=== PATIENT | male | born 1945 | race Caucasian/White ===

== ENCOUNTER 2020-03-15 12:10 | Outpatient (REF) | payer MEDICARE, SELFPAY | END 2020-03-15 12:11 | disposition home or self-care (01) | LOC: HO.LAB 12:10 | PROVIDERS: Visit Provider Nurse Practitioner Family | DX: J02.9 Acute pharyngitis, unspecified (principal); Z20.828 Contact with and (suspected) exposure to other viral communicable diseases | CPT/HCPCS: U0003 ==

== ENCOUNTER 2020-07-15 14:16 | Emergency (ER) | payer MEDICARE, SELFPAY ==
--- NOTE | ~2020-07-15 | CT_ITS ---
EXAMINATION: CT ANGIOGRAM NECK WITH CONTRAST CT ANGIOGRAM BRAIN WITH CONTRAST CLINICAL INFORMATION: Dizziness. Abnormal gait. COMPARISON: Brain MRI 01/08/2019. TECHNIQUE: Test bolus sequences followed by intravenous administration 70 mL of Omnipaque 350. Helical imaging was performed in the axial plane from the thoracic inlet to the skull vertex. Delayed postcontrast imaging of the head was also performed. The data was processed at the development technologist workstation for generation of MIP sequences. Angled MIPs and volume rendered reformatted images were also generated at an offline 3D workstation. Stenoses are assessed in accordance with NASCET criteria unless otherwise indicated. This CT examination was performed using dose optimization techniques as appropriate, variously including the following: *Automated exposure control *Adjustment of mA and/or kV according to patient size (this includes techniques or standardized protocols for targeted exams where dose is matched to indication/reason for exam; i.e. extremities or head) *Use of iterative reconstruction technique DLP: 2281 mGy-cm FINDINGS: Head CT: There is redemonstration of multiple chronic infarcts in the bilateral right more than left frontal lobes, bilateral parietal lobes, and right more than left occipital lobes. Chronic right basal ganglia and right cerebellar lacunar infarcts are also present. No definite acute tentorial infarction is seen. Background changes of chronic microangiopathy are noted. No abnormal enhancement is seen on the postcontrast images. The dural venous sinuses are normally opacified. Neck CTA: Atheromatous changes are seen involving the aortic arch and great vessels without high-grade narrowing. Atheromatous changes are seen at the bilateral carotid bifurcations resulting in less than 50% stenosis of the internal carotid arteries. Severe atheromatous changes are seen at the carotid siphons resulting in mild to moderate stenosis of the right paraclinoid segment and mild stenosis of the left paraclinoid segment. The bilateral vertebral arteries are patent. Head CTA: No proximal vessel occlusion is seen. The intradural vertebral arteries and basilar artery are patent. There is -type origin of the left RESEARCH ANALYST. Both lye bath operator are patent. No high-grade stenosis or occlusion is seen. There is no definite aneurysm. Non-vascular findings: A 1.1 cm hyperenhancing lesion is seen within the deep aspect of the left parotid gland. The cervical soft tissues are otherwise within normal limits. Emphysema is present in the upper lungs. There are multilevel degenerative spondylotic changes in the setting of prior multilevel ACDF. CT/CT angio head neck IMPRESSION: Sequela of numerous cortical infarctions seen bilaterally in the supratentorial and infratentorial compartments. Consider brain MRI for dedicated evaluation for any acute ischemic changes. No proximal vessel occlusion or high-grade stenosis within the major head or neck arteries. Incidentally noted 1.1 cm lesion in the left parotid gland which may represent a Warthin's tumor or other epithelial lesion for which nonemergent ENT follow-up is suggested.
[2020-07-15 14:47] VITALS: BP 125/67; PULSE 74; RESP 20; O2SAT 98; BMI 24.2
[2020-07-15 15:52] LABS: MANUAL DIFF FLAG NO
[2020-07-15 15:55] LABS: Basophils Percent Auto 0.4 % (0-2); Eosinophils Absolute Auto 0.1 X10*3/uL (0.0-0.4); Eosinophils Percent Auto 2.1 % (0-4); Hematocrit 48.2 % (42-52); Hemoglobin 15.5 g/dl (14.0-18.0); Imm Gran Abs Auto 0.02 X10*3/uL (0.00-0.03); Imm Gran Pct Auto 0.3 % (0.0-0.4); Lymphocytes Absolute Auto 1.9 X10*3/uL (1.2-4.9); Lymphocytes Percent Auto 28.9 % (20-40); Mean Corpuscular HGB Conc 32.2 g/dl (31.0-36.0); Mean Corpuscular Volume 93.4 fL (80-98); Mean Platelet Volume 10.5 fL (9.4-12.4); Monocytes Absolute Auto 0.4 X10*3/uL (0.1-1.2); Monocytes Percent Auto 5.2 % (2-11); Neutrophils Absolute Auto 4.2 X10*3/uL (2.0-8.3); Neutrophils Percent Auto 63.1 % (45-73); Platelet Count 155 X10*3/uL (160-400); Red Blood Count 5.16 X10*6/uL (4.60-5.80); Red Cell Distribution Width 13.1 % (11.0-16.0); White Blood Count 6.7 X10*3/uL (4.8-10.8)
[2020-07-15 16:38] LABS: Blood Urea Nitrogen 20 mg/dL (9-16); Calcium 8.9 mg/dL (8.4-10.2); Creatinine Clr Calc Pharmacy 58.7; Estimated Glomerular Filt Rate > 60; Glucose Random 129 mg/dL (60-115)
[2020-07-15 16:48] LABS: Anion Gap 12 (12-20); Carbon Dioxide 26 mmol/L (22-29); Chloride 107 mmol/L (96-108); Potassium 4.1 mmol/L (3.3-5.1); Sodium 141 mmol/L (135-145)
[2020-07-15 16:51] VITALS: BP 119/61; PULSE 65; RESP 16; TEMP 36.6; O2SAT 96
--- NOTE | 2020-07-15 17:10 | ED_ITS ---
HPI - Dizziness General Chief Complaint: Dizziness Stated Complaint: Dizziness Time Seen by Provider: 07/15/20 17:05 Source: patient and family Mode of arrival: ambulatory Limitations: no limitations History of Present Illness HPI Narrative: 74-year-old male with past history of arthritis, coronary artery disease, diverticulitis, hyperlipidemia, TIA/CVA, triple bypass right hip replacement, and cervical disc neck surgery presents with approximately 1 month of dizziness and loss of balance. States the dizziness gets worse on ambulation, he has had to hold onto items to walk, particularly in the morning. He does notice that when he walks or does any physical activity he hears a swishing sound in his ear. He does not describe any chest pain or pressure, changes in vision, falls, weakness, fevers, chills, palpitations, shortness breath, shortness breath on exertion, edema, cough, abdominal pain, abdominal distention, dysuria, hematuria, diarrhea, constipation, melena, or hematochezia. MD elicited complaint: dizziness, difficulty walking and disequilibrium Pertinent past history: stroke Onset (ago): month(s) (1) Timing: gradual onset Severity: moderate Description: sense of movement, off-balance and difficulty walking History of similar symptoms: Yes Exacerbating factors: movement/ambulation, change in body position and exertion Relieving factors: nothing Associated symptoms: ear discomfort and tinnitus Associated neuro symptoms: gait ataxia Related Data Home Medications Medication Instructions Recorded Confirmed aspirin 81 mg tablet,delayed 81 mg PO DAILY 01/12/20 06/14/20 release atorvastatin 80 mg tablet 80 mg PO DAILY 01/12/20 06/14/20 fluticasone propionate 50 1 spray INTRANASAL DAILY 01/12/20 06/14/20 mcg/actuation nasal spray,suspension ipratropium 0.5 mg-albuterol 3 mg 3 ml INHALATION Q6H PRN 01/12/20 06/14/20 (2.5 mg base)/3 mL nebulization soln lisinopril 10 mg tablet 10 mg PO DAILY 01/12/20 06/14/20 nebulizers #1 ea 01/12/20 06/14/20 Previous Rx's Medication Instructions Recorded metoprolol succinate 25 mg 25 mg PO DAILY #30 tab 03/15/20 tablet,extended release 24 hr sertraline 100 mg tablet 100 mg PO DAILY #30 tab 04/11/20 cetirizine 10 mg tablet 10 mg PO DAILY 90 Days #90 tab 04/26/20 metoprolol succinate 25 mg 25 mg PO DAILY 90 Days #90 tab 04/26/20 tablet,extended release 24 hr meclizine 25 mg PO BID PRN #30 tab 07/15/20 Allergies Allergy/AdvReac Type Severity Reaction Status Date / Time No Known Allergies Allergy Unverified 06/14/20 11:02 Review of Systems Review of Systems: Constitutional: Positive dizziness, No Weight loss, No Fever, No Chills, No Night Sweats, No Fatigue, No Malaise ENT/Mouth: Positive tinnitus, No Hearing loss, No Ear Pain, No Nasal Congestion, No Sinus Pain, No Hoarseness, No sore throat, No Rhinorrhea, No Swallowing Difficulty Eyes: No Eye Pain, No Swelling, No Redness, No Foreign Body, No Discharge, No Vision Changes Cardiovascular: No Chest Pain, No SOB, No Dyspnea on Exertion, No Orthopnea, No Edema, No Palpitations Respiratory: No Cough, No Sputum, No Wheezing, No Smoke Exposure, No Dyspnea Gastrointestinal: Positive Nausea, Positive Vomiting, positive Diarrhea, positive abdominal Pain, No Hematochezia, No Melena Genitourinary: no irregular bleeding, No Dysuria, No Urinary Frequency, No Hematuria, No Urinary Incontinence, No Urgency, No Flank Pain, No Urinary Flow Changes, No Hesitancy Musculoskeletal: No joint pain, No Myalgias, No Joint Swelling Skin: No Skin Lesions, No rash Neuro: Positive ataxia, positive dizziness, No Weakness, No Numbness, No Paresthesias, No Loss of Consciousness, No Headache Psych: No Anxiety/Panic, No Depression, No SI/HI/AH/VH, No Social Issues Heme/Lymph: No Bruising, No Bleeding,No Lymphadenopathy Endocrine: No Polyuria, No Polydipsia, No Temperature Intolerance Yes all other systems are reviewed and are negative [facility] Past Medical History Attestation statement: The following information was validated with the patient. Source: old records reviewed Medical History Anemia Atherosclerosis Carotid stenosis Cerebrovascular disease Cervical radiculopathy Coronary artery disease CVA (cerebral vascular accident) Depression Dyslipidemia Hematuria Left pontine CVA Osteoarthritis of right hip PVD (peripheral vascular disease) Rectal bleeding Toenail deformity Tremor Vertigo Surgical History History of revision of total hip arthroplasty Hx of CABG Status post shoulder surgery Family History Family History Father Abdominal aneurysm Social History Social History Alcohol intake: never Tobacco Type: Cigar Advance Directives: No Advance Directives Information Provided: No Physical Exam Vital Signs: Vital Signs: Last Vital Signs Temp 97.9 F 07/15/20 16:51 Pulse 81 07/15/20 20:26 Resp 16 07/15/20 16:51 BP 154/78 H 07/15/20 20:26 Pulse Ox 96 07/15/20 16:51 Body Mass Index 24.2 Appearance: Alert. Oriented X3. No acute distress. Head: Normal external exam. Normocephalic. Atraumatic. No Bautista signs noted. No raccoon eyes noted Eyes: PERRLA. EOMI. Conjunctiva and sclera normal. Eyelids normal. ENT: TM's Normal. Pharynx normal. Uvula midline. Moist mucous membranes. No trismus noted. No drooling noted. No muffled voice noted. Neck: Normal inspection. Neck supple. No adenopathy. No meningeal signs. No neck mass noted. CVS: Normal heart rate and rhythm. Heart sound normal. No murmurs noted. Pulses equal to all extremities. Respiratory: No respiratory distress. Painless inspiration. Breath sounds normal. No wheezes/rales/rhonchi noted. Chest nontender. No accessory muscle usage noted or decreased air movement noted. Abdomen: Soft and nontender. Bowel sounds normal in all 4 quadrants. No distention noted. No organomegaly noted. No visible injury noted. Back: No CVA tenderness. Full range of motion noted. Skin: Skin warm and dry. Normal skin color. Normal skin turgor. No rashes/lesions/lacerations noted. Extremities: No lower extremity edema. Extremities exhibit normal range of motion. Extremities nontender. Neuro: cranial nerves 2-12 intact, no focal neural deficits, strength 5/5 to all extremities, No motor deficit. No sensory deficit. Reflexes normal. NIH Stroke Scale Internal: Initial- Upon Arrival Level of Consciousness: Alert Level of Consciousness Questions: Answers both questions correctly Level of Consciousness Commands: Performs both tasks correctly Best Gaze: Normal Visual: No visual loss Facial Palsy: Normal Motor Arm (Right): No drift Motor Arm (Left): No drift Motor Leg (Right): No drift Motor Leg (Left): No drift Limb Ataxia: Absent Sensory: Normal Best Language: No aphasia Dysarthia: Normal Extinction and Inattention: No abnormality Score: 0 Course Course Course Narrative: 74-year-old male with past history of arthritis, coronary artery disease, diverticulitis, hyperlipidemia, TIA/CVA, triple bypass right hip replacement, and cervical disc neck surgery presents with approximately 1 month of dizziness and loss of balance. NIH stroke scale is 0, will order CT angio of head and neck, rule out ACS, CBC, Chem 7, troponins, PT INR. Will give L normal saline as patient will have IV contrast. 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 Chronic bilateral cerebral infarcts noted again. Chronic lacunar infarcts within the right cerebellum. 7:58 p.m. discussion with Radiology regarding findings, based on prior studies findings of infarct are consistent with prior studies. MRI can be done on outpatient basis. Discussion with Dr. Rooney, will call out to neurology for consult. 8:20 p[address] discussion with Neurology. Dr Hidalgo, which happens to be the patient's neurologist, feels that the findings are chronic, no need for acute i ntervention or emergent MRI at this time. The patient can be followed up in the office. Will give a prescription for meclizine. Orthostatics are negative. A detailed description of discussion with neurologist with patient and patient's family. They both agree with Neurology recommendation, understands that if any exacerbating symptoms were to occur that they should return to the emergency dep artment immediately. MDM - Dizziness Differential Diagnosis Differential diagnosis: Likely benign paroxysmal positional vertigo, orthostatic hypotension, cerebrovascular accident and transient cerebral ischemia Medical Records Attestation: I reviewed the patient's medical records. Lab Data Attestation: I reviewed the patient's lab results. Result diagrams: 07/15/20 15:37 07/15/20 15:37 Labs: Lab Results 04/09/21 04/09/21 04/09/21 Range/Units 15:37 15:37 15:37 WBC 6.7 (4.8-10.8) X10*3/uL RBC 5.16 (4.60-5.80) X10*6/uL Hgb 15.5 (14.0-18.0) g/dl Hct 48.2 (42-52) % MCV 93.4 (80-98) fL MCH 30.0 (27.0-33.0) pg MCHC 32.2 (31.0-36.0) g/dl RDW 13.1 (11.0-16.0) % Plt Count 155 L (160-400) X10*3/uL MPV 10.5 (9.4-12.4) fL Immature Gran % (Auto) 0.3 (0.0-0.4) % Neut % (Auto) 63.1 (45-73) % Lymph % (Auto) 28.9 (20-40) % [place] % (Auto) 5.2 (2-11) % Eos % (Auto) 2.1 (0-4) % Baso % (Auto) 0.4 (0-2) % Lymph # (Auto) 1.9 (1.2-4.9) X10*3/uL [place] # (Auto) 0.4 (0.1-1.2) X10*3/uL Eos # (Auto) 0.1 (0.0-0.4) X10*3/uL Baso # (Auto) 0.0 (0.0-0.2) X10*3/uL Abs Immat Gran (auto) 0.02 (0.00-0.03) X10*3/uL Absolute Neuts (auto) 4.2 (2.0-8.3) X10*3/uL Absolute Nucleated RBC 0.000 (0.0-0.012) X10*3/uL Nucleated RBC % (auto) 0.0 (0.0-0.2) /100WBC PT (10.8-13.0) SEC INR (0.9-1.1) APTT (24.1-38.0) SEC Hold Blue Top SEE NOTE Sodium 141 (135-145) mmol/L Potassium 4.1 (3.3-5.1) mmol/L Chloride 107 (96-108) mmol/L Carbon Dioxide 26 (22-29) mmol/L Anion Gap 12 (12-20) BUN 20 H (9-16) mg/dL Creatinine 0.91 (0.5-1.4) mg/dL Estim Creat Clear Calc 58.7 Estimated GFR > 60 Random Glucose 129 H (60-115) mg/dL Calcium 8.9 (8.4-10.2) mg/dL Troponin I High Sens (<3.5-35.0) ng/L 07/15/20 07/15/20 Range/Units 17:50 17:50 WBC (4.8-10.8) X10*3/uL RBC (4.60-5.80) X10*6/uL Hgb (14.0-18.0) g/dl Hct (42-52) % MCV (80-98) fL MCH (27.0-33.0) pg MCHC (31.0-36.0) g/dl RDW (11.0-16.0) % Plt Count (160-400) X10*3/uL MPV (9.4-12.4) fL Immature Gran % (Auto) (0.0-0.4) % Neut % (Auto) (45-73) % Lymph % (Auto) (20-40) % [place] % (Auto) (2-11) % Eos % (Auto) (0-4) % Baso % (Auto) (0-2) % Lymph # (Auto) (1.2-4.9) X10*3/uL [place] # (Auto) (0.1-1.2) X10*3/uL Eos # (Auto) (0.0-0.4) X10*3/uL Baso # (Auto) (0.0-0.2) X10*3/uL Abs Immat Gran (auto) (0.00-0.03) X10*3/uL Absolute Neuts (auto) (2.0-8.3) X10*3/uL Absolute Nucleated RBC (0.0-0.012) X10*3/uL Nucleated RBC % (auto) (0.0-0.2) /100WBC PT 13.1 H (10.8-13.0) SEC INR 1.1 (0.9-1.1) APTT 38.7 H (24.1-38.0) SEC Hold Blue Top Sodium (135-145) mmol/L Potassium (3.3-5.1) mmol/L Chloride (96-108) mmol/L Carbon Dioxide (22-29) mmol/L Anion Gap (12-20) BUN (9-16) mg/dL Creatinine (0.5-1.4) mg/dL Estim Creat Clear Calc Estimated GFR Random Glucose (60-115) mg/dL Calcium (8.4-10.2) mg/dL Troponin I High Sens 6.4 (<3.5-35.0) ng/L Imaging Data CT angio head and neck: Attestation: I personally reviewed and interpreted this imaging study as follows: ECG Data Attestation: I personally reviewed and interpreted this ECG as follows: ECG interpretation date: 07/15/20 ECG interpretation time: 17:21 Prior ECG tracings: available for review Interpretation: Vent. Rate : 060 BPM Atrial Rate : 060 BPM P-R Int : 132 ms QRS Dur : 092 ms QT Int : 482 ms P-R-T Axes : 078 075 089 degrees QTc Int : 482 ms Normal sinus rhythm Possible Left atrial enlargement Incomplete right bundle branch block Prolonged QT Abnormal ECG When compared with ECG of 08-MAY-2019 10:35, No significant change was found No significant changes when compared to September 30, 2015 Discharge Plan Discharge Clinical Impression: Dizziness Patient Disposition: Home, Self-Care Instructions: Dizziness (ED) Additional Instructions: You were evaluated for dizziness, intermittent loss of balance, and a swishing sound skin here while walking or moving. We did CT angio of your head and neck, this test looks at the blood vessels in your brain and neck, which were negative for acute findings. 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 I did discuss your findings with Dr. Fiore, and based on your findings feels that there are no emergent interventions required for your symptoms. Please follow-up with him in the office, call and request an appointment. Please use meclizine as needed for dizziness. For the incidental finding on the parotid gland please follow-up with ENT. Please call [facility] and request ENT. Thank you for choosing this emergency department for evaluation. Please follow-up with primary care physician as needed. Return to the emergency department for any new, concerning, or worsening symptoms. Prescriptions: New meclizine 25 mg tablet 25 mg PO BID PRN (Reason: dizziness) Qty: 30 RF: 0 No Action sertraline 100 mg tablet 100 mg PO DAILY Qty: 30 RF: 4 metoprolol succinate 25 mg tablet extended release 24 hr 25 mg PO DAILY 90 Days Qty: 90 RF: 0 cetirizine [Zyrtec] 10 mg tablet 10 mg PO DAILY 90 Days Qty: 90 RF: 0 ipratropium-albuterol 0.5 mg-3 mg(2.5 mg base)/3 mL solution for nebulization 3 ml inhalation Q6H PRNRF: 0 (DME) Altera Nebulizer Misc See Rx Instructions .ROUTE .MEDSUPPLY Qty: 1 RF: 0 atorvastatin 80 mg tablet 80 mg PO DAILY RF: 0 aspirin 81 mg tablet,delayed release (DR/EC) 81 mg PO DAILY RF: 0 fluticasone propionate [Flonase Allergy Relief] 50 mcg/actuation spray,susp ension 1 spray intranasal DAILY RF: 0 lisinopril 10 mg tablet 10 mg PO DAILY RF: 0 metoprolol succinate 25 mg tablet extended release 24 hr 25 mg PO DAILY Qty: 30 RF: 0 Interventions: ED Discharge Assessment Last Done: 07/15/20 21:29 Discharge Date/Time: 07/15/20 21:29
--- NOTE | 2020-07-15 17:11 | ECG_ITS ---
Test Reason : DIZZINESS Blood Pressure : / mmHG Vent. Rate : 060 BPM Atrial Rate : 060 BPM P-R Int : 132 ms QRS Dur : 092 ms QT Int : 482 ms P-R-T Axes : 078 075 089 degrees QTc Int : 482 ms Normal sinus rhythm Possible Left atrial enlargement Incomplete right bundle branch block Prolonged QT Abnormal ECG When compared with ECG of 08-MAY-2019 10:35, No significant change was found Referred By: Kathe Mcduffie Electronically Signed By:AUDRA HUERTA
[2020-07-15 18:15] LABS: INTERNATIONAL NORM RATIO 1.1 (0.9-1.1); Prothrombin Time 13.1 SEC (10.8-13.0)
[2020-07-15 18:21] LABS: Partial Thromboplastin Time 38.7 SEC (24.1-38.0)
[2020-07-15 18:27] LABS: Troponin-I High Sensitivity 6.4 ng/L (<3.5-35.0)
[2020-07-15] MEDS: iohexoL 350 MG/ML 100 ML INFUS..BTL IV (18:56)
[2020-07-15 20:23] VITALS: BP 147/64; PULSE 67
[2020-07-15 20:24] VITALS: BP 157/82; PULSE 80
[2020-07-15 20:26] VITALS: BP 154/78; PULSE 81
[2020-07-15] MEDS: Meclizine HCl 25 MG TABLET PO (20:37)
[2020-07-15] MEDS: 0.9 % Sodium Chloride 1,000 ML 999 ML IVCONT (20:37)
== END 2020-07-15 21:29 | disposition home or self-care (01) ==
PROVIDERS: Nurse Practitioner Family; Emergency Provider Internal Medicine; PCP Nurse Practitioner Family
DX: R42 Dizziness and giddiness (principal); H93.13 Tinnitus, bilateral; M54.2 Cervicalgia; I25.10 Atherosclerotic heart disease of native coronary artery without angina pectoris; Z79.899 Other long term (current) drug therapy
CPT/HCPCS: 36415; 70496; 70498; 80048; 84484; 85025; 85610; 85730; 93005; 96365; 96375; 99284; Q9967

== ENCOUNTER → 2020-12-29 09:44 | Outpatient (BNVA) | payer MEDICARE, SELFPAY | PROVIDERS: PCP Nurse Practitioner Family; Referring Provider Nurse Practitioner Family; Visit Provider Internal Medicine | DX: I49.8 Other specified cardiac arrhythmias (principal); I35.9 Nonrheumatic aortic valve disorder, unspecified; I25.10 Atherosclerotic heart disease of native coronary artery without angina pectoris; I73.9 Peripheral vascular disease, unspecified; I63.9 Cerebral infarction, unspecified | CPT/HCPCS: 93005; 99212 ==

== ENCOUNTER → 2021-02-07 09:27 | Outpatient (REF) | payer MEDICARE, SELFPAY ==
--- NOTE | 2021-02-07 09:32 | CA_ITS ---
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 Normal LV systolic function with impaired relaxation filling pattern 2. Mild aortic stenosis 3. Normal RV systolic pressure 4. No pericardial effusion Findings Left Ventricle Normal left ventricular size, thickness, and systolic function. The visually estimated ejection fraction is between 55-60%. Spectral Doppler is indicative of an impaired relaxation filling pattern. E/E prime ratio is between 8 and 15 consistent with indeterminate filling pressures. Right Ventricle Normal right ventricular cavity size and systolic function. Atria The left atrium is normal in size. Interatrial shunt cannot be excluded. The right atrium is normal in size. Aortic Valve The aortic valve was not well visualized. There is mild calcification of the aortic valve. There is mild aortic valve stenosis. There is no aortic valve regurgitation. Mitral Valve There is mild anterior and posterior mitral leaflet thickening. There is trace mitral valve regurgitation. There is no mitral valve stenosis. Pulmonic Valve The pulmonic valve was not well visualized. Tricuspid Valve Likely normal tricuspid valve structure and function. There is trace tricuspid valve regurgitation. The right ventricular systolic pressure is normal. The right ventricular systolic pressure is 34 mmHg. There is no evidence of pulmonary hypertension. Great Vessels All visible segments of the aorta are normal in size. The pulmonary artery was not well visualized. Venous The inferior vena cava is normal in size and collapses greater than 50% with inspiration. Pericardium/Pleural There is no evidence of pericardial effusion. Prior Study Comparison No significant change compared to prior study dated: 06/23/2018. Measurements 2D Linear Measurements IVSd: 1.17 0.6-0.9/0.6-1.0 cm LVIDd: 3.96 3.9-5.3/4.2-5.9 cm LVIDd Index: 2.37 2.4-3.2/2.2-3.1 cm/m2 LVIDs: 2.91 2.0-3.6 cm LVPWd: 1.15 0.7-1.1 cm Ao Root: 2.90 2.1-3.5 cm LA Diam: 3.30 2.7-3.8/3.0-4.0 cm LAIDs Index: 1.98 1.5-2.3 cm/m2 LV Mass: 193.00 67-162/88-224 g LV Mass Index: 115.57 43-95/49-115 g/m2 LVOT Diam: 2.00 3.0+(-)1.3 cm Mitral Valve MV Pk E: 0.65 MV PK A: 0.78 MV Decel Time: 171.00 E/A: 0.80 E'Lateral: 9.14 E'Medial: 6.85 E/E' Med: 9.50 E/E' Lat: 7.10 PHT: 50.00 MVA PHT: 4.40 Decel Robertson: 3.80 Aortic Valve AoV Pk Truman: 1.91 AoV Mn Truman: 1.35 AoV VTI: 0.41 AoV Pk Grad: 15.00 Aov Mn Grad: 8.00 BERYL Cont.VTI: 1.50 LVOT LVOT Pk Truman: 0.95 LVOT Mn Truman: 0.58 LVOT VTI: 0.19 LVOT Pk Grad: 4.00 LVOT Mn Grad: 2.00 LVOT Diam: 2.00 LVOT Area: 3.14 Diastolic Function MV Pk E: 0.65 MV Pk A: 0.78 E/A: 0.80 E'Medial: 6.85 E/E' Med: 9.50 E' Laterial: 9.14 E/E' Lat: 7.10 Tricuspid Valve TR Pk Truman: 2.77 TR Pk Grad: 31.00 RA Press: 3.00 RVSP: 34.00 Great Vessels Aorta Ao Root-2D: 2.90 2.0-3.7 cm Ao Asc: 3.20 2.1-3.4 cm Ao Arch: 2.40 Pulmonary Valve PV Pk Rtuman: 1.22 Peak PV Grad: 6.00 Updated in Other Vendor System with Status of Final Jamison Canseco MD electronically signed on 02/07/2021 4:46:26 PM with status of Final
--- NOTE | 2021-02-07 09:32 | HM_ITS ---
Conclusion: 1. Patient was monitored for total period of 2 days and 3 hours 2. Baseline rhythm is normal sinus rhythm with average heart of 90 beats per minute 3. No significant pauses or bradycardia noted 4. One episode of 3 beat nonsustained VT at about 113 beats per minute 5. Total of 3440 PACs accounting for 1.25% of total beats accounting for occasional PACs 6. No patient reported events MTDD
== END ==
LOC: HO.CARD 09:27
PROVIDERS: PCP Nurse Practitioner Family; Visit Provider Internal Medicine
DX: I35.9 Nonrheumatic aortic valve disorder, unspecified (principal); I48.91 Unspecified atrial fibrillation
CPT/HCPCS: 93242; 93306

== ENCOUNTER → 2021-02-23 09:03 | Outpatient (BNVA) | payer MEDICARE, SELFPAY | PROVIDERS: PCP Nurse Practitioner Family; Referring Provider Nurse Practitioner Family; Visit Provider Internal Medicine | DX: I25.10 Atherosclerotic heart disease of native coronary artery without angina pectoris (principal); I49.8 Other specified cardiac arrhythmias; I35.9 Nonrheumatic aortic valve disorder, unspecified; I73.9 Peripheral vascular disease, unspecified; I63.9 Cerebral infarction, unspecified | CPT/HCPCS: 99212 ==

== ENCOUNTER 2021-03-22 14:20 | Outpatient (REF) | payer MEDICARE, SELFPAY ==
--- NOTE | ~2021-03-22 | XR_ITS ---
EXAMINATION: XR HAND, RIGHT XR HAND, LEFT CLINICAL INFORMATION: Pain in hands. Patient unable to move ring on left hand. COMPARISON: X-ray of the right thumb and hand July 2010. TECHNIQUE: 3 views of each hand. FINDINGS: Right hand: The bones appear osteopenic. Interphalangeal joints: Small subchondral cysts and/or marginal osteophytes scattered about multiple interphalangeal joints, predominantly the DIP joints, indicative of [id number] osteoarthritis. Metacarpophalangeal joints: There is nonuniform joint space narrowing and marginal osteophytes about the first metacarpophalangeal joint indicative of [id number] osteoarthritis. Wrist: Unremarkable Left hand: The bones are osteopenic. Interphalangeal joints: Scattered subchondral cysts and/or marginal osteophytes throughout the DIP joints and IP joint of the thumb indicative of mild osteoarthritis. Metacarpophalangeal joints: There are marginal osteophytes about the first metacarpophalangeal joint indicative of mild osteoarthritis. Wrist: Normal. Incidental note is made of metallic density overlying the proximal portion of the metacarpal of the thumb, likely representing prior surgery. XR/XR hand LT 2V IMPRESSION: Right hand: [id number] osteoarthritis involving multiple joints of the hand. These degenerative changes have progressed compared with the prior x-ray performed in 2010. Left hand: Mild osteoarthritis.
--- NOTE | ~2021-03-22 | XR_ITS ---
EXAMINATION: XR HAND, RIGHT XR HAND, LEFT CLINICAL INFORMATION: Pain in hands. Patient unable to move ring on left hand. COMPARISON: X-ray of the right thumb and hand July 2010. TECHNIQUE: 3 views of each hand. FINDINGS: Right hand: The bones appear osteopenic. Interphalangeal joints: Small subchondral cysts and/or marginal osteophytes scattered about multiple interphalangeal joints, predominantly the DIP joints, indicative of [id number] osteoarthritis. Metacarpophalangeal joints: There is nonuniform joint space narrowing and marginal osteophytes about the first metacarpophalangeal joint indicative of [id number] osteoarthritis. Wrist: Unremarkable Left hand: The bones are osteopenic. Interphalangeal joints: Scattered subchondral cysts and/or marginal osteophytes throughout the DIP joints and IP joint of the thumb indicative of mild osteoarthritis. Metacarpophalangeal joints: There are marginal osteophytes about the first metacarpophalangeal joint indicative of mild osteoarthritis. Wrist: Normal. Incidental note is made of metallic density overlying the proximal portion of the metacarpal of the thumb, likely representing prior surgery. XR/XR hand RT 2V IMPRESSION: Right hand: [id number] osteoarthritis involving multiple joints of the hand. These degenerative changes have progressed compared with the prior x-ray performed in 2010. Left hand: Mild osteoarthritis.
== END 2021-03-22 14:21 | disposition home or self-care (01) ==
LOC: HO.HMGCX 14:20
PROVIDERS: PCP Nurse Practitioner Family; Visit Provider Nurse Practitioner Family
DX: M79.641 Pain in right hand (principal); M79.642 Pain in left hand
CPT/HCPCS: 73120

== ENCOUNTER 2021-08-17 13:45 | Emergency (ER) | payer MEDICARE, SELFPAY ==
--- NOTE | 2021-08-17 | ECG_ITS ---
Test Reason : DIZZINESS Blood Pressure : / mmHG Vent. Rate : 073 BPM Atrial Rate : 073 BPM P-R Int : 140 ms QRS Dur : 082 ms QT Int : 450 ms P-R-T Axes : 064 085 095 degrees QTc Int : 495 ms Normal sinus rhythm Nonspecific ST and T wave abnormality Prolonged QT Abnormal ECG When compared with ECG of 15-JUL-2020 17:21, No significant change was found Referred By: Generic ED Physician Electronically Signed By:YOU MCDONALD MD
--- NOTE | ~2021-08-17 | CT_ITS ---
EXAMINATION: CT HEAD WITHOUT CONTRAST CLINICAL INFORMATION: Dizziness COMPARISON: Previous head CT most recent June 2015, brain MRI January 2019 TECHNIQUE: Contiguous axial imaging was performed from the skull base to vertex without intravenous administration of contrast. This CT examination was performed using dose optimization techniques as appropriate, variously including the following: *Automated exposure control *Adjustment of mA and/or kV according to patient size (this includes techniques or standardized protocols for targeted exams where dose is matched to indication/reason for exam; i.e. extremities or head) *Use of iterative reconstruction technique DLP: 633 mGy-cm FINDINGS: There is no evidence of an extra-axial collection. There is no evidence of intra-axial or extra-axial hemorrhage. The ventricles and extra-axial CSF spaces are slightly prominent suggestive of mild generalized atrophy. There is nonspecific periventricular white matter disease. There are bilateral old right frontal, bilateral parietal and right occipital infarct that appear unchanged from 2016. No mass, mass effect or acute infarct is seen. Review at bone windows is normal. Visualized paranasal sinuses, mastoid air cells and middle ears are clear. CT/CT head/brain wo con IMPRESSION: No acute findings. Multiple old infarcts similar to previous exams.
[2021-08-17 14:28] VITALS: BP 133/64; PULSE 78; RESP 18; TEMP 37.1; O2SAT 97; BMI 23.1
[2021-08-17 14:49] LABS: MANUAL DIFF FLAG NO
[2021-08-17 14:53] LABS: Basophils Percent Auto 0.5 % (0-2); Eosinophils Absolute Auto 0.3 X10*3/uL (0.0-0.4); Eosinophils Percent Auto 3.4 % (0-4); Hematocrit 49.3 % (42.0-52.0); Hemoglobin 16.2 g/dl (14.0-18.0); Imm Gran Abs Auto 0.02 X10*3/uL (0.00-0.03); Imm Gran Pct Auto 0.2 % (0.0-0.4); Lymphocytes Absolute Auto 2.5 X10*3/uL (1.2-4.9); Lymphocytes Percent Auto 30.3 % (20-40); Mean Corpuscular HGB Conc 32.9 g/dl (31.0-36.0); Mean Corpuscular Hemoglobin 29.8 pg (27.0-33.0); Mean Corpuscular Volume 90.8 fL (80.0-98.0); Mean Platelet Volume 10.8 fL (9.4-12.4); Monocytes Absolute Auto 0.7 X10*3/uL (0.1-1.2); Monocytes Percent Auto 7.9 % (2-11); Neutrophils Absolute Auto 4.7 x10*3/uL (2.0-8.3); Neutrophils Percent Auto 57.7 % (45-73); Platelet Count 162 X10*3/uL (160-400); Red Blood Count 5.43 X10*6/uL (4.60-5.80); Red Cell Distribution Width 13.7 % (11.0-16.0); White Blood Count 8.2 X10*3/uL (4.8-10.8)
[2021-08-17 15:07] LABS: Anion Gap 11 (12-20); Blood Urea Nitrogen 20 mg/dL (9-16); Calcium 9.2 mg/dL (8.4-10.2); Carbon Dioxide 26 mmol/L (22-29); Chloride 111 mmol/L (96-108); Estimated Glomerular Filt Rate > 60; Glucose Random 91 mg/dL (60-115); Potassium 4.3 mmol/L (3.3-5.1); Sodium 144 mmol/L (135-145)
[2021-08-17 22:06] VITALS: BP 120/63; PULSE 75; RESP 19; O2SAT 97
[2021-08-17] MEDS: Meclizine HCl 25 MG TABLET PO (22:15)
[2021-08-17 22:21] LABS: Alanine Aminotransferase 19 U/L (0-40); Albumin Level 3.9 g/dL (3.5-5.0); Alkaline Phosphatase 69 U/L (39-117); Aspartate Amino Transferase 13 U/L (5-37); Bilirubin Direct 0.3 mg/dL (0.0-0.5); Bilirubin Total 0.5 mg/dL (0.0-1.0); Magnesium 2.2 mg/dL (1.6-2.6); Total Protein 6.8 g/dL (6.5-8.0)
[2021-08-17 23:55] VITALS: BP 130/65; BP 148/70; PULSE 62; PULSE 72
[2021-08-17 23:57] VITALS: BP 147/66; PULSE 66
[2021-08-18 00:03] VITALS: BP 130/65; PULSE 66; RESP 18; O2SAT 98
[2021-08-18 00:16] LABS: Appearance Urine CLEAR; Color Urine YELLOW; Glucose Urine UA NEG (NEG); Leukocyte Esterase Urine NEG (NEG); Nitrite Urine NEG (NEG); PH 5.5 (5.0-8.0); Specific Gravity - Urine 1.025 (1.005-1.025); Urine Blood NEG (NEG); Urine Ketones NEG (NEG); Urine Protein NEG (NEG-TRACE)
--- NOTE | 2021-08-18 00:47 | ED.GENADULT ---
HPI - General Adult General Chief complaint: General Medical Stated complaint: dizziness, headache, weak legs.. stroke history Time Seen by Provider: 08/17/21 21:51 Source: patient Mode of arrival: ambulatory History of Present Illness HPI narrative: 75-year-old male with a past medical history of anxiety, anemia, CAD s/p CABG, PVD, CVA, depression, HLD, vertigo, presenting to the ED complaining of constant room spinning dizziness times months, worse with position changes/head movement. Reports symptoms are acute on chronic but gradually worsening. Also reports generalized fatigue / weakness times months. Denies taking any medication currently. Denies headache, vision change/loss, chest pain, shortness of breath, numbness, tingling, weakness, abdominal pain, nausea /vomiting Onset (ago): month(s) Related Data Home Medications Medication Instructions Recorded Confirmed aspirin 81 mg tablet,delayed 81 mg PO DAILY 01/12/20 03/22/21 release Previous Rx's Medication Instructions Recorded meclizine 25 mg tablet 25 mg PO BID PRN #30 tab 07/15/20 sertraline 100 mg tablet 100 mg PO DAILY #30 tab 12/19/20 atorvastatin 80 mg tablet 80 mg PO DAILY 90 Days #90 tab 12/26/20 metoprolol succinate 25 mg 25 mg PO DAILY #90 tab 12/29/20 tablet,extended release 24 hr diclofenac sodium 1 % topical gel 4 g TOPICAL QID 30 Days #100 g 03/22/21 (Voltaren Arthritis Pain) lisinopril 5 mg tablet 10 mg PO DAILY 30 Days #60 tab 03/30/21 cetirizine 10 mg tablet (Zyrtec) 10 mg PO DAILY 90 Days #90 tab 06/21/21 meclizine 25 mg tablet 25 mg PO TID PRN #14 tab 08/18/21 Allergies Allergy/AdvReac Type Severity Reaction Status Date / Time No Known Allergies Allergy Verified 03/22/21 14:39 Review of Systems Review of Systems: Constitutional: No Fever, No Chills, No Night Sweats, No Fatigue, No Malaise ENT/Mouth: No Ear Pain, No Nasal Congestion, No sore throat, No Rhinorrhea, No Swallowing Difficulty Eyes: No Eye Pain, No Swelling, No Redness Cardiovascular: No Chest Pain, No SOB, No Dyspnea on Exertion, No Orthopnea, No Edema, No Palpitations Respiratory: No Cough, No Sputum, No Dyspnea Gastrointestinal: No Nausea, No Vomiting, No Diarrhea, No Constipation, No Abdominal pain Genitourinary: No Dysuria, No Urinary Frequency, No Hematuria, No Flank Pain, No Urinary Flow Changes, No Hesitancy Musculoskeletal: No joint pain, No Myalgias, No Joint Swelling Skin: No Skin Lesions, No rash Neuro: + Weakness, No Numbness, No Paresthesias, No Loss of Consciousness, + Dizziness, No Headache Yes all other systems are reviewed and are negative Neurologic: Denies Abnormal speech present [facility] [place] Past Medical History Attestation statement: The following information was validated with the patient. Medical History Acute anxiety Anemia Atherosclerosis Carotid stenosis Cerebrovascular disease Cervical radiculopathy Coronary artery disease CVA (cerebral vascular accident) Depression Dyslipidemia Hematuria Left pontine CVA Osteoarthritis of hands, bilateral Osteoarthritis of right hip PVD (peripheral vascular disease) Rectal bleeding Toenail deformity Tremor Vertigo Surgical History History of revision of total hip arthroplasty Hx of CABG Status post shoulder surgery Family History Family History Father Abdominal aneurysm Social History Social History Housing: House Alcohol intake: never Patient Tobacco Use Status: Never used Tobacco Tobacco use type: Cigar Cigarettes Per Day: 1 Years Smoked: 60 years e-Cigarette/Vaping Use: Never Used Second Hand Smoke Exposure: No Use of substances other than those prescribed or required for medical reasons: No Advance Directives: No Advance Directives Information Provided: Yes service: Yes Current occupational status: retired Physical Exam ED Vital Signs: Vital Signs - 24 hr 08/17/21 14:28 08/17/21 22:06 08/17/21 23:55 Temperature 98.8 F Pulse Rate 78 75 62 Respiratory Rate 18 19 Blood Pressure 133/64 120/63 130/65 Pulse Oximetry 97 97 08/17/21 23:57 08/18/21 00:03 Temperature Pulse Rate 66 66 Respiratory Rate 18 Blood Pressure 147/66 H 130/65 Pulse Oximetry 98 BMI result Body Mass Index 23.1 Const General: cooperative, healthy appearing, no acute distress, well developed, alert and awake Orientation/consciousness: patient oriented x3 Limitations: no limitations HENMT Head: Yes normal to inspection and Yes atraumatic Ears: hearing grossly normal bilaterally General nose exam: Normal external nose present Face and sinus: Yes normal facial exam Throat: Yes posterior oropharynx normal Eyes General: appearance normal, both eyes and all related structures Pupils: Equal, round and reactive pupils present EOM: EOMs intact bilaterally and Nystagmus present Neck Neck: Yes normal visual inspection, Yes no lymphadenopathy, Yes no meningeal signs and Yes supple Resp Effort & Inspection: normal respiratory effort and no respiratory distress Auscultation: clear to auscultation bilaterally, no crackles, no rales, no rhonchi and no wheezes Cardio Rate: regular rate Heart sounds: S1 normal heart sound present and S2 normal heart sound present GI Inspection: Yes normal to inspection Palpation (GI): Soft to palpation, nontender, no guarding and not rigid General: Yes no CVA tenderness Back/Spine/Pelvis Back: no CVA tenderness Skin Rashes: no rashes Wounds: no wounds Neuro General: patient oriented x3, gait normal, tone normal, moves all extremities, no meningeal signs, no focal motor deficits and CN's II-XI intact bilaterally Cranial nerves: Yes CN's II-XII intact bilaterally, Yes Equal, round and reactive pupils present, Yes Bilaterally intact EOM present and Yes Nystagmus present horizontal fast component to the right Cognition (Neuro): normal cognition Speech: No Abnormal speech present Gait exam (Neuro): Normal gait present ( slow steady gait. No ataxia) Motor exam (neuro): 5/5 motor strength present throughout and no tremor noted Extrem General: Yes normal to inspection, Yes no pedal edema and Yes no calf tenderness Course Course Course Narrative: - no leukocytosis. Labs otherwise unremarkable. Troponin negative. UA not infected CT head/brain wo con IMPRESSION: No acute findings. Multiple old infarcts similar to previous exams. - orthostatic vital signs negative Results discussed with patient including worrisome signs and symptoms and strict return precautions and needed close follow-up with Neurology. Medical Decision Making MDM Narrative Medical decision making narrative: 75-year-old male with a past medical history of anxiety, anemia, CAD s/p CABG, PVD, CVA, depression, HLD, vertigo, presenting to the ED complaining of constant room spinning dizziness times months, worse with position changes/head movement. Also reports generalized fatigue / weakness times months. on exam vital signs stable, NAD/ nontoxic appearing, no focal neuro deficits, no ataxia. Concern for acute on chronic dizziness/ BPPV/vertigo. Rule out IC pathology. Low concern for CVA/TIA or ICH. Rule out metabolic/infectious etiologies Plan: EKG, labs, UA, head CT, orthostatics, p.o. meclizine, re-evaluate Medical Records Medical records reviewed: Yes I reviewed the patient's medical records. Lab Data Lab results reviewed: Yes I reviewed the patient's lab results. Result diagrams: 08/17/21 14:41 08/17/21 14:41 Labs: Lab Results 08/17/21 08/17/21 08/17/21 Range/Units 14:41 14:41 14:41 WBC 8.2 (4.8-10.8) X10*3/uL RBC 5.43 (4.60-5.80) X10*6/uL Hgb 16.2 (14.0-18.0) g/dl Hct 49.3 (42.0-52.0) % MCV 90.8 (80.0-98.0) fL MCH 29.8 (27.0-33.0) pg MCHC 32.9 (31.0-36.0) g/dl RDW 13.7 (11.0-16.0) % Plt Count 162 (160-400) X10*3/uL MPV 10.8 (9.4-12.4) fL Immature Gran % (Auto) 0.2 (0.0-0.4) % Neut % (Auto) 57.7 (45-73) % Lymph % (Auto) 30.3 (20-40) % [place] % (Auto) 7.9 (2-11) % Eos % (Auto) 3.4 (0-4) % Baso % (Auto) 0.5 (0-2) % Lymph # (Auto) 2.5 (1.2-4.9) X10*3/uL [place]der # (Auto) 0.7 (0.1-1.2) X10*3/uL Eos # (Auto) 0.3 (0.0-0.4) X10*3/uL Baso # (Auto) 0.0 (0.0-0.2) X10*3/uL Abs Immat Gran (auto) 0.02 (0.00-0.03) X10*3/uL Absolute Neuts (auto) 4.7 (2.0-8.3) x10*3/uL Absolute Nucleated RBC 0.000 (0.0-0.012) X10*3/uL Nucleated RBC % (auto) 0.0 (0.0-0.2) /100WBC Sodium 144 (135-145) mmol/L Potassium 4.3 (3.3-5.1) mmol/L Chloride 111 H (96-108) mmol/L Carbon Dioxide 26 (22-29) mmol/L Anion Gap 11 L (12-20) BUN 20 H (9-16) mg/dL Creatinine 1.03 (0.5-1.4) mg/dL Estim Creat Clear Calc 51.0 Estimated GFR > 60 Random Glucose 91 (60-115) mg/dL Calcium 9.2 (8.4-10.2) mg/dL Magnesium 2.2 (1.6-2.6) mg/dL Total Bilirubin 0.5 (0.0-1.0) mg/dL Direct Bilirubin 0.3 (0.0-0.5) mg/dL AST 13 (5-37) U/L ALT 19 (0-40) U/L Alkaline Phosphatase 69 (39-117) U/L Troponin I High Sens 5.0 (<3.5-35.0) ng/L Total Protein 6.8 (6.5-8.0) g/dL Albumin 3.9 (3.5-5.0) g/dL Urine Color Urine Appearance Urine pH (5.0-8.0) Ur Specific [place] (1.005-1.025) Urine Protein (NEG-TRACE) MG/DL Urine Glucose (UA) (NEG) MG/DL Urine Ketones (NEG) MG/DL Urine Blood (NEG) Urine Nitrite (NEG) Ur Leukocyte Esterase (NEG) 08/18/21 Range/Units 00:08 WBC (4.8-10.8) X10*3/uL RBC (4.60-5.80) X10*6/uL Hgb (14.0-18.0) g/dl Hct (42.0-52.0) % MCV (80.0-98.0) fL MCH (27.0-33.0) pg MCHC (31.0-36.0) g/dl RDW (11.0-16.0) % Plt Count (160-400) X10*3/uL MPV (9.4-12.4) fL Immature Gran % (Auto) (0.0-0.4) % Neut % (Auto) (45-73) % Lymph % (Auto) (20-40) % [place] % (Auto) (2-11) % Eos % (Auto) (0-4) % Baso % (Auto) (0-2) % Lymph # (Auto) (1.2-4.9) X10*3/uL [place] # (Auto) (0.1-1.2) X10*3/uL Eos # (Auto) (0.0-0.4) X10*3/uL Baso # (Auto) (0.0-0.2) X10*3/uL Abs Immat Gran (auto) (0.00-0.03) X10*3/uL Absolute Neuts (auto) (2.0-8.3) x10*3/uL Absolute Nucleated RBC (0.0-0.012) X10*3/uL Nucleated RBC % (auto) (0.0-0.2) /100WBC Sodium (135-145) mmol/L Potassium (3.3-5.1) mmol/L Chloride (96-108) mmol/L Carbon Dioxide (22-29) mmol/L Anion Gap (12-20) BUN (9-16) mg/dL Creatinine (0.5-1.4) mg/dL Estim Creat Clear Calc Estimated GFR Random Glucose (60-115) mg/dL Calcium (8.4-10.2) mg/dL Magnesium (1.6-2.6) mg/dL Total Bilirubin (0.0-1.0) mg/dL Direct Bilirubin (0.0-0.5) mg/dL AST (5-37) U/L ALT (0-40) U/L Alkaline Phosphatase (39-117) U/L Troponin I High Sens (<3.5-35.0) ng/L Total Protein (6.5-8.0) g/dL Albumin (3.5-5.0) g/dL Urine Color YELLOW Urine Appearance CLEAR Urine pH 5.5 (5.0-8.0) Ur Specific [place] 1.025 (1.005-1.025) Urine Protein NEG (NEG-TRACE) MG/DL Urine Glucose (UA) NEG (NEG) MG/DL Urine Ketones NEG (NEG) MG/DL Urine Blood NEG (NEG) Urine Nitrite NEG (NEG) Ur Leukocyte Esterase NEG (NEG) Discharge Plan Discharge Clinical Impression: Dizziness Patient Disposition: Home, Self-Care Instructions: Dizziness (ED) Additional Instructions: your blood work and imaging studies were unremarkable today in the ED. Meclizine will help with dizziness. You need to follow-up with your neurologist. If symptoms persist or worsen, become unbearable, your falling return to the ED immediately Prescriptions: New meclizine 25 mg tablet 25 mg PO TID PRN (Reason: dizziness) Qty: 14 0RF No Action sertraline 100 mg tablet 100 mg PO DAILY Qty: 30 4RF atorvastatin 80 mg tablet 80 mg PO DAILY 90 Days Qty: 90 3RF lisinopril 5 mg tablet 10 mg PO DAILY 30 Days Qty: 60 5RF cetirizine [Zyrtec] 10 mg tablet 10 mg PO DAILY 90 Days Qty: 90 2RF meclizine 25 mg tablet 25 mg PO BID PRN (Reason: dizziness) Qty: 30 0RF aspirin 81 mg tablet,delayed release (DR/EC) 81 mg PO DAILY 0RF diclofenac sodium [Voltaren Arthritis Pain] 1 % gel 4 g topical QID 30 Days Qty: 100 0RF Rx Instructions: apply to single knee, ankle, foot; for foot includes sole/toes/top of foot metoprolol succinate 25 mg tablet extended release 24 hr 25 mg PO DAILY Qty: 90 4RF Referrals: Gaston Hidalgo MD [Physician] -
[2021-08-18 01:24] VITALS: BP 137/65; PULSE 70; RESP 20
--- NOTE | 2021-08-18 01:26 | PC.NURSE ---
Pt and provided with food/drink prior to discharge per request.
== END 2021-08-18 01:31 | disposition home or self-care (01) ==
PROVIDERS: Physician Assistant; Emergency Provider Emergency Medicine; PCP Nurse Practitioner Family
DX: R42 Dizziness and giddiness (principal); I25.10 Atherosclerotic heart disease of native coronary artery without angina pectoris; Z86.73 Personal history of transient ischemic attack (TIA), and cerebral infarction without residual deficits; Z95.1 Presence of aortocoronary bypass graft
CPT/HCPCS: 36415; 70450; 80048; 80076; 81003; 83735; 84484; 85025; 93005; 99284

== ENCOUNTER 2021-10-11 08:42 | Outpatient (REF) | payer MEDICARE, SELFPAY ==
[2021-10-11 11:30] LABS: Appearance Urine CLEAR; Color Urine YELLOW; Glucose Urine UA NEG (NEG); Leukocyte Esterase Urine NEG (NEG); Nitrite Urine NEG (NEG); Specific Gravity - Urine 1.025 (1.005-1.025); UACC Culture Trigger NO; Urine Blood TRACE (NEG); Urine Ketones 5 MG/DL (NEG); Urine Protein TRACE MG/DL (NEG-TRACE)
[2021-10-11 11:31] LABS: MANUAL DIFF FLAG NO
[2021-10-11 11:40] LABS: Basophils Percent Auto 0.6 % (0-2); Eosinophils Absolute Auto 0.3 X10*3/uL (0.0-0.4); Eosinophils Percent Auto 4.8 % (0-4); Hematocrit 52.1 % (42.0-52.0); Hemoglobin 16.8 g/dl (14.0-18.0); Imm Gran Abs Auto 0.02 X10*3/uL (0.00-0.03); Imm Gran Pct Auto 0.4 % (0.0-0.4); Lymphocytes Absolute Auto 1.3 X10*3/uL (1.2-4.9); Lymphocytes Percent Auto 24.3 % (20-40); Mean Corpuscular HGB Conc 32.2 g/dl (31.0-36.0); Mean Corpuscular Hemoglobin 29.7 pg (27.0-33.0); Mean Corpuscular Volume 92.2 fL (80.0-98.0); Mean Platelet Volume 11.4 fL (9.4-12.4); Monocytes Absolute Auto 0.6 X10*3/uL (0.1-1.2); Monocytes Percent Auto 11.9 % (2-11); Neutrophils Absolute Auto 3.1 x10*3/uL (2.0-8.3); Platelet Count 148 X10*3/uL (160-400); Red Blood Count 5.65 X10*6/uL (4.60-5.80); Red Cell Distribution Width 13.6 % (11.0-16.0); White Blood Count 5.4 X10*3/uL (4.8-10.8)
[2021-10-11 11:52] LABS: RBC Urine 0-2 /HPF (0); Squamous Epithelial Cell Urine TRACE /LPF; WBC Urine 0 /HPF (0-4)
[2021-10-11 12:15] LABS: Prostate Specific Antigen Scr 2.39 ng/mL (<0.05-4.0); TSH reflex Free T4 1.61 uIU/mL (0.32-4.0)
[2021-10-11 12:16] LABS: Alanine Aminotransferase 19 U/L (0-40); Albumin Level 4.3 g/dL (3.5-5.0); Alkaline Phosphatase 77 U/L (39-117); Anion Gap 11 (12-20); Aspartate Amino Transferase 17 U/L (5-37); Bilirubin Total 0.7 mg/dL (0.0-1.0); Blood Urea Nitrogen 16 mg/dL (9-16); Calcium 9.2 mg/dL (8.4-10.2); Carbon Dioxide 25 mmol/L (22-29); Chloride 110 mmol/L (96-108); Cholesterol 202 mg/dL; Estimated Glomerular Filt Rate > 60; Glucose Fasting 112 mg/dL (60-99); HDL Cholesterol 34 mg/dL; LDL Cholesterol Calculated 144 mg/dl; Potassium 4.3 mmol/L (3.3-5.1); Sodium 142 mmol/L (135-145); Total Protein 7.1 g/dL (6.5-8.0); Triglycerides 120 mg/dL
== END 2021-10-11 08:43 | disposition home or self-care (01) ==
LOC: HO.HMGCLDS 08:42
PROVIDERS: PCP Nurse Practitioner Family; Visit Provider Nurse Practitioner Family
DX: Z12.5 Encounter for screening for malignant neoplasm of prostate (principal); I10 Essential (primary) hypertension
CPT/HCPCS: 36415; 80053; 80061; 81001; 84153; 84443; 85025

== ENCOUNTER 2021-11-22 13:00 | Outpatient (RCR) | payer MEDICARE, SELFPAY ==
--- NOTE | 2021-09-15 10:58 | MHC.PT.EP ---
[facility] [place] [facility] [place] Office [place] Office [address] [phone] F: [phone] F: [phone] F: [phone] F: [phone] Physical Therapy Plan of Care Date of Evaluation: Date of Surgery: n/a Diagnosis: weakness and gait instability Assessment: Patient is a 75 year old R handed male who presents with s/s consistent with weakness and gait instability. He does not work and lives a fairly sedentary lifestyle with assistance as needed from family. Patient past medical history includes CABG with stroke, vertigo, history of falls and balance disturbance. Current impairments include pain, posture, balance, ROM, strength, activity tolerance and functional mobility. Functional limitations include decreased ability to perform all standing activities and transfers. Patient is motivated with good rehab potential. Skilled PT will address impairments and functional limitations in order to achieve goals. Frequency and Duration: The patient will be seen 2x/week for 6 weeks Short Term Goals: I with HEP - 2 weeks Able to perform stairs up and down with 1 HH assist - 3 weeks STepper for 10 min L4 - 3 weeks Top Lift Trimmer Goals: LE strength 4-/5 grossly - 6 weeks LEFS 26/80 - 6 weeks Able to stand/walk >30 minutes - 6 weeks Treatment Plan: Modalities to reduce pain, spasms and effusion. Manual therapy to restore motion and function. Therapeutic exercise to improve strength and flexibility. Neuromuscular re-education for posture and balance. Therapeutic activities to return to functional activities of daily living. Electronically signed by: Salas Gruber, PT Please sign and return to therapist. Thank you for your referral.
== END 2022-01-05 14:31 | disposition home or self-care (01) ==
LOC: HO.PTCHIC 13:00
PROVIDERS: PCP Nurse Practitioner Family; Visit Provider Nurse Practitioner Adult Health
DX: M62.81 Muscle weakness (generalized) (principal); R26.89 Other abnormalities of gait and mobility
CPT/HCPCS: 97110; 97112; 97140; 97163; 97530

== ENCOUNTER → 2022-02-22 11:11 | Outpatient (BNVA) | payer MEDICARE, SELFPAY | PROVIDERS: PCP Nurse Practitioner Family; Referring Provider Nurse Practitioner Family; Visit Provider Internal Medicine | DX: I25.10 Atherosclerotic heart disease of native coronary artery without angina pectoris (principal); I49.8 Other specified cardiac arrhythmias; I35.9 Nonrheumatic aortic valve disorder, unspecified; I73.9 Peripheral vascular disease, unspecified; I63.9 Cerebral infarction, unspecified; E78.5 Hyperlipidemia, unspecified | CPT/HCPCS: 93005; 99212 ==

== ENCOUNTER 2022-03-29 16:17 | Observation (INO) | payer MEDICARE, SELFPAY ==
[2022-03-29 16:29] VITALS: BP 146/66; BP 154/75; PULSE 90; PULSE 91; RESP 22; TEMP 37.8; O2SAT 97; O2SAT 98; BMI 22.3
--- NOTE | 2022-03-29 16:52 | ECG_ITS ---
Test Reason : WEAKNESS Blood Pressure : / mmHG Vent. Rate : 098 BPM Atrial Rate : 098 BPM P-R Int : 130 ms QRS Dur : 088 ms QT Int : 384 ms P-R-T Axes : 082 080 085 degrees QTc Int : 490 ms Normal sinus rhythm Nonspecific ST and T wave abnormality Prolonged QT Abnormal ECG When compared with ECG of 17-AUG-2021 14:38, Nonspecific T wave abnormality, improved in Lateral leads Referred By: Yen Traylor Electronically Signed By:Alan Ocampo
--- NOTE | 2022-03-29 17:00 | ED.GENADULT ---
HPI - General Adult General Chief complaint: General Medical Stated complaint: FEVER, WEAKNESS Time Seen by Provider: 03/29/22 16:50 Source: patient and EMS Mode of arrival: EMS Limitations: no limitations History of Present Illness HPI narrative: Patient comes to the emergency room from home via ambulance. Patient states that starting today he has been having fever, chills, feeling weak. Patient is usually able to walk, however, today he was too weak to even sit up in bed and kept falling over. Patient denies any chest pain or shortness of breath. Patient has history of strokes. Patient states he had an open heart surgery approximately 7 years ago and during the surgery he had several strokes. Patient is not on any blood thinners. According to EMS, they reported a temperature of 1.3. Here it is 100 (oral) Related Data Home Medications Medication Instructions Recorded Confirmed aspirin 81 mg tablet,delayed 81 mg PO DAILY 01/12/20 02/22/22 release Previous Rx's Medication Instructions Recorded sertraline 100 mg tablet 100 mg PO DAILY #30 tabs 10/11/21 metoprolol succinate 25 mg 25 mg PO DAILY #90 tabs 02/02/22 tablet,extended release 24 hr rosuvastatin 40 mg tablet 40 mg PO DAILY #90 tabs 02/22/22 Allergies Allergy/AdvReac Type Severity Reaction Status Date / Time No Known Allergies Allergy Verified 02/22/22 11:18 Review of Systems Review of Systems: Constitutional : No Weight loss, complaining of fever, weakness ENT/Mouth : No Hearing loss, No Ear Pain, No Nasal Congestion, No Sinus Pain, No Hoarseness, No sore throat, No Rhinorrhea, No Swallowing Difficulty Eyes: No Eye Pain, No Swelling, No Redness, No Foreign Body, No Discharge, No Vision Changes Cardiovascular : No Chest Pain, No SOB, No Dyspnea on Exertion, No Orthopnea, No Edema, No Palpitations Respiratory : No Cough, No Sputum, No Wheezing, No Smoke Exposure, No Dyspnea Gastrointestinal : No Nausea, No Vomiting, No Diarrhea, No Constipation, No abdominal Pain, No Hematochezia, No Melena Genitourinary : no irregular bleeding, No Dysuria, No Urinary Frequency, No Hematuria, No Urinary Incontinence, No Urgency, No Flank Pain, No Urinary Flow Changes, No Hesitancy Musculoskeletal : Weakness, unable to walk, no pain. Skin : No Skin Lesions, No rash Neuro : No Weakness, No Numbness, No Paresthesias, No Loss of Consciousness, No Dizziness, No Headache Psych : No Anxiety/Panic, No Depression, No SI/HI/AH/VH, No Social Issues, Heme/Lymph: No Bruising, No Bleeding,No Lymphadenopathy Endocrine : No Polyuria, No Polydipsia, No Temperature Intolerance [facility] Past Medical History Medical History Acute anxiety Anemia Atherosclerosis Carotid stenosis Cerebrovascular disease Cervical radiculopathy Coronary artery disease CVA (cerebral vascular accident) Depression Dyslipidemia Hematuria Left pontine CVA Osteoarthritis of hands, bilateral Osteoarthritis of right hip PVD (peripheral vascular disease) Rectal bleeding Toenail deformity Tremor Vertigo Surgical History History of revision of total hip arthroplasty Hx of CABG Status post shoulder surgery Family History Family History Father Abdominal aneurysm Social History Social History Housing: House Alcohol intake: never Patient Tobacco Use Status: Current someday Tobacco user Tobacco use type: Cigar Cigarettes Per Day: 1 Years Smoked: 60 years e-Cigarette/Vaping Use: Never Used Second Hand Smoke Exposure: No Advance Directives: No Advance Directives Information Provided: Yes service: Yes Current occupational status: retired Cognitive needs: No Hearing needs: No Vision needs: No Physical Exam ED Vital Signs: Vital Signs - 24 hr 03/29/22 16:29 03/29/22 17:45 03/29/22 19:33 Temperature 100.0 F 101.9 F H 100.2 F Pulse Rate 91 96 95 Respiratory Rate 22 H 21 H 11 L Blood Pressure 146/66 H 134/84 Pulse Oximetry 97 98 98 Oxygen Delivery Method Room Air Room Air Room Air BMI result Body Mass Index 22.3 Const Other: Appearance: Alert. Oriented X3. No acute distress. Eyes: Pupils equal, round and reactive to light. ENT: Pharynx normal. Neck: Normal inspection. Neck supple. No lymph nodes noted. No crepitus CVS: Normal heart rate and rhythm. Pulses normal. Normal S1 and S2 Respiratory: No respiratory distress. Breath sounds normal. No Wheezing. No rales Abdomen: Soft and nontender. No rigidity. No distention. Skin: Very warm to touch, dry. Normal skin color. Normal skin turgor. Extremities: No lower extremity edema. No Lacerations. No Rash Neuro: Oriented X 3. No motor deficit. Patient is unable to sit up, feels weak. Psych: calm, cooperative, normal affect Course Course Course Narrative: Patient's weakness is likely secondary to an infection, although labs are pending. Patient receiving IV fluids. Source is unclear at this time. CT scan of the head and neck do not show any acute abnormalities. In NIH score 0 Patient has COVID-19. Urinalysis negative. Chest x-ray shows no acute infiltrates. Is too weak to go home. I discussed the patient with Dr. Floyd, patient being admitted Medications Administered Discontinued Medications Generic Name Dose Route Start Last Admin Trade Name Freq PRN Reason Stop Dose Admin Acetaminophen 975 mg 03/29/22 19:50 03/29/22 19:59 Acetaminophen 325 Mg Tablet PO 03/29/22 19:51 975 mg ONCE ONE Administration Sodium Chloride 1,000 mls @ 999 mls/hr 03/29/22 16:52 03/29/22 18:28 Ns IVCONT 03/29/22 17:52 Infused .Q1H1M ONE Infusion Sodium Chloride 2,000 mls @ 999 mls/hr 03/29/22 16:53 03/29/22 19:39 Ns IVCONT 03/29/22 18:53 Infused .Q2H1M ONE Infusion Medical Decision Making Lab Data Result Diagrams: 03/29/22 17:30 03/29/22 16:52 Labs: Lab Results 03/29/22 03/29/22 03/29/22 Range/Units 16:52 16:52 16:52 WBC (4.8-10.8) X10*3/uL RBC (4.60-5.80) X10*6/uL Hgb (14.0-18.0) g/dl Hct (42.0-52.0) % MCV (80.0-98.0) fL MCH (27.0-33.0) pg MCHC (31.0-36.0) g/dl RDW (11.0-16.0) % Plt Count (160-400) X10*3/uL MPV (9.4-12.4) fL Immature Gran % (Auto) (0.0-0.4) % Neut % (Auto) (45-73) % Lymph % (Auto) (20-40) % [place] % (Auto) (2-11) % Eos % (Auto) (0-4) % Baso % (Auto) (0-2) % Lymph # (Auto) (1.2-4.9) X10*3/uL [place] # (Auto) (0.1-1.2) X10*3/uL Eos # (Auto) (0.0-0.4) X10*3/uL Baso # (Auto) (0.0-0.2) X10*3/uL Abs Immat Gran (auto) (0.00-0.03) X10*3/uL Absolute Neuts (auto) (2.0-8.3) x10*3/uL Absolute Nucleated RBC (0.0-0.012) X10*3/uL Nucleated RBC % (auto) (0.0-0.2) /100WBC PT 13.5 H (10.0-13.1) SEC INR 1.2 H (0.9-1.1) Sodium 140 (135-145) mmol/L Potassium 4.2 (3.3-5.1) mmol/L Chloride 108 (96-108) mmol/L Carbon Dioxide 22 (22-29) mmol/L Anion Gap 14 (12-20) BUN 16 (9-16) mg/dL Creatinine 0.84 (0.5-1.4) mg/dL Estim Creat Clear Calc 61.4 Estimated GFR > 60 Random Glucose 90 (60-115) mg/dL Lactic Acid (0.5-2.0) mmol/L Calcium 8.6 D (8.4-10.2) mg/dL Magnesium 2.1 (1.6-2.6) mg/dL Total Bilirubin 0.6 (0.0-1.0) mg/dL Direct Bilirubin 0.3 (0.0-0.5) mg/dL AST 15 (5-37) U/L ALT 16 (0-40) U/L Alkaline Phosphatase 62 (39-117) U/L Troponin I High Sens (<3.5-35.0) ng/L B-Natriuretic Peptide (<100) pg/mL Total Protein 6.4 L (6.5-8.0) g/dL Albumin 3.9 (3.5-5.0) g/dL Urine Color Urine Appearance Urine pH (5.0-9.0) Ur Specific [place] (1.005-1.025) Urine Protein (Neg-Trace) mg/dL Urine Glucose (UA) (Negative) mg/dL Urine Ketones (Negative) mg/dL Urine Blood (Negative) Urine Nitrite (Negative) Ur Leukocyte Esterase (Negative) Urine RBC (0-2) /HPF Urine WBC (0-5) /HPF Ur Squamous Epith Cells (0-2) /HPF Urine Bacteria (None Seen) Hyaline Casts (0-2) /LPF COVID-19 (KAREN) Positive A (Negative) COVID-19 Clin Com See Note Influenza Type A (MCKENNA) (Negative) Influenza Type B (MCKENNA) (Negative) Influenza A & B Note 03/29/22 03/29/22 03/29/22 Range/Units 17:30 17:30 17:30 WBC 5.1 (4.8-10.8) X10*3/uL RBC 5.15 (4.60-5.80) X10*6/uL Hgb 15.8 (14.0-18.0) g/dl Hct 47.2 (42.0-52.0) % MCV 91.7 (80.0-98.0) fL MCH 30.7 (27.0-33.0) pg MCHC 33.5 (31.0-36.0) g/dl RDW 12.4 (11.0-16.0) % Plt Count 109 L D (160-400) X10*3/uL MPV 10.7 (9.4-12.4) fL Immature Gran % (Auto) 0.2 (0.0-0.4) % Neut % (Auto) 75.8 H (45-73) % Lymph % (Auto) 13.2 L (20-40) % [place] % (Auto) 8.8 (2-11) % Eos % (Auto) 1.6 (0-4) % Baso % (Auto) 0.4 (0-2) % Lymph # (Auto) 0.7 L (1.2-4.9) X10*3/uL [place] # (Auto) 0.5 (0.1-1.2) X10*3/uL Eos # (Auto) 0.1 (0.0-0.4) X10*3/uL Baso # (Auto) 0.0 (0.0-0.2) X10*3/uL Abs Immat Gran (auto) 0.01 (0.00-0.03) X10*3/uL Absolute Neuts (auto) 3.9 (2.0-8.3) x10*3/uL Absolute Nucleated RBC 0.000 (0.0-0.012) X10*3/uL Nucleated RBC % (auto) 0.0 (0.0-0.2) /100WBC PT (10.0-13.1) SEC INR (0.9-1.1) Sodium (135-145) mmol/L Potassium (3.3-5.1) mmol/L Chloride (96-108) mmol/L Carbon Dioxide (22-29) mmol/L Anion Gap (12-20) BUN (9-16) mg/dL Creatinine (0.5-1.4) mg/dL Estim Creat Clear Calc Estimated GFR Random Glucose (60-115) mg/dL Lactic Acid 0.9 (0.5-2.0) mmol/L Calcium (8.4-10.2) mg/dL Magnesium (1.6-2.6) mg/dL Total Bilirubin (0.0-1.0) mg/dL Direct Bilirubin (0.0-0.5) mg/dL AST (5-37) U/L ALT (0-40) U/L Alkaline Phosphatase (39-117) U/L Troponin I High Sens 7.4 (<3.5-35.0) ng/L B-Natriuretic Peptide (<100) pg/mL Total Protein (6.5-8.0) g/dL Albumin (3.5-5.0) g/dL Urine Color Urine Appearance Urine pH (5.0-9.0) Ur Specific [place] (1.005-1.025) Urine Protein (Neg-Trace) mg/dL Urine Glucose (UA) (Negative) mg/dL Urine Ketones (Negative) mg/dL Urine Blood (Negative) Urine Nitrite (Negative) Ur Leukocyte Esterase (Negative) Urine RBC (0-2) /HPF Urine WBC (0-5) /HPF Ur Squamous Epith Cells (0-2) /HPF Urine Bacteria (None Seen) Hyaline Casts (0-2) /LPF COVID-19 (KAREN) (Negative) COVID-19 Clin Com Influenza Type A (MCKENNA) (Negative) Influenza Type B (MCKENNA) (Negative) Influenza A & B Note 03/29/22 03/29/22 03/29/22 Range/Units 17:30 19:28 19:28 WBC (4.8-10.8) X10*3/uL RBC (4.60-5.80) X10*6/uL Hgb (14.0-18.0) g/dl Hct (42.0-52.0) % MCV (80.0-98.0) fL MCH (27.0-33.0) pg MCHC (31.0-36.0) g/dl RDW (11.0-16.0) % Plt Count (160-400) X10*3/uL MPV (9.4-12.4) fL Immature Gran % (Auto) (0.0-0.4) % Neut % (Auto) (45-73) % Lymph % (Auto) (20-40) % [place] % (Auto) (2-11) % Eos % (Auto) (0-4) % Baso % (Auto) (0-2) % Lymph # (Auto) (1.2-4.9) X10*3/uL [place] # (Auto) (0.1-1.2) X10*3/uL Eos # (Auto) (0.0-0.4) X10*3/uL Baso # (Auto) (0.0-0.2) X10*3/uL Abs Immat Gran (auto) (0.00-0.03) X10*3/uL Absolute Neuts (auto) (2.0-8.3) x10*3/uL Absolute Nucleated RBC (0.0-0.012) X10*3/uL Nucleated RBC % (auto) (0.0-0.2) /100WBC PT (10.0-13.1) SEC INR (0.9-1.1) Sodium (135-145) mmol/L Potassium (3.3-5.1) mmol/L Chloride (96-108) mmol/L Carbon Dioxide (22-29) mmol/L Anion Gap (12-20) BUN (9-16) mg/dL Creatinine (0.5-1.4) mg/dL Estim Creat Clear Calc Estimated GFR Random Glucose (60-115) mg/dL Lactic Acid (0.5-2.0) mmol/L Calcium (8.4-10.2) mg/dL Magnesium (1.6-2.6) mg/dL Total Bilirubin (0.0-1.0) mg/dL Direct Bilirubin (0.0-0.5) mg/dL AST (5-37) U/L ALT (0-40) U/L Alkaline Phosphatase (39-117) U/L Troponin I High Sens (<3.5-35.0) ng/L B-Natriuretic Peptide 110 H (<100) pg/mL Total Protein (6.5-8.0) g/dL Albumin (3.5-5.0) g/dL Urine Color Yellow Urine Appearance Clear Urine pH 6.0 (5.0-9.0) Ur Specific [place] 1.015 (1.005-1.025) Urine Protein Negative (Neg-Trace) mg/dL Urine Glucose (UA) Negative (Negative) mg/dL Urine Ketones Negative (Negative) mg/dL Urine Blood Trace H (Negative) Urine Nitrite Negative (Negative) Ur Leukocyte Esterase Negative (Negative) Urine RBC 3-5 H (0-2) /HPF Urine WBC 0-5 (0-5) /HPF Ur Squamous Epith Cells 0-2 (0-2) /HPF Urine Bacteria None Seen (None Seen) Hyaline Casts 0-2 (0-2) /LPF COVID-19 (KAREN) (Negative) COVID-19 Clin Com Influenza Type A (MCKENNA) Negative (Negative) Influenza Type B (MCKENNA) Negative (Negative) Influenza A & B Note [facility] Critical Care Time Critical Care Time Critical Care Time: Yes Total Critical Care Time: 60 Discharge Plan Discharge Clinical Impression: COVID-19, Weakness Patient Disposition: Admitted As Inpatient Prescriptions: No Action metoprolol succinate 25 mg tablet extended release 24 hr 25 mg PO DAILY Qty: 90 2RF aspirin 81 mg tablet,delayed release (DR/EC) 81 mg PO DAILY sertraline 100 mg tablet 100 mg PO DAILY Qty: 30 4RF rosuvastatin 40 mg tablet 40 mg PO DAILY Qty: 90 3RF
[2022-03-29] MEDS: 0.9 % Sodium Chloride 1,000 ML 999 ML IVCONT (17:34)
[2022-03-29] MEDS: 0.9 % Sodium Chloride 2,000 ML 999 ML IVCONT (17:34)
[2022-03-29 17:36] LABS: MANUAL DIFF FLAG NO
[2022-03-29 17:40] LABS: INTERNATIONAL NORM RATIO 1.2 (0.9-1.1); Prothrombin Time 13.5 SEC (10.0-13.1)
[2022-03-29 17:40] LABS: Basophils Percent Auto 0.4 % (0-2); Eosinophils Absolute Auto 0.1 X10*3/uL (0.0-0.4); Eosinophils Percent Auto 1.6 % (0-4); Hematocrit 47.2 % (42.0-52.0); Hemoglobin 15.8 g/dl (14.0-18.0); Imm Gran Abs Auto 0.01 X10*3/uL (0.00-0.03); Imm Gran Pct Auto 0.2 % (0.0-0.4); Lymphocytes Absolute Auto 0.7 X10*3/uL (1.2-4.9); Lymphocytes Percent Auto 13.2 % (20-40); Mean Corpuscular HGB Conc 33.5 g/dl (31.0-36.0); Mean Corpuscular Hemoglobin 30.7 pg (27.0-33.0); Mean Corpuscular Volume 91.7 fL (80.0-98.0); Mean Platelet Volume 10.7 fL (9.4-12.4); Monocytes Absolute Auto 0.5 X10*3/uL (0.1-1.2); Monocytes Percent Auto 8.8 % (2-11); Neutrophils Absolute Auto 3.9 x10*3/uL (2.0-8.3); Neutrophils Percent Auto 75.8 % (45-73); Platelet Count 109 X10*3/uL (160-400); Red Blood Count 5.15 X10*6/uL (4.60-5.80); Red Cell Distribution Width 12.4 % (11.0-16.0); White Blood Count 5.1 X10*3/uL (4.8-10.8)
[2022-03-29 17:45] VITALS: BP 134/84; PULSE 96; RESP 21; TEMP 38.8; O2SAT 98
[2022-03-29 17:52] LABS: Alanine Aminotransferase 16 U/L (0-40); Albumin Level 3.9 g/dL (3.5-5.0); Alkaline Phosphatase 62 U/L (39-117); Anion Gap 14 (12-20); Aspartate Amino Transferase 15 U/L (5-37); Bilirubin Direct 0.3 mg/dL (0.0-0.5); Bilirubin Total 0.6 mg/dL (0.0-1.0); Blood Urea Nitrogen 16 mg/dL (9-16); Calcium 8.6 mg/dL (8.4-10.2); Carbon Dioxide 22 mmol/L (22-29); Chloride 108 mmol/L (96-108); Creatinine Clr Calc Pharmacy 61.4; Estimated Glomerular Filt Rate > 60; Glucose Random 90 mg/dL (60-115); Magnesium 2.1 mg/dL (1.6-2.6); Potassium 4.2 mmol/L (3.3-5.1); Sodium 140 mmol/L (135-145); Total Protein 6.4 g/dL (6.5-8.0)
[2022-03-29 17:52] LABS: Lactic Acid 0.9 mmol/L (0.5-2.0)
[2022-03-29 18:01] LABS: COVID-19 Test Positive (Negative); IDNOW Serial# BCCEAD1C
[2022-03-29 18:03] LABS: B Type Natriuretic Peptide 110 pg/mL (<100); Troponin-I High Sensitivity 7.4 ng/L (<3.5-35.0)
[2022-03-29 19:33] VITALS: PULSE 95; RESP 11; TEMP 37.9; O2SAT 98
[2022-03-29 19:48] LABS: Appearance Urine Clear; Color Urine Yellow; Glucose Urine UA Negative (Negative); Leukocyte Esterase Urine Negative (Negative); Nitrite Urine Negative (Negative); Specific Gravity - Urine 1.015 (1.005-1.025); UMIC TRIGGER UACC YES; Urine Blood Trace (Negative); Urine Ketones Negative (Negative); Urine Protein Negative (Neg-Trace)
[2022-03-29 19:52] LABS: Bacteria Urine None Seen (None Seen); Hyaline Casts Urine 0-2 /LPF (0-2); Squamous Epithelial Cell Urine 0-2 /HPF (0-2); WBC Urine 0-5 /HPF (0-5)
[2022-03-29 19:59] LABS: Influenza A Negative (Negative); Influenza B2 Negative (Negative)
[2022-03-29] MEDS: Acetaminophen 325 MG TABLET 975 MG PO (19:59)
--- NOTE | 2022-03-29 20:06 | PC.NURSE ---
Pt continuing to rest comfortably on stretcher. Tylenol administered per JUN for fever. Pt lung sounds remain clear, pt reports no pain at this time. Pt eating sandwich and drinking water at this time
--- NOTE | 2022-03-29 20:35 | PM.IMHP ---
History of Present Illness Date of Service: 03/29/22 Chief Complaint: weakness 36-year-old male with past medical history of HTN, CVA, CAD, CABG, hyperlipidemia, peripheral vascular disease, presents to the hospital with complaints of difficulty ambulating and significant weakness. Patient reports that his symptoms started about a day ago, usually uses a walker around the house but has not been able to walk even using his walker. Reports shortness of breath, some cough with no sputum production, no fever or chills, no chest pain, no abdominal pain, no numbness weakness or tingling, no urinary symptoms and no lower extremity edema. On arrival to the ED found to have a temperature of a 100 degrees, heart rate of 91, respiratory rate of 22, blood pressure of 146/66 Labs are significant for WBC count of 5.1, otherwise unremarkable COVID-[address] positive[address] Head and neck CT angiogram negative for any intracranial hemorrhage or large acute infarction, chronic infarcts are seen within the right frontal lobe, right parietal and occipital lobe and left parietal lobe. No large vessel occlusion or significant stenosis within the intracranial circulation. Has 50% stenosis of the proximal right internal carotid artery with no significant stenosis of the proximal left internal carotid artery. Given significant weakness and difficulty ambulating patient will be admitted for further management Review of Systems Review of Systems: Yes all other systems are reviewed and are negative [facility] Medical History Acute anxiety Anemia Atherosclerosis Carotid stenosis Cerebrovascular disease Cervical radiculopathy Coronary artery disease CVA (cerebral vascular accident) Depression Dyslipidemia Hematuria Left pontine CVA Osteoarthritis of hands, bilateral Osteoarthritis of right hip PVD (peripheral vascular disease) Rectal bleeding Toenail deformity Tremor Vertigo Family History Father Abdominal aneurysm Surgical History History of revision of total hip arthroplasty Hx of CABG Status post shoulder surgery Social History Housing: House Alcohol intake: former Patient Tobacco Use Status: Current someday Tobacco user Tobacco use type: Cigar Cigarettes Per Day: 1 Years Smoked: 60 years Smoked in Last 30 Days: No e-Cigarette/Vaping Use: Never Used Second Hand Smoke Exposure: No Use of substances other than those prescribed or required for medical reasons: No Advance Directives: No Advance Directives Information Provided: Yes service: Yes Current occupational status: retired Cognitive needs: No Hearing needs: No Vision needs: No Meds Allergies Allergy/AdvReac Type Severity Reaction Status Date / Time No Known Allergies Allergy Verified 02/22/22 11:18 Active Medications: Current Medications Pharmacy Consult (Consult Rx Perform Med Rec) 1 each MISCELLANE ONCE PRN PRN Reason: Consult order Home Medications Medication Instructions Recorded Confirmed Last Taken Type aspirin 81 mg tablet,delayed 81 mg PO BEDTIME 01/12/20 03/29/22 03/28/22 History release metoprolol succinate 25 mg 25 mg PO BEDTIME 03/29/22 03/29/22 03/28/22 History tablet,extended release 24 hr rosuvastatin 40 mg tablet 40 mg PO BEDTIME 03/29/22 03/29/22 03/28/22 History sertraline 100 mg tablet 100 mg PO BEDTIME 03/29/22 03/29/22 03/28/22 History Physical Exam Vital Signs and Narrative: Vital Signs: Last Vital Signs Temp 100.2 F 03/29/22 19:33 Pulse 95 03/29/22 19:33 Resp 11 L 03/29/22 19:33 BP 134/84 03/29/22 17:45 Pulse Ox 98 03/29/22 19:33 O2 Del Method 03/29/22 19:33 BMI result Body Mass Index 22.3 Const: General: cooperative and no acute distress Orientation/consciousness: patient oriented x3 Eyes: General: appearance normal, both eyes and all related structures Resp: Effort & Inspection: normal respiratory effort Auscultation: clear to auscultation bilaterally Cardio: Rate: regular rate Rhythm: regular rhythm GI: Palpation (GI): Soft to palpation Auscultation: normal bowel sounds Skin: General skin exam: no rashes or lesions noted Neuro: Other: No neurological deficits General: patient oriented x3 Cognition (Neuro): normal cognition Extrem: General: Yes normal to inspection and Yes no pedal edema Results Labs CBC and Chem 7: 03/29/22 17:30 03/29/22 16:52 Labs: Laboratory Results - last 24 hr 03/29/22 03/29/22 03/29/22 16:52 16:52 16:52 MCV MCH MCHC RDW Plt Count MPV Immature Gran % (Auto) Neut % (Auto) Lymph % (Auto) [place] % (Auto) Eos % (Auto) Baso % (Auto) Lymph # (Auto) [place] # (Auto) Eos # (Auto) Baso # (Auto) Abs Immat Gran (auto) Absolute Neuts (auto) Absolute Nucleated RBC Nucleated RBC % (auto) PT 13.5 H INR 1.2 H Anion Gap 14 Estim Creat Clear Calc 61.4 Estimated GFR > 60 Random Glucose 90 Lactic Acid Calcium 8.6 D Magnesium 2.1 Total Bilirubin 0.6 Direct Bilirubin 0.3 AST 15 ALT 16 Alkaline Phosphatase 62 Troponin I High Sens B-Natriuretic Peptide Total Protein 6.4 L Albumin 3.9 Urine Color Urine Appearance Urine pH Ur Specific [place] Urine Protein Urine Glucose (UA) Urine Ketones Urine Blood Urine Nitrite Ur Leukocyte Esterase Urine RBC Urine WBC Ur Squamous Epith Cells Urine Bacteria Hyaline Casts COVID-19 (KAREN) Positive A COVID-19 Clin Com See Note Influenza Type A (MCKENNA) Influenza Type B (MCKENNA) Influenza A & B Note 03/29/22 03/29/22 03/29/22 17:30 17:30 17:30 MCV 91.7 MCH 30.7 MCHC 33.5 RDW 12.4 Plt Count 109 L D MPV 10.7 Immature Gran % (Auto) 0.2 Neut % (Auto) 75.8 H Lymph % (Auto) 13.2 L [place] % (Auto) 8.8 Eos % (Auto) 1.6 Baso % (Auto) 0.4 Lymph # (Auto) 0.7 L [place] # (Auto) 0.5 Eos # (Auto) 0.1 Baso # (Auto) 0.0 Abs Immat Gran (auto) 0.01 Absolute Neuts (auto) 3.9 Absolute Nucleated RBC 0.000 Nucleated RBC % (auto) 0.0 PT INR Anion Gap Estim Creat Clear Calc Estimated GFR Random Glucose Lactic Acid 0.9 Calcium Magnesium Total Bilirubin Direct Bilirubin AST ALT Alkaline Phosphatase Troponin I High Sens 7.4 B-Natriuretic Peptide Total Protein Albumin Urine Color Urine Appearance Urine pH Ur Specific [place] Urine Protein Urine Glucose (UA) Urine Ketones Urine Blood Urine Nitrite Ur Leukocyte Esterase Urine RBC Urine WBC Ur Squamous Epith Cells Urine Bacteria Hyaline Casts COVID-19 (KAREN) COVID-19 Clin Com Influenza Type A (MCKENNA) Influenza Type B (MCKENNA) Influenza A & B Note 03/29/22 03/29/22 03/29/22 17:30 19:28 19:28 MCV MCH MCHC RDW Plt Count MPV Immature Gran % (Auto) Neut % (Auto) Lymph % (Auto) [place] % (Auto) Eos % (Auto) Baso % (Auto) Lymph # (Auto) [place] # (Auto) Eos # (Auto) Baso # (Auto) Abs Immat Gran (auto) Absolute Neuts (auto) Absolute Nucleated RBC Nucleated RBC % (auto) PT INR Anion Gap Estim Creat Clear Calc Estimated GFR Random Glucose Lactic Acid Calcium Magnesium Total Bilirubin Direct Bilirubin AST ALT Alkaline Phosphatase Troponin I High Sens B-Natriuretic Peptide 110 H Total Protein Albumin Urine Color Yellow Urine Appearance Clear Urine pH 6.0 Ur Specific [place] 1.015 Urine Protein Negative Urine Glucose (UA) Negative Urine Ketones Negative Urine Blood Trace H Urine Nitrite Negative Ur Leukocyte Esterase Negative Urine RBC 3-5 H Urine WBC 0-5 Ur Squamous Epith Cells 0-2 Urine Bacteria None Seen Hyaline Casts 0-2 COVID-19 (KAREN) COVID-19 Clin Com Influenza Type A (MCKENNA) Negative Influenza Type B (MCKENNA) Negative Influenza A & B Note [employer] Imaging Radiologist's Impressions: Impressions Chest X-Ray 03/29/22 17:00 IMPRESSION: Changes of nonspecific bronchitis. No focal infiltrate. Head/Neck CTA 03/29/22 19:08 IMPRESSION: CT HEAD: No intracranial hemorrhage or large acute infarction. Chronic infarcts are seen within the right frontal lobe, right parietal and occipital lobe, and left parietal lobe. Background changes of chronic microangiopathy and mild brain parenchymal volume loss. CTA NECK: 50% stenosis of the proximal right internal carotid artery. No significant stenosis of the proximal left internal carotid artery. Mild to moderate stenosis of the bilateral paraclinoid ICA segments. CTA HEAD: No large vessel occlusion or significant stenosis within the intracranial circulation. Assessment and Plan (1) COVID-19: Status: Acute (2) Weakness: Status: Acute (3) More than 50 percent stenosis of left internal carotid artery: Status: Acute Plan 76-year-old male with past medical history of CVA, CAD status post CABG, hypertension, hyperlipidemia presents to the hospital with complaints of weakness found to have COVID-19 positive # sepsis secondary to COVID-19 infection - febrile, tachycardic, tachypneic - no leukocytosis, no hypoxia - normal lactic acid - given patient has no hypoxia, at this time will monitor his symptoms - monitor respiratory status # weakness - likely secondary to COVID-19 infection - physical therapy consulted # internal carotid artery stenosis - 50% stenosis of the right carotid artery - recommend follow-up outpatient with vascular surgery # CAD status post CABG - continue aspirin, metoprolol # hyperlipidemia 0 continue statin DVT prophylaxis: Heparin subQ Given patient's significant weakness to the point of inability to ambulate patient require minimum 2 night inpatient hospital stay for further evaluation monitor Time Spent With Patient Time: Total time managing care of this patient today ____ minutes. Quality Stroke Does the patient have a stroke diagnosis?: No VTE Prior VTE?: No VTE Risk Level:: Medical - moderate - high VTE Device Contraindication: Treatment Not Indicated VTE Drug Contraindication: N/A - Med Ordered
--- NOTE | 2022-03-29 21:00 | PHA.MEDREC ---
Pharmacy Consult ? Medication Reconciliation Pharmacy has completed the medication reconciliation.
[2022-03-29] MEDS: Heparin Sodium,Porcine 5,000 UNIT/ML VIAL 5000 UNIT SUBCUT (21:16)
[2022-03-29 21:20] VITALS: BP 132/71; PULSE 90; RESP 23; TEMP 37.3; O2SAT 94
--- NOTE | 2022-03-29 21:23 | PC.NURSE ---
Pt resting comfortably on stretcher at this time. Reports headache 3/10 pain, tolerable at this time. Reports no other pain at this time. VSS and temperature is coming down
[2022-03-30 00:03] VITALS: BP 131/76; PULSE 87; RESP 25; TEMP 36.7; O2SAT 95
--- NOTE | 2022-03-30 00:04 | MHC.EDTECH ---
pt is bout to relax for bed, his urinal is emptied and his head of bed is down as requested vitals taken.. he is ok for the night
--- NOTE | 2022-03-30 01:02 | PC.NURSE ---
Pt sleeping at this time, respirations are even and unlabored, VSS, no apparent distress
[2022-03-30 06:07] LABS: MANUAL DIFF FLAG NO
[2022-03-30 06:10] LABS: Basophils Percent Auto 0.5 % (0-2); Eosinophils Absolute Auto 0.1 X10*3/uL (0.0-0.4); Eosinophils Percent Auto 1.8 % (0-4); Hematocrit 44.9 % (42.0-52.0); Hemoglobin 14.9 g/dl (14.0-18.0); Imm Gran Abs Auto 0.01 X10*3/uL (0.00-0.03); Imm Gran Pct Auto 0.3 % (0.0-0.4); Lymphocytes Absolute Auto 0.9 X10*3/uL (1.2-4.9); Mean Corpuscular HGB Conc 33.2 g/dl (31.0-36.0); Mean Corpuscular Volume 90.3 fL (80.0-98.0); Mean Platelet Volume 10.4 fL (9.4-12.4); Monocytes Absolute Auto 0.5 X10*3/uL (0.1-1.2); Monocytes Percent Auto 12.9 % (2-11); Neutrophils Absolute Auto 2.5 x10*3/uL (2.0-8.3); Neutrophils Percent Auto 62.5 % (45-73); Red Blood Count 4.97 X10*6/uL (4.60-5.80); Red Cell Distribution Width 12.4 % (11.0-16.0)
[2022-03-30 06:12] LABS: Platelet Count 98 X10*3/uL (160-400)
[2022-03-30 06:22] LABS: Anion Gap 12 (12-20); Blood Urea Nitrogen 12 mg/dL (9-16); Calcium 8.4 mg/dL (8.4-10.2); Carbon Dioxide 21 mmol/L (22-29); Chloride 111 mmol/L (96-108); Creatinine Clr Calc Pharmacy 65.3; Estimated Glomerular Filt Rate > 60; Glucose Random 95 mg/dL (60-115); Potassium 4.2 mmol/L (3.3-5.1); Sodium 140 mmol/L (135-145)
[2022-03-30 07:18] VITALS: BP 137/66; PULSE 93; RESP 18; TEMP 37.3; O2SAT 93
[2022-03-30] MEDS: Heparin Sodium,Porcine 5,000 UNIT/ML VIAL 5000 UNIT SUBCUT (08:15)
[2022-03-30] MEDS: 0.9 % Sodium Chloride Flush 3 ML SYRINGE IVFLUSH ×2 (08:17→23:05)
[2022-03-30 09:02] VITALS: BP 137/66; PULSE 93; O2SAT 93
--- NOTE | 2022-03-30 12:50 | MHC.CM.PN ---
Addendum entered by Alana San 03/30/22 14:42: Received notification from Dr Montalvo that physical therapy is recommending STR and placement is agreeable. Patient may be difficult to place due to being positive for Covid. Referral broadcasted to all facilities within 20 miles that are able to accept Covid patients. Addendum entered by lAana San 03/30/22 12:52: Patient positive for Covid on 03/29. Original Note: Met with patient in regards to discharge planning. Patient lives with his , daughter and grandson, ambulates independently and had no services prior to coming to the hospital. No services anticipated to be needed because patient is not homebound. PCP verified. Copy of HCP verified to be on file. Patient received 2 Pfizer vaccines but no boosters. Obs notice explained and signed. Family will transport patient home when medically stable. Continue to monitor for d/c needs.
--- NOTE | 2022-03-30 13:14 | HO.PM.IMPN ---
Subjective Subjective Date of Service: 03/30/22 Interval History: cc: weakness interval history:was feeling really well this am, now with weakness and headache again Cardiovascular Cardiovascular: Reports no additional cardiovascular complaints Respiratory Respiratory: Reports no additional respiratory complaints Physical Exam Vital Signs: Vital Signs: Last Vital Signs Temp 99.2 F 03/30/22 07:18 Pulse 93 03/30/22 09:02 Resp 18 03/30/22 07:18 BP 137/66 03/30/22 09:02 Pulse Ox 93 03/30/22 09:02 O2 Del Method 03/30/22 07:18 BMI result Body Mass Index 22.3 General: AO X 3, no acute distress Resp: CTA bilateral, no accessory muscles used CVS: S1,S2,RRR GI: soft, non tender, non distended Neuro: motor grossly intact, alert Psych: appropriate affect, appropriate insight Objective Data Active Medications Acetaminophen (Acetaminophen 325 Mg Tablet) 650 mg PO Q6H PRN PRN Reason: Pain, Mild (Pain Scale 1-3) Aspirin (Aspirin Enteric Coated 81 Mg Tablet.Dr) 81 mg PO BEDTIME JAYSON Atorvastatin Calcium (Atorvastatin Calcium 80 Mg Tablet) 80 mg PO BEDTIME JAYSON Docusate Sodium (Docusate Sodium 100 Mg Capsule) 100 mg PO DAILY PRN PRN Reason: Constipation Enoxaparin Sodium (Enoxaparin Sodium 40 Mg/0.4 Ml Syringe) 40 mg SUBCUT Q24H [facility] Last Admin: 03/30/22 13:13 Dose: 40 mg Documented By: GRACY Metoprolol Succinate (Metoprolol Succinate Er 25 Mg Tab.Er.24h) 25 mg PO BEDTIME JAYSON; Protocol Ondansetron HCl (Ondansetron Hcl 4 Mg/2 Ml Vial) 4 mg IVPUSH Q8H PRN PRN Reason: Nausea and Vomiting Pharmacy Consult (Consult Rx Perform Med Rec) 1 each MISCELLANE ONCE PRN PRN Reason: Consult order Sertraline HCl (Sertraline Hcl 100 Mg Tablet) 100 mg PO BEDTIME JAYSON Sodium Chloride (0.9 % Sodium Chloride Flush 3 Ml Syringe) 3 ml IVFLUSH QSHIFT [facility] Last Admin: 03/30/22 08:17 Dose: 3 ml Documented By: GRACY Labs CBC & Chem 7: 03/30/22 05:54 03/30/22 05:54 Labs: Laboratory Results - last 24 hr 03/29/22 03/29/22 03/29/22 16:52 16:52 16:52 MCV MCH MCHC RDW Plt Count MPV Immature Gran % (Auto) Neut % (Auto) Lymph % (Auto) [place] % (Auto) Eos % (Auto) Baso % (Auto) Lymph # (Auto) [place] # (Auto) Eos # (Auto) Baso # (Auto) Abs Immat Gran (auto) Absolute Neuts (auto) Absolute Nucleated RBC Nucleated RBC % (auto) PT 13.5 H INR 1.2 H Anion Gap 14 Estim Creat Clear Calc 61.4 Estimated GFR > 60 Random Glucose 90 Lactic Acid Calcium 8.6 D Magnesium 2.1 Total Bilirubin 0.6 Direct Bilirubin 0.3 AST 15 ALT 16 Alkaline Phosphatase 62 Troponin I High Sens B-Natriuretic Peptide Total Protein 6.4 L Albumin 3.9 Urine Color Urine Appearance Urine pH Ur Specific [place] Urine Protein Urine Glucose (UA) Urine Ketones Urine Blood Urine Nitrite Ur Leukocyte Esterase Urine RBC Urine WBC Ur Squamous Epith Cells Urine Bacteria Hyaline Casts COVID-19 (KAREN) Positive A COVID-19 Clin Com See Note Influenza Type A (MCKENNA) Influenza Type B (MCKENNA) Influenza A & B Note 03/29/22 03/29/22 03/29/22 17:30 17:30 17:30 MCV 91.7 MCH 30.7 MCHC 33.5 RDW 12.4 Plt Count 109 L D MPV 10.7 Immature Gran % (Auto) 0.2 Neut % (Auto) 75.8 H Lymph % (Auto) 13.2 L [place] % (Auto) 8.8 Eos % (Auto) 1.6 Baso % (Auto) 0.4 Lymph # (Auto) 0.7 L [place] # (Auto) 0.5 Eos # (Auto) 0.1 Baso # (Auto) 0.0 Abs Immat Gran (auto) 0.01 Absolute Neuts (auto) 3.9 Absolute Nucleated RBC 0.000 Nucleated RBC % (auto) 0.0 PT INR Anion Gap Estim Creat Clear Calc Estimated GFR Random Glucose Lactic Acid 0.9 Calcium Magnesium Total Bilirubin Direct Bilirubin AST ALT Alkaline Phosphatase Troponin I High Sens 7.4 B-Natriuretic Peptide Total Protein Albumin Urine Color Urine Appearance Urine pH Ur Specific [place] Urine Protein Urine Glucose (UA) Urine Ketones Urine Blood Urine Nitrite Ur Leukocyte Esterase Urine RBC Urine WBC Ur Squamous Epith Cells Urine Bacteria Hyaline Casts COVID-19 (KAREN) COVID-19 Clin Com Influenza Type A (MCKENNA) Influenza Type B (MCKENNA) Influenza A & B Note 03/29/22 03/29/22 03/29/22 17:30 19:28 19:28 MCV MCH MCHC RDW Plt Count MPV Immature Gran % (Auto) Neut % (Auto) Lymph % (Auto) [place] % (Auto) Eos % (Auto) Baso % (Auto) Lymph # (Auto) [place] # (Auto) Eos # (Auto) Baso # (Auto) Abs Immat Gran (auto) Absolute Neuts (auto) Absolute Nucleated RBC Nucleated RBC % (auto) PT INR Anion Gap Estim Creat Clear Calc Estimated GFR Random Glucose Lactic Acid Calcium Magnesium Total Bilirubin Direct Bilirubin AST ALT Alkaline Phosphatase Troponin I High Sens B-Natriuretic Peptide 110 H Total Protein Albumin Urine Color Yellow Urine Appearance Clear Urine pH 6.0 Ur Specific [place] 1.015 Urine Protein Negative Urine Glucose (UA) Negative Urine Ketones Negative Urine Blood Trace H Urine Nitrite Negative Ur Leukocyte Esterase Negative Urine RBC 3-5 H Urine WBC 0-5 Ur Squamous Epith Cells 0-2 Urine Bacteria None Seen Hyaline Casts 0-2 COVID-19 (KAREN) COVID-19 Clin Com Influenza Type A (MCKENNA) Negative Influenza Type B (MCKENNA) Negative Influenza A & B Note [employer] 03/30/22 03/30/22 05:54 05:54 MCV 90.3 MCH 30.0 MCHC 33.2 RDW 12.4 Plt Count 98 L MPV 10.4 Immature Gran % (Auto) 0.3 Neut % (Auto) 62.5 Lymph % (Auto) 22.0 [place] % (Auto) 12.9 H Eos % (Auto) 1.8 Baso % (Auto) 0.5 Lymph # (Auto) 0.9 L [place] # (Auto) 0.5 Eos # (Auto) 0.1 Baso # (Auto) 0.0 Abs Immat Gran (auto) 0.01 Absolute Neuts (auto) 2.5 Absolute Nucleated RBC 0.000 Nucleated RBC % (auto) 0.0 PT INR Anion Gap 12 Estim Creat Clear Calc 65.3 Estimated GFR > 60 Random Glucose 95 Lactic Acid Calcium 8.4 Magnesium Total Bilirubin Direct Bilirubin AST ALT Alkaline Phosphatase Troponin I High Sens B-Natriuretic Peptide Total Protein Albumin Urine Color Urine Appearance Urine pH Ur Specific [place] Urine Protein Urine Glucose (UA) Urine Ketones Urine Blood Urine Nitrite Ur Leukocyte Esterase Urine RBC Urine WBC Ur Squamous Epith Cells Urine Bacteria Hyaline Casts COVID-19 (KAREN) COVID-19 Clin Com Influenza Type A (MCKENNA) Influenza Type B (MCKENNA) Influenza A & B Note Assessment and Plan (1) COVID-19: Status: Acute Plan 76-year-old male with past medical history of CVA, CAD status post CABG, hypertension, hyperlipidemia presents to the hospital with complaints of weakness found to have COVID-19 positive viral sepsis secondary to COVID-19 infection symptomatic management PT recommending str history of cva asa, statin internal carotid artery stenosis - 50% stenosis of the right carotid artery asa, statin CAD status post CABG - continue aspirin, metoprolol, statin hyperlipidemia continue statin DVT prophylaxis:? lvoenox full code reason for continued hospitalization:weakness, significnat headache, risk for decompensation from covid Time Spent With Patient Time: Total time managing care of this patient today ____ minutes. Quality Stroke Does the patient have a stroke diagnosis?: No VTE Prior VTE?: No VTE Risk Level:: Medical - moderate - high VTE Device Contraindication: Treatment Not Indicated VTE Drug Contraindication: N/A - Med Ordered
[2022-03-30 14:17] VITALS: BP 119/70; PULSE 94; RESP 26; TEMP 37.1; O2SAT 92
[2022-03-30 16:00] VITALS: BP 129/69; PULSE 81; RESP 18; TEMP 36.9; O2SAT 96
--- NOTE | 2022-03-30 16:01 | MHC.CM.PN ---
[facility] Patient can leave at 10am. Attempted to speak with patient. Patient was sleeping. Spoke with patient's /HCP, Shannon. Shannon agreeable and aware. She is also requesting a call when patient's discharge is confirmed on 03/31. Dr Montalvo aware and agreeable. Med nec in chart. Jonas APARICIO booked. Continue to monitor for d/c needs.
--- NOTE | 2022-03-30 19:00 | PC.NURSE ---
This journalists and other writers assumed care of this PT at 1900.
[2022-03-30 20:08] VITALS: BP 146/70; PULSE 88; RESP 18; TEMP 37.2; O2SAT 98
[2022-03-30] MEDS: Metoprolol Succinate ER 25 MG TAB.ER.24H PO (20:12)
[2022-03-30] MEDS: Atorvastatin Calcium 80 MG TABLET PO (20:12)
[2022-03-30] MEDS: Acetaminophen 325 MG TABLET 650 MG PO (20:12)
[2022-03-30] MEDS: Aspirin Enteric Coated 81 MG TABLET.DR PO (20:12)
[2022-03-30] MEDS: Sertraline HCL 100 MG TABLET PO (20:12)
--- NOTE | 2022-03-30 20:20 | PC.NURSE ---
PT A&Ox4, reports 10/15 headache. Meds given as documented.
--- NOTE | 2022-03-30 20:38 | MHC.EDTECH ---
pt give himself a sponge bath ,bedding change ,warm, blanket given .
[2022-03-31] VITALS: BP 129/80; PULSE 85; RESP 20; TEMP 36.9; O2SAT 98
--- NOTE | 2022-03-31 00:23 | MHC.EDTECH ---
0000 rounding done pt awake in bed watching television ,vitals sign taken ,i ask pt if he needed anything pt said no ,pt call [facility] within reach .
--- NOTE | 2022-03-31 03:01 | PC.NURSE ---
PT denies any pain. Resting quietly. No apparent distress, remains on airborne precaution.
[2022-03-31 04:27] VITALS: BP 138/73; PULSE 81; RESP 16; TEMP 37; O2SAT 95
[2022-03-31 06:33] LABS: Hematocrit 52.4 % (42.0-52.0); Hemoglobin 17.2 g/dl (14.0-18.0); Mean Corpuscular HGB Conc 32.8 g/dl (31.0-36.0); Mean Corpuscular Hemoglobin 30.2 pg (27.0-33.0); Mean Corpuscular Volume 92.1 fL (80.0-98.0); Mean Platelet Volume 10.3 fL (9.4-12.4); Platelet Count 114 X10*3/uL (160-400); Red Blood Count 5.69 X10*6/uL (4.60-5.80); Red Cell Distribution Width 12.7 % (11.0-16.0); White Blood Count 4.6 X10*3/uL (4.8-10.8)
--- NOTE | 2022-03-31 06:34 | MHC.EDTECH ---
PT HAD AN INCONTINENT EPISODE ,THIS PCT ASSIST PT TO GET CLEAN UP ,BEDDING CHANGE AND WARM BLANKET GIVEN .
[2022-03-31 06:44] LABS: Anion Gap 14 (12-20); Blood Urea Nitrogen 16 mg/dL (9-16); Calcium 9.2 mg/dL (8.4-10.2); Carbon Dioxide 24 mmol/L (22-29); Chloride 108 mmol/L (96-108); Creatinine Clr Calc Pharmacy 56.6; Estimated Glomerular Filt Rate > 60; Glucose Fasting 108 mg/dL (60-99); Potassium 4.2 mmol/L (3.3-5.1); Sodium 142 mmol/L (135-145)
--- NOTE | 2022-03-31 08:02 | PM.DS ---
DS: Providers Provider Date of Service: 03/31/22 Date of admission: 03/29/22 20:33 [facility]: Diagnosis Discharge Diagnosis (1) COVID-19: Status: Acute DS: Summary Hospital Course Hospital Course: from initial hpi: Chief Complaint: weakness 76-year-old male with past medical history of HTN, CVA, CAD, CABG, hyperlipidemia, peripheral vascular disease, presents to the hospital with complaints of difficulty ambulating and significant weakness.? Patient reports that his symptoms started about a day ago, usually uses a walker around the house but has not been able to walk even using his walker.? Reports shortness of breath, some cough with no sputum production, no fever or chills, no chest pain, no abdominal pain, no numbness weakness or tingling, no urinary symptoms and no lower extremity edema. On arrival to the ED found to have a temperature of a 100 degrees, heart rate of 91, respiratory rate of 22, blood pressure of 146/66 Labs are significant for WBC count of 5.1, otherwise unremarkable COVID-19 positive.? Head and neck CT angiogram negative for any intracranial hemorrhage or large acute infarction, chronic infarcts are seen within the right frontal lobe, right parietal and occipital lobe and left parietal lobe.? No large vessel occlusion or significant stenosis within the intracranial circulation.? Has 50% stenosis of the proximal right internal carotid artery with no significant stenosis of the proximal left internal carotid artery. Given significant weakness and difficulty ambulating patient will be admitted for further management hospital course: Patient was admitted for viral sepsis secondary to COVID-19 infection. He was not hypoxic and treated symptomatically. Patient started to feel much better, was developed by Physical therapy felt he would benefit from short-term rehab. Patient will be discharged to residential facility. For his history of CVA he was continue on aspirin statin. Firs internal carotid artery stenosis he was continued on aspirin statin and follow up with vascular as outpatient. First coronary disease status post CABG he was continued on aspirin, statin, metoprolol. For hyperlipidemia is continue on statin. Patient is feeling better will be discharged to SNF. Time Spent with Patient Time attestation: Total time managing care of this patient today ____ minutes. Discharge coordination time: Greater than 30 minutes Quality: Safe Use of Opioids Does Pt have an Active Cancer Diagnosis on the Problem List?: No Quality: Stroke Does the patient have a stroke diagnosis?: No Physical Exam Vital Signs: Vital Signs: Last Vital Signs Temp 98.6 F 03/31/22 04:27 Pulse 81 03/31/22 04:27 Resp 16 03/31/22 04:27 BP 138/73 03/31/22 04:27 Pulse Ox 95 03/31/22 04:27 O2 Del Method 03/31/22 04:27 BMI result Body Mass Index 22.3 General: AO X 3, no acute distress Resp: CTA bilateral, no accessory muscles used CVS: S1,S2,RRR GI: soft, non tender, non distended Neuro: motor grossly intact, alert Psych: appropriate affect, appropriate insight DS: Data Data Completed and Pending Labs on day of discharge: Laboratory Results - last 24 hr 03/31/22 03/31/22 06:11 06:11 WBC 4.6 L RBC 5.69 Hgb 17.2 Hct 52.4 H MCV 92.1 MCH 30.2 MCHC 32.8 RDW 12.7 Plt Count 114 L MPV 10.3 Absolute Nucleated RBC 0.000 Nucleated RBC % (auto) 0.0 Sodium 142 Potassium 4.2 Chloride 108 Carbon Dioxide 24 Anion Gap 14 BUN 16 Creatinine 0.91 Estim Creat Clear Calc 56.6 Estimated GFR > 60 Fasting Glucose 108 H Calcium 9.2 D Preliminary micro results at discharge 03/29/22 17:36 Blood Culture - Preliminary Blood - Venous No growth after 24 hours. 03/29/22 17:05 Blood Culture - Preliminary Blood - Venous No growth after 24 hours. Discharge Plan Discharge Anticipated Discharge Date/Time: 03/31/22 08:00 Patient Disposition: Xfer SNF Discharge Diagnosis: covid Referrals: [facility] [Outside] - 1 Week Amish Voss FNP-BC [Primary Care Provider] - 1 Week Discharge Medications: Continued sertraline 100 mg tablet 100 mg PO BEDTIME metoprolol succinate 25 mg tablet extended release 24 hr 25 mg PO BEDTIME rosuvastatin 40 mg tablet 40 mg PO BEDTIME aspirin 81 mg tablet,delayed release (DR/EC) 81 mg PO BEDTIME Discharge Orders: Discharge Order (Routine); Ordered 03/31/22 Ordered By: Raphael Montalvo Diet: Advance to usual diet Activity on Discharge: As tolerated Stand Alone Forms: Patient Portal Discharge page Care Plan Goals: recovery Health Concerns: covid Plan of Treatment: rehab, symptomatic management Assessment: see above
--- NOTE | 2022-03-31 10:20 | PC.NURSE ---
this nurse on hold w [place] [phone] and [place] [phone] nurses station at [facility] for 15 minutes respectively to attempt nurse to nurse report.
== END 2022-03-31 08:07 | disposition skilled nursing facility (03) ==
LOC: HO.ED 20:33 → HO.EDOVER 21:12
PROVIDERS: Admitting Provider Internal Medicine; Emergency Provider Emergency Medicine; PCP Nurse Practitioner Family; Visit Provider Internal Medicine
DX: A41.89 Other specified sepsis (principal); U07.1 COVID-19; R53.1 Weakness; I65.21 Occlusion and stenosis of right carotid artery; Z86.73 Personal history of transient ischemic attack (TIA), and cerebral infarction without residual deficits; I10 Essential (primary) hypertension; E78.5 Hyperlipidemia, unspecified; R06.02 Shortness of breath; F17.200 Nicotine dependence, unspecified, uncomplicated; Z95.1 Presence of aortocoronary bypass graft; Z79.02 Long term (current) use of antithrombotics/antiplatelets; Z79.899 Other long term (current) drug therapy; Z79.82 Long term (current) use of aspirin
CPT/HCPCS: 36415; 70496; 70498; 71045; 80048; 80076; 81001; 83605; 83735; 83880; 84484; 85025; 85027; 85610; 87040; 87502; 87635; 93005; 96360; 96361; 96372; 97161; 99219; 99285; J1650

== ENCOUNTER 2022-06-20 11:28 | Outpatient (REF) | payer MEDICARE, SELFPAY ==
[2022-06-20 13:53] LABS: MANUAL DIFF FLAG NO
[2022-06-20 14:02] LABS: Basophils Absolute Auto 0.1 X10*3/uL (0.0-0.2); Basophils Percent Auto 0.7 % (0-2); Eosinophils Absolute Auto 0.2 X10*3/uL (0.0-0.4); Hematocrit 52.4 % (42.0-52.0); Hemoglobin 17.3 g/dl (14.0-18.0); Imm Gran Abs Auto 0.02 X10*3/uL (0.00-0.03); Imm Gran Pct Auto 0.3 % (0.0-0.4); Lymphocytes Absolute Auto 2.4 X10*3/uL (1.2-4.9); Mean Corpuscular Hemoglobin 30.6 pg (27.0-33.0); Mean Corpuscular Volume 92.6 fL (80.0-98.0); Mean Platelet Volume 11.3 fL (9.4-12.4); Monocytes Absolute Auto 0.6 X10*3/uL (0.1-1.2); Monocytes Percent Auto 7.9 % (2-11); Neutrophils Absolute Auto 4.3 x10*3/uL (2.0-8.3); Neutrophils Percent Auto 57.1 % (45-73); Platelet Count 169 X10*3/uL (160-400); Red Blood Count 5.66 X10*6/uL (4.60-5.80); Red Cell Distribution Width 12.9 % (11.0-16.0); White Blood Count 7.6 X10*3/uL (4.8-10.8)
[2022-06-20 14:05] LABS: Appearance Urine Clear; Color Urine Yellow; Glucose Urine UA Negative (Negative); Leukocyte Esterase Urine Negative (Negative); Nitrite Urine Negative (Negative); PH 5.5 (5.0-9.0); Urine Blood Negative (Negative); Urine Ketones Negative (Negative); Urine Protein Negative (Neg-Trace)
[2022-06-20 14:24] LABS: Alanine Aminotransferase 20 U/L (0-40); Albumin Level 4.2 g/dL (3.5-5.0); Alkaline Phosphatase 62 U/L (39-117); Anion Gap 14 (12-20); Aspartate Amino Transferase 15 U/L (5-37); Bilirubin Total 0.7 mg/dL (0.0-1.0); Blood Urea Nitrogen 21 mg/dL (9-16); Calcium 9.2 mg/dL (8.4-10.2); Carbon Dioxide 27 mmol/L (22-29); Chloride 106 mmol/L (96-108); Cholesterol 126 mg/dL; Estimated Glomerular Filt Rate > 60; Glucose Fasting 108 mg/dL (60-99); HDL Cholesterol 38 mg/dL; LDL Cholesterol Calculated 69 mg/dl; Potassium 4.8 mmol/L (3.3-5.1); Sodium 142 mmol/L (135-145); Triglycerides 99 mg/dL
[2022-06-20 14:42] LABS: TSH reflex Free T4 2.65 uIU/mL (0.32-4.0)
== END 2022-06-20 11:29 | disposition home or self-care (01) ==
LOC: HO.HMGCLDS 11:28
PROVIDERS: PCP Nurse Practitioner Family; Visit Provider Nurse Practitioner Family
DX: I10 Essential (primary) hypertension (principal)
CPT/HCPCS: 36415; 80053; 80061; 81003; 84443; 85025

== ENCOUNTER 2023-02-07 13:11 | Outpatient (AMB) | payer MEDICARE, SELFPAY ==
--- NOTE | 2023-02-07 13:13 | A.OFFPC_ITS ---
Vital Signs 02/07/23 13:16 Weight 140 lb BP 130/70 Blood Pressure Location Rt brachial Position Sitting Pulse 76 Pulse Source Pulse Oximeter Pulse Oximetry (%) 94 Oxygen Delivery Method Room Air Intake Visit Reasons: 6 month follow up Allergies No Known Allergies Allergy (Verified 08/06/22 15:52) Tobacco use date assessed: 08/06/22 HPI 6 month follow up HPI Details approx 8 years ago, CVA, residual BLE weakness noted, with vertigo. Pt had PT in the past for BLE weakness, it helped a lot . Pt does see neurology and cardiology. He has seen vascular in the past for PAD (BLE), with stenting. Last follow up with vascular was over a year ago. [facility] Medical History Osteoarthritis of hands, bilateral Acute anxiety Dyslipidemia CVA (cerebral vascular accident) Depression Left pontine CVA Osteoarthritis of right hip Rectal bleeding Tremor Toenail deformity Anemia PVD (peripheral vascular disease) Cervical radiculopathy Atherosclerosis Hematuria Vertigo Coronary artery disease Carotid stenosis Cerebrovascular disease Surgical History Hx of CABG History of revision of total hip arthroplasty Status post shoulder surgery Family History Father Abdominal aneurysm Social History Housing: House Alcohol intake: former Patient Tobacco Use Status: Current someday Tobacco user Tobacco use type: Cigar Cigarettes Per Day: 1 Years Smoked: 60 years e-Cigarette/Vaping Use: Never Used Second Hand Smoke Exposure: No Advance Directives Date on File: 03/30/22 service: Yes Current occupational status: retired Cognitive needs: No Hearing needs: No Vision needs: No Questionnaire Thrive Questionnaire Date Thrive assessed: 10/11/21 DORIAN-7 AMB Questionnaire DORIAN-7 Date DORIAN - 7 assessed: 10/11/21 Source: Developed by Drs. Jose Maria Vargas, Eileen Quevedo, Paulo Martínez and colleagues, with an educational kalyn from [employer]. Physical exam (Primary Care) Vital Signs: Last Vital Signs Pulse 76 02/07/23 13:16 BP 130/70 11/02/23 13:16 Pulse Ox 94 02/07/23 13:16 Oxygen Delivery Method Room Air 02/07/23 13:16 Tobacco/Smoking Status: Tobacco use Status Tobacco use date assessed 08/06/22 02/07/23 13:15 Patient Tobacco Use Status Current someday Tobacco 02/07/23 13:15 Tobacco use type Cigar 02/07/23 13:15 e-Cigarette/Vaping Use Never Used 02/07/23 13:15 Thrive Assessment: Date of Thrive Assessment Date Thrive assessed 10/11/21 02/07/23 13:15 Const General: cooperative, healthy appearing and comfortable HENMT Other: [place] Resp Effort & Inspection: normal respiratory effort Auscultation: clear to auscultation bilaterally Cardio Rate: regular rate Rhythm: regular rhythm Heart sounds: S1 normal heart sound present and S2 normal heart sound present Neuro Other: + sensation to BLE Extrem Other: weak DP-pulses bilat, weakness noted with extension and flexion of BLE, slow, short stepped gait Psych Appearance: grossly normal Mental Status: mental status grossly normal Speech and movement: Normal speech and movement present Affect: normal affect Attitude: cooperative Thought process: Normal thought process present Insight: Good insight present (Psych) Judgement: Good judgement present (Psych) Assessment and Plan Assessment & Plan (1) Weakness: Comment: BLE Code(s): R53.1 - Weakness (2) Weakness: Code(s): R53.1 - Weakness (3) [place] (hard of hearing): Code(s): H91.90 - Unspecified hearing loss, unspecified ear Orders: Orders NE nerve conduction velocity Today R53.1 - Weakness PT Evaluation and Treatment Today R53.1 - Weakness NE electromyogram (EMG) Today R53.1 - Weakness Referrals Speech and Hearing Referral H91.90 - Unspecified hearing loss, unspecified ear Coding Level of Care Code Est Pt Level 3 (92896) Diagnoses Weakness R53.1 [place] (hard of hearing) H91.90
[2023-02-07 13:16] VITALS: BP 130/70; PULSE 76; O2SAT 94
== END 2023-02-07 13:53 | disposition home or self-care (01) ==
PROVIDERS: Visit Provider Nurse Practitioner Family
DX: R53.1 Weakness (principal); H91.90 Unspecified hearing loss, unspecified ear
CPT/HCPCS: 99213

== ENCOUNTER 2023-02-25 10:49 | Outpatient (AMB) | payer MEDICARE, SELFPAY ==
[2023-02-25 10:51] VITALS: BP 156/70; PULSE 77; BMI 24.1
--- NOTE | 2023-02-25 10:51 | MHC.OFFVIS ---
Intake Vital Signs 02/25/23 10:51 Height 5 ft 4 in Weight 140 lb 10.479 oz BMI 24.1 BP 156/70 H Blood Pressure Location Lt brachial Position Sitting Pulse 77 Intake Visit Reasons: 1 yr f/up Intake Note: 1 year follow up w/ EKG Rn Acute Dialysis Required: No Accompanied by: Self / Same As Patient Allergies No Known Allergies Allergy (Verified 02/25/23 10:56) Medication List - Last Reconciled 02/25/23 by Tone Apple MD aspirin 81 mg PO BEDTIME metoprolol succinate ER 25 mg PO BEDTIME rosuvastatin 40 mg PO BEDTIME sertraline 100 mg PO BEDTIME 90 days HPI HPI Comments History of Present Illness Details Brian returns for follow-up regarding coronary disease and bypass surgery. He had coronary bypass in 2014. He had perioperative stroke but then recovered mostly. Overall, he states that he is feeling fine. No complaints like angina or shortness of breath or in fact anything cardiac sounding. [facility] Medical History Osteoarthritis of hands, bilateral Acute anxiety Dyslipidemia CVA (cerebral vascular accident) Depression Left pontine CVA Osteoarthritis of right hip Rectal bleeding Tremor Toenail deformity Anemia PVD (peripheral vascular disease) Cervical radiculopathy Atherosclerosis Hematuria Vertigo Coronary artery disease Carotid stenosis Cerebrovascular disease Surgical History Hx of CABG History of revision of total hip arthroplasty Status post shoulder surgery Family History Father Abdominal aneurysm Social History (Updated 02/25/23 @ 10:56 by Nicci Juan) Housing: House Alcohol intake: former Patient Tobacco Use Status: Current someday Tobacco user Tobacco use type: Cigar Cigarettes Per Day: 4 Years Smoked: 60 years e-Cigarette/Vaping Use: Never Used Second Hand Smoke Exposure: No Advance Directives Date on File: 03/30/22 service: Yes Current occupational status: retired Cognitive needs: No Hearing needs: No Vision needs: No Review of Systems Const Denies weakness ENT Denies dizziness Card Denies chest pain, Denies chest pain with activity, Denies syncope, Denies rapid heart rate, Denies pedal edema, Denies edema, Denies leg edema, Denies lightheadedness, Denies palpitations, Denies dyspnea, Denies dyspnea on exertion and Denies orthopnea Resp Denies cough, Denies dyspnea and Denies dyspnea on exertion GI Denies hematochezia and Denies change in stool character Musc Denies abnormal gait, Denies muscle cramps, Denies muscle weakness, Denies numbness, Denies radiating pain into limb and Denies tingling Neuro Denies abnormal gait, Denies dizziness, Denies syncope, Denies numbness, Denies tingling and Denies weakness Endo Denies palpitations Physical Exam Vital Signs: Last Vital Signs Pulse 77 02/25/23 10:51 BP 156/70 H 02/25/23 10:51 BMI result Body Mass Index 24.1 Const General: comfortable and no acute distress Orientation/consciousness: patient oriented x3 HEENT Other: Unremarkable Head: Yes normal to inspection Neck Neck: Yes normal visual inspection Chest Chest palpation & inspection: normal inspection of the chest Resp Auscultation: clear to auscultation bilaterally Cardio Palpation: normal PMI Heart sounds: S1 normal heart sound present, S2 normal heart sound present, no gallops, no murmurs and no rubs GI Palpation (GI): Soft to palpation Back/Spine/Pelvis Other: unremarkable Skin General skin exam: no rashes or lesions noted Neuro General: patient oriented x3 Extrem General: Yes normal to inspection Psych Mental Status: mental status grossly normal Office Procedures EKG Details: EKG with sinus rhythm at 77/Min; inferior as well as anterolateral ST depression. Mild. Slightly different compared to prior EKG. [id number], Complete Assessment & Plan Assessment & Plan (1) Atherosclerotic cardiovascular disease: Code(s): I25.10 - Atherosclerotic heart disease of [place] coronary artery without angina pectoris Plan: Status post coronary bypass surgery. Continue long-term aspirin. As it has been many years since his bypass and the EKG is also looking slightly abnormal, we will do an echocardiogram and stress test. (2) HTN (hypertension): Code(s): I10 - Essential (primary) hypertension Plan: Blood pressure levels have been up and down. Today it is on the higher side but he states home blood pressures are only 120s and 130s. No changes specifically made. (3) Atrial arrhythmia: Code(s): I49.8 - Other specified cardiac arrhythmias Plan: Prior EKG with frequent PACs. Holter however without any atrial fibrillation. (4) Aortic valve calcification: Code(s): I35.9 - Nonrheumatic aortic valve disorder, unspecified Plan: Prior echocardiogram with mild aortic stenosis. Can be monitored. (5) PVD (peripheral vascular disease): Code(s): I73.9 - Peripheral vascular disease, unspecified Plan: Per [facility] vascular notes, prior right leg revascularization. No recent issues. (6) Cerebrovascular accident: Code(s): I63.9 - Cerebral infarction, unspecified Plan: History of perioperative stroke. In the past, 30 day monitor performed at [facility] unremarkable. Repeat Holter as above without any atrial fibrillation. (7) Dyslipidemia: Code(s): E78.5 - Hyperlipidemia, unspecified Plan: He is on rosuvastatin. Lipids are well controlled. No changes. In the past, some intolerance to atorvastatin but not clear if truly related. Orders: Orders NM cardiolite stress test Today I25.10 - Atherosclerotic heart disease of [place] coronary artery without angina pectoris, R07.2 - Precordial pain CA echo transthoracic complete Today I25.10 - Atherosclerotic heart disease of [place] coronary artery without angina pectoris CA lexiscan stress w beba Today I20.9 - Angina pectoris, unspecified, I25.10 - Atherosclerotic heart disease of [place] coronary artery without angina pectoris Coding Level of Care Code Est Pt Level 4 (30045) Diagnoses Atherosclerotic cardiovascular disease I25.10 HTN (hypertension) I10 Atrial arrhythmia I49.8 Aortic valve calcification I35.9 PVD (peripheral vascular disease) I73.9 Cerebrovascular accident I63.9 Dyslipidemia E78.5 CPT Codes EKG - CPT: [id number], Complete ([id number])
== END 2023-02-25 11:17 | disposition home or self-care (01) ==
PROVIDERS: Visit Provider Internal Medicine
DX: I25.10 Atherosclerotic heart disease of native coronary artery without angina pectoris (principal); I10 Essential (primary) hypertension; I49.8 Other specified cardiac arrhythmias; I35.9 Nonrheumatic aortic valve disorder, unspecified; I73.9 Peripheral vascular disease, unspecified; I63.9 Cerebral infarction, unspecified; E78.5 Hyperlipidemia, unspecified
CPT/HCPCS: 93010; 99214

== ENCOUNTER → 2023-02-25 10:49 | Outpatient (BNVA) | payer MEDICARE, SELFPAY | PROVIDERS: Visit Provider Internal Medicine | DX: I25.10 Atherosclerotic heart disease of native coronary artery without angina pectoris (principal); I10 Essential (primary) hypertension; I49.8 Other specified cardiac arrhythmias; Z91.85 Personal history of military service; I35.9 Nonrheumatic aortic valve disorder, unspecified; I73.9 Peripheral vascular disease, unspecified; I63.9 Cerebral infarction, unspecified; E78.5 Hyperlipidemia, unspecified; Z95.1 Presence of aortocoronary bypass graft | CPT/HCPCS: 93005; 99212 ==

== ENCOUNTER → 2023-04-19 07:54 | Outpatient (REF) | payer MEDICARE, SELFPAY ==
--- NOTE | ~2023-04-19 | NM_ITS ---
Lexiscan Myocardial perfusion study Indication: Coronary disease, bypass surgery, assess for any ischemia Technique: The patient was brought in for a Lexiscan perfusion study on 04/19/2023 and was injected 0.4 mg of Lexiscan intravenously. Within a minute of this injection 25 mCi of sestamibi was given intravenously. Images were obtained using the SPECT gamma camera interlaced with the gating device. Images were obtained in supine position. Resting perfusion study was performed on 04/24/2023. Patient was administered 25 mCi of sestamibi intravenously at rest. Images were then obtained in supine position. Images were processed with the software and compared side to side in short axis, horizontal long axis and vertical long axis views. Total DLP 92mGy-cm. Findings: Raw acquisition reviewed. Arms by the patient's side. The stress perfusion study showed diminished tracer uptake along the inferolateral wall. There is some improvement with CT attenuation correction, possibly components of diaphragmatic attenuation artifact. The gated study shows normal LV systolic function with calculated LVEF of 59%. LV cavity is normal in size. The gated study shows normal wall thickening and contraction of segments. Resting study shows mildly reduced tracer uptake in the inferolateral wall. There is improvement with CT attenuation correction suggestive of diaphragmatic attenuation artifact. Gating at rest reveals normal wall motion with visually normal LVEF. The findings are consistent with reversible inferolateral defect. NM/NM cardiolite stress test Impression: 1. Myocardial perfusion imaging study shows reversible inferolateral defect suggestive of ischemia. 2. Gated LVEF is 59% during stress. Visually normal during rest. 3. Transient ischemic dilatation not present. EKG component of the test reported separately.
--- NOTE | 2023-04-19 07:57 | CA_ITS ---
Acquisition Time: 2023-04-19 09:19:19 Total Exercise Time: 00:02:00 Test Indications: cad Medications: see h Protocol: LEXISCAN Max HR: 103 BPM 72% of Pred: 142 BPM Max BP: 134/072 mmHG Max Work Load: 1.0 METS Pharmacological stress test with Lexiscan injection, while sitting and kicking his legs, without anginal symptoms, with isolated PACs and PVCs, with nondiagnostic EKG for ischemia .Nuclear images pending. Test reviewed with Dr Canseco Referred By: Tone Apple Overread By: NORBERTO LAMAR
--- NOTE | 2023-04-19 07:57 | CA_ITS ---
Transthoracic Echocardiogram Patient (Last, First, Middle): Brian Maloney L Gender: Male Date of : 1945 Age: 77 Procedure Date: 04/19/2023 Procedure Type: Transthoracic Echocardiogram Location: OP Height: 162.56 cm Weight: 63.5 kg BSA: 1.68 m2 Heart Rate: bpm BP: 146 / 70 mmHg Supervisor Fabrication: TO Referring MD: Tone Apple MD Stockroom Keeper: Jamison Canseco MD Symptoms: I25.10 - Atherosclerotic heart disease of three affiliated coronary artery without... Study Quality: Fair ECG Rhythm: Sinus Conclusions: - 1. Normal LV ejection fraction with mild LVH with impaired relaxation filling pattern and elevated filling pressures 2. Mild aortic stenosis 3. Normal RV systolic pressure 4. No gross pericardial effusion Findings Left Ventricle Normal left ventricular cavity size. There is mildly increased left ventricular wall thickness. The left ventricular systolic function is normal. The visually estimated ejection fraction is between 55-60%. Spectral Doppler is indicative of an impaired relaxation filling pattern. Elevated filling pressures. E/E prime ratio is >15, consistent with elevated filling pressures. Wall Motion Rest Echo Findings The basal inferior and basal inferoseptal segments are akinetic. All other scored wall segments showed normal motion. Right Ventricle Normal right ventricular cavity size and systolic function. Atria Both atria are normal in size. There is no evidence of interatrial shunt. Aortic Valve There is mild calcification of the aortic valve. There is mild aortic valve stenosis. The peak aortic gradient is 14 mmHg.The mean gradient is 8 mmHg. There is no aortic valve regurgitation. Mitral Valve There is mild anterior and posterior mitral leaflet thickening. There is mild mitral annular calcification. There is trace mitral valve regurgitation. There is no mitral valve stenosis. Pulmonic Valve The pulmonic valve was not well visualized. Tricuspid Valve Normal tricuspid valve structure. There is trace tricuspid valve regurgitation. The right ventricular systolic pressure is normal. The right ventricular systolic pressure is 21 mmHg. Normal right atrial pressure. There is no evidence of pulmonary hypertension. Great Vessels All visible segments of the aorta are normal in size. The pulmonary artery was not well visualized. There is no dilatation of the ascending aorta measuring 2.70 cm. Venous The inferior vena cava is normal in size and collapses greater than 50% with inspiration. Pericardium/Pleural There is no evidence of pericardial effusion. Prior Study Comparison No significant change compared to prior study dated: 02/07/2021. Measurements 2D Linear Measurements IVSd: 1.21 0.6-0.9/0.6-1.0 cm LVIDd: 4.35 3.9-5.3/4.2-5.9 cm LVIDd Index: 2.59 2.4-3.2/2.2-3.1 cm/m2 LVIDs: 2.90 2.0-3.6 cm LVPWd: 1.10 0.7-1.1 cm LA Diam: 3.40 2.7-3.8/3.0-4.0 cm LAIDs Index: 2.02 1.5-2.3 cm/m2 LV Mass: 221.62 67-162/88-224 g LV Mass Index: 131.92 43-95/49-115 g/m2 LVOT Diam: 2.00 3.0+(-)1.3 cm 2D Systolic Function EF 4C: 57.50 >55% EF 2C: 57.90 >55% EF BiP: 57.50 >55% Mitral Valve MV Pk E: 0.85 MV PK A: 0.80 MV Decel Time: 254.00 E/A: 1.10 E'Lateral: 6.42 E'Medial: 4.68 E/E' Med: 18.20 E/E' Lat: 13.30 PHT: 74.00 MVA PHT: 2.97 Decel Summit: 3.36 Aortic Valve AoV Pk Truman: 1.85 AoV Mn Truman: 1.33 AoV VTI: 0.45 AoV Pk Grad: 14.00 Aov Mn Grad: 8.00 BERYL Cont.VTI: 1.32 LVOT LVOT Pk Truman: 0.92 LVOT Mn Truman: 0.54 LVOT VTI: 0.19 LVOT Pk Grad: 3.00 LVOT Mn Grad: 1.00 LVOT Diam: 2.00 LVOT Area: 3.14 Diastolic Function MV Pk E: 0.85 MV Pk A: 0.80 E/A: 1.10 E'Medial: 4.68 E/E' Med: 18.20 E' Laterial: 6.42 E/E' Lat: 13.30 Right Ventricle TAPSE (mm): 16.60 TVS' Truman: 9.46 Tricuspid Valve TR Pk Truman: 2.13 TR Pk Grad: 18.00 RA Press: 3.00 RVSP: 21.00 Great Vessels Aorta Sinus of Valsalva: 3.08 2.0-3.5 cm Ao Asc: 2.70 2.1-3.4 cm Updated in Other Vendor System with Status of Final Jamison Canseoc MD electronically signed on 04/20/2023 10:13:28 AM with status of Final
--- NOTE | 2023-04-19 08:14 | EMG_ITS ---
Chief complaint: Lower extremity weakness, denies numbness History of stroke 2015. Denies history of diabetes. Reason for referral: Evaluate for neuropathy Referred by: Eileen Voss NP Procedure done: Bilateral lower extremity NCS/EMG Precautions and/or limitations: None The limb temperature was monitored continuously and remained between 32-36 degrees C during the performance of the NCS. Nerve Conduction Studies Anti Sensory Summary Table ?Stim Site NR Onset (ms) Norm Onset (ms) Peak (ms) Norm Peak (ms) O-P Amp (?V) Norm O-P Amp Site1 Site2 Delta-0 (ms) Dist (cm) Truman (m/s) Norm Truman (m/s) Left Sural Anti Sensory (Lat Mall) Calf ? 1.9 2.5 <4.0 6.9 >5.0 Calf Lat Mall 1.9 14.0 74 Right Sural Anti Sensory (Lat Mall) Calf ? 1.8 2.4 <4.0 8.2 >5.0 Calf Lat Mall 1.8 14.0 78 Motor Summary Table ?Stim Site NR Onset (ms) Norm Onset (ms) O-P Amp (mV) Norm O-P Amp iAmp (mV) Amp (1st) (%) Site1 Site2 Delta-0 (ms) Dist (cm) Truman (m/s) Norm Truman (m/s) Left Peroneal Motor (Ext Dig Brev) Ankle ? 4.6 <4.0 5.9 >2.5 7.3 100.0 Ankle Ext Dig Brev 4.6 0.0 B Fib ? 10.8 5.0 5.9 84.7 B Fib Ankle 6.2 30.0 48 >40 Poplt ? 12.1 4.9 6.0 83.1 Poplt B Fib 1.3 4.0 31 >40 Right Peroneal Motor (Ext Dig Brev) Ankle ? 5.5 <4.0 3.9 >2.5 4.4 100.0 Ankle Ext Dig Brev 5.5 29.0 53 B Fib ? 11.6 3.6 3.7 92.3 B Fib Ankle 6.1 29.0 48 >40 Poplt ? 12.7 3.5 3.8 89.7 Poplt B Fib 1.1 4.0 36 >40 Left Tibial Motor (Abd Carrasquillo Brev) Ankle ? 4.0 <5 17.3 >2.5 24.6 100.0 Ankle Abd Carrasquillo Brev 4.0 0.0 Knee ? 11.6 13.7 18.9 79.2 Knee Ankle 7.6 32.0 42 >40 Right Tibial Motor (Abd Carrasquillo Brev) Ankle ? 3.8 <5 5.6 >2.5 8.0 100.0 Ankle Abd Carrasquillo Brev 3.8 0.0 Knee ? 12.3 8.9 12.3 158.9 Knee Ankle 8.5 34.0 40 >40 EMG ?Side Muscle Nerve Root Ins Act Fibs Psw Amp Dur Poly Recrt Int Pat Comment Right AbdHallucis MedPlantar S1-2 Nml Nml Nml Nml Nml 0 Nml Complete Right AntTibialis Dp Br Peron L4-5 Nml Nml Nml Nml Nml 0 Nml Complete Right MedGastroc Tibial S1-2 Nml Nml Nml Nml Nml 0 Nml Complete Right VastusMed Femoral L2-4 Nml Nml Nml Nml Nml 0 Nml Complete Right Peroneus Long Sup Br Peron L5-S1 Nml Nml Nml Nml Nml 0 Nml Complete Left AbdHallucis MedPlantar S1-2 Nml Nml Nml Nml Nml 0 Nml Complete Left AntTibialis Dp Br Peron L4-5 Nml Nml Nml Nml Nml 0 Nml Complete Left MedGastroc Tibial S1-2 Nml Nml Nml Nml Nml 0 Nml Complete Left VastusMed Femoral L2-4 Nml Nml Nml Nml Nml 0 Nml Complete Left Peroneus Long Sup Br Peron L5-S1 Nml Nml Nml Nml Nml 0 Nml Complete FINDINGS: Bilateral peroneal nerves showed prolonged distal latency, normal amplitude and slow conduction velocity across the fibular neck. All other nerves tested were within normal. Concentric needle EMG was performed in selected muscles of the bilateral lower extremity. Study did not reveal signs of electric abnormalities as shown in the table below. IMPRESSION: 1. This is an abnormal study. 2. 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 3. There is no electrodiagnostic evidence for tibial neuropathy. lumbosacral plexopathy, lumbar radiculopathy, peripheral neuropathy. Thank you for your kind referral. Lor Medrano MD, [place] Board Certified, [place] Board of Physical Medicine and Rehabilitation (ABPMR) Board Certified, [place] Board of Electrodiagnostic Medicine (ABEM) CODIN 02508 x 2 MTDD
== END ==
LOC: HO.CARD 07:54
PROVIDERS: PCP Nurse Practitioner Family; Visit Provider Internal Medicine
DX: R07.2 Precordial pain (principal); I25.119 Atherosclerotic heart disease of native coronary artery with unspecified angina pectoris; R53.1 Weakness; R20.0 Anesthesia of skin
CPT/HCPCS: 78452; 93017; 93306; 95886; 95909; A9500; J0280; J2785

== ENCOUNTER → 2023-04-19 07:57 | Outpatient (BNV) | payer MEDICARE, SELFPAY | PROVIDERS: PCP Nurse Practitioner Family; Visit Provider Nurse Practitioner Family | DX: I25.10 Atherosclerotic heart disease of native coronary artery without angina pectoris (principal) | CPT/HCPCS: 78452; 93016; 93018; 93306 ==

== ENCOUNTER → 2023-04-19 08:14 | Outpatient (BNV) | payer MEDICARE, SELFPAY | PROVIDERS: PCP Nurse Practitioner Family; Visit Provider Physical Medicine & Rehabilitation | DX: S84.11XA Injury of peroneal nerve at lower leg level, right leg, initial encounter (principal); S84.12XA Injury of peroneal nerve at lower leg level, left leg, initial encounter | CPT/HCPCS: 95886; 95909 ==

== ENCOUNTER 2023-05-06 10:59 | Outpatient (AMB) | payer MEDICARE, SELFPAY ==
[2023-05-06 11:04] VITALS: BP 134/68; PULSE 88; BMI 23.8
--- NOTE | 2023-05-06 11:04 | MHC.OFFVIS ---
Intake Vital Signs 05/06/23 11:04 Height 5 ft 4 in Weight 138 lb 14.259 oz BMI 23.8 BP 134/68 Blood Pressure Location Lt brachial Position Sitting Pulse 88 Intake Visit Reasons: f/up mibi Intake Note: follow up Animal Pathologist Required: No Accompanied by: Self / Same As Patient Allergies No Known Allergies Allergy (Verified 05/06/23 11:08) Medication List - Last Reconciled 05/06/23 by Tone Apple MD aspirin 81 mg PO BEDTIME metoprolol succinate ER 25 mg PO BEDTIME rosuvastatin 40 mg PO BEDTIME sertraline 100 mg PO BEDTIME 90 days HPI HPI Comments History of Present Illness Details Brian returns for follow-up regarding coronary disease and bypass surgery. He had coronary bypass in 2014. He had perioperative stroke but then recovered mostly. From cardiac, no new complaints. No angina or anything cardiac sounding. He does get discomfort in his lower extremities and has a history of vascular disease. [facility] Medical History Osteoarthritis of hands, bilateral Acute anxiety Dyslipidemia CVA (cerebral vascular accident) Depression Left pontine CVA Osteoarthritis of right hip Rectal bleeding Tremor Toenail deformity Anemia PVD (peripheral vascular disease) Cervical radiculopathy Atherosclerosis Hematuria Vertigo Coronary artery disease Carotid stenosis Cerebrovascular disease Surgical History Hx of CABG History of revision of total hip arthroplasty Status post shoulder surgery Family History Father Abdominal aneurysm Social History Housing: House Alcohol intake: former Patient Tobacco Use Status: Current someday Tobacco user Tobacco use type: Cigar Cigarettes Per Day: 4 Years Smoked: 60 years e-Cigarette/Vaping Use: Never Used Second Hand Smoke Exposure: No Advance Directives Date on File: 03/30/22 service: Yes Current occupational status: retired Cognitive needs: No Hearing needs: No Vision needs: No Review of Systems Const Denies weakness ENT Denies dizziness Card Denies chest pain, Denies chest pain with activity, Denies syncope, Denies rapid heart rate, Denies pedal edema, Denies edema, Denies leg edema, Denies lightheadedness, Denies palpitations, Denies dyspnea, Denies dyspnea on exertion and Denies orthopnea Resp Denies cough, Denies dyspnea and Denies dyspnea on exertion GI Denies hematochezia and Denies change in stool character Musc Denies abnormal gait, Denies muscle cramps, Denies muscle weakness, Denies numbness, Denies radiating pain into limb and Denies tingling Neuro Denies abnormal gait, Denies dizziness, Denies syncope, Denies numbness, Denies tingling and Denies weakness Endo Denies palpitations Physical Exam Vital Signs: Last Vital Signs Pulse 88 05/06/23 11:04 BP 134/68 05/06/23 11:04 BMI result Body Mass Index 23.8 Const General: comfortable and no acute distress Orientation/consciousness: patient oriented x3 HEENT Other: Unremarkable Head: Yes normal to inspection Neck Neck: Yes normal visual inspection Chest Chest palpation & inspection: normal inspection of the chest Resp Auscultation: clear to auscultation bilaterally Cardio Palpation: normal PMI Heart sounds: S1 normal heart sound present, S2 normal heart sound present, no gallops, no murmurs and no rubs GI Palpation (GI): Soft to palpation Back/Spine/Pelvis Other: unremarkable Skin General skin exam: no rashes or lesions noted Neuro General: patient oriented x3 Extrem General: Yes normal to inspection Psych Mental Status: mental status grossly normal Assessment & Plan Assessment & Plan (1) Atherosclerotic cardiovascular disease: Code(s): I25.10 - Atherosclerotic heart disease of [place] coronary artery without angina pectoris Plan: Status post coronary bypass surgery. Echocardiogram with LVEF of 55-60%. Basal inferior/inferoseptal akinesis. In the perfusion imaging, reversible inferolateral defect suggestive of ischemia. Clinically, he has got absolutely no symptoms. We can keep on medications including aspirin, beta-blockers and statins. (2) HTN (hypertension): Code(s): I10 - Essential (primary) hypertension Plan: Stable. No changes. He has had some higher readings in the past. If it persists, then probably go up on the beta-blockers. (3) Atrial arrhythmia: Code(s): I49.8 - Other specified cardiac arrhythmias Plan: Prior EKG with frequent PACs. Holter however without any atrial fibrillation. (4) Aortic valve calcification: Code(s): I35.9 - Nonrheumatic aortic valve disorder, unspecified Plan: Mild aortic stenosis on the echocardiogram. Can be periodically monitored. (5) PVD (peripheral vascular disease): Code(s): I73.9 - Peripheral vascular disease, unspecified Plan: Per [facility] vascular notes, prior right leg revascularization. To follow-up with them. (6) Cerebrovascular accident: Code(s): I63.9 - Cerebral infarction, unspecified Plan: History of perioperative stroke. In the past, 30 day monitor performed at [facility] [place]remarkable. Repeat Holter as above without any atrial fibrillation. (7) Dyslipidemia: Code(s): E78.5 - Hyperlipidemia, unspecified Plan: On Rosuvastatin. Lipids are well controlled. No changes. In the past, some intolerance to atorvastatin but not clear if truly related. Coding Level of Care Code Est Pt Level 4 (11104) Diagnoses Atherosclerotic cardiovascular disease I25.10 HTN (hypertension) I10 Atrial arrhythmia I49.8 Aortic valve calcification I35.9 PVD (peripheral vascular disease) I73.9 Cerebrovascular accident I63.9 Dyslipidemia E78.5
== END 2023-05-06 11:17 | disposition home or self-care (01) ==
PROVIDERS: PCP Nurse Practitioner Family; Visit Provider Internal Medicine
DX: I25.10 Atherosclerotic heart disease of native coronary artery without angina pectoris (principal); I10 Essential (primary) hypertension; I49.8 Other specified cardiac arrhythmias; I35.9 Nonrheumatic aortic valve disorder, unspecified; I73.9 Peripheral vascular disease, unspecified; I63.9 Cerebral infarction, unspecified; E78.5 Hyperlipidemia, unspecified
CPT/HCPCS: 99214

== ENCOUNTER → 2023-05-06 10:59 | Outpatient (BNVA) | payer MEDICARE, SELFPAY | PROVIDERS: PCP Nurse Practitioner Family; Visit Provider Internal Medicine | DX: I25.10 Atherosclerotic heart disease of native coronary artery without angina pectoris (principal); I10 Essential (primary) hypertension; I49.8 Other specified cardiac arrhythmias; I35.9 Nonrheumatic aortic valve disorder, unspecified; I73.9 Peripheral vascular disease, unspecified; I63.9 Cerebral infarction, unspecified; E78.5 Hyperlipidemia, unspecified | CPT/HCPCS: 99212 ==

== ENCOUNTER 2023-06-06 10:02 | Outpatient (AMB) | payer MEDICARE, SELFPAY ==
--- NOTE | 2023-06-06 10:04 | A.OFFVIS_ITS ---
Intake Vital Signs 06/06/23 10:05 Height 5 ft 4 in Weight 134 lb BMI 23.0 Intake Visit Reasons: New Pt - Generalized Weakness - EMG Done Intake Note: Brian 77 yr old male presents today for a new patient visit for bilateral legs and feet. States he is having weakness in both legs. States his right leg is worse. No recent falls. seen with his PCP who sent patient for a lower extremity EMG. Hx of Right total hip replacement 15 years ago. States he is here to review EMG. Patient referred by his PCP Amish Rebollar. Allergies No Known Allergies Allergy (Verified 06/06/23 10:11) Medication List - Last Reconciled 06/06/23 by Lor Medrano MD aspirin 81 mg PO BEDTIME metoprolol succinate ER 25 mg PO BEDTIME rosuvastatin 40 mg PO BEDTIME sertraline 100 mg PO BEDTIME 90 days HPI HPI Comments History of Present Illness Details Seen patient for EMG, 04/19/2022 that showed bilateral peroneal neuropathy at fibular neck. Patient referred to us for leg weakness. Patient been having chronic leg weakness, described as legs giving out on the knees. He says that he has been walking more hunched forward. He admits to some back pain especially with prolonged standing. He avoids walking because of pain and weakness. Difficult for him to get up from a sitting position. But he prefers not use any assistive device. Denies bowel or bladder incontinence. Denies any numbness on his feet. He has not had any evaluation for lumbar spine. History of cardiac bypass 9 years ago, sustained stroke during bypass, residual left upper extremity weakness. History of right hip replacement 15 years ago. Treatment done so far: Finishing physical therapy [facility] Medical History Osteoarthritis of hands, bilateral Acute anxiety Dyslipidemia CVA (cerebral vascular accident) Depression Left pontine CVA Osteoarthritis of right hip Rectal bleeding Tremor Toenail deformity Anemia PVD (peripheral vascular disease) Cervical radiculopathy Atherosclerosis Hematuria Vertigo Coronary artery disease Carotid stenosis Cerebrovascular disease Surgical History Hx of CABG History of revision of total hip arthroplasty Status post shoulder surgery Family History Father Abdominal aneurysm Social History Housing: House Alcohol intake: former Patient Tobacco Use Status: Current someday Tobacco user Tobacco use type: Cigar Cigarettes Per Day: 4 Years Smoked: 60 years e-Cigarette/Vaping Use: Never Used Second Hand Smoke Exposure: No Advance Directives Date on File: 03/30/22 service: Yes Current occupational status: retired Cognitive needs: No Hearing needs: No Vision needs: No Review of Systems Const All systems reviewed & are unremarkable except as noted in HPI and below Physical Exam Vital Signs: BMI result Body Mass Index 23.0 Constitutional: Patient appears to be in no acute distress, well nourished and well developed. Patient was appropriately conversant and oriented. Good historian. MSK: No specific abnormalities found on inspection of the spine and all extremities. No pain with palpation over the lumbar area. Lumbar ROM was full. Difficulty getting up from sitting position without assistance. Neurological: No spasticity. No increased tone. Sanchez?s negative bilaterally. Babinski was down going bilaterally. Clonus was negative. Negative pronator drift. No footdrop. Bilateral dorsiflexion and knee extension 5/5. Hip flexion 4-/5. Results Reviewed Results Reviewed: EMG 04/19/2023 FINDINGS: Bilateral peroneal nerves showed prolonged distal latency, normal amplitude and slow conduction velocity across the fibular neck. All other nerves tested were within normal. Concentric needle EMG was performed in selected muscles of the bilateral lower extremity. Study did not reveal signs of electric abnormalities as shown in the table below. IMPRESSION: 1. This is an abnormal study. 2. 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 3. There is no electrodiagnostic evidence for tibial neuropathy. lumbosacral plexopathy, lumbar radiculopathy, peripheral neuropathy. I reviewed records from the following: PCP Assessment & Plan Assessment & Plan (1) Peroneal neuropathy at knee: Code(s): G57.30 - Lesion of lateral popliteal nerve, unspecified lower limb Qualifiers: Laterality: right Qualified Code(s): G57.31 - Lesion of lateral popliteal nerve, right lower limb (2) Spinal stenosis, lumbar region with neurogenic claudication: Code(s): M48.062 - Spinal stenosis, lumbar region with neurogenic claudication Plan EMG showed bilateral peroneal neuropathy at fibular neck, but that would not explain weakness proximally and back pain. Fortunately there is no dorsiflexion weakness yet. Patient had undergone adequate conservative management including PT without improvement of condition. It would be reasonable to obtain further imaging such as MRI. An MRI would help rule out any serious condition, guide treatment and assess prognosis for recovery. Specifically ruling out lumbar spinal stenosis. Would be reasonable to do have him use an assistive device such as cane or walker, but patient defers. Assessment and plan discussed with patient, and patient was agreeable. All questions were answered thoroughly. 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
[2023-06-06 10:05] VITALS: BMI 23.0
== END 2023-06-06 10:36 | disposition home or self-care (01) ==
PROVIDERS: PCP Nurse Practitioner Family; Visit Provider Physical Medicine & Rehabilitation
DX: G57.31 Lesion of lateral popliteal nerve, right lower limb (principal); M48.062 Spinal stenosis, lumbar region with neurogenic claudication
CPT/HCPCS: 99214

== ENCOUNTER → 2023-06-06 10:02 | Outpatient (BNVA) | payer MEDICARE, SELFPAY | PROVIDERS: PCP Nurse Practitioner Family; Visit Provider Physical Medicine & Rehabilitation | DX: G57.31 Lesion of lateral popliteal nerve, right lower limb (principal); M48.062 Spinal stenosis, lumbar region with neurogenic claudication | CPT/HCPCS: 99212 ==

== ENCOUNTER 2023-06-11 10:44 | Outpatient (AMB) | payer MEDICARE, SELFPAY ==
--- NOTE | 2023-06-11 10:45 | A.OFFPC_ITS ---
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 Allergies No Known Allergies Allergy (Verified 06/11/23 11:15) Medication List - Last Reconciled 06/11/23 by HECTOR Trevizo aspirin 81 mg PO BEDTIME metoprolol succinate ER 25 mg PO BEDTIME rosuvastatin 40 mg PO DAILY sertraline 100 mg PO BEDTIME 90 days Tobacco use date assessed: 06/11/23 Fall risk assessment: No Falls in past year Last assessed Fall Risk: 06/11/23 Dental Screening Dental Screen Date: 06/11/23 Did you have a dental visit in the last 12 months?: No Did you have a dental problem in the last 6 months where you did not have access to dental care?: No Was dental information given to patient?: Patient declined HPI 4 month follow up HPI Details HTN: Blood pressure is stable, managed with metoprolol 25mg. Will order labs. Denies chest pain, shortness of breath, headache, dizziness, and blurred vision. Pt smokes cigars, educated on dangers of this. Pt c/o dysphagia. He reports that this occurs with liquids and solids. Will order barium swallow. [facility] Medical History Osteoarthritis of hands, bilateral Acute anxiety Dyslipidemia CVA (cerebral vascular accident) Depression Left pontine CVA Osteoarthritis of right hip Rectal bleeding Tremor Toenail deformity Anemia PVD (peripheral vascular disease) Cervical radiculopathy Atherosclerosis Hematuria Vertigo Coronary artery disease Carotid stenosis Cerebrovascular disease Surgical History Hx of CABG History of revision of total hip arthroplasty Status post shoulder surgery Family History Father Abdominal aneurysm Social History Housing: House Alcohol intake: former Patient Tobacco Use Status: Current someday Tobacco user Tobacco use type: Cigar Cigarettes Per Day: 4 Years Smoked: 60 years e-Cigarette/Vaping Use: Never Used Second Hand Smoke Exposure: No Advance Directives Date on File: 03/30/22 service: Yes Current occupational status: retired Cognitive needs: No Hearing needs: No Vision needs: No Questionnaire PHQ-9 Over the last 2 weeks, how often have you been bothered by any of the following problems? 1. Little interest or pleasure in doing things: not at all 2. Feeling down, depressed, or hopeless: not at all 3. Trouble falling or staying asleep, or sleeping too much: not at all 4. Feeling tired or having little energy: not at all 5. Poor appetite or overeating: not at all 6. Feeling bad about yourself - or that you are a failure or have let yourself or your family down: not at all 7. Trouble concentrating on things, such as reading the newspaper or watching television: not at all 8. Moving or speaking so slowly that other people could have noticed. Or the opposite - being so fidgety or restless that you have been moving around a lot more than usual: not at all 9. Thoughts that you would be better off or of hurting yourself in some way: not at all Total score: 0 Depression Screening Interpretation: Negative Depression Screening Done: Yes 05472 - PHQ-9 Billing: Yes Source: Developed by Drs. Jose Maria Vargas, Eileen Quevedo, Paulo Martínez and colleagues, with an educational kalyn from [employer]. Thrive Questionnaire Date Thrive assessed: 06/11/23 I am a: Patient What is your living situation today?: I have a steady place to live Within the past 12 months, did the food you bought not last and you didn't have the money to get more?: Never true Within the past 12 months, did you worry whether your food would run out before you got money to buy more?: Never true Do you have trouble paying for medicines?: No Do you have trouble getting transportation to medical appointments?: No Do you have trouble paying your heating and electricity bill?: No Do you have trouble taking care of your child, family member or friend?: No Do you have trouble with day-to-day activities such as bathing, preparing meals, shopping, managing finances, etc.?: No Are you currently unemployed and looking for a job?: No Are you interested in more education?: No Please select the resources that you would like help with: None Currently or been in a relationship where the following occur: no concerns reported THRIVE Score: 0 DORIAN-7 AMB Questionnaire DORIAN-7 Date DORIAN - 7 assessed: 06/11/23 Feeling nervous, anxious, or on edge: 0 = Not at all Not being able to stop or control worryin = Not at all Worrying too much about different things: 0 = Not at all Trouble relaxin = Not at all Being so restless that it is hard to sit still: 0 = Not at all Becoming easily annoyed or irritable: 0 = Not at all Feeling afraid as if something awful might happen: 0 = Not at all Total DORIAN-7 score (0-4 normal; 5-9 mild; 10-14 moderate; 15-21 severe): 0 Source: Developed by Drs. Jose Maria Vargas, Eileen Quevedo, Paulo Martínez and colleagues, with an educational kalyn from [employer]. DORIAN-7 Assessment Billing DORIAN-7 Assessment Tool: DORIAN-7 Assessment 27753 Review of Systems Const Reports as per HPI Physical exam (Primary Care) Vital Signs: Last Vital Signs Pulse 63 06/11/23 10:52 BP 130/70 06/11/23 10:52 Pulse Ox 97 06/11/23 10:52 Oxygen Delivery Method Room Air 06/11/23 10:52 BMI result Body Mass Index 24.0 Tobacco/Smoking Status: Tobacco use Status Tobacco use date assessed 06/11/23 06/11/23 10:56 Patient Tobacco Use Status Current someday Tobacco 06/11/23 10:56 Tobacco use type Cigar 06/11/23 10:56 e-Cigarette/Vaping Use Never Used 06/11/23 10:56 PHQ-9: PHQ-9 Score PHQ-9: Total score 0 06/11/23 11:09 Depression Screening Interpretation: Negative Thrive Assessment: Date of Thrive Assessment Date Thrive assessed 06/11/23 06/11/23 11:00 Currently or been in a relationship where the following occur: no concerns reported Const General: cooperative Orientation/consciousness: patient oriented x3 Resp Other: lungs with expiratory coarseness Effort & Inspection: normal respiratory effort Cardio Rate: regular rate Rhythm: regular rhythm Heart sounds: S1 normal heart sound present and S2 normal heart sound present Neuro General: patient oriented x3 Psych Appearance: grossly normal Mental Status: mental status grossly normal Speech and movement: Normal speech and movement present Affect: normal affect Attitude: cooperative Thought process: Normal thought process present Thought content: Normal thought content present Insight: Good insight present (Psych) Judgement: Good judgement present (Psych) Assessment and Plan Assessment & Plan (1) HTN (hypertension): Code(s): I10 - Essential (primary) hypertension Plan: Stable, labs ordered (2) Smoker: Code(s): F17.200 - Nicotine dependence, unspecified, uncomplicated Plan: encouraged to quit (3) Dysphagia: Code(s): R13.10 - Dysphagia, unspecified Plan: swallow eval ordered (4) Screening PSA (prostate specific antigen): Code(s): Z12.5 - Encounter for screening for malignant neoplasm of prostate Plan: PSA ordered Plan The patient agreed to the use of a administrative medical director for this encounter. Scribed for DEEPIKA Gao-BC by Ashly Vines administrative medical director, on 06/11/2023 at 11:15 EST. Orders: Orders FL barium swallow modified Today R13.10 - Dysphagia, unspecified Complete Blood Count Auto Diff Today I10 - Essential (primary) hypertension Comprehensive [place]. Panel Fast Today I10 - Essential (primary) hypertension TSH reflex Free T4 Today I10 - Essential (primary) hypertension UA CC w/rflx Micro + Cult Today I10 - Essential (primary) hypertension Lipid Panel Today I10 - Essential (primary) hypertension Prostate Specific Antigen Scr Today Z12.5 - Encounter for screening for malignant neoplasm of prostate Coding Level of Care Code Est Pt Level 3 (57986) Diagnoses HTN (hypertension) I10 Smoker F17.200 Dysphagia R13.10 Screening PSA (prostate specific antigen) Z12.5 Additional Codes DORIAN-7 Assessment Billing - DORIAN-7 Assessment Tool: DORIAN-7 Assessment 29474 ([id number])
[2023-06-11 10:52] VITALS: BP 130/70; PULSE 63; O2SAT 97; BMI 24.0
== END 2023-06-11 11:27 | disposition home or self-care (01) ==
PROVIDERS: PCP Nurse Practitioner Family; Visit Provider Nurse Practitioner Family
DX: I10 Essential (primary) hypertension (principal); F17.200 Nicotine dependence, unspecified, uncomplicated; R13.10 Dysphagia, unspecified; Z12.5 Encounter for screening for malignant neoplasm of prostate
CPT/HCPCS: 99213

== ENCOUNTER 2023-06-12 13:00 | Outpatient (RCR) | payer MEDICARE, SELFPAY ==
--- NOTE | 2023-04-11 10:39 | MHC.PT.EP ---
[facility] [place] Office [place] Office [place] Office [address] Julio Baer [address] [phone] F: [phone] F: [phone] F: [phone] F: [phone] Physical Therapy Plan of Care Date of Evaluation: 04/11/23 Date of Surgery: Diagnosis: This is a 77 yo male presenting to skilled PT with a script for BLE weakness. Assessment: This is a 77 yo male presenting to skilled PT with a script for BLE weakness. This patient has been to our facility in the past and has PT which was helpful for strengthening and conditioning. The last time he was here was most likely in 2021. He presents today reporting that his legs just give out . He has not had any falls but is unsteady of his feet and fearful of falling. He does not use an AD. He does endorse pain at the R hip, groin and thigh, described as achy. Pain increases with weightbearing but is described as all the time as well. Improves with rest. He is still dizzy as well, he was here for vertigo in the past (PCP told him he will always be dizzy due to his history of strokes). Assessment reveals pain that ranges from up to a 6/10 at the worst. Patient demos decreased BLE ROM, strength of BLE's, TTP at lateral hip/ITB and impaired posture with forward head and rounded shoulders with associated decreased balance, gait and safety. He also demos decreased endurance, increased fatigue and increased SOB/dyspenea. Based on functional limitations, impaired QOL and pain tolerance patient is a good candidate for skilled PT 2x/wk for 5wks. Frequency and Duration: The patient will be seen 2x/wk for 5wks Short Term Goals: Patient will demo I with HEP Patient will demo proper squat and lift techniques without increase in pain or instability Patient will understand core stab and importance with change in planes and with LE strengthening exercises Half-Way Goals: Patient will report 75% improvement in balance and strength as evidenced by reports improved stability throughout day to day routine Patient will improve outcome measure by 10 points Patient will demo WFL AROM of BLE Improve MMT of BLE by at least 1 grade Treatment Plan: Modalities to reduce pain, spasms and effusion. Manual therapy to restore motion and function. Therapeutic exercise to improve strength and flexibility. Neuromuscular re-education for posture and balance. Therapeutic activities to return to functional activities of daily living. Electronically signed by: Darleen Oliveros PT Please sign and return to therapist. Thank you for your referral.
--- NOTE | 2023-06-12 14:46 | MHC.PT.DC ---
[facility] [place] Office [place] Office [place] Office [address] Julio Baer [address] [phone] F: [phone] F: [phone] F: [phone] F: [phone] Physical Therapy Discharge Report Diagnosis: This is a 77 yo male presenting to skilled PT with a script for BLE weakness. Date of Surgery: Date of Evaluation: 04/11/23 Date of Discharge: 06/12/23 Treatments to Date: 13 Cancellations to Date: 0 No Shows to Date: 0 Discharge Status: Achieved Goals Improved Function Independent with HEP Discharge Summary: Patient has improved pain, endurance, and strength. He is I in his HEP and motivated to continue on his own. He has met his goals and is ready for DC at this time. DC to HEP. Electronically signed by: Darleen Oliveros PT Please sign and return to therapist. Thank you for your referral.
== END 2023-06-12 14:47 | disposition home or self-care (01) ==
LOC: HO.PTCHIC 13:00
PROVIDERS: PCP Nurse Practitioner Family; Visit Provider Nurse Practitioner Family
DX: R53.1 Weakness (principal)
CPT/HCPCS: 97110; 97112; 97162; 97163

== ENCOUNTER 2023-07-01 14:09 | Outpatient (REF) | payer MEDICARE, SELFPAY ==
--- NOTE | ~2023-07-01 | MR_ITS ---
EXAMINATION: MR LUMBAR SPINE WITHOUT CONTRAST CLINICAL INFORMATION: 77-year-old with spinal stenosis, lumbar region with neurogenic claudication. COMPARISON: 07/26/2017 MRI. TECHNIQUE: MRI of the lumbar spine was obtained using routine sequences without contrast. FINDINGS: CORONAL ALIGNMENT: There is mild upper lumbar levocurvature, convex to the left at L1-L2 stable in appearance. There is slight L4-L5 dextrocurvature stable in appearance. SAGITTAL ALIGNMENT: Trace retrolisthesis at L2-L3 stable in appearance. Otherwise normal lumbosacral alignment in the sagittal plane. LUMBOSACRAL JUNCTION: Normal. There are 5 [id number] lumbar-type vertebral bodies. VERTEBRAL BODIES: Stable vertebral body heights. No interval compression fractures. DISC SPACES AND ENDPLATES: Msxyhzcn-xk-gjkliq disc space height loss asymmetric to the right at L4-L5 slightly progressed from previous exam. Degenerative endplate irregularity with intradiscal degenerative signal changes and spondylosis also noted. Moderate disc volume loss at L2-L3 with disc desiccation and mild spondylosis stable in appearance. [place] remodeling noted along the endplates throughout the lumbar spine similar to the previous study unchanged. Multilevel disc desiccation, most apparent at L2-L3 is stable. SPINAL CANAL: No abnormal developmental findings. BONE MARROW: Previously noted edematous endplate changes at L4-L5 has largely resolved. No focally suspicious marrow-replacing process or bone marrow edema. Diffusely heterogeneous bone marrow signal intensity is noted, which is similar to the previous exam and is nonspecific. Diffusely speckled T2 bright foci within the marrow spaces are noted slightly more prominent on the current study which is nonspecific. CONUS MEDULLARIS: Terminates at T12-L1. Morphology and signal is normal. INTRADURAL NERVE ROOTS: Crowding of the intradural nerve roots at L4-L5 progressed from previous exam consistent with progression of spinal stenosis. Otherwise grossly unremarkable and unchanged. L5-S1: Normal annular contour. Zucm-ma-amhkfkun bilateral facet joint arthropathy stable in appearance. No significant canal or neural foraminal stenosis. L4-L5: Concentric disc osteophyte complex is noted slightly more prominent posteriorly than on the previous exam, with increased flattening of the ventral dural sac asymmetric to the right. Ligamentum flavum thickening and moderate bilateral facet joint arthropathy with interspinous ligament degeneration is unchanged. Severe central spinal canal stenosis has progressed, with marked crowding of the intradural nerve roots with severe bilateral lateral recess stenosis likely impinging on the traversing L5 nerve roots bilaterally, right more than left progressed from previous exam. Disc osteophyte complexes encroach on the neural foramina bilaterally with severe bilateral neural foraminal stenosis, progressed from the previous exam with bilateral L4 nerve root impingement. L3-L4: Disc bulging is again noted similar to the previous study. Ligamentum flavum thickening and moderate bilateral facet joint arthropathy slightly progressed from previous study. No significant central canal stenosis. Slight narrowing of the subarticular zones right more than left unchanged. Moderate right and mild left-sided foraminal narrowing stable in appearance with disc bulging abutting the extraforaminal right L3 nerve root unchanged. L2-L3: Disc bulging and slight retrolisthesis stable in appearance. Mild facet arthropathy bilaterally stable in appearance. No significant canal stenosis. Slight narrowing of the right subarticular zone is stable. Mild foraminal narrowing bilaterally is unchanged. L1-L2: No significant disc bulge or herniation. Mild facet arthropathy noted. No canal or foraminal stenosis stable in appearance. T12-L1: Shallow right paramedian disc herniation with slight cephalad migration and a tiny left paramedian disc herniation noted on current study with mild indentation of the ventral thecal sac right more than left with mild facet arthropathy bilaterally. No significant canal or neural foraminal stenosis. PARAVERTEBRAL AND INCLUDED EXTRASPINAL SOFT TISSUES: The distal infrarenal abdominal aorta measures 2.7 cm maximum AP diameter at the L3-L4 level increased in size from previous study. Recommend followup every 5 years. Reference: J Am Macy Radiol 2013; 10 (10): 789-794. Otherwise, the paravertebral soft tissues appear grossly unremarkable. MR/MR lumbar spine wo con IMPRESSION: 1. Mild S-shaped lumbar scoliosis, stable in appearance with trace retrolisthesis at L2-L3 stable in appearance. 2. Multilevel discogenic degenerative changes and spondylosis, with progression of disc space height loss at L4-L5 since the previous exam with disc osteophyte complex at this level slightly more prominent on the current study with severe spinal canal stenosis at L4-L5 progressed from previous exam with severe bilateral lateral recess stenosis, right more than left progressed from previous exam with severe bilateral neural foraminal stenosis at this level progressed from previous study with bilateral L4 and L5 nerve root impingement. 3. Multilevel bilateral facet joint arthropathy as described above with some progression of facet joint arthropathy at L3-L4 with otherwise stable multilevel disc bulging and disc herniations as described above without significant spinal canal stenosis. Stable hbya-[id number] degrees of neural foraminal narrowing at multiple levels as detailed by level above. 4. A 2.7 cm distal infrarenal abdominal aorta is increased in size from previous study. Recommend followup every 5 years. See above note.
== END 2023-07-01 14:10 | disposition home or self-care (01) ==
LOC: HO.MRI 14:09
PROVIDERS: PCP Nurse Practitioner Family; Visit Provider Physical Medicine & Rehabilitation
DX: M48.062 Spinal stenosis, lumbar region with neurogenic claudication (principal)
CPT/HCPCS: 72148

== ENCOUNTER 2023-08-08 11:46 | Outpatient (AMB) | payer MEDICARE, SELFPAY ==
[2023-08-08 11:48] VITALS: BMI 24.0
--- NOTE | 2023-08-08 11:48 | MHC.OFFVIS ---
Vital Signs 08/08/23 11:48 Height 5 ft 4 in Weight 140 lb BMI 24.0 Intake Visit Reasons: ov- Generalized Weakness MRI review Intake Note: Brian 77 yr old male presents today for his MRI review for his lumbar spine. States pain no changes in medical hx. 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 Hewever we thought that would not explain his leg weakness. Patient been having chronic leg weakness, described as legs giving out on the knees. He says that he has been walking more hunched forward. He admits to some back pain especially with prolonged standing. He avoids walking because of pain and weakness. Difficult for him to get up from a sitting position. But he prefers not use any assistive device. Denies bowel or bladder incontinence. Denies any numbness on his feet. He has not had any evaluation for lumbar spine. History of cardiac bypass 9 years ago, sustained stroke during bypass, residual left upper extremity weakness. History of right hip replacement 15 years ago. He has done physical therapy. No changes seen last here. Here to discuss MRI. [facility] Medical History (Updated 08/08/23 @ 12:36 by Lor Medrano MD) Lumbar spinal stenosis Osteoarthritis of hands, bilateral Acute anxiety Dyslipidemia CVA (cerebral vascular accident) Depression Left pontine CVA Osteoarthritis of right hip Rectal bleeding Tremor Toenail deformity Anemia PVD (peripheral vascular disease) Cervical radiculopathy Atherosclerosis Hematuria Vertigo Coronary artery disease Carotid stenosis Cerebrovascular disease Surgical History Hx of CABG History of revision of total hip arthroplasty Status post shoulder surgery Family History Father Abdominal aneurysm Social History Housing: House Alcohol intake: former Patient Tobacco Use Status: Current someday Tobacco user Tobacco use type: Cigar Cigarettes Per Day: 4 Years Smoked: 60 years e-Cigarette/Vaping Use: Never Used Second Hand Smoke Exposure: No Advance Directives Date on File: 03/30/22 service: Yes Current occupational status: retired Cognitive needs: No Hearing needs: No Vision needs: No Physical Exam Vital Signs: BMI result Body Mass Index 24.0 Constitutional: Patient appears to be in no acute distress, well nourished and well developed. Patient was appropriately conversant and oriented. Good historian. MSK: No specific abnormalities found on inspection of the spine and all extremities. No pain with palpation over the lumbar area. Lumbar ROM was full. Difficulty getting up from sitting position without assistance. Neurological: Weak hip flexors 4/5 bilateral. Knee extension and dorsiflexion 5/5 when seated. Brisk reflexes bilateral knee and patella, also UE, symmetric. No spasticity. No increased tone. Sanchez?s negative bilaterally. Babinski was down going bilaterally. Clonus was negative. Negative pronator drift. Results Reviewed Results Reviewed: Ordering Physician: Lor Fostre Date of Service: 07/01/23 Procedure(s): MR lumbar spine wo con Accession Number(s): [id number] cc: Amish Voss LUNCHROOM AIDE-BC; Lor Foster~ EXAMINATION: MR LUMBAR SPINE WITHOUT CONTRAST CLINICAL INFORMATION: 77-year-old with spinal stenosis, lumbar region with neurogenic claudication. COMPARISON: 07/26/2017 MRI. TECHNIQUE: MRI of the lumbar spine was obtained using routine sequences without contrast. FINDINGS: CORONAL ALIGNMENT: There is mild upper lumbar levocurvature, convex to the left at L1-L2 stable in appearance. There is slight L4-L5 dextrocurvature stable in appearance. SAGITTAL ALIGNMENT: Trace retrolisthesis at L2-L3 stable in appearance. Otherwise normal lumbosacral alignment in the sagittal plane. LUMBOSACRAL JUNCTION: Normal. There are 5 zmu-ggq-orvdnba lumbar-type vertebral bodies. VERTEBRAL BODIES: Stable vertebral body heights. No interval compression fractures. DISC SPACES AND ENDPLATES: Aqpvqovw-fb-adexoo disc space height loss asymmetric to the right at L4-L5 slightly progressed from previous exam. Degenerative endplate irregularity with intradiscal degenerative signal changes and spondylosis also noted. Moderate disc volume loss at L2-L3 with disc desiccation and mild spondylosis stable in appearance. [place] remodeling noted along the endplates throughout the lumbar spine similar to the previous study unchanged. Multilevel disc desiccation, most apparent at L2-L3 is stable. SPINAL CANAL: No abnormal developmental findings. BONE MARROW: Previously noted edematous endplate changes at L4-L5 has largely resolved. No focally suspicious marrow-replacing process or bone marrow edema. Diffusely heterogeneous bone marrow signal intensity is noted, which is similar to the previous exam and is nonspecific. Diffusely speckled T2 bright foci within the marrow spaces are noted slightly more prominent on the current study which is nonspecific. CONUS MEDULLARIS: Terminates at T12-L1. Morphology and signal is normal. INTRADURAL NERVE ROOTS: Crowding of the intradural nerve roots at L4-L5 progressed from previous exam consistent with progression of spinal stenosis. Otherwise grossly unremarkable and unchanged. L5-S1: Normal annular contour. Vqhb-gj-ghrnqtob bilateral facet joint arthropathy stable in appearance. No significant canal or neural foraminal stenosis. L4-L5: Concentric disc osteophyte complex is noted slightly more prominent posteriorly than on the previous exam, with increased flattening of the ventral dural sac asymmetric to the right. Ligamentum flavum thickening and moderate bilateral facet joint arthropathy with interspinous ligament degeneration is unchanged. Severe central spinal canal stenosis has progressed, with marked crowding of the intradural nerve roots with severe bilateral lateral recess stenosis likely impinging on the traversing L5 nerve roots bilaterally, right more than left progressed from previous exam. Disc osteophyte complexes encroach on the neural foramina bilaterally with severe bilateral neural foraminal stenosis, progressed from the previous exam with bilateral L4 nerve root impingement. L3-L4: Disc bulging is again noted similar to the previous study. Ligamentum flavum thickening and moderate bilateral facet joint arthropathy slightly progressed from previous study. No significant central canal stenosis. Slight narrowing of the subarticular zones right more than left unchanged. Moderate right and mild left-sided foraminal narrowing stable in appearance with disc bulging abutting the extraforaminal right L3 nerve root unchanged. L2-L3: Disc bulging and slight retrolisthesis stable in appearance. Mild facet arthropathy bilaterally stable in appearance. No significant canal stenosis. Slight narrowing of the right subarticular zone is stable. Mild foraminal narrowing bilaterally is unchanged. L1-L2: No significant disc bulge or herniation. Mild facet arthropathy noted. No canal or foraminal stenosis stable in appearance. T12-L1: Shallow right paramedian disc herniation with slight cephalad migration and a tiny left paramedian disc herniation noted on current study with mild indentation of the ventral thecal sac right more than left with mild facet arthropathy bilaterally. No significant canal or neural foraminal stenosis. PARAVERTEBRAL AND INCLUDED EXTRASPINAL SOFT TISSUES: The distal infrarenal abdominal aorta measures 2.7 cm maximum AP diameter at the L3-L4 level increased in size from previous study. Recommend followup every 5 years. Reference: J Am Macy Radiol 2013; 10 (10): 789-794. Otherwise, the paravertebral soft tissues appear grossly unremarkable. MR/MR lumbar spine wo con IMPRESSION: 1. Mild S-shaped lumbar scoliosis, stable in appearance with trace retrolisthesis at L2-L3 stable in appearance. 2. Multilevel discogenic degenerative changes and spondylosis, with progression of disc space height loss at L4-L5 since the previous exam with disc osteophyte complex at this level slightly more prominent on the current study with severe spinal canal stenosis at L4-L5 progressed from previous exam with severe bilateral lateral recess stenosis, right more than left progressed from previous exam with severe bilateral neural foraminal stenosis at this level progressed from previous study with bilateral L4 and L5 nerve root impingement. 3. Multilevel bilateral facet joint arthropathy as described above with some progression of facet joint arthropathy at L3-L4 with otherwise stable multilevel disc bulging and disc herniations as described above without significant spinal canal stenosis. Stable ghua-st-nroctwam degrees of neural foraminal narrowing at multiple levels as detailed by level above. 4. A 2.7 cm distal infrarenal abdominal aorta is increased in size from previous study. Recommend followup every 5 years. See above note. Assessment & Plan Assessment & Plan (1) Lumbar spinal stenosis: Code(s): M48.061 - Spinal stenosis, lumbar region without neurogenic claudication Category: Medical Qualifiers: Neurogenic claudication status: with neurogenic claudication Qualified Code(s): M48.062 - Spinal stenosis, lumbar region with neurogenic claudication (2) Leg weakness: Code(s): R29.898 - Other symptoms and signs involving the musculoskeletal system Category: Medical Qualifiers: Laterality: bilateral Qualified Code(s): R29.898 - Other symptoms and signs involving the musculoskeletal system Plan Discussed and looked at MRI images with patient and . They understand the severity of the spinal stenosis L4-5. He does have hip flexion weakness. Denies bladder/bowel changes. Gait weak and poor balance. I would get Dr. Winkler' opinion if he is a surgical candidate. Referral placed. If he is deemed non surgical, then we could trial lumbar epidural injections but understanding that would only be short term relief if any. Assessment and plan discussed with patient, and patient was agreeable. All questions were answered thoroughly. Lor Medrano MD, [place] Board Certified, [place] Board of Physical Medicine and Rehabilitation (ABPMR) Board Certified, [place] Board of Electrodiagnostic Medicine (ABEM) Orders: Referrals Neurosurgery Referral M48.061 - Spinal stenosis, lumbar region without neurogenic claudication, R29.898 - Other symptoms and signs involving the musculoskeletal system Coding Level of Care Code Est Pt Level 4 (06619) Diagnoses Spinal stenosis of lumbar region with neurogenic claudication M48.062 Neurogenic claudication status: with neurogenic claudication Weakness of both lower extremities R29.898 Laterality: bilateral
== END 2023-08-08 12:08 | disposition home or self-care (01) ==
PROVIDERS: PCP Nurse Practitioner Family; Visit Provider Physical Medicine & Rehabilitation
DX: M48.062 Spinal stenosis, lumbar region with neurogenic claudication (principal); R29.898 Other symptoms and signs involving the musculoskeletal system
CPT/HCPCS: 99214

== ENCOUNTER → 2023-08-08 11:46 | Outpatient (BNVA) | payer MEDICARE, SELFPAY | PROVIDERS: PCP Nurse Practitioner Family; Visit Provider Physical Medicine & Rehabilitation | DX: M48.062 Spinal stenosis, lumbar region with neurogenic claudication (principal); R29.898 Other symptoms and signs involving the musculoskeletal system | CPT/HCPCS: 99212 ==

== ENCOUNTER 2023-08-12 08:57 | Outpatient (AMB) | payer MEDICARE, SELFPAY ==
--- NOTE | 2023-08-12 09:02 | A.SPINEOV_ITS ---
Intake Visit Reasons: severe spinal stenosis Intake Note: Mr. Maloney is here today c/o back pain. Data Center Technician Required: No Allergies No Known Allergies Allergy (Verified 08/12/23 09:05) Assessment & Plan Assessment & Plan (1) Lumbar spinal stenosis: Code(s): M48.061 - Spinal stenosis, lumbar region without neurogenic claudication Category: Medical Qualifiers: Neurogenic claudication status: with neurogenic claudication Qualified Code(s): M48.062 - Spinal stenosis, lumbar region with neurogenic claudication (2) Cervical myelopathy: Code(s): G95.9 - Disease of spinal cord, unspecified Category: Medical Plan Dear Dr Foster Thank you for referring Mr Soto to our office today. He is a very nice 69-year-old gentleman with a history of previous anterior cervical fusion done 25 years ago, presents today for evaluation of low back pain radiating down both legs when he stands and walks. He has had a history of strokes, and the details of his history can be somewhat limited. Reports having back pain for only 2 months and leg pain for only 2 months, but upon further investigation does recall getting an MRI few years ago for having similar symptoms. It is getting to the point now where takes him 2-3 hours in the morning to get going. He does have residual affects from his stroke including balance issues and weakness which have also compounded his ability to mobilize. He takes Tylenol Arthritis if the pain gets very bad. To this point he has had no specific dedicated conservative treatment. PMH: He has a fairly extensive medical history including coronary bypass surgery done about 8 or 9 years ago. He tells me around the time of the surgery he ended up having a few strokes which left him with residual effects including balance problems, and dysphagia. He is monitored for his heart here at [facility]. He has a history of hypertension, high cholesterol, hip replacement, anterior cervical fusion done at [facility] 25 years ago, melanoma removed off the side of his face, lifelong smoker, aortic valve calcifications Social hx: He smokes about a pack of cigarettes every 3 days, does not drink use any recreational drugs. Medications: Crestor, sertraline, metoprolol, baby aspirin and Tylenol Allergies: None Physical exam: He is very slow to stand up, very stiff walks hunched over, appears to be hypertonic with spastic gait. He has wasting of the muscles of the hand. Negative Romberg's, but positive dysmetria and dysdiadochokinesia on the left arm. He is diffusely weak strength in the upper extremities which I would rate as 4/5. In the lower extremities he has weakness of his right iliopsoas which is about 3/5 in the left is 4-5. Distally in the quadriceps and tibialis is full strength. He is diffusely hyperreflexic but more so on the left where he has Sanchez's and clonus. Imaging review: Lumbar MRI done at [facility], compared to MRI done a fused back shows progressive degeneration at L4-5 with severe stenosis. Getting worse since the last MRI. He has bilateral neural foraminal stenosis at L4 as well. Impression: 69-year-old male with a previous history of anterior cervical diskectomy and fusion done 25 years ago, now presents for for evaluation of low back pain going down both legs with standing and walking which is presumably due to the severe disc collapse at L4-5 with severe central and bilateral L4 foraminal stenosis. To this point he has had no dedicated conservative treatment and as we know the insurance companies will not approve surgery until the patient has done some form of conservative management even if they have severe stenosis seen on the imaging. Therefore, I gave him a referral to physical therapy to try for a number of weeks and see if this will help. I do not believe it will have any meaningful impact. In the end I think he is going to undergo L4-5 fusion, possibly trans [place]. We did briefly discuss this during the visit. As a side note, the patient has not had any evaluation of his cervical spine since his surgery 25 years ago. He does demonstrate signs of myelopathy on his exam which can be due to his previous surgery, but given that he has had progressive balance issues and has diffuse weakness and hyperreflexia would like to get an updated cervical MRI to exclude that he has not having progressive myelopathic symptoms that are being attributed to his old stroke. Thank you for allowing us to care for your patient. The total time spent with this visit with this patient was 45 minutes reviewing history, physical exam, lumbar imaging review, and implementation of treatment plan or further diagnostic testing Da Winkler MD,PhD [facility] Orders: Orders XR cervical spine 4V Today G95.9 - Disease of spinal cord, unspecified MR cervical spine wo con Today G95.9 - Disease of spinal cord, unspecified PT Evaluation and Treatment Today M48.062 - Spinal stenosis, lumbar region with neurogenic claudication Coding Level of Care Code New Pt Level 4 (00278) Diagnoses Spinal stenosis of lumbar region with neurogenic claudication M48.062 Neurogenic claudication status: with neurogenic claudication Cervical myelopathy G95.9
== END 2023-08-12 09:45 | disposition home or self-care (01) ==
PROVIDERS: PCP Nurse Practitioner Family; Referring Provider Physical Medicine & Rehabilitation; Visit Provider Physician Assistant
DX: M48.062 Spinal stenosis, lumbar region with neurogenic claudication (principal); G95.9 Disease of spinal cord, unspecified
CPT/HCPCS: 99204

== ENCOUNTER 2023-08-12 08:57 | Outpatient (REF) | payer MEDICARE, SELFPAY ==
--- NOTE | ~2023-08-12 | XR_ITS ---
EXAMINATION: XR CERVICAL SPINE CLINICAL INFORMATION: Disease or spinal cord unspecified. COMPARISON: MRI cervical spine . TECHNIQUE: 4 views of the cervical spine inclusive of flexion and extension views. FINDINGS: Median sternotomy wires in the partially imaged upper thoracic spine. Mild levoscoliosis of the cervical spine. Redemonstration of ACDF spanning C4-C7. Hardware appears intact, although visualization of C6 and C7 is limited due to overlying bone and soft tissues with particularly poor visualization of C7-T1. Minimal anterolisthesis of C3 on C4 with flexion and extension. Cervical spondylosis with abundant anterior hypertrophic change at C3-C4. Mild loss of disc space height at C3-C4. XR/XR cervical spine 4V IMPRESSION: 1. Redemonstration of ACDF spanning C4-C7. Hardware appears intact, although visualization of C6 and C7 is limited due to overlying bone and soft tissues with particularly poor visualization of C7-T1. 2. Minimal anterolisthesis of C3 on C4 with flexion and extension.
== END 2023-08-12 08:58 | disposition home or self-care (01) ==
LOC: HO.HOSX 08:57
PROVIDERS: PCP Nurse Practitioner Family; Visit Provider Physician Assistant
DX: G95.9 Disease of spinal cord, unspecified (principal); M48.062 Spinal stenosis, lumbar region with neurogenic claudication
CPT/HCPCS: 72050; 99202

== ENCOUNTER 2023-09-12 10:08 | Outpatient (REF) | payer MEDICARE, SELFPAY ==
--- NOTE | ~2023-09-12 | MR_ITS ---
EXAMINATION: MR CERVICAL SPINE WITHOUT CONTRAST CLINICAL INFORMATION: Status post C4-C7 anterior fusion. Persistent neck and shoulder pain. 77-year-old male. Rule out myelopathy. COMPARISON: MR C-spine 01/13/2016. X-rays C-spine 08/12/2023. TECHNIQUE: Multiplanar multisequence MR imaging of the cervical spine was done without IV contrast. Standard sequences were utilized on a 1.5 Mary magnet. FINDINGS: Alignment: Lordotic loss, straightened. Mild levoscoliosis, unchanged. Minimal retrolisthesis C3 on C4. No additional subluxation. Craniocervical Junction/C1-C2 Articulations: Intact. Alignment. Moderate degenerative arthritis at the atlantoaxial joint with mild posterior pannus formation. No impingement of the craniocervical junction. Visualized Intracranial Structures: Within normal limits. Vertebral Bodies: Ventral anterior fusion with plate and screws C4-C5 and C5-C6. Disc prosthesis at C6-C7 with ventral fusion. Associated susceptibility artifact from hardware obscuring immediately adjacent bone and soft tissue. No compression deformities. Grossly no bone marrow edema. Mild fluid in the articulation of the right occipital condyle at the lateral mass of C1. Prominent Schmorl's node in superior endplate of T1. Small Schmorl's node in superior endplate of T2. No abnormal infiltrating marrow signal is identified. Disc Spaces and Endplates: Moderate loss of height and signal noted C3-C4 and C7-T1. Mild loss of height and signal at T1-T2 and T2-T3. Relative preservation of signal at C2-C3. Bony fusion through the disc levels at C4-C5, C5-C6, and C6-C7. There is a prominent ventral disc osteophytic complex at C3-C4, better seen on recent plain film exam. Bone Marrow: As above. No infiltrating abnormal signal or bone marrow edema. Spinal Cord: -Extremely subtle central increased T2 cord signal spanning the mid C2 level through the C4-C5 disc level. -Stable focus of abnormal signal in the left lateral cord at the C4-C5 level (series 100, image 6 of 15) with associated mild cord thinning. There is mild cord impingement at C3-C4 as discussed below involving the right aspect of the cord without cord signal abnormality. No additional foci of abnormal cord signal identified within the limitations of the examination. Axial Disc Space Images: C2-C3: Mild to moderate bilateral facet hypertrophy, subtle uncinate spurring on the right, resulting in moderate right neural foraminal narrowing. No central canal narrowing. Worsening in facet degeneration and right foraminal narrowing. C3-C4: There is a diffuse disco osteophytic ridge complex which is asymmetrically prominent right paracentral, and lateral, and contiguous with right greater than left uncinate spurring. There is severe right and mild left facet spurring and hypertrophy. There is mild posterior ligamentous infolding/thickening. There is moderate to severe central canal stenosis with mild cord impingement and right flattening without definite cord signal abnormality in the flattened aspect of the cord. There is severe neural foraminal encroachment and right lateral recess encroachment. There is moderate left neural foraminal narrowing. There has been progression of right facet hypertrophy and disc osteophytic spurring as well as central canal and right foraminal narrowing. C4-C5: Fusion at this level. Discussed hepatic ridge complex indents upon the ventral thecal sac, contacts and minimally flattens the ventral aspect of the cord. There is mild increased signal centrally and in the left lateral column suggesting myelopathy, with thinning of the left lateral cord. Moderate right and mild left facet hypertrophy and right greater than left uncinate spurring is contributing to [id number] right greater than left neural foraminal stenosis. Findings are worsened. C5-C6: Mild bilateral facet spurring and moderate bilateral uncinate spurring, with a shallow disc osteophytic ridge complex. There is mild central stenosis without cord impingement or flattening. There is preserved CSF surrounding the cord. There is mild to moderate right and moderate left neural foraminal narrowing. Findings have minimally worsened. C6-C7: Disc fusion with disc graft at this level. Minimal facet degeneration bilaterally. Moderate right and mild left uncinate spurring. No central canal narrowing. Mild right greater than left neural foraminal narrowing. No change. C7-T1: Left greater than right hypertrophic facet changes, stable. Mild uncinate spurring bilaterally, stable. No central canal stenosis. Mild left neural foraminal narrowing, unchanged. T1-T2: No central canal or neural foraminal narrowing. Extracranial Soft Tissues: The visualized extracranial head/neck soft tissues are unremarkable within the limitations of the study. Partially imaged thyroid is normal. Saturation band present. No adenopathy evident. Unchanged 7 mm oval T2 hyperintense skin lesion (sebaceous cyst) in the mid posterior neck (series 5, image 5). MR/MR cervical spine wo con IMPRESSION: 1. Extensive fusion with anterior construct spanning C4-C7. Bony fusion through the disc spaces at these levels. 2. Impingement of the right aspect of the cervical cord at C3-C4 due to disc osteophyte and posterior ligamentous hypertrophy/infolding. There is subtle underlying increased central T2 cord signal spanning mid C2 through the C4-C5 disc levels, suspect for subtle myelopathy. 3. Mild cord thinning and more prominent increased T2 signal in the left aspect of the cord at the mid C4-C5 level suspect for myelopathy. 4. Moderate and worsening right neural foraminal stenosis at C2-C3. 5. Severe and worsening right lateral recess and neural foraminal impingement at C3-C4. 6. Moderate to severe worsening bilateral neural foraminal impingement at C4-C5. 7. Moderate stable bilateral neural foraminal narrowing at C5-C6. 8. Mild stable neural foraminal narrowing at C6-C7. 9. No thoracic canal or neural foraminal narrowing to the level of T5.
== END 2023-09-12 10:09 | disposition home or self-care (01) ==
LOC: HO.MRI 10:08
PROVIDERS: PCP Nurse Practitioner Family; Visit Provider Physician Assistant
DX: G95.9 Disease of spinal cord, unspecified (principal)
CPT/HCPCS: 72141

== ENCOUNTER → 2023-09-12 10:08 | Outpatient (BNV) | payer MEDICARE, SELFPAY | PROVIDERS: PCP Nurse Practitioner Family; Visit Provider Radiology Diagnostic Radiology | DX: M54.2 Cervicalgia (principal) | CPT/HCPCS: 72141 ==

== ENCOUNTER 2023-10-08 11:00 | Outpatient (RCR) | payer MEDICARE, SELFPAY ==
--- NOTE | 2023-08-19 13:34 | MHC.PT.EP ---
[facility] [place] Office [place] Office [place] Office [address] Julio Baer [address] [phone] F: [phone] F: [phone] F: [phone] F: [phone] Physical Therapy Plan of Care Date of Evaluation: 08/19/23 Date of Surgery: Diagnosis: spinal stenosis, lumbar. Assessment: Patient is a 77 year old R handed male who presents with s/s consistent with spinal stenosis, lumbar pain. He does not work and likes to be active and able to walk but has been less able the last few months to years due to multiple co-morbidities. Patient past medical history includes falls, CABG, Stenosis, CVA. Current impairments include pain, posture, ROM, strength, balance, flexibility, activity tolerance and functional mobility. Functional limitations include decreased ability to walk, stand, transfer, negotiate stairs, squat and lift. Patient is motivated with good rehab potential. Skilled PT will address impairments and functional limitations in order to achieve goals. Frequency and Duration: The patient will be seen 2x/week for 5 weeks Short Term Goals: I with HEP -2 weeks AROM rotation 75% - 3 weeks 90/90 lacking 30 or less - 3 weeks Regional Vice President [employer] Goals: Able to walk/stand 20 minutes - 5 weeks Oswestry 20% or less - 5 weeks MAx pain with ADLs 3/10 - 5 weeks 90/90 lacking 24 or less - 5 weeks Treatment Plan: Modalities to reduce pain, spasms and effusion. Manual therapy to restore motion and function. Therapeutic exercise to improve strength and flexibility. Neuromuscular re-education for posture and balance. Therapeutic activities to return to functional activities of daily living. Electronically signed by: Salas Gruber, PT Please sign and return to therapist. Thank you for your referral.
--- NOTE | 2023-12-12 09:18 | MHC.PT.DC ---
[facility] [place] Office [place] Office [place] Office [address] Julio Baer [address] [phone] F: [phone] F: [phone] F: [phone] F: [phone] Physical Therapy Discharge Report Diagnosis: spinal stenosis, lumbar. Date of Surgery: Date of Evaluation: 08/19/23 Date of Discharge: 10/23/23 Treatments to Date: 13 Cancellations to Date: No Shows to Date: Discharge Status: Independent with HEP Patient Elected to Stop Discharge Summary: 10/08/23: I with HEP. AROM rotation 75%. 90/90 lacking 26 b/l. MAx pain 4/10 with ADLs. Oswestry 24%. Pt has progressed towards or met all goals. HE is I with HEP and appropriate to d/c to HEP at this time. 10/03/23: pt near I with program and we are at good point to transition to HEP which we will do next visit. 10/01/23: pt progressing well with skilled PT overall but still has intermittent discomforts depending on postures and activities. 09/26/23: pt fatigued overall but less tightness and discomfort. continue to progress as tolerated. 09/20/23: pt has been feeling better overall with less s/s, pain, soreness, stiffness in low back. improved 90/90 - lacking 26 b/l. 09/17/23: pt still with ERP and rotation to 50%. continue to progress as tolerated. 09/13/23: pt progressing slowly. better activity tolerance. continue to progress as tolerated. 09/10/23: pt progressing well overall. s/s reduced. lumbar rotation 75% b/l with min tightness only. 09/04/23: pt progressing well with skilled PT with reduced back pain. still limited with dizziness, fatigue, balance. 08/29/23: pt limited in progression by fatigue. dizziness with transfers. takes increased time for rest and transfers. we will continue to address impairments and functional limitations. 08/23/23: pt progressed with hip and core strength today. we will progress HEP Nv. Electronically signed by: Salas Gruber, PT Please sign and return to therapist. Thank you for your referral.
== END 2023-12-12 09:18 | disposition home or self-care (01) ==
LOC: HO.PTCHIC 11:00
PROVIDERS: PCP Nurse Practitioner Family; Visit Provider Physician Assistant
DX: M48.062 Spinal stenosis, lumbar region with neurogenic claudication (principal)
CPT/HCPCS: 97110; 97163

== ENCOUNTER 2023-10-25 14:27 | Outpatient (AMB) | payer MEDICARE, SELFPAY ==
--- NOTE | 2023-10-25 14:29 | HO.SPINEOV ---
Intake Visit Reasons: f/up after PT Intake Note: Mr. Maloney is here today to F/u after PT. Colorist Photography Required: No Allergies No Known Allergies Allergy (Verified 10/25/23 14:33) Assessment & Plan Assessment & Plan (1) Cervical myelopathy: Code(s): G95.9 - Disease of spinal cord, unspecified Category: Medical (2) Leg weakness: Code(s): R29.898 - Other symptoms and signs involving the musculoskeletal system Category: Medical Qualifiers: Laterality: bilateral Qualified Code(s): R29.898 - Other symptoms and signs involving the musculoskeletal system (3) Lumbar spinal stenosis: Code(s): M48.061 - Spinal stenosis, lumbar region without neurogenic claudication Category: Medical Qualifiers: Neurogenic claudication status: with neurogenic claudication Qualified Code(s): M48.062 - Spinal stenosis, lumbar region with neurogenic claudication Plan Mr Maloney came in today to review his cervical MRI done at [facility] and his lumbar stenosis situation. Please refer to my last note for the specifics. Dr. Winkler and I reviewed his clinical situation with his hyperreflexia and some feelings of arm weakness. He does have stenosis at C3-4 which is moderate. The radiologist suggests there could be some subtle cord signal change but Dr. Winkler and I do not agree with this. We do not see it. The real reason he has here in the office today is because of the back pain and bilateral leg pain which has been severe, crippling and disabling. What we explained to him is that we can take care of the stenosis and the back pain with a trans Kambin lumbar interbody fusion at L4-5, but we do have to place him prone on the operating table with some degree of neck flexion. This poses some risk that the cervical stenosis could give him some neurological deficits while he is under anesthesia. We do not think this is an elevated risk but it is a theoretical risk that he has to acknowledge in order for us to treat the lumbar stenosis. We discussed the possibility of doing an anterior cervical fusion 1st to address the cervical stenosis, but he has really not symptomatic in a way that is affecting his quality of life and would prefer to treat the back symptoms 1st. Therefore he is willing to accept this theoretical risk and proceed with the lumbar fusion. We have tentatively booked him for December. Would like to speak with his PCP Amish Voss just to get a better sense of his risk overall for surgery. This seems reasonable. He has a history of strokes related to his heart bypass surgery and he feels like he never got a good answer as to why that happened. We know there is some risk associated with coronary bypass and strokes but he feels it may have been due to low blood pressure during anesthesia. He is going to speak with Amish about his risk for surgery, but did want us to proceed with booking the lumbar fusion. Pt was given risk and benefits of surgery including but not limited to infection, hematoma , nerve injury,durotomy, weakness,bowel/bladder injury, persistent pain, adjacent segment disease as well as the option to continue with conservative treatment and patient wishes to proceed with surgery. Pt is aware they should stop their motrin, aspirin 7 days prior to surgery. All questions were answered to the best of our ability. If there is anything about this patients medical history that we have overlooked or concerns you have about us proceeding with surgery we would appreciate any input you can offer. Total amount of time spent in this visit was 20 minutes in discussion of symptoms, lumbar and cervical imaging results and subsequent plan of care Da Winkler MD,PhD [facility] Coding Level of Care Code Est Pt Level 3 (72523) Diagnoses Cervical myelopathy G95.9 Weakness of both lower extremities R29.898 Laterality: bilateral Spinal stenosis of lumbar region with neurogenic claudication M48.062 Neurogenic claudication status: with neurogenic claudication
== END 2023-10-25 15:36 | disposition home or self-care (01) ==
PROVIDERS: PCP Nurse Practitioner Family; Visit Provider Physician Assistant
DX: G95.9 Disease of spinal cord, unspecified (principal); R29.898 Other symptoms and signs involving the musculoskeletal system; M48.062 Spinal stenosis, lumbar region with neurogenic claudication
CPT/HCPCS: 99213

== ENCOUNTER → 2023-10-25 14:27 | Outpatient (BNVA) | payer MEDICARE, SELFPAY | PROVIDERS: PCP Nurse Practitioner Family; Visit Provider Physician Assistant | DX: G95.9 Disease of spinal cord, unspecified (principal); R29.898 Other symptoms and signs involving the musculoskeletal system; M48.062 Spinal stenosis, lumbar region with neurogenic claudication | CPT/HCPCS: 99212 ==

== ENCOUNTER 2023-11-05 10:32 | Outpatient (REF) | payer MEDICARE, SELFPAY ==
[2023-11-05 12:29] LABS: Hematocrit 49.3 % (42.0-52.0); Hemoglobin 16.4 g/dl (14.0-18.0); Mean Corpuscular HGB Conc 33.3 g/dl (31.0-36.0); Mean Corpuscular Hemoglobin 30.3 pg (27.0-33.0); Mean Corpuscular Volume 91.1 fL (80.0-98.0); Mean Platelet Volume 10.8 fL (9.4-12.4); Platelet Count 153 X10*3/uL (160-400); Red Blood Count 5.41 X10*6/uL (4.60-5.80); Red Cell Distribution Width 12.9 % (11.0-16.0); White Blood Count 6.2 X10*3/uL (4.8-10.8)
[2023-11-05 12:33] LABS: Prothrombin Time 12.5 SEC (11.1-13.3)
[2023-11-05 12:58] LABS: Anion Gap 10 (12-20); Blood Urea Nitrogen 17 mg/dL (9-16); Carbon Dioxide 28 mmol/L (22-29); Chloride 105 mmol/L (96-108); Estimated Glomerular Filt Rate > 60; Glucose Random 104 mg/dL (60-115); Potassium 4.5 mmol/L (3.3-5.1); Sodium 138 mmol/L (135-145)
== END 2023-11-05 10:33 | disposition home or self-care (01) ==
LOC: HO.LAB 10:32
PROVIDERS: PCP Nurse Practitioner Family; Visit Provider Internal Medicine
DX: Z01.810 Encounter for preprocedural cardiovascular examination (principal); I25.10 Atherosclerotic heart disease of native coronary artery without angina pectoris; I10 Essential (primary) hypertension; I49.8 Other specified cardiac arrhythmias; I35.9 Nonrheumatic aortic valve disorder, unspecified; I73.9 Peripheral vascular disease, unspecified; E78.5 Hyperlipidemia, unspecified; Z86.73 Personal history of transient ischemic attack (TIA), and cerebral infarction without residual deficits; Z95.1 Presence of aortocoronary bypass graft
CPT/HCPCS: 36415; 80048; 85027; 85610; 99212

== ENCOUNTER 2023-11-05 10:32 | Outpatient (AMB) | payer MEDICARE, SELFPAY ==
[2023-11-05 10:34] VITALS: BP 118/62; PULSE 76; BMI 23.8
--- NOTE | 2023-11-05 10:34 | MHC.OFFVIS ---
Vital Signs 11/05/23 10:34 Height 5 ft 4 in Weight 138 lb 14.259 oz BMI 23.8 BP 118/62 Blood Pressure Location Lt brachial Position Sitting Pulse 76 Pulse Source Pulse Oximeter Intake Visit Reasons: 6 mth f/up Allergies No Known Allergies Allergy (Verified 10/25/23 14:33) Medication List - Last Reconciled 11/05/23 by Tone Apple MD aspirin 81 mg PO BEDTIME metoprolol succinate ER 25 mg PO BEDTIME rosuvastatin 40 mg PO DAILY sertraline 100 mg PO BEDTIME 90 days HPI Comments Details: Brian returns for follow-up regarding coronary disease and bypass surgery. He had coronary bypass in 2015. He had perioperative stroke but then recovered mostly. He states he is feeling fine and does not really have any new cardiac issues. However, back is bothering him and he states he has to go for back surgery followed by neck surgery. 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 Rectal bleeding Tremor Toenail deformity Anemia PVD (peripheral vascular disease) Cervical radiculopathy Atherosclerosis Hematuria Vertigo Coronary artery disease Carotid stenosis Cerebrovascular disease Surgical History Hx of CABG History of revision of total hip arthroplasty Status post shoulder surgery Family History Father Abdominal aneurysm Social History Housing: House Alcohol intake: former Patient Tobacco Use Status: Current someday Tobacco user Tobacco use type: Cigar Cigarettes Per Day: 4 Years Smoked: 60 years e-Cigarette/Vaping Use: Never Used Second Hand Smoke Exposure: No Advance Directives Date on File: 03/30/22 service: Yes Current occupational status: retired Cognitive needs: No Hearing needs: No Vision needs: No Review of Systems Const Denies weakness ENT Denies dizziness Card Denies chest pain, Denies chest pain with activity, Denies syncope, Denies rapid heart rate, Denies pedal edema, Denies edema, Denies leg edema, Denies lightheadedness, Denies palpitations, Denies dyspnea, Denies dyspnea on exertion and Denies orthopnea Resp Denies cough, Denies dyspnea and Denies dyspnea on exertion GI Denies hematochezia and Denies change in stool character Musc Denies abnormal gait, Denies muscle cramps, Denies muscle weakness, Denies numbness, Denies radiating pain into limb and Denies tingling Neuro Denies abnormal gait, Denies dizziness, Denies syncope, Denies numbness, Denies tingling and Denies weakness Endo Denies palpitations Physical Exam Vital Signs: Last Vital Signs Pulse 76 11/05/23 10:34 BP 118/62 11/05/23 10:34 BMI result Body Mass Index 23.8 Const General: comfortable and no acute distress Orientation/consciousness: patient oriented x3 HEENT Other: Unremarkable Head: Yes normal to inspection Neck Neck: Yes normal visual inspection Chest Chest palpation & inspection: normal inspection of the chest Resp Auscultation: clear to auscultation bilaterally Cardio Palpation: normal PMI Heart sounds: S1 normal heart sound present, S2 normal heart sound present, no gallops, no murmurs and no rubs GI Palpation (GI): Soft to palpation Back/Spine/Pelvis Other: unremarkable Skin General skin exam: no rashes or lesions noted Neuro General: patient oriented x3 Extrem General: Yes normal to inspection Psych Mental Status: mental status grossly normal Assessment & Plan Assessment & Plan (1) Atherosclerotic cardiovascular disease: Code(s): I25.10 - Atherosclerotic heart disease of [place] coronary artery without angina pectoris Category: Medical Plan: Status post coronary bypass surgery. Echocardiogram 04/2023 with LVEF of 55-60%. Basal inferior/inferoseptal akinesis. In the perfusion imaging 04/2023, reversible inferolateral defect suggestive of ischemia. Clinically, he has got absolutely no symptoms but considering the upcoming surgeries, will plan a diagnostic catheterization. We can keep on medications including aspirin, beta-blockers and statins. (2) Preoperative cardiovascular examination: Code(s): Z01.810 - Encounter for preprocedural cardiovascular examination Category: Medical Plan: Per patient, needs back as well as neck surgery. Await diagnostic catheterization and then we can plan. (3) HTN (hypertension): Code(s): I10 - Essential (primary) hypertension Category: Medical Plan: Stable. No changes. (4) Atrial arrhythmia: Code(s): I49.8 - Other specified cardiac arrhythmias Category: Medical Plan: Prior EKG with frequent PACs. Holter however without any atrial fibrillation. (5) Aortic valve calcification: Code(s): I35.9 - Nonrheumatic aortic valve disorder, unspecified Category: Medical Plan: Mild aortic stenosis on the echocardiogram. Can be periodically monitored. (6) PVD (peripheral vascular disease): Code(s): I73.9 - Peripheral vascular disease, unspecified Category: Medical Plan: Per [facility] vascular notes, prior right leg revascularization. Follow-up with vascular. (7) Cerebrovascular accident: Code(s): I63.9 - Cerebral infarction, unspecified Category: Medical Plan: History of perioperative stroke. In the past, [place] [facility] [place] Repeat Holter as above without any atrial fibrillation. (8) Dyslipidemia: Code(s): E78.5 - Hyperlipidemia, unspecified Category: Medical Plan: On Rosuvastatin. Lipids are well controlled. No changes. In the past, some intolerance to atorvastatin but not clear if truly related. Orders: Orders Basic Metabolic Panel Today I25.10 - Atherosclerotic heart disease of [place] coronary artery without angina pectoris Cardiac Cath LT Diagnostic Today I25.10 - Atherosclerotic heart disease of [place] coronary artery without angina pectoris Complete Blood Count no Diff Today I25.10 - Atherosclerotic heart disease of [place] coronary artery without angina pectoris Prothrombin Time INR Today I25.10 - Atherosclerotic heart disease of [place] coronary artery without angina pectoris Coding Level of Care Code Est Pt Level 4 (86210) Diagnoses Atherosclerotic cardiovascular disease I25.10 Preoperative cardiovascular examination Z01.810 HTN (hypertension) I10 Atrial arrhythmia I49.8 Aortic valve calcification I35.9 PVD (peripheral vascular disease) I73.9 Cerebrovascular accident I63.9 Dyslipidemia E78.5
== END 2023-11-05 11:04 | disposition home or self-care (01) ==
PROVIDERS: PCP Nurse Practitioner Family; Visit Provider Internal Medicine
DX: I25.10 Atherosclerotic heart disease of native coronary artery without angina pectoris (principal); Z01.810 Encounter for preprocedural cardiovascular examination; I10 Essential (primary) hypertension; I49.8 Other specified cardiac arrhythmias; I35.9 Nonrheumatic aortic valve disorder, unspecified; I73.9 Peripheral vascular disease, unspecified; I63.9 Cerebral infarction, unspecified; E78.5 Hyperlipidemia, unspecified
CPT/HCPCS: 99214

== ENCOUNTER → 2023-12-03 23:59 | Outpatient (BNV) | payer MEDICARE, SELFPAY | PROVIDERS: PCP Nurse Practitioner Family; Visit Provider Internal Medicine Cardiovascular Disease | DX: R93.1 Abnormal findings on diagnostic imaging of heart and coronary circulation (principal) | CPT/HCPCS: 93457; 99152 ==

== ENCOUNTER 2023-12-18 13:06 | Outpatient (AMB) | payer MEDICARE, SELFPAY ==
--- NOTE | 2023-12-18 13:08 | MHC.OFFVIS ---
Vital Signs 12/18/23 13:12 Height 5 ft 4 in Weight 140 lb BMI 24.0 BP 118/62 Blood Pressure Location Lt brachial Position Sitting Pulse 74 Pulse Source Pulse Oximeter Intake Visit Reasons: Follow up post cardiac cath Allergies No Known Allergies Allergy (Verified 12/18/23 13:21) Medication List - Last Reconciled 12/18/23 by Laura Hernandez NP aspirin 81 mg PO BEDTIME metoprolol succinate ER 25 mg PO BEDTIME rosuvastatin 40 mg PO BEDTIME sertraline 100 mg PO BEDTIME 90 days HPI Comments Details: 78-year-old male presents today for status post cardiac catheterization. He reports he has been doing well. Reports no complaints post cardiac catheterization. Denies any fevers, chills, swelling, shortness of breath, palpitations, or chest pain. Denies any pain at the insertion site of femoral artery. He reports being compliant with his medications. He is not very active due to back pain which he is having surgery for on 01/01/2024. [facility] Medical History Back pain On beta channing at home Skin cancer Lumbar spinal stenosis Osteoarthritis of hands, bilateral Acute anxiety Dyslipidemia CVA (cerebral vascular accident) Depression Left pontine CVA Osteoarthritis of right hip Rectal bleeding Tremor Toenail deformity Anemia PVD (peripheral vascular disease) Cervical radiculopathy Atherosclerosis Hematuria Vertigo Coronary artery disease Carotid stenosis Cerebrovascular disease Surgical History S/P cardiac catheterization H/O colonoscopy History of intravascular stent placement Hx of plastic surgery Hx of CABG History of revision of total hip arthroplasty Status post shoulder surgery Family History Father Abdominal aneurysm Social History Housing: House Are you a primary child day care teacher to a significant other at home: No Do you presently have visiting nurse or other home services: No Alcohol intake: former Patient Tobacco Use Status: Current everyday Tobacco user Tobacco use type: Cigarette Cigarettes Per Day: 5 Years Smoked: 60 years e-Cigarette/Vaping Use: Never Used Second Hand Smoke Exposure: No Advance Directives Date on File: 03/30/22 service: Yes Current occupational status: retired Cognitive needs: No Hearing needs: No Vision needs: No Review of Systems Const Denies weakness ENT Denies dizziness Card Denies chest pain, Denies chest pain with activity, Denies syncope, Denies rapid heart rate, Denies pedal edema, Denies edema, Denies leg edema, Denies lightheadedness, Denies palpitations, Denies dyspnea, Denies dyspnea on exertion and Denies orthopnea Resp Denies cough, Denies dyspnea and Denies dyspnea on exertion GI Denies hematochezia and Denies change in stool character Musc Denies abnormal gait, Denies muscle cramps, Denies muscle weakness, Denies numbness, Denies radiating pain into limb and Denies tingling Neuro Denies abnormal gait, Denies dizziness, Denies syncope, Denies numbness, Denies tingling and Denies weakness Endo Denies palpitations Physical Exam Const General: healthy appearing and no acute distress Orientation/consciousness: patient oriented x3 HEENT Head: Yes normal to inspection Eyes General: appearance normal, both eyes and all related structures Neck Neck: Yes normal visual inspection Chest Chest palpation & inspection: normal inspection of the chest Resp Effort & Inspection: normal respiratory effort Auscultation: clear to auscultation bilaterally Cardio Jugular venous distension: no JVD Palpation: normal PMI Rate: regular rate Rhythm: regular rhythm Heart sounds: S1 normal heart sound present, S2 normal heart sound present, no click, no gallops, no murmurs and no rubs GI Inspection: Yes normal to inspection Palpation (GI): Soft to palpation Skin General skin exam: no rashes or lesions noted Neuro General: patient oriented x3 Extrem General: Yes normal to inspection Psych Appearance: grossly normal Assessment & Plan Assessment & Plan (1) S/P cardiac catheterization: Comment: 12/03/[address] Ocampo Angiographic Findings Cardiac Arteries and Lesion Findings LMCA: Ostial LAD 60 to 70% stenosis. LAD: Mild to moderate LAD stenosis. LCx: Mid left circumflex 50 to 60% stenosis. Mid OM1 70% stenosis. Vein graft to OM is occluded. RCA: Proximal RCA [employer]ISH [employer]CTOR. Patent vein graft to RCA. Code(s): Z98.890 - Other specified postprocedural states Category: Surgical (2) Atherosclerotic cardiovascular disease: Code(s): I25.10 - Atherosclerotic heart disease of [place] coronary artery without angina pectoris Category: Medical (3) Preoperative cardiovascular examination: Code(s): Z01.810 - Encounter for preprocedural cardiovascular examination Category: Medical (4) Smoker: Code(s): F17.200 - Nicotine dependence, unspecified, uncomplicated Category: Social Hx (5) HTN (hypertension): Code(s): I10 - Essential (primary) hypertension Category: Medical Plan Cardiac catheterization showing: Vein graft to OM is occluded. Patent vein graft to RCA. Recommendations include risk factor modification such as complete smoking cessation, Blood pressure and cholesterol control, And continuation of 81mg of aspirin. Patient is on aspirin 81 mg, metoprolol 25 mg, and rosuvastatin 40 mg. Last LDL cholesterol was in June 2022 which was 69. Advised to get a repeat lipid panel. Blood pressure is in range. He is an intermediate cardiac risk and can proceed with upcoming spinal surgery. Hold aspirin per surgery recommendations and resume as soon as possible. Orders: Orders Lipid Panel Today I25.10 - Atherosclerotic heart disease of [place] coronary artery without angina pectoris Basic Metabolic Panel Today I25.10 - Atherosclerotic heart disease of [place] coronary artery without angina pectoris Coding Level of Care Code Est Pt Level 4 (52532) Diagnoses S/P cardiac catheterization Z98.890 Atherosclerotic cardiovascular disease I25.10 Preoperative cardiovascular examination Z01.810 Smoker F17.200 HTN (hypertension) I10
[2023-12-18 13:12] VITALS: BP 118/62; PULSE 74; BMI 24.0
== END 2023-12-18 13:28 | disposition home or self-care (01) ==
PROVIDERS: PCP Nurse Practitioner Family; Visit Provider Nurse Practitioner
DX: Z98.890 Other specified postprocedural states (principal); I25.10 Atherosclerotic heart disease of native coronary artery without angina pectoris; Z01.810 Encounter for preprocedural cardiovascular examination; F17.200 Nicotine dependence, unspecified, uncomplicated; I10 Essential (primary) hypertension
CPT/HCPCS: 99214

== ENCOUNTER → 2023-12-18 13:06 | Outpatient (BNVA) | payer MEDICARE, SELFPAY | PROVIDERS: PCP Nurse Practitioner Family; Visit Provider Nurse Practitioner | DX: Z01.810 Encounter for preprocedural cardiovascular examination (principal); I10 Essential (primary) hypertension; I25.10 Atherosclerotic heart disease of native coronary artery without angina pectoris; F17.210 Nicotine dependence, cigarettes, uncomplicated; Z98.890 Other specified postprocedural states | CPT/HCPCS: 99212 ==

== ENCOUNTER 2024-01-01 08:32 | Inpatient (IN) | payer MEDICARE, SELFPAY ==
--- NOTE | 2023-12-18 | ECG_ITS ---
Test Reason : PREOP Blood Pressure : / mmHG Vent. Rate : 074 BPM Atrial Rate : 074 BPM P-R Int : 132 ms QRS Dur : 084 ms QT Int : 446 ms P-R-T Axes : 082 077 113 degrees QTc Int : 495 ms Normal sinus rhythm [address] & T wave abnormality, consider lateral ischemia Prolonged QT Abnormal ECG When compared with ECG of 29-MAR-2022 19:52, T wave inversion now evident in Lateral leads Referred By: Isabel Daniels Electronically Signed By:LUIZ LADD
[2023-12-18 10:31] VITALS: BP 120/65; PULSE 77; RESP 16; O2SAT 97; BMI 24.0
--- NOTE | 2023-12-18 10:47 | P.CONAN_ITS ---
Documented by User: Isabel Daniels NP 12/24/23 14:07 HPI - Anesthesia Eval Consult details Narrative: 78yo M for L4-5 Transkambin Lumbar Interbody Fusion, 01/01/24 Cardiac optimized (preop cath showed vein graft to circumflex occluded, 50-60% stenosis in circumflex) No recent illness No CP/SOB with very limited activity CAD s/p CABG x 3 2015 CVA x 3 (periop during CABG) - residual balance issue Carotid stenosis: Follows [facility] vascular. Images from 2021, no f/u since. PVD with RLE stent Case reviewed with Dr Ly. SOLANO Active Problems Active Problems: All Active Problems Preoperative cardiovascular examination (Acute) Cervical myelopathy (Acute) Leg weakness (Acute) Dysphagia (Acute) Peroneal neuropathy at knee (Acute) Abnormal EMG (Acute) [place] (hard of hearing) (Acute) Basal cell carcinoma (Acute) Smoker (Acute) Abnormal lung sounds (Acute) More than 50 percent stenosis of left internal carotid artery (Acute) Weakness (Acute) COVID-19 (Acute) Skin lesion (Acute) Screening for colon cancer (Acute) Weakness (Acute) Arthritis (Acute) HTN (hypertension) (Acute) Shoulder pain, bilateral (Acute) Bilateral hand pain (Acute) Cerebrovascular accident (Acute) Atherosclerotic cardiovascular disease (Acute) Aortic valve calcification (Acute) Atrial arrhythmia (Acute) Encounter for annual wellness visit (AWV) in Medicare patient (Acute) Screening PSA (prostate specific antigen) (Acute) Dyslipidemia (Acute) Dyslipidemia (Acute) Medication refill (Acute) Sore throat (Acute) Allergic rhinitis (Acute) Lumbar spinal stenosis (Acute) PVD (peripheral vascular disease) (Acute) Depression (Acute) Past Medical History Medical History Back pain On beta channing at home Skin cancer Lumbar spinal stenosis Osteoarthritis of hands, bilateral Acute anxiety Dyslipidemia CVA (cerebral vascular accident) Depression Left pontine CVA Osteoarthritis of right hip Rectal bleeding Tremor Toenail deformity Anemia PVD (peripheral vascular disease) Cervical radiculopathy Atherosclerosis Hematuria Vertigo Coronary artery disease Carotid stenosis Cerebrovascular disease Family History Family History Father Abdominal aneurysm Family history of problems with anesthesia: No Surgical History Surgical History S/P cardiac catheterization H/O colonoscopy History of intravascular stent placement Hx of plastic surgery Hx of CABG History of revision of total hip arthroplasty Status post shoulder surgery History of Problems with Anesthesia: No (DIfficult to wake post-cabg, cva) Social History Social History Housing: House Are you a primary healthcare administration internship to a significant other at home: No Do you presently have visiting nurse or other home services: No Alcohol intake: former Patient Tobacco Use Status: Current everyday Tobacco user Tobacco use type: Cigarette Cigarettes Per Day: 5 Years Smoked: 60 years e-Cigarette/Vaping Use: Never Used Second Hand Smoke Exposure: No Use of substances other than those prescribed or required for medical reasons: No Have you been hit, kicked, punched, or otherwise hurt by someone within the past year? If so, by whom?: No Are you DNR?: No Advance Directives: Yes Advance Directives Information Provided: No Advance Directives on File: Yes Advance Directives Date on File: 03/30/22 Recently lost weight without trying: No Eating poorly because of decreased appetite: No Nutrition Risks: No Nutritional Risk Poor oral hygiene: Yes (Full upper denture, missing bottom teeth and one cracked but stable) service: Yes Current occupational status: retired Cognitive needs: No Hearing needs: No Vision needs: No Meds Allergies Allergy/AdvReac Type Severity Reaction Status Date / Time No Known Allergies Allergy Verified 01/01/24 08:19 Home Medications ?Medication ?Instructions ?Recorded ?Confirmed ?Last Taken ?Type aspirin 81 mg tablet,delayed 81 mg PO BEDTIME 01/12/20 01/01/24 12/30/23 History release rosuvastatin 40 mg tablet 40 mg PO BEDTIME 12/18/23 01/01/24 12/30/23 History latanoprost 0.005 % eye drops 1 drp ophthalmic-Left BEDTIME 01/01/24 01/01/24 Unknown History Exam Height,Weight and Vital Signs: Height 5 ft 4 in Weight 63.503 kg Last Vital Signs Pulse 77 12/18/23 10:31 Resp 16 12/18/23 10:31 BP 120/65 12/18/23 10:31 Pulse Ox 97 12/18/23 10:31 O2 Del Method Room Air 12/18/23 10:31 Pertinent Lab Results Pertinent Lab Results: Laboratory Tests 11/05/23 11:24 WBC 6.2 Hgb 16.4 Hct 49.3 Plt Count 153 L Sodium 138 Potassium 4.5 Chloride 105 Carbon Dioxide 28 BUN 17 H Creatinine 0.94 Narrative Narrative: EKG 12/2023 Vent. Rate : 074 BPM Atrial Rate : 074 BPM P-R Int : 132 ms QRS Dur : 084 ms QT Int : 446 ms P-R-T Axes : 082 077 113 degrees QTc Int : 495 ms Normal sinus rhythm ST & T wave abnormality, consider lateral ischemia Prolonged QT Abnormal ECG When compared with ECG of 29-MAR-2022 19:52, T wave inversion now evident in Lateral leads ECHO 04/2023 Conclusions: - 1. Normal LV ejection fraction with mild LVH with impaired relaxation filling pattern and elevated filling pressures 2. Mild aortic stenosis 3. Normal RV systolic pressure 4. No gross pericardial effusion NM cardiolite stress test 04/2023 Impression: 1. Myocardial perfusion imaging study shows reversible inferolateral defect suggestive of ischemia. 2. Gated LVEF is 59% during stress. Visually normal during rest. 3. Transient ischemic dilatation not present. EKG component of the test reported separately. S/P cardiac catheterization 12/03/[address] Ocampo: Angiographic Findings Cardiac Arteries and Lesion Findings LMCA: Ostial LAD 60 to 70% stenosis. LAD: Mild to moderate LAD stenosis. LCx: Mid left circumflex 50 to 60% stenosis. Mid OM1 70% stenosis. Vein graft to OM is occluded. RCA: Proximal RCA [employer] DUMP [employer]IVER. Patent vein graft to RCA. CT angio head neck 2021 IMPRESSION: CT HEAD: No intracranial hemorrhage or large acute infarction. Chronic infarcts are seen within the right frontal lobe, right parietal and occipital lobe, and left parietal lobe. Background changes of chronic microangiopathy and mild brain parenchymal volume loss. CTA NECK: 50% stenosis of the proximal right internal carotid artery. No significant stenosis of the proximal left internal carotid artery. Mild to moderate stenosis of the bilateral paraclinoid ICA segments. CTA HEAD: No large vessel occlusion or significant stenosis within the intracranial circulation. Airway Mallampati Class: II TM Dist: >3cm Neck ROM: Limited Denture: Upper Loose/Missing/Broken Teeth: Yes (Left lower side tooth broken) Heart: RRR Lungs: CTAB Assessment and Plan Assessment Anesthesia Assessment: Anesthesia Plan Discussed, Smoking Cess. Discussed and PAT Visit Final Anesthetic Review Family History of Problems with Anesthesia: No History of Problems with Anesthesia: No (DIfficult to wake post-cabg, cva) Documented by User: Cristin Laboy MD 01/01/24 10:01 [facility] Past Medical History Medical History Back pain On beta channing at home Skin cancer Lumbar spinal stenosis Osteoarthritis of hands, bilateral Acute anxiety Dyslipidemia CVA (cerebral vascular accident) Depression Left pontine CVA Osteoarthritis of right hip Rectal bleeding Tremor Toenail deformity Anemia PVD (peripheral vascular disease) Cervical radiculopathy Atherosclerosis Hematuria Vertigo Coronary artery disease Carotid stenosis Cerebrovascular disease Family History Family History Father Abdominal aneurysm Surgical History Surgical History S/P cardiac catheterization H/O colonoscopy History of intravascular stent placement Hx of plastic surgery Hx of CABG History of revision of total hip arthroplasty Status post shoulder surgery Social History Social History Housing: House Are you a primary healthcare administration internship to a significant other at home: No Do you presently have visiting nurse or other home services: No Alcohol intake: former Patient Tobacco Use Status: Current everyday Tobacco user Tobacco use type: Cigarette Cigarettes Per Day: 5 Years Smoked: 60 years e-Cigarette/Vaping Use: Never Used Second Hand Smoke Exposure: No Use of substances other than those prescribed or required for medical reasons: No Have you been hit, kicked, punched, or otherwise hurt by someone within the past year? If so, by whom?: No Are you DNR?: No Advance Directives: Yes Advance Directives Information Provided: No Advance Directives on File: Yes Advance Directives Date on File: 03/30/22 Recently lost weight without trying: No Eating poorly because of decreased appetite: No Nutrition Risks: No Nutritional Risk Poor oral hygiene: Yes (Full upper denture, missing bottom teeth and one cracked but stable) service: Yes Current occupational status: retired Cognitive needs: No Hearing needs: No Vision needs: No Meds Allergies Allergy/AdvReac Type Severity Reaction Status Date / Time No Known Allergies Allergy Verified 01/01/24 08:19 Home Medications ?Medication ?Instructions ?Recorded ?Confirmed ?Last Taken ?Type aspirin 81 mg tablet,delayed 81 mg PO BEDTIME 01/12/20 01/01/24 12/30/23 History release rosuvastatin 40 mg tablet 40 mg PO BEDTIME 12/18/23 01/01/24 12/30/23 History latanoprost 0.005 % eye drops 1 drp ophthalmic-Left BEDTIME 01/01/24 01/01/24 Unknown History Assessment and Plan Final Anesthetic Review NPO: Yes ASA Class: III Final Preanesthetic Review: No Changes in Pt Med Stat, Meds/Allgs Chart Reviewed and Consent Obtained/Reviewed Patient Risk: Intermediate Procedure Risk: Intermediate Anesthetic Plan Anesthetic Plan: GA Disposition: Standard PACU
[2024-01-01] VITALS (12 sets, daily range): BP systolic 104–129; BP diastolic 53–80; PULSE 72–90; RESP 12–18; TEMP 36.1–37.6; O2SAT 94–98; BMI 24.4
[2024-01-01] MEDS: methocarbamoL 750 MG TABLET PO ×3 (08:39→19:58)
[2024-01-01] MEDS: Gabapentin 300 MG CAPSULE PO ×3 (08:40→19:58)
[2024-01-01] MEDS: Lactated Ringers 1,000 ML 100 ML IVCONT (09:14)
--- NOTE | 2024-01-01 09:38 | MHC.SHP ---
Pre-Procedural Eval Section A - 24 Hr Update-Section A only Date of Service: 01/01/24 The patient is an INPATIENT: Yes Section B - Complete if H&P > 30 days Chief Complaint: S/P L4-5 Transkambin Lumbar Fusion Allergies: Allergies Allergy/AdvReac Type Severity Reaction Status Date / Time No Known Allergies Allergy Verified 01/01/24 08:19 Review of Systems Sugical H&P ROS: Negative: Constitution, Cardiovascular, Respiratory, Neurological, Psychiatric, Hem-Onc, Allergic/Immunologic, Gastrointestinal, Genitourinary, Musculoskeletal, Integumentary, Endocrine and Eyes/Ears/Nose/Throat Exam Surgical H&P Exam: Normal: HEENT, Normal: Heart, Normal: Lungs, Normal: Extremities, Normal: Abdomen, Normal: Skin and Normal: Neurological (awake alert) Plan I have reviewed the history and physical and performed a pertinent physical examination on my patient. No changes have occurred unless specified. trans Kambin lumbar interbody fusion at L4-5 Time Spent With Patient Time: Total time managing care of this patient today ___5_ minutes.
--- NOTE | 2024-01-01 09:41 | PHA.MEDREC ---
Addendum entered by Beny Pascual 01/01/24 09:45: Reviewed Original Note: Pharmacy Consult ? Medication Reconciliation Pharmacy has reviewed the medication reconciliation.
--- NOTE | 2024-01-01 11:28 | P.OP_ITS ---
Operative Note Operative Note Date of Service: 01/01/24 Narrative: Preoperative diagnosis: 1) neurogenic claudication and back pain 2) L4-5 spinal stenosis and lumbar degenerative disc disease Postprocedure diagnosis: 1) same as above Procedure: 1) L4-5 oblique lateral lumbar interbody fusion with discectomy, preparation of the endplates and placement of a titanium bullet cage packed with allograft, anterior to the transverse process in modified prone position, with intraoperative biplanar fluoroscopy imaging and electrophysiological monitoring 2) L4-5 posterior minimally invasive pedicle screw placement and posterior lateral instrumentation and fusion with intraoperative biplanar fluoroscopic imaging and electrophysiological monitoring 3injection of 10 cc of Exparel at the L4 transverse process for a muscular erector spinae block and additional Exparel in paravertebral tissue for postop management Consent Informed Consent was obtained for this operation. I have explained the nature, purpose and benefits of the operation. I have discussed the risks and benefit of the operation including possible complications or adverse events with patient/family. Alternative(s) were discussed with the patient with their relative benefits and risks as well as the consequences of not accepting the operation were included in obtaining consent. Surgeon: EDILBERTO SIDHU MD, PHD Procedure Assisted By: Deven Garcia Description of Procedure: This is a complex surgery on the lumbar spine and an printing assistant as needed for safety of the surgery for setup of instrumentation, retraction and closing. History: This 78-year-old gentleman suffering from back pain and neurogenic claudication due to severe L4-5 spinal stenosis. The patient was offered an oblique lumbar lateral interbody fusion followed by a posterior lateral instrumented fusion L4-5. The procedure and complications were explained and the patient was consented. Procedure: The patient was brought to the operating room and endotracheally intubated. The patient was positioned on the Paul spine table in a modified prone position for ease of access from the left side.. 2C arms were installed for fluoroscopy. Prepping and draping was done followed by timeout. The landmarks, including spinal processes, transverse processes, disc space, endplates and pedicles are identified and marked. The following steps are taken for each specified level: L4-5 level: Cage size 10 mm high and 33 mm long titanium . The patient was turned using the rotation of the surgical table so a near direct anterior lateral approach to the lumbar spine could be achieved. A small incision was then made superior to the mid iliac crest and then using biplanar fluoroscopy visualization, under electrophysiological monitoring and stimulation, we introduced an electrophysiological probe through the retroperitoneal space into the desired disc anterior to the transverse process and then passed it into the disc space after finding a silent window. The sleeve was retained and the probe was removed, then the K wire was passed sequentially into the disc space. A dilating tube was then passed along the same route. Following this, a working channel, a working channel was then passed sequentially into the disc space. The working channel was manually held in position while a series of disc cleaning tools were passed through the channel to remove the affected disc under clear and direct biplanar fluoroscopic visualization, decompress the nerve roots and equal corticated vertebral endplates at this segment. Arthrodesis of the intervertebral space via an anterior retroperitoneal exposure was achieved through Kambin's [place] and lateral extraforaminal space. Allograft was added into the anterior disc space. The working channel was then removed. A titanium interbody cage tightly packed with allograft was then inserted into the midportion of the intervertebral disc space over a K-wire under biplanar fluoroscopic visualization and intraoperative neuro monitoring. The inter pedicular and intradiscal space was significantly enlarged and disc height was restored to worked normal anatomy there for releasing pressure on the nerve roots visual largely the spinal canal and lateral recess as well as foramen were bilateral decompressed and all bones were confined to the borders of the disc space . The following steps are then taken for each specified level: L4-5 level: Bilateral L4 and L5 screws with a diameter of 6.5 x 45 mm. The posterolateral fusion is initiated after the patient is rotated to a true prone position. The entry point to the pedicle is identified in the AP and lateral views and then the skin incision is injected with local anesthetic. We entered the pedicle with the pediguard tap after which a K-wire was introduced into the vertebral body. Additionally, I used a small periosteal decorticator along the screws to refresh the surface of the bone and facet and I put some amount of allograft for additional stability for the posterolateral fusion. Over the K-wire we insert pedicle screws bilaterally. After the screws were placed, we put the crescencio in place and under fluoroscopic imaging, we locked the crescencio in place and removed the screw tops and then each incision has been closed with 0 Vicryl for the fascia and a 3-0 Vicryl for the subdermal layer. Steri- Strips were used to approximate the incisions. An OpSite with Tegaderm was used to cover the incision. Final x-rays and AP and lateral projection showed good position of the interbody device and instrumentation. All sponge and needle counts were correct. The patient was extubated and transported in a stable co ndition to the recovery room. 2-0 Vicryl This procedure was done with the aid of a physician printing assistant as a qualified resident was not available. Anesthesia: General Estimated Blood Loss (ml): 30 mL Specimen: None Duration of Surgery: 45 minutes Postoperative Plan: Admit to inpatient
[2024-01-01] MEDS: oxyCODONE HCl Immed Release 5 MG TABLET 10 MG PO (13:47)
[2024-01-01] MEDS: 0.9 % Sodium Chloride 1,000 ML 75 ML IVCONT (13:49)
[2024-01-01] MEDS: hydrOXYzine HCL 25 MG TABLET PO ×2 (15:54→19:58)
[2024-01-01] MEDS: ceFAZolin Sodium/Dextrose,Iso 2 GM/50 ML PIGGYBACK IV ×2 (15:56→21:42)
[2024-01-01] MEDS: Acetaminophen 325 MG TABLET 975 MG PO (17:22)
[2024-01-01] MEDS: Ketorolac Tromethamine 15 MG/ML VIAL IVPUSH (17:54)
[2024-01-01] MEDS: Atorvastatin Calcium 80 MG TABLET PO (19:57)
[2024-01-01] MEDS: Sertraline HCL 100 MG TABLET PO (19:58)
[2024-01-01] MEDS: Metoprolol Succinate ER 25 MG TAB.ER.24H PO (19:58)
[2024-01-01] MEDS: Docusate Sodium 100 MG CAPSULE PO (19:58)
[2024-01-01] MEDS: Latanoprost 0.005 % Ophth Sol 2.5 ML DROPS 1 DROP EYE-LEFT (19:59)
[2024-01-01] MEDS: oxyCODONE HCl Immed Release 5 MG TABLET PO (20:05)
[2024-01-02] MEDS: ceFAZolin Sodium/Dextrose,Iso 2 GM/50 ML PIGGYBACK IV (03:50)
[2024-01-02] MEDS: Ketorolac Tromethamine 15 MG/ML VIAL IVPUSH (03:50)
[2024-01-02 04:00] VITALS: BP 110/60; PULSE 85; RESP 16; TEMP 36.3; O2SAT 94
[2024-01-02] MEDS: 0.9 % Sodium Chloride 1,000 ML 75 ML IVCONT (05:45)
[2024-01-02] MEDS: Acetaminophen 325 MG TABLET 975 MG PO ×2 (06:02→12:39)
[2024-01-02 07:44] VITALS: BP 133/72; PULSE 75; RESP 18; TEMP 37.2; O2SAT 93
--- NOTE | 2024-01-02 07:59 | HO.POSTANES ---
Post Anesthesia Evaluation Post Anesthesia Evaluation Date of Service: 01/02/24 Vital Signs: Vital Signs Temp Pulse Resp BP Pulse Ox O2 Del Method 01/02/24 07:44 98.9 F 75 18 133/72 93 Room Air 01/02/24 04:00 97.4 F 85 16 110/60 94 Room Air Anesthesia: General Endotracheal-GETA Mental Status: Awake Pain Control: Satisfactory Nausea/Vomiting: None Hydration: Adequate Anesthesia-Related Issues: No Anes. Related Issues
--- NOTE | 2024-01-02 09:03 | P.DS_ITS ---
DS: Providers Provider Date of Service: 01/02/24 Date of admission: 01/01/24 08:32 Primary care physician: HECTOR Higginbotham DS: Summary Time Attestation Discharge Coordination Time (in mins): 15 Quality: Safe Use of Opioids Does Pt have an Active Cancer Diagnosis on the Problem List?: No Quality: Stroke Does the patient have a stroke diagnosis?: No Physical Exam Vital Signs: Vital Signs: Last Vital Signs Temp 98.9 F 01/02/24 07:44 Pulse 75 01/02/24 07:44 Resp 18 01/02/24 07:44 BP 133/72 01/02/24 07:44 Pulse Ox 93 01/02/24 07:44 O2 Del Method Room Air 01/02/24 07:44 O2 Flow Rate 2 01/01/24 16:05 BMI result Body Mass Index 24.4 Discharge Plan Discharge Anticipated Discharge Date/Time: 01/02/24 09:10 Patient Disposition: Home, Self-Care Discharge Diagnosis: s/p L4-5 Transkambin lumbar fusion Referrals: Amish Voss FNP-BC [Primary Care Provider] - 1 Week Discharge Medications: New oxycodone 5 mg tablet 5 mg PO TID PRN (Reason: severe pain (scale score 7-10)) Qty: 30 0RF Rx Instructions: Partial Fill upon patient request. gabapentin 100 mg capsule 100 mg PO TID Qty: 30 0RF hydroxyzine HCl 25 mg tablet 25 mg PO TID Qty: 30 0RF methocarbamol 500 mg tablet 500 mg PO TID PRN (Reason: muscle spasms) Qty: 30 0RF Continued metoprolol succinate 25 mg tablet extended release 24 hr 25 mg PO BEDTIME Qty: 90 3RF sertraline 100 mg tablet 100 mg PO BEDTIME 90 Days Qty: 90 1RF rosuvastatin 40 mg tablet 40 mg PO BEDTIME latanoprost 0.005 % drops 1 drp ophthalmic-Left BEDTIME Held aspirin 81 mg tablet,delayed release (DR/EC) 81 mg PO BEDTIME Hold Instructions: Resume on 01/06/24. Discharge Orders: Discharge Order (Routine); Ordered 01/02/24 Ordered By: Yaya Yin Diet: Advance to usual diet Activity on Discharge: As tolerated Stand Alone Forms: Patient Portal Discharge page Print Language: Italian Activity Restrictions/Additional Instructions: After your spinal surgery we ask you to observe the following restrictions/guidelines: Activity: It is normal to feel some discomfort as you increase your activity, but that will improve with time. We ask you avoid heavy lifting or acitivities that cause pain. As a general rule, 8lbs is a safe limit for lifting right after surgery. Walk as much as you feel comfortable but not to exhaustion. You will feel extra tired the first few days after surgery. Stay well hydrated. It is OK to walk up and down stairs You may return to driving when you are off narcotics (such as vicodin, oxycodone, dilaudid, etc), and you are back to normal functional capacity. If you have any concerns please check with office before driving. Return to work is specific to each patient and each surgery, so please speak with your doctor/PA at first follow up. Please bring paperwork such as FMLA at that time if you need it filled out. Medications: Please do not take your aspirin until 5 days postoperatively. Refrain from taking any other NSAIDs until tomorrow. We recommend you take 1,000mg Tylenol every 8 hours for the first few weeks after surgery, if you do not have any liver issues and can tolerate this medication. Do not exceed 4,000mg daily. We will give you a short supply of narcotics after surgery (usually one weeks worth). If you need more please call the office but do not use more than prescribed. You will need to give our office 48 hours notice if you need narcotics refilled and we do not fill narcotics on weekends or evenings. If you are on a narcotic, it is a good idea to take a stool softener such as colace or senna to avoid constipation If you take blood thinner such as aspirin, Plavix, Coumadin, Effient, Eliquis etc for conditions such as Afib, DVT, Pulmonary embolus, coronary disease, stents etc please speak with your surgeon about specific details as to when you can resume these medications. You can resume NSAIDs on post op day 1 (eg: Motrin, Naproxen, etc). Follow up: Please call the office, , after surgery to arrange a 3 week follow up for wound check. Wound Care: You may remove your dressing on the first day after surgery. ?You may ?leave open to air. Please do not remove the steri strips underneath. they will fall off on their own in one week. IT IS NORMAL FOR THE WOUND TO OOZE OR BE BLOODY FOR A FEW DAYS AFTER SURGERY. ?IF THIS HAPPENS JUST PLACE NEW DRESSING OVER IT TO AVOID STAINING CLOTHES. You may shower on post op day # 1 We ask that you do not let the water soak the wound. If it does get wet, just towel dry lightly. Please do not scrub your incision or place any type of chemical/ointment on the wound. No tub baths, pools or jacuzzis for one month. If you have any leaking or redness from your wound, or fevers, please call the office. Care Plan Goals: Returned to normal activity as tolerated Health Concerns: None Plan of Treatment: Follow-up in clinic in 2-3 weeks Assessment: POD: 1 Procedure: L4-5 Transkambin lumbar fusion Brian was seen this morning sitting upright in his bedside chair wathcing TV on 3 . Patient reports he is up walking around is otherwise doing well. He reports he would like to go home. He feels his symptoms are much better than pre-operatively. He still reports mild pain in his low back, with good relief with pain medication. He is voiding well, tolerating diet. Afebrile, vital signs stable. Full strength 5/5 LE. Back dressings have no staining, and no signs of hematoma. No active sanguineous drainage. Area is dry. Plan: Patient meets criteria to be medically discharged home. He was seen and evaluated this morning by Dr. Winkler, who understands and agrees to this plan. I will be sending in oxycodone, gabapentin, hydroxyzine, methocarbamol for the patient. He understands that he should take these medications as prescribed. Yaya Winkler MD,PhD [facility]
--- NOTE | 2024-01-02 09:10 | HO.NEUROPN_ITS ---
Neurosurgery Operative Note Date of Service: 01/02/24 Narrative: POD: 1 Procedure: L4-5 Transkambin lumbar fusion Brian was seen this morning sitting upright in his bedside chair wathcing TV on 3 south. Patient reports he is up walking around is otherwise doing well. He reports he would like to go home. He feels his symptoms are much better than pre-operatively. He still reports mild pain in his low back, with good relief with pain medication. He is voiding well, tolerating diet. Afebrile, vital signs stable. Full strength 5/5 LE. Back dressings have no staining, and no signs of hematoma. No active sanguineous drainage. Area is dry. Plan: Patient meets criteria to be medically discharged home. He was seen and evaluated this morning by Dr. Winkler, who understands and agrees to this plan. I will be sending in oxycodone, gabapentin, hydroxyzine, methocarbamol for the patient. He understands that he should take these medications as prescribed. Yaya Winkler MD,PhD [facility]
[2024-01-02] MEDS: oxyCODONE HCl Immed Release 5 MG TABLET PO ×2 (09:13→13:29)
[2024-01-02] MEDS: methocarbamoL 750 MG TABLET PO (09:13)
[2024-01-02] MEDS: hydrOXYzine HCL 25 MG TABLET PO (09:13)
[2024-01-02] MEDS: Gabapentin 300 MG CAPSULE PO (09:13)
[2024-01-02] MEDS: Docusate Sodium 100 MG CAPSULE PO (09:13)
--- NOTE | 2024-01-02 09:26 | MHC.CM.PN ---
Addendum entered by Jessica Matias 01/02/24 09:33: JESS MARTINEZ ACCEPTING, DCS AND F2F SENT VIA [employer] Original Note: PT REPORTS HE LIVES WITH HIS AND DAUGHTER AND IS INDEPENDENT WITH CARE HE USES A CANE FOR MOBILITY PT HAS A HCP ON FILE PCP: MAGDALENE MARTINEZ IMM DELIVERED PT WILL DC HOME TODAY, HE FEELS HE WOULD BENEFIT FROM HOME PT, MESSAGE SENT TO [facility] FAMILY WILL TRANSPORT
--- NOTE | 2024-01-02 09:26 | W.MHC.F2F ---
Service Date Service Date: 01/02/24 Encounter Date of encounter: 01/02/24 Reasons for Services Signs and symptoms assessed: s/p L4-5 Lumbar fusion Reason for physical therapy: home safety and mobility, therapeutic exercises, gait/transfer training and ADL training Homebound: Leaving the home is medically contraindicated at this time without the asist of a device and/or another person due th the listed conditions above and below. Reason homebound: unsteady gait / fall risk, leg weakness, pain with ambulation and weakness related to hospital stay Certification: Based on the above findings, I certify that this patient is confined to the home and needs intermittent chcf care, physical therapy and/or speech therapy, or continues to need occupational therapy. The patient is under my care, and I have initiated the establishment of the plan of care. The patient will be followed by a physician who will periodically review the plan of care. Time Spent With Patient Time: Total time managing care of this patient today __14__ minutes.
== END 2024-01-02 13:57 | disposition home or self-care (01) | DRG 460 ==
LOC: HO.SSSA 08:38 → HO.S3 12:26
PROVIDERS: Admitting Provider Neurological Surgery; PCP Nurse Practitioner Family; Visit Provider Neurological Surgery
PROC: 0SG00A0 Fusion of Lumbar Vertebral Joint with Interbody Fusion Device, Anterior Approach, Anterior Column, Open Approach (ICD-10-PCS; principal; 2024-01-01 09:00)
DX: M48.062 Spinal stenosis, lumbar region with neurogenic claudication (principal); M51.36 Other intervertebral disc degeneration, lumbar region; F17.210 Nicotine dependence, cigarettes, uncomplicated; Z71.6 Tobacco abuse counseling; Z79.82 Long term (current) use of aspirin; Z79.899 Other long term (current) drug therapy
CPT/HCPCS: 86850; 86900; 86901; 93005; 97162; C1713; C1889; C9290; J0131; J0665; J0690; J1100; J1596; J1885; J2405; J2704; J3010; L8699

== ENCOUNTER → 2024-01-01 08:32 | Outpatient (BNV) | payer MEDICARE, SELFPAY | PROVIDERS: Admitting Provider Neurological Surgery; PCP Nurse Practitioner Family; Visit Provider Neurological Surgery | DX: M48.062 Spinal stenosis, lumbar region with neurogenic claudication (principal) | CPT/HCPCS: 20930; 22558; 22612; 22840; 22853; 63056; 99024; 99499; G0180 ==

== ENCOUNTER 2024-01-03 13:41 | Emergency (ER) | payer MEDICARE, SELFPAY ==
--- NOTE | ~2024-01-03 | XR_ITS ---
EXAMINATION: XR LUMBOSACRAL SPINE CLINICAL INFORMATION: Spinal fusion surgery yesterday. Having pain. COMPARISON: MRI lumbar spine dated July 01, 2023. TECHNIQUE: Three views of the lumbosacral spine. FINDINGS / XR/XR lumbar spine 2-3V IMPRESSION: There are surgical changes status post posterior fusion at L4-5. There is intervertebral disc spacer at this level. The hardware appears intact. There is no fracture. Spinal alignment is anatomic in the sagittal projection. Vertebral body heights are preserved. There is multilevel intervertebral disc space narrowing. There is multilevel facet arthropathy. The osseous structures are diffusely demineralized. There is a right iliac artery stent. Electronically signed by: Eloy Cabrales DO 01/03/2024 06:07 PM EDT
--- NOTE | ~2024-01-03 | XR_ITS ---
EXAMINATION: XR CHEST CLINICAL INFORMATION: Hypoxia. COMPARISON: Chest radiograph dated 03/29/2022. TECHNIQUE: Frontal view of the chest was obtained. FINDINGS: There are sternotomy sutures. The heart is normal in size. There is calcific atherosclerotic disease of the aorta. There is a linear opacity within the mid right lung, likely representing atelectasis. No consolidation. No large pleural effusion. No pneumothorax. No acute osseous abnormality. XR/XR chest 1V IMPRESSION: Right sided subsegmental linear atelectasis. No consolidation. Electronically signed by: Eloy Cabrales DO 01/03/2024 06:00 PM EDT
[2024-01-03 13:49] VITALS: BP 97/46; PULSE 80; RESP 16; TEMP 37.1; O2SAT 90; BMI 23.2
[2024-01-03] MEDS: fentaNYL citrate/PF 100 MCG/2 ML VIAL 50 MCG IVPUSH ×2 (14:34→17:58)
[2024-01-03 14:35] LABS: MANUAL DIFF FLAG NO
[2024-01-03] MEDS: ondansetron HCL 4 MG/2 ML VIAL IVPUSH (14:35)
[2024-01-03 14:36] VITALS: BP 101/53; PULSE 78; RESP 14; O2SAT 93
--- NOTE | 2024-01-03 14:38 | ED.GENADULT ---
HPI - General Adult General Chief complaint: Fall Stated complaint: BACK PAIN S/P SPINAL FUSION SURGERY YESTERDAY Time Seen by Provider: 01/03/24 13:46 Source: patient, RN notes reviewed and old records reviewed Mode of arrival: EMS Limitations: no limitations History of Present Illness ED Provider: Ash HPI narrative: 78-year-old male past medical history significant for coronary artery disease, hypertension, depression, spinal stenosis basal cell carcinoma presents for evaluation of back pain. Patient had an L4/L5 spinal fusion performed yesterday at this facility by Dr. Winkler. He reports his pain today is a 10/10, constant and radiating down his legs. He denies any weakness, numbness, tingling, bladder or bowel incontinence or retention. He was able to urinate after his surgery including this morning. He denies any fevers, chills. He does report that he fell this morning while trying to get out of bed. Does not believe he hit his head or lost consciousness Related Data Home Medications ?Medication ?Instructions ?Recorded ?Confirmed aspirin 81 mg tablet,delayed 81 mg PO BEDTIME 01/12/20 01/04/24 release rosuvastatin 40 mg tablet 40 mg PO BEDTIME 12/18/23 01/04/24 latanoprost 0.005 % eye drops 1 drp ophthalmic-Left BEDTIME 01/01/24 01/04/24 Previous Rx's ?Medication ?Instructions ?Recorded metoprolol succinate 25 mg 25 mg PO BEDTIME #90 tabs 11/01/23 tablet,extended release 24 hr sertraline 100 mg tablet 100 mg PO BEDTIME 90 days #90 tabs 11/05/23 cefuroxime axetil 500 mg tablet 500 mg PO BID 7 days #14 tabs 01/05/24 morphine 15 mg immediate release 15 mg PO Q4H PRN pain (scale score 01/05/24 tablet 4-6) #12 tabs Allergies Allergy/AdvReac Type Severity Reaction Status Date / Time No Known Allergies Allergy Verified 01/03/24 13:50 Review of Systems Constitutional: Constitutional: Denies body ache(s), Denies chills, Denies fever(s) and Denies frequent falls Eyes: Eyes: Denies blurry vision ENT: Denies vertigo and Denies dizziness Cardiovascular: Cardiovascular: Denies chest pain and Denies dyspnea Respiratory: Respiratory: Denies cough and Denies dyspnea Gastrointestinal: Gastrointestinal: Denies abdominal pain, Denies nausea and Denies vomiting Musculoskeletal: Musculoskeletal: Reports back pain, Denies muscle weakness, Denies numbness, Reports radiating pain into limb, Reports stiffness and Denies tingling Integumentary/Breasts: Skin/Breast: Denies rash Neurologic: Denies vertigo, Denies dizziness, Denies frequent falls, Denies numbness and Denies tingling PMFSH Past Medical History Medical History (Updated 01/05/24 @ 01:41 by Will Preston MD) Back pain On beta channing at home Skin cancer Lumbar spinal stenosis Osteoarthritis of hands, bilateral Acute anxiety Dyslipidemia CVA (cerebral vascular accident) Depression Left pontine CVA Osteoarthritis of right hip Rectal bleeding Tremor Toenail deformity Anemia PVD (peripheral vascular disease) Cervical radiculopathy Atherosclerosis Hematuria Vertigo Coronary artery disease Carotid stenosis Cerebrovascular disease Surgical History History of lumbar fusion S/P cardiac catheterization H/O colonoscopy History of intravascular stent placement Hx of plastic surgery Hx of CABG History of revision of total hip arthroplasty Status post shoulder surgery Family History Family History Father Abdominal aneurysm Social History Social History Household Members: Spouse Housing: House Are you a primary child care group leader to a significant other at home: No Do you presently have visiting nurse or other home services: No Alcohol intake: former Patient Tobacco Use Status: Current someday Tobacco user Tobacco use type: Cigarette Cigarettes Per Day: 5 Years Smoked: 60 years Smoked in Last 30 Days: Yes e-Cigarette/Vaping Use: Never Used Second Hand Smoke Exposure: No Use of substances other than those prescribed or required for medical reasons: No Advance Directives: Yes Advance Directives on File: Yes Advance Directives Date on File: 03/30/22 Do you have a plan to hurt others: No Plan service: Yes Current occupational status: retired Cognitive needs: No Hearing needs: No Vision needs: No Physical Exam ED Vital Signs: Vital Signs - 24 hr 01/04/24 14:33 01/04/24 23:44 01/05/24 00:30 Temperature 98.8 F 99.1 F Pulse Rate 92 102 H 102 H Respiratory Rate 15 18 16 Blood Pressure 112/62 129/72 Pulse Oximetry 91 L 93 88 L Oxygen Delivery Method Room Air Nasal Cannula Room Air Oxygen Flow Rate 1 01/05/24 00:55 01/05/24 01:29 01/05/24 03:44 Temperature 100.2 F 99.9 F Pulse Rate 105 H Respiratory Rate 16 Blood Pressure 125/76 Pulse Oximetry 93 93 Oxygen Delivery Method Room Air Oxygen Flow Rate 1 01/05/24 06:29 Temperature 98.6 F Pulse Rate 92 Respiratory Rate 18 Blood Pressure 136/63 Pulse Oximetry 92 Oxygen Delivery Method Nasal Cannula Oxygen Flow Rate 1 BMI result Body Mass Index 23.2 Const Other: The patient is healthy-appearing, he seems somewhat uncomfortable sitting on the stretcher. He is nontoxic appearing General: healthy appearing, no acute distress, alert and awake Nutritional Appearance: well nourished Orientation/consciousness: patient oriented x3 HENMT Head: Yes normocephalic and Yes atraumatic Eyes Eyelids: Yes eyelids normal Conjunctivae: conjunctivae normal Sclerae: sclerae normal Corneas: corneas normal Pupils: Equal, round and reactive pupils present EOM: EOMs intact bilaterally Neck Neck: Yes full ROM Resp Effort & Inspection: normal respiratory effort, able to speak in complete sentences, no audible wheezes and not labored Auscultation: clear to auscultation bilaterally Cardio Rate: regular rate Rhythm: regular rhythm GI Inspection: No distended Palpation (GI): Soft to palpation, not firm, nontender, no guarding and not rigid Back/Spine/Pelvis Other: Patient's sterile bandages remain in place, he has ecchymosis extending across the lumbar spine. He is tender to palpation of the lumbar spine without step-offs or deformities. Skin General skin exam: elasticity normal Neuro General: patient oriented x3 Cranial nerves: Yes CN's II-XII intact bilaterally, Yes Equal, round and reactive pupils present and Yes Bilaterally intact EOM present Cognition (Neuro): normal cognition Motor exam (neuro): 5/5 motor strength present throughout Extrem Other: Straight leg raise positive bilaterally. Course Reevaluation(s) Reevaluation #1: Patient was seen by Da Baker, neurosurgical PA who felt the patient's physical exam was consistent with postop pain. The patient is willing to go to short-term rehab given his significant pain and inability to walk. Time: 19:16 Reevaluation #2: 01/04/2024 Patient has been evaluated by Physical therapy with recommendations for acute rehab, case management has met with patient and family. Referrals has been placed. P.r.n. morphine for pain management. Remains in physician observation at this time. No respiratory distress. No acute changes. Time: 11:20 Time: 01:41 Additional Reevaluation(s): Patient noted to have temperature of 100.2 degrees and sore throat strep positive will start patient on cefuroxime COVID negative Consultations Consultation #1: 1210 01/05/24 -- per case management, patient will be discharged to [facility] at 1:00 p.m. today. Patient tested positive for strep throat. A prescription for Ceftin will be provided to patient. Observation care revealed that the patient does/ does not meet medical necessity for hospitalization. Final disposition discussed with the patient. The patient completed observation care at 1212, total time in observation care was 41 hours. Medications Administered Generic Name Dose Route Start Last Admin Trade Name Freq PRN Reason Stop Dose Admin Acetaminophen 650 mg 01/05/24 01:43 01/05/24 03:44 Acetaminophen 325 Mg Tablet PO 650 mg RQ4H PRN Administration Fever Aspirin 81 mg 01/05/24 07:30 01/05/24 07:59 Aspirin Enteric Coated 81 Mg Tablet.Dr PO Not Given BEDTIME [facility] Atorvastatin Calcium 80 mg 01/05/24 09:00 01/05/24 09:53 Atorvastatin Calcium 80 Mg Tablet PO 80 mg DAILY JAYSON Administration Cefuroxime Axetil 500 mg 01/05/24 01:45 01/05/24 09:53 Cefuroxime Axetil 500 Mg Tablet PO 01/13/24 21:00 500 mg BID JAYSON Administration Latanoprost 1 drop 01/05/24 07:30 01/05/24 07:59 Latanoprost 0.005 % Ophth Meliza 2.5 Ml Drops EYE-LEFT Not Given BEDTIME [facility] Metoprolol Succinate 25 mg 01/05/24 07:30 01/05/24 07:58 Metoprolol Succinate Er 25 Mg Tab.Er.24h PO Not Given BEDTIME [facility] Protocol Morphine Sulfate 15 mg 01/04/24 10:52 01/05/24 09:53 Morphine Sulfate Immed Release 15 Mg Tablet PO 15 mg Q4H PRN Administration Pain, Severe (Pain Scale 7-10) Sertraline HCl 100 mg 01/05/24 07:30 01/05/24 08:00 Sertraline Hcl 100 Mg Tablet PO Not Given BEDTIME JAYSON Discontinued Medications Generic Name Dose Route Start Last Admin Trade Name Jamieq PRN Reason Stop Dose Admin Acetaminophen 650 mg 01/03/24 21:36 01/04/24 10:41 Acetaminophen 325 Mg Tablet PO 650 mg Q4H PRN Administration Pain, Mild (Pain Scale 1-3) Fentanyl 50 mcg 01/03/24 14:10 01/03/24 14:34 Fentanyl Citrate/Pf 100 Mcg/2 Ml Vial IVPUSH 01/03/24 14:11 50 mcg ONCE ONE Administration Protocol Fentanyl 50 mcg 01/03/24 17:47 01/03/24 17:58 Fentanyl Citrate/Pf 100 Mcg/2 Ml Vial IVPUSH 01/03/24 17:48 50 mcg ONCE ONE Administration Protocol Morphine Sulfate 15 mg 01/03/24 21:36 01/04/24 07:52 Morphine Sulfate Immed Release 15 Mg Tablet PO 15 mg Q6H PRN Administration Pain, Severe (Pain Scale 7-10) Ondansetron HCl 4 mg 01/03/24 14:10 01/03/24 14:35 Ondansetron Hcl 4 Mg/2 Ml Vial IVPUSH 01/03/24 14:11 4 mg ONCE ONE Administration Medical Decision Making Medical Decision Making MDM Narrative: 78-year-old male presents for evaluation of worsening lower back pain. He has no warning signs for cauda equina syndrome, he is able to urinate per his report, his strength is 5/5 to lower extremities bilaterally, he denies any numbness, tingling, weakness. Plan for x-ray of the lumbar spine given his reported fall this morning. We will check basic labs. Patient's oxygen saturation on room air is 90-92%, he denies any shortness of breath, cough. We will get a chest x-ray to evaluate. In the meantime I treated his pain with fentanyl, 50 mcg IV. I did discuss with his neurosurgery team as his surgery was just performed yesterday. I have a lower suspicion for infectious process as the patient is afebrile, his surgery was only yesterday. Differential Diagnosis Differential Diagnoses: The differential diagnosis associated with the presentation includes Acute on chronic back pain Postop pain Radiculopathy Spinal abscess less likely Lab Data 01/03/24 14:30 01/03/24 14:30 Labs: Lab Results 01/03/24 01/03/24 01/05/24 Range/Units 14:30 20:54 00:37 WBC 7.4 (4.8-10.8) X10*3/uL RBC 4.46 L (4.60-5.80) X10*6/uL Hgb 13.7 L (14.0-18.0) g/dl Hct 41.1 L (42.0-52.0) % MCV 92.2 (80.0-98.0) fL MCH 30.7 (27.0-33.0) pg MCHC 33.3 (31.0-36.0) g/dl RDW 13.2 (11.0-16.0) % Plt Count 105 L D (160-400) X10*3/uL MPV 10.9 (9.4-12.4) fL Immature Gran % (Auto) 0.4 (0.0-0.4) % Neut % (Auto) 66.2 (45-73) % Lymph % (Auto) 18.8 L (20-40) % [place] % (Auto) 9.8 (2-11) % Eos % (Auto) 4.3 H (0-4) % Baso % (Auto) 0.5 (0-2) % Lymph # (Auto) 1.4 (1.2-4.9) X10*3/uL [place] # (Auto) 0.7 (0.1-1.2) X10*3/uL Eos # (Auto) 0.3 (0.0-0.4) X10*3/uL Baso # (Auto) 0.0 (0.0-0.2) X10*3/uL Abs Immat Gran (auto) 0.03 (0.00-0.03) X10*3/uL Absolute Neuts (auto) 4.9 (2.0-8.3) x10*3/uL Absolute Nucleated RBC 0.000 (0.0-0.012) X10*3/uL Nucleated RBC % (auto) 0.0 (0.0-0.2) /100WBC ESR 16 H (0-15) MM/HR Sodium 142 (135-145) mmol/L Potassium 4.2 (3.3-5.1) mmol/L Chloride 112 H (96-108) mmol/L Carbon Dioxide 24 (22-29) mmol/L Anion Gap 10 L (12-20) BUN 25 H (9-16) mg/dL Creatinine 1.19 (0.5-1.4) mg/dL Estim Creat Clear Calc 48.6 Estimated GFR 59 Random Glucose 143 H (60-115) mg/dL Calcium 8.7 D (8.4-10.2) mg/dL Total Bilirubin 0.5 (0.0-1.0) mg/dL AST 77 H (5-37) U/L ALT 10 (0-40) U/L Alkaline Phosphatase 46 (39-117) U/L C-Reactive Protein 7.10 H (< or = 0.50) mg/dL Total Protein 6.2 L (6.5-8.0) g/dL Albumin 3.5 (3.5-5.0) g/dL Lipase 12 (8-78) U/L Urine Color Yellow Urine Appearance Clear Urine pH 5.5 (5.0-9.0) Ur Specific [place] 1.025 (1.005-1.025) Urine Protein Trace (Neg-Trace) mg/dL Urine Glucose (UA) Negative (Negative) mg/dL Urine Ketones Negative (Negative) mg/dL Urine Blood Negative (Negative) Urine Nitrite Negative (Negative) Ur Leukocyte Esterase Negative (Negative) Urine RBC 0-2 (0-2) /HPF Urine WBC 0-5 (0-5) /HPF Ur Squamous Epith Cells 0-2 (0-2) /HPF Urine Bacteria None Seen (None Seen) Hyaline Casts 0-2 (0-2) /LPF COVID-19 (KAREN) Negative (Negative) COVID-19 Clin Com See Note S. pyogenes GrpA MCKENNA Positive A (Negative) Discharge Plan Discharge Clinical Impression: Back pain, Acute streptococcal pharyngitis Patient Disposition: Xfer Inpatient Rehab Fac Transfer Details: [facility] Instructions: Strep Throat (ED) Additional Instructions: You tested positive for strep throat. You've received 3 days of antibiotics. You have been provided with a paper script for the remaining 7 days of antibiotics. Take this twice daily to treat strep throat. You have also been provided with a paper script for morphine. Return with new or worsening symptoms. In the case of an emergency call 911. Prescriptions: New cefuroxime axetil 500 mg tablet 500 mg PO BID 7 Days Qty: 14 0RF morphine 15 mg tablet 15 mg PO Q4H PRN (Reason: pain (scale score 4-6)) Qty: 12 0RF Rx Instructions: Partial Fill upon patient request. No Action metoprolol succinate 25 mg tablet extended release 24 hr 25 mg PO BEDTIME Qty: 90 3RF sertraline 100 mg tablet 100 mg PO BEDTIME 90 Days Qty: 90 1RF rosuvastatin 40 mg tablet 40 mg PO BEDTIME latanoprost 0.005 % drops 1 drp ophthalmic-Left BEDTIME aspirin 81 mg tablet,delayed release (DR/EC) 81 mg PO BEDTIME Print Language: Bulgarian
[2024-01-03 14:40] LABS: Basophils Percent Auto 0.5 % (0-2); Eosinophils Absolute Auto 0.3 X10*3/uL (0.0-0.4); Eosinophils Percent Auto 4.3 % (0-4); Hematocrit 41.1 % (42.0-52.0); Hemoglobin 13.7 g/dl (14.0-18.0); Imm Gran Abs Auto 0.03 X10*3/uL (0.00-0.03); Imm Gran Pct Auto 0.4 % (0.0-0.4); Lymphocytes Absolute Auto 1.4 X10*3/uL (1.2-4.9); Lymphocytes Percent Auto 18.8 % (20-40); Mean Corpuscular HGB Conc 33.3 g/dl (31.0-36.0); Mean Corpuscular Hemoglobin 30.7 pg (27.0-33.0); Mean Corpuscular Volume 92.2 fL (80.0-98.0); Mean Platelet Volume 10.9 fL (9.4-12.4); Monocytes Absolute Auto 0.7 X10*3/uL (0.1-1.2); Monocytes Percent Auto 9.8 % (2-11); Neutrophils Absolute Auto 4.9 x10*3/uL (2.0-8.3); Neutrophils Percent Auto 66.2 % (45-73); Red Blood Count 4.46 X10*6/uL (4.60-5.80); Red Cell Distribution Width 13.2 % (11.0-16.0); White Blood Count 7.4 X10*3/uL (4.8-10.8)
[2024-01-03 14:41] LABS: Platelet Count 105 X10*3/uL (160-400)
--- NOTE | 2024-01-03 14:41 | PC.NURSE ---
patient desat down to 88% on room air while sleeping, respirations equal and unlabored.
[2024-01-03 14:54] LABS: Alanine Aminotransferase 10 U/L (0-40); Albumin Level 3.5 g/dL (3.5-5.0); Alkaline Phosphatase 46 U/L (39-117); Anion Gap 10 (12-20); Aspartate Amino Transferase 77 U/L (5-37); Bilirubin Total 0.5 mg/dL (0.0-1.0); Blood Urea Nitrogen 25 mg/dL (9-16); Calcium 8.7 mg/dL (8.4-10.2); Carbon Dioxide 24 mmol/L (22-29); Chloride 112 mmol/L (96-108); Creatinine Clr Calc Pharmacy 48.6; Estimated Glomerular Filt Rate 59; Glucose Random 143 mg/dL (60-115); Lipase 12 U/L (8-78); Potassium 4.2 mmol/L (3.3-5.1); Sodium 142 mmol/L (135-145); Total Protein 6.2 g/dL (6.5-8.0)
[2024-01-03 15:13] LABS: Erythrocyte Sedimentation Rate 16 MM/HR (0-15)
[2024-01-03 15:19] VITALS: BP 108/55; PULSE 73; RESP 15; TEMP 36.9; O2SAT 94
--- NOTE | 2024-01-03 15:21 | MHC.EDTECH ---
This pct just assumed care of Patient ,vitals taken,Patient sleeping ,no apparent distress noted ,Plan of care continue .
--- NOTE | 2024-01-03 16:14 | PC.NURSE ---
this nurse took over pt care at 1500, pt a&ox3, currently on 1L NC due to lower O2 sat 90% prior to this nurses arrival- pt not normally O2 dependent vitals otherwise stable, pt is a smoker- requesting nicotine patch if he will be here for a period of time, pt has gone to radiology for imaging and neuro/surgical provider came to eval patient-removed dressings to back and stated to leave them open to air, area to lower back/hip area varying shades of ecchymosis. pt states he laste at a tomato sandwich at 1030 am. call blackburn within reach, will continue to monitor
--- NOTE | 2024-01-03 16:14 | HO.NEURO.PN ---
Neurosurgery Operative Note Date of Service: 01/03/24 Narrative: Pt is POD 2 L4-5 transkambin fusion p/w increase back pain. I had spoke to family this am and they were having hard time managing him. Pt was refusing to get out of bed, having hard time ambularing with and daughter so came to ED. Pt reports no new leg pains, numbness, rtc. He was having trouble getting to bathroom, but no incontince. He had bladder scanned in ED and was normal. No retention. Meds are not helping and maybe making him more confused. They were concerned that could not handle him. I stopped by ED to see him. Afebrile, VSS He is awake, alert,oriented, seen with Dr Winkler. Strength is full bilat in LE's. Pain with sitting up in bed and rolling. Bilat ecchymosis in paraspinal stab incisions draining down towards buttocks. I removed all dsg, wounds no signs of infection. Some steris have fallen off, some still in place. Labs: WBC normal, ESR and CRP mild elevated ImP: POD 2 L4-5 TKLIF, having trouble at home most likely due to muscle spasms, he is in peak swelling 48 hours out from surgery. Neuro exam excellent. Wounds have some ecchymosis as expected. WBC normal, ESR and CRP mildly elevated as expected in post op period. No concern for infection. d/w Dr Winkler, patient family is overwhelmed, probably needs an acute rehab for a short period. Would have PT re-eval. No role for imaging or further w/u. Pt can take methocarbamol and oxy as long as not making confused. Can f/u in office in 3 weeks. Please call with any ? .
--- NOTE | 2024-01-03 18:01 | PC.NURSE ---
pt c/o -11/15 back pain, pt medicated per order, call [facility] within reach, family at bedside, will continue to monitor
--- NOTE | 2024-01-03 18:41 | MHC.CM.ED ---
CM met with patient, and daughter at the request of Ravi DYKES. Patient had L4-5 transkambin fusion on 12/31. Increasing pain and difficulty ambulating. Seen by neurosurgery. ? muscle spasm. Recommending pain mediation,, acute rehab and F/U with them in 3 weeks. PT is pending. Pt does not have a qualifying stay. Lives with and daughter. Uses a cane. No services at this time. Will task to [facility] for intake. Will place referrals to acute rehabs. HCP Shannon Maloney () [phone]. Family to make neuro follow -up. CM following for discharge planning.
[2024-01-03 18:42] VITALS: BP 120/75; PULSE 86; RESP 15; TEMP 36.9; O2SAT 94
--- NOTE | 2024-01-03 18:44 | MHC.EDTECH ---
1800 rounding done ,vitals taken ,Patient was change and reposition in bed ,Patient has steri strip dressing on his lower back .Family member in room .
[2024-01-03 21:04] LABS: Appearance Urine Clear; Color Urine Yellow; Glucose Urine UA Negative (Negative); Leukocyte Esterase Urine Negative (Negative); Nitrite Urine Negative (Negative); PH 5.5 (5.0-9.0); Specific Gravity - Urine 1.025 (1.005-1.025); Urine Blood Negative (Negative); Urine Ketones Negative (Negative); Urine Protein Trace mg/dL (Neg-Trace)
[2024-01-03 21:09] LABS: Bacteria Urine None Seen (None Seen); Hyaline Casts Urine 0-2 /LPF (0-2); RBC Urine 0-2 /HPF (0-2); Squamous Epithelial Cell Urine 0-2 /HPF (0-2); WBC Urine 0-5 /HPF (0-5)
[2024-01-03 22:00] VITALS: BP 136/81; PULSE 98; RESP 18; TEMP 36.8; O2SAT 92
[2024-01-03] MEDS: Morphine Sulfate Immed Release 15 MG TABLET PO (23:22)
--- NOTE | 2024-01-03 23:25 | PC.NURSE ---
Pt medicated per [facility] Plan of care ongoing.
[2024-01-04 01:10] VITALS: RESP 12
[2024-01-04 02:00] VITALS: BP 133/82; PULSE 103; RESP 20; TEMP 36.6; O2SAT 93
[2024-01-04 06:00] VITALS: BP 138/69; PULSE 93; RESP 18; TEMP 37.4; O2SAT 92
--- NOTE | 2024-01-04 06:02 | PC.NURSE ---
Pt assisted by this RN and tech back into bed and positioned for comfort. Plan of care ongoing.
[2024-01-04] MEDS: Morphine Sulfate Immed Release 15 MG TABLET PO ×3 (07:52→19:17)
--- NOTE | 2024-01-04 07:56 | PC.NURSE ---
repositioned to left side lying. pt has 2 surgical sights, both with edges well approximated. no drainage. diffuse deep bruising throughout lower back. pain is in Zheng hips and pt struggles to stay left side lying. no numbness/tingling in BLE. axox3.
--- NOTE | 2024-01-04 08:32 | PC.NURSE ---
PT with patient
[2024-01-04 08:44] VITALS: PULSE 92; O2SAT 96
[2024-01-04] MEDS: Acetaminophen 325 MG TABLET 650 MG PO (10:41)
--- NOTE | 2024-01-04 11:29 | MHC.CM.ED ---
Addendum entered by Yun Sparks 01/04/24 11:53: [facility] Pt and spouse Clara aware of plan. Original Note: Pt has been accepted to [facility] for a 01/04 arrival date: time TBD. Facility has a bed opening tomorrow and pt has accepted the offer. Call placed to pt's spouse to inform of the d/c plan: ED care team updated on plan as well. ED CM to arrange BLS transport when facility offers an arrival time
[2024-01-04 14:33] VITALS: BP 112/62; PULSE 92; RESP 15; O2SAT 91
--- NOTE | 2024-01-04 15:31 | PC.NURSE ---
repositioned, grimacing with change in position but tolerated. attempting keep wound from sheering and open to air.
[2024-01-04 23:44] VITALS: BP 129/72; PULSE 102; RESP 18; TEMP 37.1; O2SAT 93
[2024-01-05] VITALS (7 sets, daily range): BP systolic 125–136; BP diastolic 63–76; PULSE 91–105; RESP 14–18; TEMP 37–37.9; O2SAT 88–93
--- NOTE | 2024-01-05 00:30 | PC.NURSE ---
pt found to be 88-90% on RA. pt denies cp/sob. reports has a sore throat. MD made aware of o2 and heart rate as well.
[2024-01-05 00:57] LABS: IDNOW Serial# 08D9AD1C; Strep A Nucleic Acid Positive (Negative)
[2024-01-05 01:10] LABS: COVID-19 Test Negative (Negative); IDNOW Serial# 152EDE1D
[2024-01-05] MEDS: cefuroxime axetiL 500 MG TABLET PO ×2 (03:44→09:53)
[2024-01-05] MEDS: Morphine Sulfate Immed Release 15 MG TABLET PO ×2 (03:44→09:53)
[2024-01-05] MEDS: Acetaminophen 325 MG TABLET 650 MG PO (03:44)
--- NOTE | 2024-01-05 03:52 | PC.NURSE ---
patient awake, resting quietly in bed. requesting prn pain medications, medicated per the MAR. repositioned onto right side, states that he feels a bit better today and that the movement was easier. takes pills whole with water.
--- NOTE | 2024-01-05 06:30 | PC.NURSE ---
patient repositioned in bed, linens changed. able to help move himself at this time
--- NOTE | 2024-01-05 09:42 | PHA.MEDREC ---
Addendum entered by Justin Ya RPh 01/05/24 09:46: reviewed by [facility]. Original Note: Pharmacy Consult ? Medication Reconciliation Pharmacy has completed the medication reconciliation. Spoke with patient to confirm medications. He only takes 4 pills daily, (metoprolol, rosuvastatin, sertraline, and baby aspirin) and his eye drop at bedtime. He does not take hydroxyzine, gabapentin, methocarbamol, or oxycodone.
[2024-01-05] MEDS: Atorvastatin Calcium 80 MG TABLET PO (09:53)
== END 2024-01-05 13:32 ==
PROVIDERS: Internal Medicine; Physician Assistant; Emergency Provider Student in an Organized Health Care Education/Training Program; PCP Nurse Practitioner Family
DX: G89.18 Other acute postprocedural pain (principal); M54.50 Low back pain, unspecified; J02.0 Streptococcal pharyngitis; R50.9 Fever, unspecified; Z11.52 Encounter for screening for COVID-19; E78.5 Hyperlipidemia, unspecified; Z95.1 Presence of aortocoronary bypass graft; Z79.82 Long term (current) use of aspirin; Z79.02 Long term (current) use of antithrombotics/antiplatelets; Z79.899 Other long term (current) drug therapy
CPT/HCPCS: 36415; 51798; 71045; 72100; 80053; 81001; 83690; 85025; 85652; 86140; 87635; 87651; 96374; 96375; 96376; 97162; 99285; J2405; J3010

== ENCOUNTER → 2024-01-03 14:03 | Outpatient (BNV) | payer MEDICARE, SELFPAY | PROVIDERS: Emergency Provider Student in an Organized Health Care Education/Training Program; PCP Nurse Practitioner Family; Visit Provider Physician Assistant | DX: Z48.89 Encounter for other specified surgical aftercare (principal) | CPT/HCPCS: 99024 ==

== ENCOUNTER 2024-01-27 10:03 | Outpatient (AMB) | payer MEDICARE, SELFPAY ==
--- NOTE | 2024-01-27 10:07 | HO.SPINEOV ---
Intake Visit Reasons: 1st post op Intake Note: Mr. Maloney is here today for his 1st post-op. Bung Sewer Required: No Allergies No Known Allergies Allergy (Verified 01/03/24 13:50) Assessment & Plan Assessment & Plan (1) S/P lumbar spinal fusion: Code(s): Z98.1 - Arthrodesis status Category: Medical Plan Brian comes in today for his 1st postoperative visit after having an L4-5 transkambin lumbar fusion completed by our service. He reports that he was doing very well in the initial postop period, but without any inciting incident began experiencing severe low back pain yesterday. He reports that he has only been taking Tylenol and ibuprofen since his surgery as he does not like the way that the oxycodone makes him feel. He has been ambulating around his home with the assistance of a walker. His ADLs were beginning to improve but have unfortunately declined since yesterday. I would like to order Brian a x-ray of his lumbar spine to rule out any hardware related issue. He is most likely just having an exacerbation of his postoperative inflammation. I will call Brian later today with the results of his x-ray. Yaya Winkler MD,PhD [facility] Orders: Orders XR lumbar spine 4V min Today Z98.1 - Arthrodesis status Coding Level of Care Code Global (03679) Diagnoses S/P lumbar spinal fusion Z98.1
== END 2024-01-27 10:40 | disposition home or self-care (01) ==
PROVIDERS: PCP Nurse Practitioner Family; Visit Provider Physician Assistant
DX: Z98.1 Arthrodesis status (principal)
CPT/HCPCS: 99024

== ENCOUNTER 2024-01-27 10:03 | Outpatient (REF) | payer MEDICARE, SELFPAY | END 2024-01-27 10:04 | disposition home or self-care (01) | LOC: HO.HOSX 10:03 | PROVIDERS: PCP Nurse Practitioner Family; Visit Provider Physician Assistant | DX: Z47.89 Encounter for other orthopedic aftercare (principal); Z98.1 Arthrodesis status | CPT/HCPCS: 72110; 99212 ==

== ENCOUNTER 2024-03-12 11:24 | Outpatient (REF) | payer MEDICARE, SELFPAY ==
--- NOTE | ~2024-03-12 | XR_ITS ---
EXAMINATION: XR LUMBAR SPINE CLINICAL INFORMATION: Arthrodesis status Z98.1. COMPARISON: XR Lumbar spine 01/27/2024. TECHNIQUE: AP and lateral views with lateral flexion and extension FINDINGS: No acute fracture or dislocation. Posterior spinal fusion of L4-L5, grossly intact. Grade 1 retrolisthesis of L4 on L5 without overt dynamic instability. Multilevel degenerative changes. Vertebral body heights are maintained. Posterior elements are intact. Paraspinal soft tissues are unremarkable XR/XR lumbar spine 4V min IMPRESSION: 1. Posterior spinal fusion of L4-L5, grossly intact. 2. Grade 1 retrolisthesis of L4 on L5 without overt dynamic instability. 3. Multilevel degenerative changes. Electronically signed by: Antonio Green MD 03/31/2024 11:19 AM SANDOR
--- OUTSIDE RECORDS SUMMARY | 2024-03-18 01:58 | XMS_ITS | Clinical Summary ---
Author Organization Unknown Care Team Providers Care Chips Screen Tender Name Role Phone JUAN AGUILERA, MAGDALENE Unavailable Unavailable ROMEO HUFFMAN, DICK Unavailable Unavailable Payers Payer Name Policy Type Policy Number Effective Date Expira tion Date [place]IC[place] - [place] [id number] [facility] [id number] Problems Condition Name Condition Details Condition Category Status Onset Date Resolution Date Last Treatment Date Treating Clinician Comments ENCOUNTER FOR OTHER ORTHOPEDIC AFTERCARE Active 04-08 00:00: 00 PERIPHERAL VASCULAR DISEASE, UNSPECIFIED Active 04-08 00:00: 00 ANEMIA, UNSPECIFIED Active 04-08 00:00: 00 ATHSCL HEART DISEASE OF [place] CORONARY ARTERY W/O ANG PCTRS Active 04-08 00:00: 00 ESSENTIAL (PRIMARY) HYPERTENSION Active 04-08 00:00: 00 DEPRESSION, UNSPECIFIED Active 04-08 00:00: 00 NICOTINE DEPENDENCE, CIGARETTES, UNCOMPLICATE D Active 04-08 00:00: 00 PRIMARY OSTEOARTHRIT IS, UNSPECIFIED HAND Active 04-08 00:00: 00 ANXIETY DISORDER, UNSPECIFIED Active 04-08 00:00: 00 HYPERLIPIDEM IA, UNSPECIFIED Active 04-08 00:00: 00 PRESENCE OF AORTOCORONAR Y BYPASS GRAFT Active 04-08 00:00: 00 PRSNL HX OF TIA (TIA), AND CEREB INFRC W/O RESID DEFICITS Active 04-08 00:00: 00 PERSONAL HISTORY OF OTHER MALIGNANT NEOPLASM OF SKIN Active 04-08 00:00: 00 DETENTION (CURRENT) USE OF ASPIRIN Active 04-08 00:00: 00 Allergies, Adverse Reactions, Alerts Allergy Name Allergy Type Status Severity Reaction(s) Onset Date Inactive Date Treating Clinician Comments NKA Propensity to adverse reactions Active 2024-01 14:59:5 2 Medications Ordered Medication Name Filled Medication Name Start Date Stop Date Current Medication? Ordering Clinician Indication Dosage Frequency Signature (SIG) Comments Components Aspirin Childrens 81 mg chewable tablet 2023-04 00:00: 00 Yes [id number] 1 tablet DAILY 1 tablet DAILY (route: oral) Med Classific ation: Hematolog ical Agents gabapentin 100 mg capsule 2023-04 00:00: 00 01-31 23:59 :00 No [id number] 1 capsule 3 TIMES DAILY 1 capsule 3 TIMES DAILY (route: oral) Med Classific ation: Central Nervous System Agents hydroxyzine HCl 25 mg tablet 2023-04 00:00: 00 01-31 23:59 :00 No [id number] 1 tablet 3 TIMES DAILY 1 tablet 3 TIMES DAILY (route: oral) Med Classific ation: Central Nervous System Agents latanoprost 0.005 % eye drops 2023-04 00:00: 00 Yes [id number] 1 drops BEDTIME 1 drops BEDTIME (route: ophthalmic (eye)) Med Classific ation: Ophthalmi c Agents methocarbam ol 500 mg tablet 2023-04 00:00: 00 01-31 23:59 :00 No [id number] 1 tablet 3 TIMES DAILY 1 tablet 3 TIMES DAILY (route: oral) Med Classific ation: Locomotor System metoprolol succinate ER 25 mg tablet,exte nded release 24 hr 2023-04 00:00: 00 Yes [id number] 1 tablet BEDTIME 1 tablet BEDTIME (route: oral) Med Classific ation: Cardiovas cular Therapy Agents rosuvastati n 40 mg tablet 2023-04 00:00: 00 Yes [id number] 1 tablet DAILY 1 tablet DAILY (route: oral) Med Classific ation: Cardiovas cular Therapy Agents sertraline 100 mg tablet 2023-04 00:00: 00 Yes [id number] 1 tablet DAILY 1 tablet DAILY (route: oral) Med Classific ation: Central Nervous System Agents Immunizations Ordered Immunization Name Filled Immunization Name Date Status Comments Refusal Reason COVID-19, COVID-19 2023-04-11 00:00:00 Vital Signs Vital Name Observation Time Observation Value Commen ts Temperature 2024-03-12 10:27:00.000 97.4 [degF] Temperature 2024-03-02 09:59:00.000 97.6 [degF] Temperature 2024-02-28 09:56:00.000 97.2 [degF] Temperature 2024-02-13 10:49:00.000 97.4 [degF] Temperature 2024-02-10 10:28:00.000 97.6 [degF] Temperature 2024-02-07 10:22:00.000 97 [degF] Temperature 2024-02-06 10:31:00.000 97.4 [degF] Temperature 2024-02-05 13:04:00.000 98.1 [degF] Temperature 2024-02-03 10:42:00.000 97.4 [degF] Temperature 2024-02-01 11:29:00.000 97 [degF] Temperature 2024-01-31 09:53:00.000 97.4 [degF] Temperature 2024-01-27 13:22:00.000 97.2 [degF] Temperature 2024-01-24 11:53:00.000 98.2 [degF] Temperature 2024-01-19 14:45:00.000 99.6 [degF] BMI (%) 2024-01-19 14:45:00.000 22 kg/m2 Height 2024-01-19 14:45:00.000 65 [in_us] Pulse 2024-03-12 10:27:00.000 76 /min Pulse 2024-03-02 09:59:00.000 68 /min Pulse 2024-02-28 09:56:00.000 72 /min Pulse 2024-02-13 10:49:00.000 68 /min Pulse 2024-02-10 10:28:00.000 76 /min Pulse 2024-02-07 10:22:00.000 76 /min Pulse 2024-02-06 10:31:00.000 76 /min Pulse 2024-02-05 13:04:00.000 81 /min Pulse 2024-02-03 10:42:00.000 84 /min Pulse 2024-02-01 11:29:00.000 89 /min Pulse 2024-01-31 09:53:00.000 76 /min Pulse 2024-01-27 13:22:00.000 78 /min Pulse 2024-01-24 11:53:00.000 76 /min Pulse 2024-01-19 14:45:00.000 85 /min O2 Saturation (%) 2024-02-07 10:22:00.000 97 % O2 Saturation (%) 2024-02-05 13:04:00.000 98 % O2 Saturation (%) 2024-02-01 11:29:00.000 98 % O2 Saturation (%) 2024-01-24 11:53:00.000 99 % O2 Saturation (%) 2024-01-19 14:45:00.000 96 % Respirations 2024-03-12 10:27:00.000 18 /min Respirations 2024-03-02 09:59:00.000 18 /min Respirations 2024-02-28 09:56:00.000 18 /min Respirations 2024-02-13 10:49:00.000 18 /min Respirations 2024-02-10 10:28:00.000 18 /min Respirations 2024-02-07 10:22:00.000 18 /min Respirations 2024-02-06 10:31:00.000 18 /min Respirations 2024-02-05 13:04:00.000 18 /min Respirations 2024-02-03 10:42:00.000 18 /min Respirations 2024-02-01 11:29:00.000 16 /min Respirations 2024-01-31 09:53:00.000 18 /min Respirations 2024-01-27 13:23:00.000 17 /min Respirations 2024-01-24 11:53:00.000 18 /min Respirations 2024-01-19 14:45:00.000 18 /min Weight (lbs) 2024-01-19 14:45:00.000 135 [lb_av] Systolic Blood Pressure 2024-03-12 10:27:00.000 116 mm [Hg] Systolic Blood Pressure 2024-03-02 09:59:00.000 122 mm [Hg] Systolic Blood Pressure 2024-02-28 09:56:00.000 124 mm [Hg] Systolic Blood Pressure 2024-02-13 10:49:00.000 126 mm [Hg] Systolic Blood Pressure 2024-02-10 10:28:00.000 116 mm [Hg] Systolic Blood Pressure 2024-02-07 10:22:00.000 136 mm [Hg] Systolic Blood Pressure 2024-02-06 10:31:00.000 116 mm [Hg] Systolic Blood Pressure 2024-02-05 13:04:00.000 122 mm [Hg] Systolic Blood Pressure 2024-02-03 10:42:00.000 116 mm [Hg] Systolic Blood Pressure 2024-02-01 11:29:00.000 112 mm [Hg] Systolic Blood Pressure 2024-01-31 09:53:00.000 132 mm [Hg] Systolic Blood Pressure 2024-01-27 13:22:00.000 130 mm [Hg] Systolic Blood Pressure 2024-01-24 11:53:00.000 108 mm [Hg] Systolic Blood Pressure 2024-01-19 14:45:00.000 110 mm [Hg] Diastolic Blood Pressure 2024-03-12 10:27:00.000 68 mm [Hg] Diastolic Blood Pressure 2024-03-02 09:59:00.000 70 mm [Hg] Diastolic Blood Pressure 2024-02-28 09:56:00.000 70 mm [Hg] Diastolic Blood Pressure 2024-02-13 10:49:00.000 72 mm [Hg] Diastolic Blood Pressure 2024-02-10 10:28:00.000 66 mm [Hg] Diastolic Blood Pressure 2024-02-07 10:22:00.000 76 mm [Hg] Diastolic Blood Pressure 2024-02-06 10:31:00.000 70 mm [Hg] Diastolic Blood Pressure 2024-02-05 13:04:00.000 68 mm [Hg] Diastolic Blood Pressure 2024-02-03 10:42:00.000 72 mm [Hg] Diastolic Blood Pressure 2024-02-01 11:29:00.000 78 mm [Hg] Diastolic Blood Pressure 2024-01-31 09:53:00.000 74 mm [Hg] Diastolic Blood Pressure 2024-01-27 13:22:00.000 80 mm [Hg] Diastolic Blood Pressure 2024-01-24 11:53:00.000 70 mm [Hg] Diastolic Blood Pressure 2024-01-19 14:45:00.000 70 mm [Hg] Plan of Treatment Planned Activity Planned Date Details Comments Future Scheduled Test SKILLED NU RSE TO EVALUATE PATIENT, IDENTIFY PRIMARY AND CO-MORBID CONDITIONS CODED PER CODING GUIDELINES, AND DEVELOP PATIENT SPECIFIC PLAN OF CARE THAT INCLUDES PATIENT GOAL FOR HOME HEALTH. [code = SKILLED NURSE TO EVALUATE PATIENT, IDENTIFY PRIMARY AND CO-MORBID CONDITIONS CODED PER CODING GUIDELINES, AND DEVELOP PATIENT SPECIFIC PLAN OF CARE THAT INCLUDES PATIENT GOAL FOR HOME HEALTH.] Future Scheduled Test SKILLED NU RSE TO REVIEW PATIENT MEDICATIONS. INSTRUCT PATIENT/CAREGIVER ON MONITORING OF EFFECTIVENESS, ADVERSE DRUG REACTIONS, SIDE EFFECTS OF ALL MEDICATIONS (PRESCRIPTION/-OTC), AND HOW AND WHEN TO REPORT PROBLEMS. [code = SKILLED NURSE TO REVIEW PATIENT MEDICATIONS. INSTRUCT PATIENT/CAREGIVER ON MONITORING OF EFFECTIVENESS, ADVERSE DRUG REACTIONS, SIDE EFFECTS OF ALL MEDICATIONS (PRESCRIPTION/-OTC), AND HOW AND WHEN TO REPORT PROBLEMS. ] Future Scheduled Test SKILLED NU RSE TO ASSESS ANXIETY AND PROVIDE ASSISTANCE TO PATIENT FOR UNDERSTANDING AND MANAGEMENT OF FEELINGS. [code = SKILLED NURSE TO ASSESS ANXIETY AND PROVIDE ASSISTANCE TO PATIENT FOR UNDERSTANDING AND MANAGEMENT OF FEELINGS.] Future Scheduled Test SKILLED NU RSE FOR O/A AND TEACHING RELATED TO BC CARCINOMA INCLUDING SIGNS AND SYMPTOMS OF DISEASE PROGRESSION, TREATMENT, AND MANAGEMENT OF POTENTIAL SIDE EFFECTS. [code = SKILLED NURSE FOR O/A AND TEACHING RELATED TO BC CARCINOMA INCLUDING SIGNS AND SYMPTOMS OF DISEASE PROGRESSION, TREATMENT, AND MANAGEMENT OF POTENTIAL SIDE EFFECTS.] Future Scheduled Test SKILLED NU RSE FOR O/A, TEACHING, AND MANAGEMENT OF CAD, HLD. [code = SKILLED NURSE FOR O/A, TEACHING, AND MANAGEMENT OF CAD, HLD.] Future Scheduled Test SKILLED NU RSE FOR O/A AND SKILLED TEACHING IN MANAGEMENT OF PVD CIRCULATORY/VASCULAR DISEASE. [code = SKILLED NURSE FOR O/A AND SKILLED TEACHING IN MANAGEMENT OF PVD CIRCULATORY/VASCULAR DISEASE.] Future Scheduled Test PHYSICAL T HERAPIST TO EVALUATE PATIENT FOR STRENGTH AND ENDURANCE [code = PHYSICAL THERAPIST TO EVALUATE PATIENT FOR STRENGTH AND ENDURANCE ] Future Scheduled Test SKILLED NU RSE TO PROVIDE TEACHING ON SIGNS AND SYMPTOMS AND MANAGEMENT OF HYPERTENSION. [code = SKILLED NURSE TO PROVIDE TEACHING ON SIGNS AND SYMPTOMS AND MANAGEMENT OF HYPERTENSION.] Future Scheduled Test SKILLED NU RSE TO INSTRUCT PATIENT/CAREGIVER ON WARNING SIGNS OF CVA, RISK FACTORS, AND METHODS TO MANAGE DETENTION EFFECTS OF CVA. [code = SKILLED NURSE TO INSTRUCT PATIENT/CAREGIVER ON WARNING SIGNS OF CVA, RISK FACTORS, AND METHODS TO MANAGE CHILD SUPPORT OFFICER EFFECTS OF CVA.] Future Scheduled Test SKILLED NU RSE FOR O/A AND SKILLED TEACHING RELATED TO SIGNS AND SYMPTOMS AND MANAGEMENT OF ANEMIA. [code = SKILLED NURSE FOR O/A AND SKILLED TEACHING RELATED TO SIGNS AND SYMPTOMS AND MANAGEMENT OF ANEMIA.] Future Scheduled Test SKILLED NU RSE FOR O/A AND SKILLED TEACHING RELATED TO SIGNS AND SYMPTOMS AND MANAGEMENT OF SPINAL STENOSIS, OA OF HANDS. [code = SKILLED NURSE FOR O/A AND SKILLED TEACHING RELATED TO SIGNS AND SYMPTOMS AND MANAGEMENT OF SPINAL STENOSIS, OA OF HANDS.] Future Scheduled Test VIRTUAL SIT FREQUENCY: 1-6 PER WEEK X 3 WEEKS AND 6 PRN VIRTUAL VISITS MAY BE PERFORMED UTILIZING [employer] SYSTEM TO OPTIMIZE SKILLED SERVICES FURNISHED ON THE PLAN OF CARE. SKILLED NURSE TO ESTABLISH SUPPORT MEASURES TO MINIMIZE RISK OF REHOSPITALIZATION, AND INSTRUCT PATIENT/CAREGIVER ON METHODS TO REDUCE AVOIDABLE HOSPITALIZATION. [code = VIRTUAL VISIT FREQUENCY: 1-6 PER WEEK X 3 WEEKS AND 6 PRN VIRTUAL VISITS MAY BE PERFORMED UTILIZING [employer] SYSTEM TO OPTIMIZE SKILLED SERVICES FURNISHED ON THE PLAN OF CARE. SKILLED NURSE TO ESTABLISH SUPPORT MEASURES TO MINIMIZE RISK OF REHOSPITALIZATION, AND INSTRUCT PATIENT/CAREGIVER ON METHODS TO REDUCE AVOIDABLE HOSPITALIZATION.] Future Scheduled Test PATIENT BRITTON S A RISK OF HOSPITALIZATION AND ED USE. SKILLED NURSE TO ESTABLISH SUPPORT MEASURES TO MINIMIZE RISK OF HOSPITALIZATION AND ED USE, AND INSTRUCT PATIENT/CAREGIVER ON METHODS TO REDUCE AVOIDABLE HOSPITALIZATION AND ED USE. [code = PATIENT HAS A RISK OF HOSPITALIZATION AND ED USE. SKILLED NURSE TO ESTABLISH SUPPORT MEASURES TO MINIMIZE RISK OF HOSPITALIZATION AND ED USE, AND INSTRUCT PATIENT/CAREGIVER ON METHODS TO REDUCE AVOIDABLE HOSPITALIZATION AND ED USE.] Future Scheduled Test SKILLED NU RSE TO PROVIDE INSTRUCTION TO PATIENT/CAREGIVER RELATED TO DISCHARGE PLANNING. [code = SKILLED NURSE TO PROVIDE INSTRUCTION TO PATIENT/CAREGIVER RELATED TO DISCHARGE PLANNING. ] Future Scheduled Test SKILLED NU RSE TO PERFORM HOME SAFETY AND FALL ASSESSMENT AND PROVIDE INSTRUCTION TO IMPLEMENT HOME SAFETY AND FALL PREVENTION STRATEGIES. [code = SKILLED NURSE TO PERFORM HOME SAFETY AND FALL ASSESSMENT AND PROVIDE INSTRUCTION TO IMPLEMENT HOME SAFETY AND FALL PREVENTION STRATEGIES.] Future Scheduled Test SKILLED NU RSE FOR OBSERVATION AND ASSESSMENT OF PATIENTS PAIN LEVEL AND EFFECTIVENESS OF PAIN MANAGEMENT REGIMEN. SKILLED NURSE TO INSTRUCT PATIENT/CAREGIVER REGARDING PHARMACOLOGIC AND NON-PHARMACOLOGIC PAIN CONTROL MEASURES. SKILLED NURSE TO REPORT TO PHYSICIAN IF PAIN IS UNCONTROLLED WITH CURRENT PAIN MANAGEMENT REGIMEN. [code = SKILLED NURSE FOR OBSERVATION AND ASSESSMENT OF PATIENTS PAIN LEVEL AND EFFECTIVENESS OF PAIN MANAGEMENT REGIMEN. SKILLED NURSE TO INSTRUCT PATIENT/CAREGIVER REGARDING PHARMACOLOGIC AND NON-PHARMACOLOGIC PAIN CONTROL MEASURES. SKILLED NURSE TO REPORT TO PHYSICIAN IF PAIN IS UNCONTROLLED WITH CURRENT PAIN MANAGEMENT REGIMEN.] Future Scheduled Test SKILLED NU RSE TO ASSESS PATIENT'S SKIN INTEGRITY AND INSTRUCT PATIENT/CAREGIVER ON MEASURES TO PREVENT PRESSURE ULCERS. [code = SKILLED NURSE TO ASSESS PATIENT'S SKIN INTEGRITY AND INSTRUCT PATIENT/CAREGIVER ON MEASURES TO PREVENT PRESSURE ULCERS.] Future Scheduled Test SKILLED NU RSE TO PROVIDE ASSESSMENT AND TEACHING/REINFORCEMENT OF MANAGEMENT OF DEPRESSION INCLUDING DISEASE PROCESS, MEDICATION MANAGEMENT, COPING SKILLS AND IDENTIFY CHANGES ASSOCIATED WITH DEPRESSIVE DISORDERS FOR EARLY INTERVENTION. [code = SKILLED NURSE TO PROVIDE ASSESSMENT AND TEACHING/REINFORCEMENT OF MANAGEMENT OF DEPRESSION INCLUDING DISEASE PROCESS, MEDICATION MANAGEMENT, COPING SKILLS AND IDENTIFY CHANGES ASSOCIATED WITH DEPRESSIVE DISORDERS FOR EARLY INTERVENTION. ] Goal Patient Goal - T O BE ABLE TO WALK BETTER AND WITHOUT WALKER Goal Provider Goal - A PLAN OF CARE WILL BE ESTABLISHED THAT MEETS PATIENT'S INTERMEDIATE NEEDS AND INCLUDES PATIENT GOAL FOR HOME HEALTH. Goal Provider Goal - PATIENT/CAREGIVER WILL VERBALIZE UNDERSTANDING OF EDUCATION PROVIDED ON MEDICATIONS BY THE END OF THE CERTIFICATION PERIOD. Goal Provider Goal - SYMPTOMS OF ANXIETY ARE IDENTIFIED AND INTERVENTIONS INITIATED TO ENABLE PATIENT TO UNDERSTAND AND MANAGE FEELINGS THROUGHOUT EPISODE. Goal Provider Goal - PATIENT/CAREGIVER WILL VERBALIZE/DEMONSTRATE MANAGEMENT OF BC CANCER/NEOPLASM DISEASE AND THE SIDE EFFECTS OF TREATMENTS DURING THIS EPISODE. Goal Provider Goal - PATIENT/CAREGIVER WILL VERBALIZE/DEMONSTRATE MANAGEMENT OF CARDIAC DISEASE PROCESS AND EXACERBATIONS WILL BE IDENTIFIED AND PROMPTLY REPORTED THROUGHOUT THE CERTIFICATION PERIOD. Goal Provider Goal - PATIENT/CAREGIVER WILL VERBALIZE/DEMONSTRATE THE ABILITY TO MANAGE CIRCULATORY DISEASE PROCESS AND EXACERBATIONS WILL BE IDENTIFIED FOR EARLY INTERVENTION THROUGHOUT THE CERTIFICATION PERIOD. Goal Provider Goal - A PHYSICAL THERAPY EVALUATION TO BE COMPLETED WITH RECOMMENDATIONS AND/OR WRITTEN PLAN OF TREATMENT ESTABLISHED FOR PHYSICIANS SIGNATURE. Goal Provider Goal - PATIENT/CAREGIVER WILL VERBALIZE SIGNS AND SYMPTOMS OF HYPERTENSION AND WILL BE ABLE TO DEMONSTRATE ABILITY TO MANAGE EXACERBATION BY END OF THE EPISODE. Goal Provider Goal - PATIENT/CAREGIVER WILL DEMONSTRATE COMPLIANCE WITH TREATMENT REGIME AND VERBALIZE SIGNS AND SYMPTOMS TO REPORT WELL POSSIBLE COMPLICATIONS OF CVA BY END OF EPISODE. Goal Provider Goal - PATIENT/CARGIVER WILL VERBALIZE UNDERSTANDING OF ANEMIA INCLUDING SIGNS AND SYMPTOMS, MANAGEMENT OF COMPLICATIONS, AND PRESCRIBED TREATMENT REGIMEN BY END OF EPISODE. Goal Provider Goal - PATIENT/CAREGIVER WILL VERBALIZE UNDERSTANDING OF MUSCULOSKELETAL DISEASE INCLUDING SIGNS AND SYMPTOMS, MANAGEMENT, AND PRESCRIBED TREATMENT REGIMEN BY END OF EPISODE. Goal Provider Goal - PATIENT/CAREGIVER WILL UTILIZE VIRTUAL VISITS TO ACHIEVE GOALS OUTLINED ON THE PLAN OF CARE. PATIENT WILL HAVE SUPPORT MEASURES ESTABLISHED TO PREVENT HOSPITALIZATION AND PATIENT/CAREGIVER WILL VERBALIZE/DEMONSTRATE METHODS TO REDUCE AVOIDABLE HOSPITALIZATION THROUGHOUT THE CERTIFICATION PERIOD. Goal Provider Goal - PATIENT WILL HAVE SUPPORT MEASURES ESTABLISHED TO PREVENT HOSPITALIZATION AND ED USE AND PATIENT/CAREGIVER WILL VERBALIZE/DEMONSTRATE METHODS TO REDUCE AVOIDABLE HOSPITALIZATION AND ED USE BY END OF EPISODE. Goal Provider Goal - PATIENT/CAREGIVER WILL VERBALIZE UNDERSTANDING OF DISCHARGE PLANNING INSTRUCTIONS BY DATE OF DISCHARGE. Goal Provider Goal - PATIENT/CAREGIVER WILL VERBALIZE/DEMONSTRATE EFFECTIVE HOME SAFETY AND FALL PREVENTION STRATEGIES THROUGHOUT CERTIFICATION PERIOD. Goal Provider Goal - PATIENT/CAREGIVER WILL DEMONSTRATE UNDERSTANDING OF PHARMACOLOGIC AND NONPHARMACOLOGIC PAIN CONTROL MEASURES AND PATIENT WILL HAVE IMPROVEMENT IN PAIN INTERFERING WITH ACTIVITY EVIDENCED BY PAIN CONTROLLED AT LEVEL OF 7 OR LESS BY END OF CERTIFICATION PERIOD. Goal Provider Goal - PATIENT/CAREGIVER WILL VERBALIZE UNDERSTANDING OF PRESSURE ULCER PREVENTION BY END OF THE EPISODE. Goal Provider Goal - PATIENT/CAREGIVER WILL VERBALIZE/DEMONSTRATE UNDERSTANDING OF THE MANAGEMENT OF DEPRESSION THROUGHOUT THE CERTIFICATION PERIOD AND SYMPTOMS ARE IDENTIFIED AND MANAGED TO MAINTAIN PATIENT SAFETY IN THE HOME. Encounters Start Date/Time End Date/Time Encounter Type Admission Type Attending [facility] Care Facility Care Department Encounter ID Discharge Date Discharge Status Discharge Condition Discharge Reason Percent Goals Met 2024-01-19 00:00:00 2024-03-18 00:00:00 Outpatient DICK JORDAN [facility] [id number] 59.26
--- OUTSIDE RECORDS SUMMARY | 2024-03-18 01:58 | XMS_ITS | Clinical Summary ---
Author Organization Unknown Care Team Providers Care Synoptic Meteorologist Name Role Phone JUAN AGUILERA, MAGDALENE Unavailable Unavailable ROMEO HUFFMAN, DICK Unavailable Unavailable Payers Payer Name Policy Type Policy Number Effective Date Expira tion Date [place]IC[place] - [place] [id number] [facility] [id number] Problems Condition Name Condition Details Condition Category Status Onset Date Resolution Date Last Treatment Date Treating Clinician Comments ENCOUNTER FOR OTHER ORTHOPEDIC AFTERCARE Active 04-08 00:00: 00 PERIPHERAL VASCULAR DISEASE, UNSPECIFIED Active 04-08 00:00: 00 ANEMIA, UNSPECIFIED Active 04-08 00:00: 00 ATHSCL HEART DISEASE OF [place] CORONARY ARTERY W/O ANG PCTRS Active 04-08 [...] NEOPLASM OF SKIN Active 04-08 00:00: 00 GROUP HOME (CURRENT) USE OF ASPIRIN Active 04-08 00:00: [...] mg chewable tablet 2023-04 00:00: 00 Yes [id number] 1 tablet DAILY 1 tablet DAILY (route: oral) Med Classific ation: Hematolog ical Agents gabapentin 100 mg capsule 2023-04 00:00: 00 01-31 23:59 :00 No [id number] 1 capsule 3 TIMES DAILY 1 capsule 3 TIMES DAILY (route: oral) Med Classific ation: Central Nervous System Agents hydroxyzine HCl 25 mg tablet 2023-04 00:00: 00 01-31 23:59 :00 No [id number] 1 tablet 3 TIMES DAILY 1 tablet 3 TIMES DAILY (route: oral) Med Classific ation: Central Nervous System Agents latanoprost 0.005 % eye drops 2023-04 00:00: 00 Yes [id number] 1 drops BEDTIME 1 drops BEDTIME (route: ophthalmic (eye)) Med Classific ation: Ophthalmi c Agents methocarbam ol 500 mg tablet 2023-04 00:00: 00 01-31 23:59 :00 No [id number] 1 tablet 3 TIMES DAILY 1 tablet 3 TIMES DAILY (route: oral) Med Classific ation: Locomotor System metoprolol succinate ER 25 mg tablet,exte nded release 24 hr 2023-04 00:00: 00 Yes [id number] 1 tablet BEDTIME 1 tablet BEDTIME (route: oral) Med Classific ation: Cardiovas cular Therapy Agents rosuvastati n 40 mg tablet 2023-04 00:00: 00 Yes [id number] 1 tablet DAILY 1 tablet DAILY (route: oral) Med Classific ation: Cardiovas cular Therapy Agents sertraline 100 mg tablet 2023-04 00:00: 00 Yes [id number] 1 tablet DAILY 1 tablet DAILY (route: [...] CVA, RISK FACTORS, AND METHODS TO MANAGE GROUP HOME EFFECTS OF CVA. [code = SKILLED NURSE TO INSTRUCT PATIENT/CAREGIVER ON WARNING SIGNS OF CVA, RISK FACTORS, AND METHODS TO MANAGE OPEN HEARTH LABORER EFFECTS OF CVA.] Future Scheduled Test SKILLED [...] PRN VIRTUAL VISITS MAY BE PERFORMED UTILIZING [employer] SYSTEM TO OPTIMIZE SKILLED SERVICES FURNISHED ON THE PLAN OF CARE. SKILLED NURSE TO ESTABLISH SUPPORT MEASURES TO MINIMIZE RISK OF REHOSPITALIZATION, AND INSTRUCT PATIENT/CAREGIVER ON METHODS TO REDUCE AVOIDABLE HOSPITALIZATION. [code = VIRTUAL VISIT FREQUENCY: 1-6 PER WEEK X 3 WEEKS AND 6 PRN VIRTUAL VISITS MAY BE PERFORMED UTILIZING [employer] SYSTEM TO OPTIMIZE SKILLED SERVICES FURNISHED ON [...] CARE WILL BE ESTABLISHED THAT MEETS PATIENT'S DETENTION NEEDS AND INCLUDES PATIENT GOAL FOR HOME [...] End Date/Time Encounter Type Admission Type Attending [facility] Care Facility Care Department Encounter ID Discharge Date Discharge Status Discharge Condition Discharge Reason Percent Goals Met 2024-01-19 00:00:00 2024-03-18 00:00:00 Outpatient DICK JORDAN [facility] [id number] 59.26
== END 2024-03-12 11:25 | disposition home or self-care (01) ==
LOC: HO.HOSX 11:24
PROVIDERS: PCP Nurse Practitioner Family; Visit Provider Physician Assistant
DX: Z98.1 Arthrodesis status (principal)
CPT/HCPCS: 72110; 99212

== ENCOUNTER 2024-03-12 11:40 | Outpatient (AMB) | payer MEDICARE, SELFPAY ==
--- NOTE | 2024-03-12 11:35 | A.SPINEOV_ITS ---
Intake Visit Reasons: 2nd post op with xrays Intake Note: Pt here for 2nd post op with Xray [employer] Shop Helper Required: No Allergies No Known Allergies Allergy (Verified 01/03/24 13:50) Assessment & Plan Assessment & Plan (1) S/P lumbar spinal fusion: Code(s): Z98.1 - Arthrodesis status Category: Surgical Plan Procedure: L4-5 OLLIF Brian is a pleasant 78-year-old male who comes in today for his 2nd postoperative visit after having a L4-5 OLLIF completed by our service. To recap last time he was seen he was having a flare-up of low back pain, after having a fairly uncomplicated largely pain-free postoperative course. He has continued to suffer from intermittent flare-ups of pain, but overall feels better than he did prior to surgery. He did state that he feels a bit weak in his lower extremities which he attributes to lack of mobility prior to surgery. He was taking [id number] medications because he did not like the way the narcotic pain control medications made him feel. We obtained x-ray imaging during this visit today which shows stable placement of posterior instrumentation no changes from fluoroscopy. No new neurological deficits. The patient ambulates well without assistance. His posterior incision sites are closed, well healing with no signs of drainage. I would like Brian to follow up with a course of physical therapy. I will see him after that back in clinic. I am subsequently planning to also follow up with Brian again in 1 year for evaluation. I will also be ordering a CT scan for about 10 months out from surgery to evaluate for fusion progress which we will review during his 1 year visit. Yaya Winkler MD,PhD [facility] Orders: Orders XR lumbar spine 4V min Today Z98.1 - Arthrodesis status PT Evaluation and Treatment Today Z98.1 - Arthrodesis status XR lumbar spine 4V min Today Z98.1 - Arthrodesis status CT lumbar spine wo IV con 10/30/24 Z98.1 - Arthrodesis status Coding Level of Care Code Global (57428) Diagnoses S/P lumbar spinal fusion Z98.1
--- OUTSIDE RECORDS SUMMARY | 2024-03-18 01:57 | XMS_ITS ---
[facility] [place] Address [address] [place] [id number] Care Team Providers Care Scrap Shear Operator Name Role Phone Alecia SINGH, Gilma Kinsey Primary Care Provider Un available Lisa Villatoro Unavailable [phone] Shanika AGUILERA-BC, Amish Unavailable Prosper Pineda Unavailable [phone] Allergies No Known Allergies REASON FOR VISIT Painful nail(s) aggrevated by shoes and causing difficulty standing/walking. Medications Medication SIG (Take, Route, Frequency, Duration) Notes Start Date End Date Status Sertraline HCl 100 MG Orally Once a day Active Metoprolol Succinate Active Mens One Daily 02/01/2015 Not- Taking Lisinopril 5 MG 1 tablet Orally Once a day 02/01/2015 Not-Taking Cetirizine HCl Not-T aking Atorvastatin Calcium 80 MG 1 tablet Orally Once a day 02/01/2015 Active Aspirin 81 MG 1 tablet Orally Once a day 02/01/2015 Active Keflex 500 MG 1 capsule Orally clemencia ry 12 hrs for 10 day(s) 06/20/2018 Not-Taking Social History Tobacco Use: Social History Observation Description Date Details (start date - stop date) Former Smoker NA - NA Tobacco Use/Smoking Question Answer Notes Are you a: former smoker When did you stop smoking? 2014 Additional Findings: Tobacco Non-User Current no n-smoker Alcohol Screen Question Answer Notes Did you have a drink containing alcohol in the p ast year? No Points 0 Interpretation Negative Tobacco use other than smoking: Question Answer Notes Are you an other tobacco user? Yes c igar here and there. 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, bilateral legs I70.203 and Ingrown nail L60.0 Assessments Encounter Date Diagnosis (ICD Code) Assessment Notes Treatment Notes Treatment Clinical Notes Section Notes 01/28/2024 Tinea unguium (ICD-10 - B35.1) 01/28/2024 Pain in left foot (ICD-10 - M79.672) 01/28/2024 Pain in right foot (ICD-10 - M79.671) 01/28/2024 Pain in right toe(s) (ICD-10 - M79.674) 01/28/2024 Pain in left toe(s) (ICD-10 - M79.675) 01/28/2024 Unspecified atherosclerosis of chilkoot arteries of extremities, bilateral legs (ICD-10 - I70.203) 01/28/2024 Ingrown nail (ICD-10 - L60.0) Plan Of Treatment Next Appt Details Follow Up: 3 Months, Reason: Provider Name:Lisamarisa peñaloza, 05/05/2024 11:30:00 AM, [facility] [address], [place], [id number], Procedure Notes * Category Sub-Category Detail Notes Debride Nail 6-10 Nail debridement Nail debridem ent performed extensively to reduce/remove overall nail length and girth, subungual debris, and necrotic tissue, by manual and electrical means with use of a nail nipper and/or dremel, to more viable healthy nail plate or bed tissue 6-10. Silver nitrate used for any petechial bleeding as necessary. Patient chooses, no pharmaceutical tx (76455) Keratoma Treatment Parring or Cutting o f Benign Hyperkeratotic Lesion(s) 58333 (2-4 Lesions) - The Benign hyperkeratotic lesions, as described above were pared, and/or cut utilizing a sterile #15 blade, tissue nippers, and/or yvette, Q8 Progress Notes * Brian MONDRAGON LDOB: [birth year] (78 yo M)Acc No.[id number]:01/28/2024 Progress Note Patient:Brian Stanley Provider:?Prosper Mata DPM :1945???Age:78 Y???Sex:Male Gilberto e:01/28/2024 Address:[address] [place], [place] [id number] Pcp:Chauncey Draper Subjective: * Chief Complaints: * ???Painful nail(s) aggrevate d by shoes and causing difficulty standing/walking. * HPI: ???Painful Nails:?Pt States Last PCP Visit:?Date:?10/12/2023 ?Misc:?pt had spinal sx with Dr. Winkler 12/30.? * ROS:?General/Constitutional:?Nausea?denies.?Vomiting?denies.?Hunger Thirst?denies.?Loss appetite?denies.?Chills?denies.?Fatigue?denies.?Fever?denies.?Night Sweats?denies.?Unexplained weight loss?denies.?Unexplained weight gain?denies.?HEENTM:?Dentures?denies.?Dizziness?denies.?Glasses/contacts?admits.?Retinopathy?de nies.?Blurred/double vision?denies.?TMJ?denies.?Discharge/drainage?denies.?Implants?denies.?Sore throat?denies.?Dental implants?denies.?Hard of hearing ?denies.?Difficulty chewing/swallowing/speaking?denies.?Nose bleeds?denies.?Sore mouth?denies.?Respiratory:?On Oxygen?denies.?Pneumonia/pleurisy?denies.?Bronchitis?denies.?Emphysema?denies.?C oughing?denies.?Cough blood?denies.?Shortness of breath?denies.?Wheezing?denies.?Cardiovascular:?Pacemaker?denies.?MVP?denies.?WPW?denies.?CHF?denies.?Heart attack?denies.?Septal defect?denies.?Rapid beat?denies.?Chest pain ?denies.?Atrial Fib.?denies.?Murmur/Palpitations?denies.?Gastrointestinal:?Hemorrhoids?denies.?Stomach/Abdominal pain?denies.?Dark blood stool?denies.?Irritable bowel ?denies.?Constipation?denies.?Diarrhea?denies.?Hematology:?Swelling?denies.?Clots?denies.?Varicose Veins?denies.?Bruising?denies.?Bleeding problem?denies.?Genitourinary:?Blood urine?denies.?Frequent/Painfu/urination/bladder control?denies.?Kidney stones?denies.?Infection (UTI)?denies.?Nephropathy?denies.?sex trans dis (STD)?denies.?Prostate?denies.?Musculoskeletal:?Hammertoes?denies.?Bunions?denies.?Back Pain?denies.?Muscle Cramps/ Resting?denies.?Muscle cramps / walking?denies.?Generalized aches and pains?denies.?Weakness?denies.?Integ.:?Mg?denies.?Scars?denies.?Corns/calluses?denies.?Ingrown nails?denies.?Painful nails?denies.?Open Sores?denies.?Rashes?denies.?Neurologic:?Difficulty sleeping?denies.?Brain disorder?denies.?Numbness?denies.?Balance trouble?admits.?Confusion?denies.?Fainting/blackouts?denies.?Tingling?denies.?Tr emors?denies.? * Medical History:? * Surgical History:?neck surge ry right hip replacement 04/15/2013triple bypass stent insertion right leg 07/09/16Plastic surgery face & neck, basal cell 09/2022 Back surgery 12/2023 * Hospitalization/Major Diagno stic Procedure:?[facility] triple bypass during procedure had a stroke 10/25/14[facility] artery cleaned and 2 stents inserted 07/09[place] [place] [facility] [place] * Family History:?Mother: dece ased, diagnosed with Other malignant neoplasm of unspecified site.?Father: , diagnosed with Unspecified heart disease.?Spouse: alive.?2 son(s) , 1 daughter(s) . .? * Social History:?Tobacco Use:?Tobacco Use/Smoking?Are you a:?former smoker ?When did you stop smoking??2014 ?Additional Findings: Tobacco Non-User?Current non-smoker ?Tobacco use other than smoking?Are you an other tobacco user??Yes cigar here and there. ???Drugs/Alcohol:?Drugs?Have you used drugs other than those for medical reasons in the past 12 months??No ?Alcohol Screen?Did you have a drink containing alcohol in the past year??No ?Points?0 ?Interpretation?Negative ???Miscellaneous:?Caffeine: yes, frequency:, 1-2 cups per day. ?Children: yes, 3. ?no Exercise. ?Marital status: . ?Occupation: retired. * Medications:?TakingAspirin 8 1 MG Tablet 1 tablet Orally Once a dayAtorvastatin Calcium 80 MG Tablet 1 tablet Orally Once a dayMetoprolol Succinate Sertraline HCl 100 MG Tablet Orally Once a dayTaking Aspirin 81 MG Tablet 1 tablet Orally Once a dayTaking Atorvastatin Calcium 80 MG Tablet 1 tablet Orally Once a dayTaking Metoprolol Succinate Taking Sertraline HCl 100 MG Tablet Orally Once a dayNot-Taking/PRNCetirizine HCl Lisinopril 5 MG Tablet 1 tablet Orally Once a dayMens One Daily Keflex 500 MG Capsule 1 capsule Orally every 12 hrsMedication List reviewed and reconciled with the patientNot-Taking/PRN Cetirizine HCl Not-Taking/PRN Lisinopril 5 MG Tablet 1 tablet Orally Once a dayNot-Taking/PRN Mens One Daily Not-Taking/PRN Keflex 500 MG Capsule 1 capsule Orally every 12 hrsMedication List reviewed and reconciled with the patient * Allergies:?N.K.D.A.yes[Aller gies Verified] Objective: * Vitals:?Ht: 5 ft 5 in, Wt:14 0, BMI:23.29, Shoe size:7. * Examination: ???Neurological: ?SENSORY:?Neurological exam reveals intact sensorium, pain sensation normal, vibration sensation intact, pinprick sensation is normal in the lower extremities, Pt denies, anesthesia, burning, paresthesia, tingling, B/L.?Vascular: ?DP PULSES(B):?0/4, B/L .?PT PULSES(B):? 0/4, B/L .?CAPILLARY FILL TIME:?delayed, all digits, B/L .?TROPHIC CONDITION-TEXTURE/ELASTICITY/TURGOR/HAIR GROWTH(B):? decreased, B/L, waxy.?TEMPERTURE GRADIENT(C):?cool to cold .?PIGMENTATION:?pale, B/L.?EDEMA(C):? 1/4, B/L, Ankle(s), Leg(s).?Dermatologic: ?SKIN FINDINGS:?Skin exam reveals Keratotic lesion(s) located at, Plantar, Heel(s), B/L, T5.?Nails: ?NAILS are:? Elongated, overgrown, dystrophic, lytic, greater than 3mm thick, discolored and friable with crumbly malodorous subungual debris, with pain on palpation, 1-5 B/L.? 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 Plan: * Treatment: * Procedures:?Debride Nail 6-10:?Nail debridement?Nail debridement performed extensively to reduce/remove overall nail length and girth, subungual debris, and necrotic tissue, by manual and electrical means with use of a nail nipper and/or dremel, to more viable healthy nail plate or bed tissue 6-10. Silver nitrate used for any petechial bleeding as necessary. Patient chooses, no pharmaceutical tx (58928).?Keratoma Treatment:?Parring or Cutting of Benign Hyperkeratotic Lesion(s)?17714 (2-4 Lesions) - The Benign hyperkeratotic lesions, as described above were pared, and/or cut utilizing a sterile #15 blade, tissue nippers, and/or dremel, Q8.? * Procedure Codes:?61434 DEBRI DE NAIL, 6 OR MORE, Modifiers: XS 05404 TRIM SKIN LESIONS, 2 TO 4, Modifiers: Q8 * Follow Up:?3 Months * Images: * Sign off status: Completed true * Provider:Adalgisa Mata DPM Date:? 024 Generated for Tamela carbajal/Enio/Christen on:?03/18/2024 01:57 AM EST History and Physical Notes * HPI (History of Present Illness) Category Sub-Category Detail Notes Category Not es Painful Nails Misc: pt had spinal sx with Dr. Laila cyr 12/30 Pt States Last PCP Visit: Date:: 10/12/2023 Examination Category Sub-Category Detail Notes Category Not es Neurological SENSORY: Neurological exa m reveals intact sensorium, pain sensation normal, vibration sensation intact, pinprick sensation is normal in the lower extremities, Pt denies, anesthesia, burning, paresthesia, tingling, B/L Dermatologic SKIN FINDINGS: Skin exam reveal s Keratotic lesion(s) located at, Plantar, Heel(s), B/L, T5 Vascular DP PULSES(B): 0/4, B/L PT PULSES(B): 0/4, B/L CAPILLARY FILL TIME: delayed, all digits , B/L TEMPERTURE GRADIENT(C): cool to cold TROPHIC CONDITION-TEXTURE/EL ASTICITY/TURGOR/HAIR GROWTH(B): decreased, B/L, waxy EDEMA(C): 1/4, B/L, Ankle(s), Leg(s) PIGMENTATION: pale, B/L Nails NAILS are: Elongated, overg rown, dystrophic, lytic, greater than 3mm thick, discolored and friable with crumbly malodorous subungual debris, with pain on palpation, 1-5 B/L
--- OUTSIDE RECORDS SUMMARY | 2024-03-18 01:58 | XMS_ITS ---
Author Organization [facility] Address [address] [place] [address] Care Team Providers Care Blender/Braze Applicator Name Role Phone Alecia SINGH, Gilma Kinsey Primary Care Provider Un available Lisa Villatoro Unavailable [phone] Shanika AGUILERA-BC, Amish Unavailable Prosper Pineda Unavailable [phone] Allergies No Known Allergies REASON FOR VISIT Painful nail(s) aggrevated by shoes and causing difficulty standing/walking. Medications Medication SIG (Take, Route, Frequency, Duration) Notes Start Date End Date Status Cetirizine HCl Not-T aking Sertraline HCl 100 MG Orally Once a day Active Lisinopril 5 MG 1 tablet Orally Once a day 02/01/2015 Not-Taking Metoprolol Succinate Active Atorvastatin Calcium 80 MG 1 tablet Orally Once a day 02/01/2015 Active Keflex 500 MG 1 capsule Orally clemencia ry 12 hrs for 10 day(s) 06/20/2018 Not-Taking Mens One Daily 02/01/2015 Not- Taking Aspirin 81 MG 1 tablet Orally Once a day 02/01/2015 Active Social History Tobacco Use: Social History Observation [...] Signs Height 5 ft 5 in in 08/20/2023 Weight 135 lbs 08/20/2023 BMI 22.46 kg/m2 08/20/2023 Encounters Encounter Location Date Provider Diagnosis [facility] [address] [address] 08/20/2023 Prosper Mata Tinea unguium B35.1 ; Other viral warts B07.8 ; Pain in left foot M79.672 ; Pain in right foot M79.671 ; Pain in right toe(s) M79.674 ; Pain in left toe(s) M79.675 ; Unspecified atherosclerosis of [place] arteries of extremities, bilateral legs I70.203 and Ingrown nail L60.0 Assessments Encounter Date Diagnosis (ICD Code) Assessment Notes Treatment Notes Treatment Clinical Notes Section Notes 08/20/2023 Tinea unguium (ICD-10 - B35.1) 08/20/2023 Other viral warts (ICD-10 - B07.8) 08/20/2023 Pain in left foot (ICD-10 - M79.672) 08/20/2023 Pain in right foot (ICD-10 - M79.671) 08/20/2023 Pain in right toe(s) (ICD-10 - M79.674) 08/20/2023 Pain in left toe(s) (ICD-10 - M79.675) 08/20/2023 Unspecified atherosclerosis of [place] arteries of extremities, bilateral legs (ICD-10 - I70.203) 08/20/2023 Ingrown nail (ICD-10 - L60.0) Plan Of Treatment Next Appt Details Follow Up: 2 Months, 3 Month s, Reason: Provider Name:Lisa peñaloza, 05/05/2024 11:30:00 AM, [address] [place] [address], [place] [address], [place], [address], Procedure Notes * Category Sub-Category Detail Notes Wart Treatment Procedure Verrucae(s) were debrided to pin-point bleeding with sterile surgical blade, silver nitrate chemocautery applied, CIRCULATION: Any more invasive procedure to wart deferred due to circulation risk , Verrucae(s) were debrided to pin-point bleeding margins with sterile surgical blade (77009), silver nitrate chemocautery applied Debride Nail 6-10 Nail debridement Nail debridem ent performed extensively to reduce/remove overall nail length and girth, subungual debris, and necrotic tissue, by manual and electrical means with use of a nail nipper and/or dremel, to more viable healthy nail plate or bed tissue 6-10. Silver nitrate used for any petechial bleeding as necessary. Patient chooses, no pharmaceutical tx (84676) Keratoma Treatment Parring or Cutting o f Benign Hyperkeratotic Lesion(s) 23739 (2-4 Lesions) - The Benign hyperkeratotic lesions, as described above were pared, and/or cut utilizing a sterile #15 blade, tissue nippers, and/or dremel, Q8 Progress Notes * Brian MONDRAGON LDOB: [birth year] (77 yo M)Acc No.[id number]:08/20/2023 Progress Note Patient:?Amish Mondragonny Yunior Provider:?Prosper Mata DPM :1945???Age:77 Y???Sex:Male Gilberto e:08/20/2023 Address:[address] [place], [place] [id number] Pcp:Chauncey Draper Subjective: * Chief Complaints: * ???Painful nail(s) aggrevate d by shoes and causing difficulty standing/walking. * HPI: ???Painful Nails:?Pt States Last PCP Visit:?Date:?03/08/2023 ???Skin problems:?Nature:?itching.?Location:?B/L , Toe(s).?Course:?improved.? * ROS:?General/Constitutional:?Nausea?denies.?Vomiting?denies.?Hunger Thirst?denies.?Loss appetite?denies.?Chills?denies.?Fatigue?denies.?Fever?denies.?Night Sweats?denies.?Unexplained weight loss?denies.?Unexplained [...] surgery face & neck, basal cell 09/2022 * Hospitalization/Major Diagno stic Procedure:?[facility] triple bypass during procedure had a stroke 10/25/14[facility] [place] and 2 stents inserted 07/09/16ngioplasty 05/09/17[facility] [place], rehab 03/2022 * Family History:?Mother: dece ased, diagnosed with [...] Objective: * Vitals:?Ht: 5 ft 5 in, Wt: 1 35, BMI: 22.46, Shoe size: 7, Wt-k.23 kg. * Examination: ???Neurological: ?SENSORY:?Neurological exam reveals intact sensorium, pain sensation normal, vibration sensation intact, pinprick sensation is normal in the lower extremities, Pt denies, anesthesia, burning, paresthesia, tingling, B/L.?Vascular: ?DP PULSES:?0/4, B/L .?PT PULSES:? 0/4, B/L .?CAPILLARY FILL TIME:?delayed, all digits, B/L .?SKIN TEMPERTURE GRADIENT OF THE LOWER EXTERMITIES:?cool to cold .?HAIR GROWTH/TEXTURE/ELASTICITY/TURGOR:? decreased, B/L, waxy.?PIGMENTATION:?pale, B/L.?EDEMA:? 1/4, B/L, Ankle(s), Leg(s).?Dermatologic: ?SKIN FINDINGS:?Skin exam reveals Keratotic lesion(s) located at, Plantar, Heel(s), B/L, T5.?VERRUCA:?Reveals a Single , multi-loculated , mosaically patterned, round, raised, flat-topped, petechial bleeding papulae(s), with cauliflower appearance and interrruption of skin lines, pain to lateral compression, and size estimated at __3__ mm diameter, plantar Heel, RIGHT.?Nails: ?NAILS are:? Elongated, overgrown, dystrophic, lytic, greater than 3mm thick, discolored and friable with crumbly malodorous subungual debris, with pain on palpation, 1-5 B/L.? Assessment: * Assessment: 1.?Tinea unguium - B35.1 (Pr imary)?2.?Other viral warts - B07.8?3.?Pain in left foot - M79.672?4.?Pain in right foot - M79.671?5.?Pain in right toe(s) - M79.674?6.?Pain in left toe(s) - M79.675?7.?Unspecified atherosclerosis of [place] arteries of extremities, bilateral legs - I70.203?8.?Ingrown nail - L60.0? Plan: * Treatment: * Procedures:?Debride Nail 6-10:?Nail debridement?Nail debridement performed extensively to reduce/remove overall nail length and girth, subungual debris, and necrotic tissue, by manual and electrical means with use of a nail nipper and/or dremel, to more viable healthy nail plate or bed tissue 6-10. Silver nitrate used for any petechial bleeding as necessary. Patient chooses, no pharmaceutical tx (87119).?Keratoma Treatment:?Parring or Cutting of Benign Hyperkeratotic Lesion(s)?15458 (2-4 Lesions) - The Benign hyperkeratotic lesions, as described above were pared, and/or cut utilizing a sterile #15 blade, tissue nippers, and/or dremel, Q8.?Wart Treatment:?Procedure?Verrucae(s) were debrided to pin-point bleeding with sterile surgical blade, silver nitrate chemocautery applied, CIRCULATION: Any more invasive procedure to wart deferred due to circulation risk , Verrucae(s) were debrided to pin- point bleeding margins with sterile surgical blade (34270), silver nitrate chemocautery applied.? * Procedure Codes:?00856 DEBRI DE NAIL, 6 OR MORE, Modifiers: XS 51014 TRIM SKIN LESIONS, 2 TO 4, Modifiers: Q8 29265 Wart Destruction, 1-14, Modifiers: XS * Follow Up:?2 Months, 3 Month s * Images: * Sign off status: Completed true * Provider:?Prosper Mata DPM Date:? 024 Generated for Tamela carbajal/Enio/eTransmitting on:?03/18/2024 01:57 AM EST History and Physical Notes * HPI (History of Present Illness) Category Sub-Category Detail Notes Category Not es Painful Nails Pt States Last PCP Visit: Date:: 03/08/2023 Skin problems Nature: itching Location: B/L , Toe(s) Course: improved Examination Category Sub-Category Detail Notes Category Not es Neurological SENSORY: Neurological exa m reveals intact sensorium, pain sensation normal, vibration sensation intact, pinprick sensation is normal in the lower extremities, Pt denies, anesthesia, burning, paresthesia, tingling, B/L Dermatologic SKIN FINDINGS: Skin exam reveal s Keratotic lesion(s) located at, Plantar, Heel(s), B/L, T5 VERRUCA: Reveals a Single , m ulti-loculated , mosaically patterned, round, raised, flat-topped, petechial bleeding papulae(s), with cauliflower appearance and interrruption of skin lines, pain to lateral compression, and size estimated at __3__ mm diameter, plantar Heel, RIGHT Vascular DP PULSES(B): 0/4, B/L PT PULSES(B): [...]
--- OUTSIDE RECORDS SUMMARY | 2024-03-18 01:58 | XMS_ITS ---
Author Organization [facility] Address [address] [place] [id number] Care Team Providers Care Registered Appraiser Name Role Phone Alecia SINGH, Gilma Kinsey Primary Care Provider Un available Lisa Villatoro Unavailable [phone] Shanika AGUILERA-BC, Amish Unavailable Prosper Pineda Unavailable [phone] Allergies No Known Allergies REASON FOR VISIT Painful nail(s) aggrevated by shoes and causing difficulty standing/walking. Medications Medication SIG (Take, Route, Frequency, Duration) Notes Start Date End Date Status Atorvastatin Calcium 80 MG 1 tablet Orally Once a day 02/01/2015 Active Aspirin 81 MG 1 tablet Orally Once a day 02/01/2015 Active Keflex 500 MG 1 capsule Orally clemencia ry 12 hrs for 10 day(s) 06/20/2018 Not-Taking Mens One Daily 02/01/2015 Not- Taking Lisinopril 5 MG 1 tablet Orally Once a day 02/01/2015 Not-Taking Cetirizine HCl Not-T aking Sertraline HCl 100 MG Orally Once a day Active Metoprolol Succinate Active Social History Tobacco Use: Social History [...] Signs Height 5 ft 5 in in 11/12/2023 Weight 140 lbs 11/12/2023 BMI 23.29 kg/m2 11/12/2023 Encounters Encounter Location Date Provider Diagnosis [facility] [address] [address] 11/12/2023 Prosper Mata Tinea unguium B35.1 ; Other viral warts B07.8 ; Pain in left foot M79.672 ; Pain in right foot M79.671 ; Pain in right toe(s) M79.674 ; Pain in left toe(s) M79.675 ; Unspecified atherosclerosis of [place] arteries of extremities, bilateral legs I70.203 and Ingrown nail L60.0 Assessments Encounter Date Diagnosis (ICD Code) Assessment Notes Treatment Notes Treatment Clinical Notes Section Notes 11/12/2023 Tinea unguium (ICD-10 - B35.1) 11/12/2023 Other viral warts (ICD-10 - B07.8) 11/12/2023 Pain in left foot (ICD-10 - M79.672) 11/12/2023 Pain in right foot (ICD-10 - M79.671) 11/12/2023 Pain in right toe(s) (ICD-10 - M79.674) 11/12/2023 Pain in left toe(s) (ICD-10 - M79.675) 11/12/2023 Unspecified atherosclerosis of [place] arteries of extremities, bilateral legs (ICD-10 - I70.203) 11/12/2023 Ingrown nail (ICD-10 - L60.0) Plan Of Treatment Next Appt Details Follow Up: 2 Months, 3 Month s, Reason: Provider Name:Lisa peñaloza, 05/05/2024 11:30:00 AM, [address] [place] [address], [place] [address], [place], [address], Procedure Notes * Category Sub-Category Detail Notes Wart Treatment Procedure Verrucae(s) were debrided to pin-point bleeding with sterile surgical blade, silver nitrate chemocautery applied, CIRCULATION: Any more invasive procedure to wart deferred due to circulation risk , Verrucae(s) were debrided to pin-point bleeding margins with sterile surgical blade (19344), silver nitrate chemocautery applied Debride Nail 6-10 Nail debridement Nail debridem ent performed extensively to reduce/remove overall nail length and girth, subungual debris, and necrotic tissue, by manual and electrical means with use of a nail nipper and/or dremel, to more viable healthy nail plate or bed tissue 6-10. Silver nitrate used for any petechial bleeding as necessary. Patient chooses, no pharmaceutical tx (73173) Keratoma Treatment Parring or Cutting o f Benign Hyperkeratotic Lesion(s) 39041 (2-4 Lesions) - The Benign hyperkeratotic lesions, as described above were pared, and/or cut utilizing a sterile #15 blade, tissue nippers, and/or dremel, Q8 Progress Notes * Brian MONDRAGON LDOB: [birth year] (78 yo M)Acc No.[id number]:11/12/2023 Progress Note Patient:?Amara Brian Yunior Provider:?Prosper Mata DPM :1945???Age:78 Y???Sex:Male Gilberto e:11/12/2023 Address:[address] [place], [place] [id number] Pcp:Chauncey Draper Subjective: * Chief Complaints: * ???Painful nail(s) aggrevate d by shoes and causing difficulty standing/walking. * HPI: ???Painful Nails:?Pt States Last PCP Visit:?Date:?10/12/2023 ???Skin problems:?Nature:?itching.?Location:?B/L , Toe(s).?Course:?improved.? * ROS:?General/Constitutional:?Nausea?denies.?Vomiting?denies.?Hunger Thirst?denies.?Loss [...] triple bypass during procedure had a stroke 10/25/14[facility] [place] and 2 stents inserted 07/09/16ngioplasty 05/09/17[facility] [place], rehab 03/2022 * Family History:?Mother: dece [...] Vitals:?Ht: 5 ft 5 in, Wt:14 0, BMI: 23.29, Shoe size:7, Wt-k.5 kg. * Examination: ???Neurological: ?SENSORY:?Neurological exam reveals [...] in left toe(s) - M79.675?7.?Unspecified atherosclerosis of [place] arteries of extremities, bilateral legs - I70.203?8.?Ingrown [...] as necessary. Patient chooses, no pharmaceutical tx (75541).?Keratoma Treatment:?Parring or Cutting of Benign Hyperkeratotic Lesion(s)?84751 (2-4 Lesions) - The Benign hyperkeratotic lesions, as described above were pared, and/or cut utilizing a sterile #15 blade, tissue nippers, and/or dremel, Q8.?Wart Treatment:?Procedure?Verrucae(s) were debrided to pin-point bleeding with sterile surgical blade, silver nitrate chemocautery applied, CIRCULATION: Any more invasive procedure to wart deferred due to circulation risk , Verrucae(s) were debrided to pin- point bleeding margins with sterile surgical blade (34122), silver nitrate chemocautery applied.? * Procedure Codes:?38906 DEBRI DE NAIL, 6 OR MORE, Modifiers: XS 51798 TRIM SKIN LESIONS, 2 TO 4, Modifiers: Q8 37996 Wart Destruction, 1-14, Modifiers: XS * Follow Up:?2 Months, 3 Month s * Images: * Sign off status: Completed true * Provider:?Prosper Mata DPM Date:? 024 Generated for Tamela carbajal/Enio/eTransmitting on:?03/18/2024 01:57 AM EST History and Physical Notes * HPI (History of Present Illness) Category Sub-Category Detail Notes Category Not es Painful Nails Pt States Last PCP Visit: Date:: 10/12/2023 Skin problems Nature: itching Location: B/L , [...]
--- OUTSIDE RECORDS SUMMARY | 2024-03-18 01:58 | XMS_ITS | Patient Health Record ---
Author Organization [facility] Address [address] [facility] [place] [address] Care Team Providers Care Program Lead Name Role Phone Alecia SINGH, Gilma Kinsey Primary Care Provider Un available Lisa Villatoro Unavailable [phone] Shanika AGUILERA-BC, Amish Unavailable Prosper Pineda Unavailable [phone] Allergies No Known Allergies Reason For Referral No Information Medications Medication SIG (Take, Route, Frequency, Duration) Notes Start Date End Date Status Sertraline HCl 100 MG Orally Once a day Active Metoprolol Succinate Active Atorvastatin Calcium 80 MG 1 tablet Orally Once a day 02/01/2015 Active Aspirin 81 MG 1 tablet Orally Once a day 02/01/2015 Active Mens One Daily 02/01/2015 Not- Taking Lisinopril 5 MG 1 tablet Orally Once a day 02/01/2015 Not-Taking Keflex 500 MG 1 capsule Orally clemencia ry 12 hrs for 10 day(s) 06/20/2018 Not-Taking Cetirizine HCl Not-T aking Social History Tobacco Use: Social History Observation [...] user? Yes c igar here and there. Problems Problem Type SNOMED Code ICD Code Onset Dates Problem Status W/U Status Risk Notes Problem Atherosclerosis of [place]aja arteries of the extremities ([id number]) Unspecified atherosclerosis of [place] arteries of extremities, bilateral legs (I70.203) Active confirmed Vital Signs Height 5 ft 5 in in 01/28/2024 Weight 140 lbs 01/28/2024 BMI 23.29 kg/m2 01/28/2024 Encounters Encounter Location Date Provider Diagnosis [address] [address] 05/28/2023 Prosper Mata Tinea unguium B35.1 ; Other viral warts B07.8 ; Pain in left foot M79.672 ; Pain in right foot M79.671 ; Pain in right toe(s) M79.674 ; Pain in left toe(s) M79.675 ; Unspecified atherosclerosis of in[place] arteries of extremities, bilateral legs I70.203 and Ingrown nail L60.[address] [address] 08/20/2023 Prosper Mata Tinea unguium B35.1 ; Other viral warts B07.8 ; Pain in left foot M79.672 ; Pain in right foot M79.671 ; Pain in right toe(s) M79.674 ; Pain in left toe(s) M79.675 ; Unspecified atherosclerosis of [place] arteries of extremities, bilateral legs I70.203 and Ingrown nail L60.[address] [address] 11/12/2023 Prosper Mata Tinea unguium B35.1 ; Other viral warts B07.8 ; Pain in left foot M79.672 ; Pain in right foot M79.671 ; Pain in right toe(s) M79.674 ; Pain in left toe(s) M79.675 ; Unspecified atherosclerosis of [place] arteries of extremities, bilateral legs I70.203 and Ingrown nail L60.[address] [address] 01/28/2024 Prosper Mata Tinea unguium B35.1 ; Pain in left foot M79.672 ; Pain in right foot M79.671 ; Pain in right toe(s) M79.674 ; Pain in left toe(s) M79.675 ; Unspecified atherosclerosis of in[place] arteries of extremities, bilateral legs I70.203 and Ingrown nail L60.0 [facility] [address] [address] 04/23/2023 Prosper Mata Assessments Encounter Date Diagnosis (ICD Code) Assessment Notes Treatment Notes Treatment Clinical Notes Section Notes 05/28/2023 Tinea unguium (ICD-10 - B35.1) 08/20/2023 Tinea unguium (ICD-10 - B35.1) 11/12/2023 Tinea unguium (ICD-10 - B35.1) 01/28/2024 Tinea unguium (ICD-10 - B35.1) 11/12/2023 Other viral warts (ICD-10 - B07.8) 08/20/2023 Other viral warts (ICD-10 - B07.8) 05/28/2023 Other viral warts (ICD-10 - B07.8) 08/20/2023 Pain in left foot (ICD-10 - M79.672) 05/28/2023 Pain in left foot (ICD-10 - M79.672) 11/12/2023 Pain in left foot (ICD-10 - M79.672) 01/28/2024 Pain in left foot (ICD-10 - M79.672) 01/28/2024 Pain in right foot (ICD-10 - M79.671) 11/12/2023 Pain in right foot (ICD-10 - M79.671) 08/20/2023 Pain in right foot (ICD-10 - M79.671) 05/28/2023 Pain in right foot (ICD-10 - M79.671) 05/28/2023 Pain in right toe(s) (ICD-10 - M79.674) 08/20/2023 Pain in right toe(s) (ICD-10 - M79.674) 11/12/2023 Pain in right toe(s) (ICD-10 - M79.674) 01/28/2024 Pain in right toe(s) (ICD-10 - M79.674) 01/28/2024 Pain in left toe(s) (ICD-10 - M79.675) 11/12/2023 Pain in left toe(s) (ICD-10 - M79.675) 08/20/2023 Pain in left toe(s) (ICD-10 - M79.675) 05/28/2023 Pain in left toe(s) (ICD-10 - M79.675) 05/28/2023 Unspecified atherosclerosis of inaja arteries of extremities, bilateral legs (ICD-10 - I70.203) 08/20/2023 Unspecified atherosclerosis of [place] arteries of extremities, bilateral legs (ICD-10 - I70.203) 11/12/2023 Unspecified atherosclerosis of inaja arteries of extremities, bilateral legs (ICD-10 - I70.203) 01/28/2024 Unspecified atherosclerosis of inaja arteries of extremities, bilateral legs (ICD-10 - I70.203) 01/28/2024 Ingrown nail (ICD-10 - L60.0) 11/12/2023 Ingrown nail (ICD-10 - L60.0) 08/20/2023 Ingrown nail (ICD-10 - L60.0) 05/28/2023 Ingrown nail (ICD-10 - L60.0) Plan Of Treatment Pending Test Test Name Order Date 58566-JIOKTMG NAIL, 6 OR MORE 02/01/2011 94838-SLZRWBD NAIL, 6 OR MORE 02/01/2015 86121-GXNASDZ NAIL, 6 OR MORE 04/26/2015 06274-NUEYIHA NAIL, 6 OR MORE 07/05/2015 71104-ZUWSXKI NAIL, 6 OR MORE 09/30/2015 86371-NOLEQBJ NAIL, 6 OR MORE 05/08/2016 87365-IMJOQKP NAIL, 6 OR MORE 12/23/2015 62998-XICFISK NAIL, 6 OR MORE 11/09/2016 08728-NIIBLOZ NAIL, 6 OR MORE 02/08/2017 09059-UHRRNFB NAIL, 6 OR MORE 06/25/2017 60973-BIWOASG NAIL, 6 OR MORE 01/10/2018 41316-LNKWAPK NAIL, 6 OR MORE 03/25/2018 53131-Daxa Destruction, 1-14 06/27/2021 25319-Ldtc Destruction, 1-14 10/04/2020 28312-Lbqw Destruction, 1-14 12/27/2020 94587-Ouos Destruction, 1-14 01/10/2018 95664-Msmy Destruction, 1-14 04/17/2019 23878-Rbzo Destruction, 1-14 06/25/2017 86118-Dhya Destruction, 1-14 12/23/2015 48043-Btdj Destruction, 1-14 05/08/2016 35744-Fgms Destruction, 1-14 09/30/2015 12920-Xwlp Destruction, 1-14 07/05/2015 59595-Pvsj Destruction, 1-14 04/26/2015 51864-Tdum Destruction, 1-14 02/01/2015 69741-Wutdrldq Plate 02/01/2011 19341- Debride <25 sq cm 07/22/2014 39957 I&D ABSCESS- SIMPLE,SINGLE 015 87117-NHLW SKIN LESIONS, 2 TO 4 02/02/20 15 82440-QTBV SKIN LESIONS, 2 TO 4 04/26/19 16 86011-PRIF SKIN LESIONS, 2 TO 4 07/05/19 16 53366-IPLI SKIN LESIONS, 2 TO 4 05/08/19 17 71344-XCBU SKIN LESIONS, 2 TO 4 08/08/19 17 13262-JORI SKIN LESIONS, 2 TO 4 11/10/19 17 82402-YPNM SKIN LESIONS, 2 TO 4 03/25/20 18 83949-NUBE SKIN LESIONS, 2 TO 4 04/17/19 20 28442-OMXK SKIN LESIONS, 2 TO 4 09/15/19 20 91096-RXBD SKIN LESIONS, 2 TO 4 12/25/19 20 95091-EFMC SKIN LESIONS, 2 TO 4 03/25/20 20 01406-REMF SKIN LESIONS, 2 TO 4 06/25/19 21 00318-PQSQ SKIN LESIONS, 2 TO 4 10/05/19 21 24776-JCNG SKIN LESIONS, 2 TO 4 02/09/20 17 50668-GXDW SKIN LESIONS, 2 TO 4 06/26/19 18 15330-GRNK SKIN LESIONS, 2 TO 4 01/11/20 18 70685-WKNU SKIN LESIONS, 2 TO 4 12/28/19 21 52479-SWVH SKIN LESIONS, 2 TO 4 04/04/20 21 03305-HJIM SKIN LESIONS, 2 TO 4 06/28/19 22 23711-MAWW SKIN LESIONS, 2 TO 4 06/21/19 19 40444-LCSM SKIN LESIONS, 2 TO 4 12/17/19 Next Appt Details Provider Name:Lisa peñaloza, 05/05/2024 11:30:00 AM, [address] [facility], [address], [place], [address], Insurance Providers Payer Name Payer Address Payer Phone Subscriber Number Group Number Insured Name Patient Relationship to Insured Coverage Start Date Coverage End Date Medicare National Govt [employer] [address] [place] [address] [id number] Brian Maloney Self - patient is the insured 1 [employer] [address] [place] [address] [phone] [id number] Brian Maloney Self - patient is the insured Medical (General) History Medical History History ICD Code joint implants/screws Arthritis Chicken pox stroke Surgical History Surgery Date(Month/Year) neck surgery right hip replacement 04/15/2013 triple bypass stent insertion right leg 07/09/16 Plastic surgery face & neck, basal cell 09/2022 Back surgery 12/2023 Hospitalization History Reason Date(Month/Year) [facility] triple bypass during procedure had a stroke 10/25/14 [facility] artery cleaned and 2 stents inserted 07/09/16 Angioplasty 05/09/17 [facility] [place]- cov[place]-19, rehab 03/2022 [facility] [place]- Back surgery 01/2024
--- OUTSIDE RECORDS SUMMARY | 2024-03-18 01:58 | XMS_ITS | Clinical Summary ---
Author Organization Unknown Care Team Providers Care Sewer Inspector Name Role Phone JUAN AGUILERA, MAGDALENE Unavailable Unavailable ROMEO HUFFMAN, DICK Unavailable Unavailable Payers Payer Name Policy Type Policy Number Effective Date Expira tion Date MEDICARE - NGS [place] - [place] [id number] [facility] [id number] Problems Condition Name Condition Details Condition Category Status Onset Date Resolution Date Last Treatment Date Treating Clinician Comments ENCOUNTER FOR OTHER ORTHOPEDIC AFTERCARE Active 04-08 00:00: 00 PERIPHERAL VASCULAR DISEASE, UNSPECIFIED Active 04-08 00:00: 00 ANEMIA, UNSPECIFIED Active 04-08 00:00: 00 ATHSCL HEART DISEASE OF [place] CORONARY ARTERY W/O ANG PCTRS Active 04-08 [...] mg chewable tablet 2023-04 00:00: 00 Yes [id number] 1 tablet DAILY 1 tablet DAILY (route: oral) Med Classific ation: Hematolog ical Agents gabapentin 100 mg capsule 2023-04 00:00: 00 01-31 23:59 :00 No [id number] 1 capsule 3 TIMES DAILY 1 capsule 3 TIMES DAILY (route: oral) Med Classific ation: Central Nervous System Agents hydroxyzine HCl 25 mg tablet 2023-04 00:00: 00 01-31 23:59 :00 No [id number] 1 tablet 3 TIMES DAILY 1 tablet 3 TIMES DAILY (route: oral) Med Classific ation: Central Nervous System Agents latanoprost 0.005 % eye drops 2023-04 00:00: 00 Yes [id number] 1 drops BEDTIME 1 drops BEDTIME (route: ophthalmic (eye)) Med Classific ation: Ophthalmi c Agents methocarbam ol 500 mg tablet 2023-04 00:00: 00 01-31 23:59 :00 No [id number] 1 tablet 3 TIMES DAILY 1 tablet 3 TIMES DAILY (route: oral) Med Classific ation: Locomotor System metoprolol succinate ER 25 mg tablet,exte nded release 24 hr 2023-04 00:00: 00 Yes [id number] 1 tablet BEDTIME 1 tablet BEDTIME (route: oral) Med Classific ation: Cardiovas cular Therapy Agents rosuvastati n 40 mg tablet 2023-04 00:00: 00 Yes [id number] 1 tablet DAILY 1 tablet DAILY (route: oral) Med Classific ation: Cardiovas cular Therapy Agents sertraline 100 mg tablet 2023-04 00:00: 00 Yes [id number] 1 tablet DAILY 1 tablet DAILY (route: [...] CVA, RISK FACTORS, AND 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 SKILLED NURSE TO ESTABLISH SUPPORT MEASURES TO MINIMIZE RISK OF REHOSPITALIZATION, AND INSTRUCT PATIENT/CAREGIVER ON METHODS TO REDUCE AVOIDABLE HOSPITALIZATION. [code = VIRTUAL VISIT FREQUENCY: 1-6 PER WEEK X 3 WEEKS AND 6 PRN VIRTUAL VISITS MAY BE PERFORMED UTILIZING TELECOMPayMate IndiaICATIONS SYSTEM TO OPTIMIZE SKILLED SERVICES FURNISHED ON [...] CARE WILL BE ESTABLISHED THAT MEETS PATIENT'S CARE HOME NEEDS AND INCLUDES PATIENT GOAL FOR HOME [...] End Date/Time Encounter Type Admission Type Attending [facility] Care Facility Care Department Encounter ID Discharge Date Discharge Status Discharge Condition Discharge Reason Percent Goals Met 2024-01-19 00:00:00 2024-03-18 00:00:00 Outpatient DICK JORDAN [facility] [id number] 59.26
--- OUTSIDE RECORDS SUMMARY | 2024-03-18 02:01 | XMS_ITS | Clinical Summary ---
Author Organization Unknown Care Team Providers Care Law Writer Name Role Phone JUAN AGUILERA, MAGDALENE Unavailable Unavailable ROMEO HUFFMAN, DICK Unavailable Unavailable Payers Payer Name Policy Type Policy Number Effective Date Expira tion Date MEDICARE - NGS [place] - PD [id number] [facility] [id number] Problems Condition Name Condition Details Condition Category Status Onset Date Resolution Date Last Treatment Date Treating Clinician Comments ENCOUNTER FOR OTHER ORTHOPEDIC AFTERCARE Active 04-08 00:00: 00 PERIPHERAL VASCULAR DISEASE, UNSPECIFIED Active 04-08 00:00: 00 ANEMIA, UNSPECIFIED Active 04-08 00:00: 00 ATHSCL HEART DISEASE OF [place] CORONARY ARTERY W/O ANG PCTRS Active 04-08 [...] NEOPLASM OF SKIN Active 04-08 00:00: 00 PENITENTIARY (CURRENT) USE OF ASPIRIN Active 04-08 00:00: [...] mg chewable tablet 2023-04 00:00: 00 Yes [id number] 1 tablet DAILY 1 tablet DAILY (route: oral) Med Classific ation: Hematolog ical Agents gabapentin 100 mg capsule 2023-04 00:00: 00 01-31 23:59 :00 No [id number] 1 capsule 3 TIMES DAILY 1 capsule 3 TIMES DAILY (route: oral) Med Classific ation: Central Nervous System Agents hydroxyzine HCl 25 mg tablet 2023-04 00:00: 00 01-31 23:59 :00 No [id number] 1 tablet 3 TIMES DAILY 1 tablet 3 TIMES DAILY (route: oral) Med Classific ation: Central Nervous System Agents latanoprost 0.005 % eye drops 2023-04 00:00: 00 Yes [id number] 1 drops BEDTIME 1 drops BEDTIME (route: ophthalmic (eye)) Med Classific ation: Ophthalmi c Agents methocarbam ol 500 mg tablet 2023-04 00:00: 00 01-31 23:59 :00 No [id number] 1 tablet 3 TIMES DAILY 1 tablet 3 TIMES DAILY (route: oral) Med Classific ation: Locomotor System metoprolol succinate ER 25 mg tablet,exte nded release 24 hr 2023-04 00:00: 00 Yes [id number] 1 tablet BEDTIME 1 tablet BEDTIME (route: oral) Med Classific ation: Cardiovas cular Therapy Agents rosuvastati n 40 mg tablet 2023-04 00:00: 00 Yes [id number] 1 tablet DAILY 1 tablet DAILY (route: oral) Med Classific ation: Cardiovas cular Therapy Agents sertraline 100 mg tablet 2023-04 00:00: 00 Yes [id number] 1 tablet DAILY 1 tablet DAILY (route: [...] CVA, RISK FACTORS, AND METHODS TO MANAGE PENITENTIARY EFFECTS OF CVA. 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 SKILLED NURSE TO ESTABLISH SUPPORT MEASURES TO MINIMIZE RISK OF REHOSPITALIZATION, AND INSTRUCT PATIENT/CAREGIVER ON METHODS TO REDUCE AVOIDABLE HOSPITALIZATION. [code = VIRTUAL VISIT FREQUENCY: 1-6 PER WEEK X 3 WEEKS AND 6 PRN VIRTUAL VISITS MAY BE PERFORMED UTILIZING TELECOMBullet BiotechnologyICATIONS SYSTEM TO OPTIMIZE SKILLED SERVICES FURNISHED ON [...] CARE WILL BE ESTABLISHED THAT MEETS PATIENT'S NURSING HOME NEEDS AND INCLUDES PATIENT GOAL FOR [...] End Date/Time Encounter Type Admission Type Attending [facility] Care Facility Care Department Encounter ID Discharge Date Discharge Status Discharge Condition Discharge Reason Percent Goals Met 2024-01-19 00:00:00 2024-03-18 00:00:00 Outpatient DICK JORDAN [facility] [id number] 59.26
--- OUTSIDE RECORDS SUMMARY | 2024-03-18 02:01 | XMS_ITS | Clinical Summary ---
Author Organization Unknown Care Team Providers Care Health Unit Clerk Name Role Phone JUAN AGUILERA, MAGDALENE Unavailable Unavailable ROMEO HUFFMAN, DICK Unavailable Unavailable Payers Payer Name Policy Type Policy Number Effective Date Expira tion Date MEDICARE - [place] - [place] [id number] [facility] [id number] Problems Condition Name Condition Details Condition Category Status Onset Date Resolution Date Last Treatment Date Treating Clinician Comments ENCOUNTER FOR OTHER ORTHOPEDIC AFTERCARE Active 04-08 00:00: 00 PERIPHERAL VASCULAR DISEASE, UNSPECIFIED Active 04-08 00:00: 00 ANEMIA, UNSPECIFIED Active 04-08 00:00: 00 ATHSCL HEART DISEASE OF [place] CORONARY ARTERY W/O ANG PCTRS Active 04-08 [...] NEOPLASM OF SKIN Active 04-08 00:00: 00 [facility] (CURRENT) USE OF ASPIRIN Active 04-08 00:00: [...] mg chewable tablet 2023-04 00:00: 00 Yes [id number] 1 tablet DAILY 1 tablet DAILY (route: oral) Med Classific ation: Hematolog ical Agents gabapentin 100 mg capsule 2023-04 00:00: 00 01-31 23:59 :00 No [id number] 1 capsule 3 TIMES DAILY 1 capsule 3 TIMES DAILY (route: oral) Med Classific ation: Central Nervous System Agents hydroxyzine HCl 25 mg tablet 2023-04 00:00: 00 01-31 23:59 :00 No [id number] 1 tablet 3 TIMES DAILY 1 tablet 3 TIMES DAILY (route: oral) Med Classific ation: Central Nervous System Agents latanoprost 0.005 % eye drops 2023-04 00:00: 00 Yes [id number] 1 drops BEDTIME 1 drops BEDTIME (route: ophthalmic (eye)) Med Classific ation: Ophthalmi c Agents methocarbam ol 500 mg tablet 2023-04 00:00: 00 01-31 23:59 :00 No [id number] 1 tablet 3 TIMES DAILY 1 tablet 3 TIMES DAILY (route: oral) Med Classific ation: Locomotor System metoprolol succinate ER 25 mg tablet,exte nded release 24 hr 2023-04 00:00: 00 Yes [id number] 1 tablet BEDTIME 1 tablet BEDTIME (route: oral) Med Classific ation: Cardiovas cular Therapy Agents rosuvastati n 40 mg tablet 2023-04 00:00: 00 Yes [id number] 1 tablet DAILY 1 tablet DAILY (route: oral) Med Classific ation: Cardiovas cular Therapy Agents sertraline 100 mg tablet 2023-04 00:00: 00 Yes [id number] 1 tablet DAILY 1 tablet DAILY (route: [...] CVA, RISK FACTORS, AND METHODS TO MANAGE [facility] EFFECTS OF CVA. [code = SKILLED NURSE TO INSTRUCT PATIENT/CAREGIVER ON WARNING SIGNS OF CVA, RISK FACTORS, AND METHODS TO MANAGE ENVIRONMENTAL INTERN EFFECTS OF CVA.] Future Scheduled Test SKILLED [...] PRN VIRTUAL VISITS MAY BE PERFORMED UTILIZING TELECOM159.[employer]ICATIONS SYSTEM TO OPTIMIZE SKILLED SERVICES FURNISHED ON THE PLAN OF CARE. SKILLED NURSE TO ESTABLISH SUPPORT MEASURES TO MINIMIZE RISK OF REHOSPITALIZATION, AND INSTRUCT PATIENT/CAREGIVER ON METHODS TO REDUCE AVOIDABLE HOSPITALIZATION. [code = VIRTUAL VISIT FREQUENCY: 1-6 PER WEEK X 3 WEEKS AND 6 PRN VIRTUAL VISITS MAY BE PERFORMED UTILIZING TELECOM159.comICATIONS SYSTEM TO OPTIMIZE SKILLED SERVICES FURNISHED ON [...] CARE WILL BE ESTABLISHED THAT MEETS PATIENT'S GROUP HOME NEEDS AND INCLUDES PATIENT GOAL FOR [...] 2024-03-18 00:00:00 Outpatient DICK JORDAN [facility] [id number] 59.26
== END 2024-03-12 11:55 | disposition home or self-care (01) ==
PROVIDERS: PCP Nurse Practitioner Family; Visit Provider Physician Assistant
DX: Z98.1 Arthrodesis status (principal)
CPT/HCPCS: 99024

== ENCOUNTER 2024-04-30 11:00 | Outpatient (RCR) | payer MEDICARE, SELFPAY ==
--- NOTE | 2024-03-30 10:54 | MHC.PT.EP ---
[facility] [place] Office [place] Office [place] Office [address] Julio Baer [address] [phone] F: [phone] F: [phone] F: [phone] F: [phone] Physical Therapy Plan of Care Date of Evaluation: 03/30/24 Date of Surgery: 01/02/2024 Diagnosis: s/p lumbar spinal fusion, arthrodesis status Assessment: Patient is a 78 year old male presenting to PT with s/p L4-5 lumbar fusion on 01/02/2024. He presents today with impairments in pain, lumbar ROM, gait mechanics, hip strength. Pt's current occupation is retired, with baseline physical activities including ambulating, standing, ADLs. Pt expresses correction goal of being able to walk and stand better, and is motivated to work towards this in PT. Clinical presentation today is most consistent with signs and sx associated with s/p L4-5 lumbar spinal fusion and pt will benefit from skilled PT 2 week x 4 weeks to address the following problems and impairments noted upon evaluation: pain, lumbar ROM, gait mechanics, hip strength. These problems limit the patient with the following functional activities: ambulating, standing, ADLs, transfers. The prescribed treatment plan of care is medically necessary. Co-morbidities of on beta channing, hx skin cancer, hx CVA were identified and taken into considerations of plan of care. Pt was educated on HEP, role of PT, prognosis, POC. Frequency and Duration: The patient will be seen 2 x week x 4 weeks Short Term Goals: Pt will demonstrate improved hip MMT strength by 1/3 grade in 2 weeks. Pt will demonstrate ability to move through available lumbar ROM with min to no pain in 2 weeks. Hair Weaver Goals: Pt will demonstrate improved Maia score by 10% in 4 weeks for improved functional mobility. Pt will demonstrate ability to stand and ambulate community distances with min to no pain in 4 weeks for return to PLOF. Pt will demonstrate ability to perform STS transfer with good speed and mechanics in 4 weeks for return to PLOF. Treatment Plan: Modalities to reduce pain, spasms and effusion. Manual therapy to restore motion and function. Therapeutic exercise to improve strength and flexibility. Neuromuscular re-education for posture and balance. Therapeutic activities to return to functional activities of daily living. Electronically signed by: Aicha Albarran, PT, DPT, ATC Please sign and return to therapist. Thank you for your referral.
--- NOTE | 2024-04-30 11:56 | MHC.PT.DC ---
[facility] [place] Office [place] Office [place] [address] Julio Baer [address] [phone] F: [phone] F: [phone] F: [phone] F: [phone] Physical Therapy Discharge Report Diagnosis: s/p lumbar spinal fusion, arthrodesis status Date of Surgery: 01/02/2024 Date of Evaluation: 03/30/24 Date of Discharge: 04/30/24 Treatments to Date: 10 Cancellations to Date: 0 No Shows to Date: 0 Discharge Status: Improved Function Independent with HEP Discharge Summary: 04/30/2024: Pt has made some progress since start of care. He feels he is able to stand and ambulate better with less pain. Some days are still more sore than others but overall there are improvements. He is independent and compliant with his HEP and understands the importance of alf continuation. At this time max benefits of PT have been provided and skilled PT is no longer indicated. He is in agreement with d/c today. Electronically signed by: Aicha Albarran, PT, DPT, ATC Please sign and return to therapist. Thank you for your referral.
== END 2024-04-30 11:56 | disposition home or self-care (01) ==
LOC: HO.PTCHIC 11:00
PROVIDERS: PCP Nurse Practitioner Family; Visit Provider Physician Assistant
DX: Z98.1 Arthrodesis status (principal)
CPT/HCPCS: 97110; 97162

== ENCOUNTER 2024-05-27 15:04 | Outpatient (AMB) | payer MEDICARE, SELFPAY ==
--- OUTSIDE RECORDS SUMMARY | 2024-05-27 15:13 | XMS_ITS ---
Author Organization [facility] david Edson Address [address] [place] [address] Care Team Providers Care Head Of Partner Development Name Role Phone Alecia SINGH, Gilam Kinsey Primary Care Provider Un available Lisa Villatoro Unavailable [phone] Shanika AGUILERA-BC, Amish Unavailable Prosper Pineda Unavailable [phone] Allergies No Known Allergies REASON FOR VISIT [...] 01/28/2024 Encounters Encounter Location Date Provider Diagnosis [facility] [place] [address] [place] [id number] 01/28/2024 Prosper Mata Tinea unguium B35.1 ; Pain in left foot M79.672 ; Pain in right foot M79.671 ; Pain in right toe(s) M79.674 ; Pain in left toe(s) M79.675 ; Unspecified atherosclerosis of [place] arteries of extremities, bilateral legs I70.203 and [...] (ICD-10 - M79.675) 01/28/2024 Unspecified atherosclerosis of [place] arteries of extremities, bilateral legs (ICD-10 - I70.203) 01/28/2024 Ingrown nail (ICD-10 - L60.0) Plan Of Treatment Next Appt Details Follow Up: 3 Months, Reason: Provider Name:Lisamarisa peñaloza, 08/18/2024 11:30:00 AM, [facility] [address], [place], [address], Procedure Notes * Category Sub-Category Detail Notes [...] as necessary. Patient chooses, no pharmaceutical tx (23313) Keratoma Treatment Parring or Cutting o f Benign Hyperkeratotic Lesion(s) 65221 (2-4 Lesions) - The Benign hyperkeratotic lesions, as described above were pared, and/or cut utilizing a sterile #15 blade, tissue nippers, and/or yvette, Q8 Progress Notes * Brian MONDRAGON LDOB: [birth year] (78 yo M)Acc No.[id number]:01/28/2024 Progress Note Patient:Brian Stanley Provider:?Prosper Mata DPM :1945???Age:78 Y???Sex:Male Gilberto e:01/28/2024 Address:[address] [place], [place] [id number] Pcp:Chauncey Draper Subjective: * Chief Complaints: * [...] triple bypass during procedure had a [place] and 2 stents inserted 07/09/16ngioplasty 05/09/17[facility]- covid-19, rehab 03/2022 [facility]- Back surgery 01/2024 * [...] in left toe(s) - M79.675?6.?Unspecified atherosclerosis of [place] arteries of extremities, bilateral legs - I70.203?7.?Ingrown [...] as necessary. Patient chooses, no pharmaceutical tx (15700).?Keratoma Treatment:?Parring or Cutting of Benign Hyperkeratotic Lesion(s)?07922 (2-4 Lesions) - The Benign hyperkeratotic lesions, as described above were pared, and/or cut utilizing a sterile #15 blade, tissue nippers, and/or dremel, Q8.? * Procedure Codes:?74867 DEBRI DE NAIL, 6 OR MORE, Modifiers: XS 95904 TRIM SKIN LESIONS, 2 TO 4, Modifiers: Q8 * Follow Up:?3 Months * Images: * Sign off status: Completed true * Provider:Adalgisa Mata DPM Date:? 024 Generated for Tamela carbajal/Enio/Christen on:?05/27/2024 03:13 PM EST History and Physical Notes * HPI [...] at, Plantar, Heel(s), B/L, T5 Vascular DP PULSES (B): 0/4, B/L PT PULSES (B): 0/4, B/L CAPILLARY FILL TIME: delayed, all digits , B/L TEMPERTURE GRADIENT (C): cool to cold TROPHIC CONDITION-TEXTURE/EL ASTICITY/TURGOR/HAIR GROWTH (B): decreased, B/L, waxy EDEMA (C): 1/4, B/L, Ankle(s), Leg(s) PIGMENTATION: pale, B/L Nails NAILS are: Elongated, overg rown, dystrophic, lytic, greater than 3mm thick, discolored and friable with crumbly malodorous subungual debris, with pain on palpation, 1-5 B/L
--- OUTSIDE RECORDS SUMMARY | 2024-05-27 15:13 | XMS_ITS | Patient Health Record ---
Author Organization [facility] david [place] Address [address] [place] [address] Care Team Providers Care Manager Radiation Name Role Phone Alecia SINGH, Gilma Kinsey Primary Care Provider Un available Lisa Villatoro Unavailable [phone] Shanika AGUILERA-BC, Amish Unavailable Prosper Pineda Unavailable [phone] Allergies No Known Allergies Reason For Referral No Information Medications Medication SIG (Take, Route, Frequency, Duration) Notes Start Date End Date Status Mens One Daily 02/01/2015 Not- Taking Lisinopril 5 MG 1 tablet Orally Once a day 02/01/2015 Not-Taking Keflex 500 MG 1 capsule Orally clemencia ry 12 hrs for 10 day(s) 06/20/2018 Not-Taking Atorvastatin Calcium 80 MG 1 tablet Orally Once a day 02/01/2015 Active Aspirin 81 MG 1 tablet Orally Once a day 02/01/2015 Active Metoprolol Succinate Active Cetirizine HCl Not-T aking Sertraline HCl 100 MG Orally Once a day Active Social History Tobacco Use: Social History Observation Description Date Details (start date - stop date) Never Smoker NA - NA Alcohol Screen Question Answer Notes Did you have a drink containing alcohol in the p ast year? No Points 0 Interpretation Negative Tobacco use other than smoking: Question Answer Notes Are you an other tobacco user? Yes c igar here and there. Tobacco Control (Standard) Question Answer Notes Tobacco use: Nonsmoker Additional Findings: Tobacco non-user Current no nsmoker Problems Problem Type SNOMED Code ICD Code Onset Dates Problem Status W/U Status Risk Notes Problem Atherosclerosis of [place] mo[place] arteries of the extremities ([id number]) Unspecified atherosclerosis of bill moore[place] arteries of extremities, bilateral legs (I70.203) Active confirmed Problem Atherosclerosis of [place] artery of both lower extremities, with unspecified presence of clinical manifestation (I70.203) Active confirmed Q7(A), Q8(2B), Q9(1B,2 C) Vital Signs Blood pressure diastolic 78 mm Hg 05/05/2024 Height 5 ft 5 in in 05/05/2024 Blood pressure systolic 130 mm Hg 05/05/2024 Weight 135 lbs 05/05/2024 BMI 22.46 kg/m2 05/05/2024 Procedures Procedure Date Ordered Date Performed Result Body Sit e 00284-YVQEORH NAIL, 6 OR MORE 05/05/2024 N/A 41317-QOVS SKIN LESIONS, 2 TO 4 05/05/2024 N/A Encounters Encounter Location Date Provider Diagnosis [address] [address] 05/28/2023 Prosper Mata Tinea unguium B35.1 ; Other viral warts B07.8 ; Pain in left foot M79.672 ; Pain in right foot M79.671 ; Pain in right toe(s) M79.674 ; Pain in left toe(s) M79.675 ; Unspecified atherosclerosis of [place] arteries of extremities, bilateral legs I70.203 and Ingrown nail L60.[address] [address] 08/20/2023 Prosper Mata Tinea unguium B35.1 ; Other viral warts B07.8 ; Pain in left foot M79.672 ; Pain in right foot M79.671 ; Pain in right toe(s) M79.674 ; Pain in left toe(s) M79.675 ; Unspecified atherosclerosis of [place] arteries of extremities, bilateral legs I70.203 and Ingrown nail L60.[address] [address] 11/12/2023 Prosper Mata Tinea unguium B35.1 ; Other viral warts B07.8 ; Pain in left foot M79.672 ; Pain in right foot M79.671 ; Pain in right toe(s) M79.674 ; Pain in left toe(s) M79.675 ; Unspecified atherosclerosis of [place] mo[place] arteries of extremities, bilateral legs I70.203 and Ingrown nail L60.0 [facility] [address] [address] 01/28/2024 Prosper Mata Tinea unguium B35.1 ; Pain in left foot M79.672 ; Pain in right foot M79.671 ; Pain in right toe(s) M79.674 ; Pain in left toe(s) M79.675 ; Unspecified atherosclerosis of [place] arteries of extremities, bilateral legs I70.203 and Ingrown nail L60.0 [facility] [address] [address] 05/05/2024 Lisa Villatoro Atherosclerosis of [place] artery of both lower extremities, with unspecified presence of clinical manifestation I70.203 ; Tinea unguium B35.1 ; Pain in right toe(s) M79.674 and Pain in left toe(s) M79.675 Assessments Encounter Date Diagnosis (ICD Code) Assessment Notes Treatment Notes Treatment Clinical Notes Section Notes 05/28/2023 Tinea unguium (ICD-10 - B35.1) 08/20/2023 Tinea unguium (ICD-10 - B35.1) 11/12/2023 Tinea unguium (ICD-10 - B35.1) 01/28/2024 Tinea unguium (ICD-10 - B35.1) 05/05/2024 Atherosclerosis of [place] artery of both lower extremities, with unspecified presence of clinical manifestation (ICD-10 - I70.203) Q7(A), Q8(2B), Q9(1B,2C) 05/05/2024 Tinea unguium (ICD-10 - B35.1) 11/12/2023 Other viral warts (ICD-10 - B07.8) 08/20/2023 Other viral warts (ICD-10 - B07.8) 05/28/2023 Other viral warts (ICD-10 - B07.8) 08/20/2023 Pain in left foot (ICD-10 - M79.672) 05/28/2023 Pain in left foot (ICD-10 - M79.672) 11/12/2023 Pain in left foot (ICD-10 - M79.672) 01/28/2024 Pain in left foot (ICD-10 - M79.672) 05/05/2024 Pain in right toe(s) (ICD-10 - M79.674) 01/28/2024 Pain in right foot (ICD-10 - M79.671) 05/05/2024 Pain in left toe(s) (ICD-10 - M79.675) 11/12/2023 Pain in right foot (ICD-10 - [...] (ICD-10 - M79.675) 05/28/2023 Unspecified atherosclerosis of [place] arteries of extremities, bilateral legs (ICD-10 - I70.203) 08/20/2023 Unspecified atherosclerosis of [place] arteries of extremities, bilateral legs (ICD-10 - I70.203) 11/12/2023 Unspecified atherosclerosis of [place] arteries of extremities, bilateral legs (ICD-10 - I70.203) 01/28/2024 Unspecified atherosclerosis of bill [place] arteries of extremities, bilateral legs (ICD-10 - I70.203) 01/28/2024 Ingrown nail (ICD-10 - L60.0) 11/12/2023 Ingrown nail (ICD-10 - L60.0) 08/20/2023 Ingrown nail (ICD-10 - L60.0) 05/28/2023 Ingrown nail (ICD-10 - L60.0) Plan Of Treatment Pending Test Test Name Order Date 07415-VROLDTD NAIL, 6 OR MORE 02/01/2011 30734-VPNEYRM NAIL, 6 OR MORE 02/01/2015 19144-QFIHJKB NAIL, 6 OR MORE 04/26/2015 06081-LVMFZTQ NAIL, 6 OR MORE 07/05/2015 28950-FAWILFT NAIL, 6 OR MORE 09/30/2015 84671-RBIWBUR NAIL, 6 OR MORE 05/08/2016 36348-TXMWNUQ NAIL, 6 OR MORE 12/23/2015 26091-FNOBKRF NAIL, 6 OR MORE 11/09/2016 34793-YAJVWEO NAIL, 6 OR MORE 02/08/2017 77746-NAOXWEU NAIL, 6 OR MORE 06/25/2017 22345-VSJRUGA NAIL, 6 OR MORE 01/10/2018 77626-GBUVYXQ NAIL, 6 OR MORE 03/25/2018 23709-VKMQPKB NAIL, 6 OR MORE 05/05/2024 41396-Imrt Destruction, 1-14 10/04/2020 49338-Lgsv Destruction, 1-14 12/27/2020 06455-Btmp Destruction, 1-14 06/27/2021 06839-Tpfr Destruction, 1-14 01/10/2018 41212-Lxmc Destruction, 1-14 04/17/2019 10120-Bwzx Destruction, 1-14 06/25/2017 80298-Nzwj Destruction, 1-14 12/23/2015 06615-Oixa Destruction, 1-14 05/08/2016 08619-Eeyx Destruction, 1-14 09/30/2015 75685-Chjl Destruction, 1-14 07/05/2015 91750-Cbfi Destruction, -14 04/26/2015 49247-Cdoy Destruction, 1-14 02/01/2015 25691-Kukhuuhj Plate 02/01/2011 09515- Debride <25 sq cm 07/22/2014 66447 I&D ABSCESS- SIMPLE,SINGLE 015 45470-XYWC SKIN LESIONS, 2 TO 4 02/02/20 15 73577-BHSA SKIN LESIONS, 2 TO 4 04/26/19 16 77016-MSKU SKIN LESIONS, 2 TO 4 07/05/19 16 08605-SXQK SKIN LESIONS, 2 TO 4 05/08/19 17 95183-QYQS SKIN LESIONS, 2 TO 4 08/08/19 17 41704-RVTC SKIN LESIONS, 2 TO 4 11/10/19 17 47824-SKOP SKIN LESIONS, 2 TO 4 03/25/20 18 12387-MIIZ SKIN LESIONS, 2 TO 4 04/17/19 20 69279-EZHJ SKIN LESIONS, 2 TO 4 09/15/19 20 81542-MARR SKIN LESIONS, 2 TO 4 12/25/19 20 65533-HXWM SKIN LESIONS, 2 TO 4 03/25/20 20 00708-XBUB SKIN LESIONS, 2 TO 4 06/25/19 21 59951-ZYPG SKIN LESIONS, 2 TO 4 10/05/19 21 70451-AGCV SKIN LESIONS, 2 TO 4 02/09/20 17 97010-IAQX SKIN LESIONS, 2 TO 4 06/26/19 18 02349-EQHX SKIN LESIONS, 2 TO 4 01/11/20 18 17000-IFZF SKIN LESIONS, 2 TO 4 12/28/19 21 37151-QITV SKIN LESIONS, 2 TO 4 04/04/20 21 13804-IDKO SKIN LESIONS, 2 TO 4 06/28/19 22 01660-CPSK SKIN LESIONS, 2 TO 4 05/05/19 25 27054-HUTW SKIN LESIONS, 2 TO 4 06/21/19 19 87043-MCGE SKIN LESIONS, 2 TO 4 12/17/19 Next Appt Details Provider Name:Lisa Cameron jh, 08/18/2024 11:30:00 AM, [facility] [address], [place], [address], Insurance Providers Payer Name Payer Address Payer Phone Subscriber Number Group Number Insured Name Patient Relationship to Insured Coverage Start Date Coverage End Date Medicare National Govt [facility]ly [facility] [address] [place] [address] [id number] Brian Maloney Self - patient is the insured 1 [employer] [address] [place] [address] [id number] Brian Maloney Self - patient is the insured Medical (General) History Medical History History ICD Code joint implants/screws Arthritis Chicken pox stroke Surgical History Surgery Date(Month/Year) neck surgery right hip replacement 04/15/2013 triple bypass stent insertion right leg 07/09/16 Plastic surgery face & neck, basal cell 09/2022 Back surgery 12/2023 Hospitalization History Reason Date(Month/Year) [facility] [place]- Back surgery 01/2024 [facility] [place]- covid-19, rehab 03/2022 Angioplasty 05/09/17 [facility] artery cleaned and 2 stents inserted 07/09/16 [facility] triple bypass during procedure had a stroke 10/25/14
--- OUTSIDE RECORDS SUMMARY | 2024-05-27 15:14 | XMS_ITS ---
Author Organization [facility] [place] [place] Address [address] [address] Care Team Providers Care Bingo Worker Name Role Phone Alecia SINGH, Gilma Kinsey Primary Care Provider Un available Shauna Lisa Unavailable [phone] Shanika AGUILERA-Amish ARREOLA Unavailable Unavailabl e Allergies No Known Allergies REASON FOR VISIT At Risk Footcare, Painful Nail(s) aggravated by shoes and causing difficulty standing/walking. Medications Medication SIG (Take, Route, Frequency, Duration) Notes Start Date End Date Status Mens One Daily 02/01/2015 Not- Taking Lisinopril 5 MG 1 tablet Orally Once a day 02/01/2015 Not-Taking Keflex 500 MG 1 capsule Orally clemencia ry 12 hrs for 10 day(s) 06/20/2018 Not-Taking Cetirizine HCl Not-T aking Sertraline HCl 100 MG Orally Once a day Active Atorvastatin Calcium 80 MG 1 tablet Orally Once a day 02/01/2015 Active Aspirin 81 MG 1 tablet Orally Once a day 02/01/2015 Active Metoprolol Succinate Active Social History Tobacco [...] W/U Status Risk Notes Problem Atherosclerosis of [place] artery of both lower extremities, with unspecified presence of clinical manifestation (I70.203) Active confirmed Q7(A), Q8(2B), Q9(1B,2C) Vital Signs Height 5 ft 5 in in 05/05/2024 Weight 135 lbs 05/05/2024 BMI 22.46 kg/m2 05/05/2024 Blood pressure systolic 130 mm Hg 05/05/19 Blood pressure diastolic 78 mm Hg 025 Procedures Procedure Date Ordered Date Performed Result Body Sit e 50352-UBHXAWK NAIL, 6 OR MORE 05/05/2024 N/A 50223-FQBL SKIN LESIONS, 2 TO 4 05/05/2024 N/A Encounters Encounter Location Date Provider Diagnosis [facility] [place] [address] [facility] [facility] [address] [place] [address] 05/05/2024 Lisa Villatoro Atherosclerosis of [place] artery of both lower extremities, with unspecified presence of clinical manifestation I70.203 ; Tinea unguium B35.1 ; Pain in right toe(s) M79.674 and Pain in left toe(s) M79.675 Assessments Encounter Date Diagnosis (ICD Code) Assessment Notes Treatment Notes Treatment Clinical Notes Section Notes 05/05/2024 Atherosclerosis of [place] artery of both lower extremities, with unspecified presence of clinical manifestation (ICD-10 - I70.203) Q7(A), Q8(2B), Q9(1B,2C) 05/05/2024 Tinea unguium (ICD-10 - B35.1) 05/05/2024 Pain in right toe(s) (ICD-10 - M79.674) 05/05/2024 Pain in left toe(s) (ICD-10 - M79.675) Plan Of Treatment Pending Test Test Name Order Date 85983-NXVJJRQ NAIL, 6 OR MORE 05/05/2024 53060-OWGY SKIN LESIONS, 2 TO 4 05/05/19 25 Next Appt Details Follow Up: 3 Months, Reason: Provider Name:Lisa peñaloza, 08/18/2024 11:30:00 AM, [address] [facility], [address], [place], [address], Procedure Notes * Category Sub-Category Detail Notes Debride Nail 6-10 Nail debridement Due to the cl inical pathology outlined in the exam findings, performance of this nail treatment is medically necessary as its management by an unskilled/untrained nonprofessional would put this patients foot and overall health at risk. Therefore, debridement to affected nail(s), as described in exam ( TA, T1, T2, T3, T4, T5, T6, T7, T8, T9, ), was performed exclusively by the physician of record to reduce/remove overall nail length, girth, thickness, subungual debris, and necrotic tissue, by manual and/or electrical means through the use of a nail nipper and/or dremel-type internal grinder tender, to a more viable healthy nail plate or bed tissue 6-10 nails in total. Silver nitrate was used for any petechial bleeding as necessary. Definitive antifungal treatment options, both pharmaceutical and surgical, have been reviewed and discussed with the patient. The patient solely prefers the use of intermittent/as needed professional debridement services for their nail condition and understands the need for additional periodic treatments to maintain effectiveness in symptomatic relief - 88303 Keratoma Treatment Parring or Cutting o f Benign Hyperkeratotic Lesion(s) (-56) 2-4 Lesions - Due to the at risk nature of the patients medical condition as documented in the exam findings, performance of this keratoderma treatment is medically necessary as its management by an unskilled/untrained nonprofessional would put this patients foot and overall health at risk. Therefore, the benign hyperkeratotic lesions, ( 2) in total, locations as stated and described in the exam ( plantar heels B/L), were pared, and/or cut utilizing a sterile 15 blade, tissue nippers, and/or power dremel instrumentation by the physician of record - 28539, Q8 Progress Notes * MONDRAGONBrian ANAND LDOB: [birth year] (78 yo M)Acc No.[id number]:05/05/2024 Progress Note Patient:?Brian MONDRAGON Provider:?Lisa Villatoro DPM :1945???Age:78 Y???Sex:Male Gilberto e:05/05/2024 Address:[address] [place], [place] [phone] Pcp:Chauncey Draper Subjective: * Chief Complaints: * ???At Risk FootcarePainful N ail(s) aggravated by shoes and causing difficulty standing/walking. * HPI: ???At Risk footcare:?Pt States Last PCP Visit:?Date?04/13/2024 * ROS:?General/Constitutional:?Nausea?denies.?Vomiting?denies.?Hunger Thirst?denies.?Loss appetite?denies.?Chills?denies.?Fatigue?denies.?Fever?denies.?Night Sweats?denies.?Unexplained weight loss?denies.?Unexplained [...] 07/09/16Plastic surgery face & neck, basal cell ack surgery 12/2023 * Hospitalization/Major Diagno stic Procedure:?[facility] triple bypass during procedure had a stroke 10/25/14[facility] artery cleaned and 2 stents inserted 07/09/16ngioplasty 05/09/17[facility] [place]- cov[place]-[facility], rehab 03/2022[facility] [place]- Back surgery 01/2024 * Family History:?Mother: dece ased, diagnosed with Other malignant neoplasm of unspecified site.?Father: , diagnosed with Unspecified heart disease.?Spouse: alive.?2 son(s) , 1 daughter(s) . .? * Social History:?Tobacco Use:?Tobacco use other than smoking?Are you an other tobacco user??Yes cigar here and there. ?Tobacco Control (Standard)?Tobacco use:?Nonsmoker ?Additional Findings: Tobacco non-user?Current nonsmoker ???Drugs/Alcohol:?Drugs?Have you used drugs other than those for medical reasons in the past 12 months??No ?Alcohol Screen?Did you have a drink containing alcohol in the past year??No ?Points?0 ?Interpretation?Negative ???Miscellaneous:?Caffeine: yes, frequency:, 1-2 cups per day. ?Children: yes, 3. ?Exercise: no. ?Marital status: . ?Occupation: retired. * Medications:?TakingAspirin 8 1 MG Tablet 1 tablet Orally Once a day Atorvastatin Calcium 80 MG Tablet 1 tablet Orally Once a day Metoprolol Succinate Sertraline HCl 100 MG Tablet Orally Once a day Taking Aspirin 81 MG Tablet 1 tablet Orally Once a day Taking Atorvastatin Calcium 80 MG Tablet 1 tablet Orally Once a day Taking Metoprolol Succinate Taking Sertraline HCl 100 MG Tablet Orally Once a day Not-Taking/PRNCetirizine HCl Lisinopril 5 MG Tablet 1 tablet Orally Once a day Mens One Daily Keflex 500 MG Capsule 1 capsule Orally every 12 hrs Medication List reviewed and reconciled with the patientNot-Taking/PRN Cetirizine HCl Not- Taking/PRN Lisinopril 5 MG Tablet 1 tablet Orally Once a day Not-Taking/PRN Mens One Daily Not-Taking/PRN Keflex 500 MG Capsule 1 capsule Orally every 12 hrs Medication List reviewed and reconciled with the patient * Allergies:?N.K.D.A.yes[Aller gies Verified] Objective: * Vitals:?Ht: 5 ft 5 in, Wt:13 5, BMI: 22.46, Shoe size:7, BP:130/78mm Hg, Wt-k.24 kg. * Examination: ???Neurological: ?SENSORY:?Neurological exam reveals intact sensorium, pain sensation normal, vibration sensation intact, pinprick sensation is normal in the lower extremities, Pt denies, anesthesia, burning, paresthesia, tingling, B/L.?Vascular: ?DP PULSES (B):?0/4, B/L.?PT PULSES (B):? 0/4, B/L.?CAPILLARY FILL TIME:?delayed, all digits, B/L.?TROPHIC CONDITION-TEXTURE/ELASTICITY/TURGOR/HAIR GROWTH (B):?decreased, B/L.?TEMPERTURE GRADIENT (C):?cool to cold.?PIGMENTATION:?pale, B/L.?EDEMA (C):? 1/4, B/L, Ankle(s), Leg(s).?Dermatologic: ?SKIN FINDINGS:?Skin exam reveals Keratotic lesion(s) located at, Plantar, Heel(s), B/L.?Nails: ?NAILS are:?Elongated, overgrown, dystrophic, lytic, greater than 3mm thick, discolored and friable with crumbly malodorous subungual debris, with pain on palpation, TA, T1, T2, T3, T4, T5, T6, T7, T8, T9.? Assessment: * Assessment: 1.?Atherosclerosis of [place] artery of both lower extremities, with unspecified presence of clinical manifestation - I70.203 (Primary)???Notes :Q7(A), Q8(2B), Q9(1B,2C)???2.?Tinea unguium - B35.1???3.?Pain in right toe(s) - M79.674???4.?Pain in left toe(s) - M79.675??? Plan: * Treatment: 2.?Tinea unguium?Procedure: 63340-MKWXVTM NAIL, 6 OR MORE * Procedures:?Debride Nail 6-10:?Nail debridement?Due to the clinical pathology outlined in the exam findings, performance of this nail treatment is medically necessary as its management by an unskilled/untrained nonprofessional would put this patients foot and overall health at risk. Therefore, debridement to affected nail(s), as described in exam ( TA, T1, T2, T3, T4, T5, T6, T7, T8, T9, ), was performed exclusively by the physician of record to reduce/remove overall nail length, girth, thickness, subungual debris, and necrotic tissue, by manual and/or electrical means through the use of a nail nipper and/or dremel-type internal grinder tender, to a more viable healthy nail plate or bed tissue 6- 10 nails in total. Silver nitrate was used for any petechial bleeding as necessary. Definitive antifungal treatment options, both pharmaceutical and surgical, have been reviewed and discussed with the patient. The patient solely prefers the use of intermittent/as needed professional debridement services for their nail condition and understands the need for additional periodic treatments to maintain effectiveness in symptomatic relief - 47449.?Keratoma Treatment:?Parring or Cutting of Benign Hyperkeratotic Lesion(s)?(-56) 2-4 Lesions - Due to the at risk nature of the patients medical condition as documented in the exam findings, performance of this keratoderma treatment is medically necessary as its management by an unskilled/untrained nonprofessional would put this patients foot and overall health at risk. Therefore, the benign hyperkeratotic lesions, ( 2) in total, locations as stated and described in the exam ( plantar heels B/L), were pared, and/or cut utilizing a sterile 15 blade, tissue nippers, and/or power dremel instrumentation by the physician of record - 08816, Q8.? * Procedure Codes:?83183 DEBRI DE NAIL, 6 OR MORE, Modifiers: XS 54467 TRIM SKIN LESIONS, 2 TO 4, Modifiers: XS , Q8 * Follow Up:?3 Months * Images: * Sign off status: Completed true * Provider:Gwen Villatoro DPM Date:?0 05/05/2024 Generated for Tamela carbajal/Ryang/eTransmitting on:?05/27/2024 03:13 PM EST History and Physical Notes * HPI (History of Present Illness) Category Sub-Category Detail Notes Category Not es At Risk footcare Pt States Last PCP Visit: Date: Examination Category Sub-Category Detail Notes Category Not es Neurological SENSORY: Neurological exa m reveals intact sensorium, pain sensation normal, vibration sensation intact, pinprick sensation is normal in the lower extremities, Pt denies, anesthesia, burning, paresthesia, tingling, B/L Dermatologic SKIN FINDINGS: Skin exam reveal s Keratotic lesion(s) located at, Plantar, Heel(s), B/L Vascular DP PULSES (B): 0/4, B/L PT PULSES (B): 0/4, B/L CAPILLARY FILL TIME: delayed, all digits , B/L TEMPERTURE GRADIENT (C): cool to cold TROPHIC CONDITION-TEXTURE/EL ASTICITY/TURGOR/HAIR GROWTH (B): decreased, B/L EDEMA (C): 1/4, B/L, Ankle(s), Leg(s) PIGMENTATION: pale, B/L Nails NAILS are: Elongated, overg rown, dystrophic, lytic, greater than 3mm thick, discolored and friable with crumbly malodorous subungual debris, with pain on palpation, TA, T1, T2, T3, T4, T5, T6, T7, T8, T9
--- OUTSIDE RECORDS SUMMARY | 2024-05-27 15:14 | XMS_ITS ---
Author Organization [facility] david Vera Address [address] [facility] [place] [address] Care Team Providers Care Cherry Sorter Name Role Phone Alecia SINGH, Gilma Kinsey Primary Care Provider Un available Lisa Villatoro Unavailable [phone] Shanika AGIULERA-BC, Amish Unavailable Prosper Pineda Unavailable [phone] Allergies No Known Allergies REASON FOR VISIT [...] 11/12/2023 Encounters Encounter Location Date Provider Diagnosis [facility] [address] [address] 11/12/2023 Prosper Mata Tinea unguium B35.1 ; Other viral warts B07.8 ; Pain in left foot M79.672 ; Pain in right foot M79.671 ; Pain in right toe(s) M79.674 ; Pain in left toe(s) M79.675 ; Unspecified atherosclerosis of [place] arteries of extremities, bilateral legs I70.203 and [...] (ICD-10 - M79.675) 11/12/2023 Unspecified atherosclerosis of [place] arteries of extremities, bilateral legs (ICD-10 - I70.203) 11/12/2023 Ingrown nail (ICD-10 - L60.0) Plan Of Treatment Next Appt Details Follow Up: 2 Months, 3 Month s, Reason: Provider Name:Lisa peñaloza, 08/18/2024 11:30:00 AM, [address] [place] [address], [place] [address], [place], [address], Procedure Notes * Category Sub-Category Detail Notes Wart Treatment Procedure Verrucae(s) were debrided to pin-point bleeding with sterile surgical blade, silver nitrate chemocautery applied, CIRCULATION: Any more invasive procedure to wart deferred due to circulation risk , Verrucae(s) were debrided to pin-point bleeding margins with sterile surgical blade (95896), silver nitrate chemocautery applied Debride Nail 6-10 Nail debridement Nail debridem ent performed extensively to reduce/remove overall nail length and girth, subungual debris, and necrotic tissue, by manual and electrical means with use of a nail nipper and/or dremel, to more viable healthy nail plate or bed tissue 6-10. Silver nitrate used for any petechial bleeding as necessary. Patient chooses, no pharmaceutical tx (66197) Keratoma Treatment Parring or Cutting o f Benign Hyperkeratotic Lesion(s) 13410 (2-4 Lesions) - The Benign hyperkeratotic lesions, as described above were pared, and/or cut utilizing a sterile #15 blade, tissue nippers, and/or dremel, Q8 Progress Notes * Brian MONDRAGON LDOB: [birth year] (78 yo M)Acc No.[id number]:11/12/2023 Progress Note Patient:?Amara Brian Yunior Provider:?Prosper Mata DPM :1945???Age:78 Y???Sex:Male Gilberto e:11/12/2023 Address:[address] [place], [place] [address] Pcp:Chauncey Draper Subjective: * Chief Complaints: * [...] triple bypass during procedure had a stroke 10/25/14[facility] [place] artery cleaned and 2 stents inserted 07/09/16ngioplasty 05/09/17[facility] [place], rehab 03/2022 * Family History:?Mother: dece [...] in left toe(s) - M79.675?7.?Unspecified atherosclerosis of [place] arteries of extremities, bilateral legs - I70.203?8.?Ingrown [...] as necessary. Patient chooses, no pharmaceutical tx (66961).?Keratoma Treatment:?Parring or Cutting of Benign Hyperkeratotic Lesion(s)?71414 (2-4 Lesions) - The Benign hyperkeratotic lesions, as described above were pared, and/or cut utilizing a sterile #15 blade, tissue nippers, and/or dremel, Q8.?Wart Treatment:?Procedure?Verrucae(s) were debrided to pin-point bleeding with sterile surgical blade, silver nitrate chemocautery applied, CIRCULATION: Any more invasive procedure to wart deferred due to circulation risk , Verrucae(s) were debrided to pin- point bleeding margins with sterile surgical blade (21614), silver nitrate chemocautery applied.? * Procedure Codes:?16548 DEBRI DE NAIL, 6 OR MORE, Modifiers: XS 13857 TRIM SKIN LESIONS, 2 TO 4, Modifiers: Q8 16265 Wart Destruction, 1-14, Modifiers: XS * Follow Up:?2 Months, 3 Month s * Images: * Sign off status: Completed true * Provider:?Prosper Mata DPM Date:? 024 Generated for Tamela carbajal/Enio/eTransmitting on:?05/27/2024 03:13 PM EST History and Physical [...] mm diameter, plantar Heel, RIGHT Vascular DP PULSES (B): 0/4, B/L PT [...]
[2024-05-27 16:06] VITALS: BP 110/76; PULSE 68; TEMP 36.7; O2SAT 97
--- NOTE | 2024-05-27 16:06 | MHC.OFFWIV ---
Intake Vital Signs 05/27/24 16:06 Weight 130 lb BP 110/76 Blood Pressure Location Rt brachial Position Sitting Pulse 68 Pulse Source Pulse Oximeter Temp 98.1 F Temp Source Oral Pulse Oximetry (%) 97 Oxygen Delivery Method Room Air Intake Visit Reasons: EP-cough, chest pain, headaches Intake Note: Patient here for cough, chest tightness, headaches,congestion that has been present for about 2 weeks. Patient Tobacco Use Status: Current someday Tobacco user Allergies No Known Allergies Allergy (Verified 05/27/24 16:06) Do you need a note to return to daycare/school/sports/work: No HPI HPI Comments History of Present Illness Details History - The patient is a 78-year-old male presenting with a persistent cough lasting a minimum of two weeks alongside associated symptoms such as chest tightness, and nasal congestion. Wheezing and shortness of breath are present - Notable negative findings include the absence of fever. - The patient has an unremarkable pulmonary history, denying conditions such as asthma or COPD, and reports the use of NyQuil and DayQuil with minimal improvement. - Patient and household contacts have experienced similar symptoms with resolution without antibiotics. - Chronic throat irritation is noted but unrelated to current symptoms. Physical Exam General: Cooperative, healthy appearing, comfortable and no acute distress Orientation/consciousness: Patient oriented x3 Head: Normal to inspection Ears: Hearing grossly normal bilaterally, external ears normal and TM's normal bilaterally Nose: Normal external nose present, Normal nares present and No nasal discharge present Face and sinus: Normal facial exam and Sinuses tender Mouth: Normal oral and palatal mucosa present and moist mucous membranes Throat: Yes tonsils normal, Yes uvula midline. Posterior oropharynx erythema Eyes: Appearance normal, both eyes and all related structures Neck: Normal visual inspection Respiratory: exp wheezes and vesicular sounds throughout. Normal respiratory effort, able to speak in complete sentences, Actively coughing, no respiratory distress, not tachypneic, no tripod positioning and no use of accessory muscles. Cardiovascular: Regular rate and rhythm. Normal S1 and S2 Skin: No rashes or lesions noted Neuro: Patient oriented x3 Extremities: Normal to inspection and Yes no clubbing, cyanosis or edema [facility] Medical History (Updated 05/27/24 @ 16:28 by Velia Macdonald PA-C) Back pain On beta channing at home Skin cancer Lumbar spinal stenosis Osteoarthritis of hands, bilateral Acute anxiety Dyslipidemia CVA (cerebral vascular accident) Depression Left pontine CVA Osteoarthritis of right hip Rectal bleeding Tremor Toenail deformity Anemia PVD (peripheral vascular disease) Cervical radiculopathy Atherosclerosis Hematuria Vertigo Coronary artery disease Carotid stenosis Cerebrovascular disease Surgical History (Updated 01/27/24 @ 10:36 by DONIS Garcia) History of lumbar fusion S/P cardiac catheterization H/O colonoscopy History of intravascular stent placement Hx of plastic surgery Hx of CABG History of revision of total hip arthroplasty Status post shoulder surgery Family History Father Abdominal aneurysm Social History Household Members: Spouse Housing: House Are you a primary health care facilities inspector to a significant other at home: No Do you presently have visiting nurse or other home services: No Alcohol intake: former Patient Tobacco Use Status: Current someday Tobacco user Tobacco use type: Cigarette Cigarettes Per Day: 5 Years Smoked: 60 years e-Cigarette/Vaping Use: Never Used Second Hand Smoke Exposure: No Advance Directives Date on File: 03/30/22 service: Yes Current occupational status: retired Cognitive needs: No Hearing needs: No Vision needs: No Review of Systems Const All systems reviewed & are unremarkable except as noted in HPI and below Physical Exam Vital Signs: Last Vital Signs Temp 98.1 F 05/27/24 16:06 Pulse 68 05/27/24 16:06 BP 110/76 05/27/24 16:06 Pulse Ox 97 05/27/24 16:06 Oxygen Delivery Method Room Air 05/27/24 16:06 Assessment & Plan Assessment & Plan (1) Lower respiratory infection (e.g., bronchitis, pneumonia, pneumonitis, pulmonitis): Code(s): J22 - Unspecified acute lower respiratory infection Plan: A chest x-ray will be obtained to investigate the presence of pneumonia. Steroidal therapy 40 mg/day x 5 days is prescribed to reduce inflammation, with administration beginning the next AM as it is too late today to take a steroid. Additionally, I have prescribed azithromycin for its antimicrobial and anti-inflammatory properties. X-ray results will guide further antibiotic management. The patient has been advised regarding potential side effects of steroids including increased energy and appetite, with the chest x-ray to be performed today and results communicated by phone the following morning. Flu, Covid and RSV testing sent. Patient was informed and verbally consented to the use of an ambient scribe for clinic note documentation during this visit Orders: Orders SARS-CoV2/FLU/RSV Today R09.89 - Other specified symptoms and signs involving the circulatory and respiratory systems XR chest 2V Today R05.9 - Cough, unspecified Medications: New azithromycin For 250 mg dose pack: take 500 mg today (day 1), then 250 mg for 4 days (days 2-5) PO 6 tabs 0RF prednisone 40 mg (2 x 20 mg) PO DAILY 10 tabs 0RF Coding Level of Care Code Est Pt Level 4 (90512) Diagnoses Lower respiratory infection (e.g., bronchitis, pneumonia, pneumonitis, pulmonitis) J22
== END 2024-05-27 16:30 | disposition home or self-care (01) ==
PROVIDERS: PCP Nurse Practitioner Family; Visit Provider Physician Assistant
DX: J22 Unspecified acute lower respiratory infection (principal)

== ENCOUNTER 2024-05-27 15:04 | Outpatient (REF) | payer MEDICARE, SELFPAY | END 2024-05-27 15:05 | disposition home or self-care (01) | LOC: HO.LAB 15:04 | PROVIDERS: PCP Nurse Practitioner Family | DX: Z13.89 Encounter for screening for other disorder (principal) | CPT/HCPCS: 99212 ==

== ENCOUNTER 2024-05-27 16:21 | Outpatient (REF) | payer MEDICARE, SELFPAY ==
--- NOTE | ~2024-05-27 | XR_ITS ---
EXAMINATION: XR CHEST CLINICAL INFORMATION: R05.9 - Cough, unspecified COMPARISON: 01/03/2024. TECHNIQUE: 2 views of the chest were obtained. FINDINGS: The cardiac, hilar, and mediastinal contours are normal. Prior median sternotomy and probable CABG. The lungs are diffusely hyperaerated, however clear bilaterally. There is no pneumothorax or pleural effusion. There is no focal osseous or soft tissue abnormality. Degenerative spinal changes. Cervical fusion device incidentally noted. XR/XR chest 2V IMPRESSION: Foreign hyperaeration consistent with COPD. No active pulmonary disease. Electronically signed by: Kee Hernandez MD 05/27/2024 04:46 PM [facility]
[2024-05-28 11:15] LABS: Influenza A PCR POSITIVE (Negative); Influenza B PCR NEGATIVE (Negative); Resp Syncy Virus RNA Qual PCR NEGATIVE (Negative); SARS COV2 PCR INHOUSE NEGATIVE (Negative)
== END 2024-05-27 16:22 | disposition home or self-care (01) ==
LOC: HO.HMGCX 16:21
PROVIDERS: PCP Nurse Practitioner Family; Visit Provider Physician Assistant
DX: R05.9 Cough, unspecified (principal); R09.89 Other specified symptoms and signs involving the circulatory and respiratory systems; J22 Unspecified acute lower respiratory infection
CPT/HCPCS: 0241U; 71046; 99212

== ENCOUNTER → 2024-05-27 16:27 | Outpatient (BNV) | payer MEDICARE, SELFPAY | PROVIDERS: PCP Nurse Practitioner Family; Visit Provider Radiology Diagnostic Radiology | DX: R05.9 Cough, unspecified (principal) | CPT/HCPCS: 71046 ==

== ENCOUNTER 2024-06-08 10:51 | Outpatient (AMB) | payer MEDICARE, SELFPAY ==
[2024-06-08 10:52] VITALS: BP 138/50; PULSE 60
--- NOTE | 2024-06-08 10:52 | A.OFFVIS_ITS ---
Vital Signs 06/08/24 10:52 Height 5 ft 8 in Weight 131 lb 13.383 oz BMI 20.0 BP 138/50 L Blood Pressure Location Lt brachial Position Sitting Pulse 60 Pulse Source Pulse Oximeter Intake Visit Reasons: 6mth f/up Scientist/Engineer Required: No Accompanied by: Spouse Allergies No Known Allergies Allergy (Verified 05/27/24 16:06) Medication List - Last Reconciled 06/08/24 by Tone Apple MD aspirin 81 mg PO BEDTIME latanoprost 0.005% 1 drp ophthalmic-Left BEDTIME metoprolol succinate ER 25 mg PO BEDTIME rosuvastatin 40 mg PO BEDTIME sertraline 100 mg PO BEDTIME 90 days HPI Comments Details: Brian returns for follow-up regarding coronary disease and bypass surgery. He had coronary bypass in 2014. He had perioperative stroke but then recovered mostly. From the cardiac standpoint, no clear-cut symptoms like angina. Otherwise, seems to be getting along okay. [facility] Medical History (Updated 05/27/24 @ 16:28 by Velia Macdonald PA-C) Back pain On beta channing at home Skin cancer Lumbar spinal stenosis Osteoarthritis of hands, bilateral Acute anxiety Dyslipidemia CVA (cerebral vascular accident) Depression Left pontine CVA Osteoarthritis of right hip Rectal bleeding Tremor Toenail deformity Anemia PVD (peripheral vascular disease) Cervical radiculopathy Atherosclerosis Hematuria Vertigo Coronary artery disease Carotid stenosis Cerebrovascular disease Surgical History History of lumbar fusion S/P cardiac catheterization H/O colonoscopy History of intravascular stent placement Hx of plastic surgery Hx of CABG History of revision of total hip arthroplasty Status post shoulder surgery Family History Father Abdominal aneurysm Social History Household Members: Spouse Housing: House Are you a primary vision care associate to a significant other at home: No Do you presently have visiting nurse or other home services: No Alcohol intake: former Patient Tobacco Use Status: Current someday Tobacco user Tobacco use type: Cigarette Cigarettes Per Day: 5 Years Smoked: 60 years e-Cigarette/Vaping Use: Never Used Second Hand Smoke Exposure: No Advance Directives Date on File: 03/30/22 service: Yes Current occupational status: retired Cognitive needs: No Hearing needs: No Vision needs: No Review of Systems Const Denies chills, Denies fatigue, Denies fever(s), Denies weight gain and Denies weight loss ENT Denies dizziness Card Denies chest pain, Denies leg edema, Denies lightheadedness, Denies palpitations, Denies dyspnea on exertion, Denies orthopnea and Denies other Resp Denies cough and Denies dyspnea on exertion GI Denies hematochezia and Denies change in stool character Musc Denies abnormal gait, Denies muscle weakness, Denies numbness, Denies radiating pain into limb and Denies tingling Neuro Denies abnormal gait, Denies dizziness, Denies numbness and Denies tingling Endo Denies fatigue and Denies palpitations Physical Exam Vital Signs: Last Vital Signs Pulse 60 06/08/24 10:52 BP 138/50 L 06/08/24 10:52 BMI result Body Mass Index 20.0 Const General: comfortable and no acute distress Orientation/consciousness: patient oriented x3 HEENT Other: Unremarkable Head: Yes normal to inspection Neck Neck: Yes normal visual inspection Chest Chest palpation & inspection: normal inspection of the chest Resp Auscultation: clear to auscultation bilaterally Cardio Palpation: normal PMI Heart sounds: S1 normal heart sound present, S2 normal heart sound present, no gallops, no murmurs and no rubs GI Palpation (GI): Soft to palpation Back/Spine/Pelvis Other: unremarkable Skin General skin exam: no rashes or lesions noted Neuro General: patient oriented x3 Extrem General: Yes normal to inspection Psych Mental Status: mental status grossly normal Assessment & Plan Assessment & Plan (1) Atherosclerotic cardiovascular disease: Code(s): I25.10 - Atherosclerotic heart disease of [place] coronary artery without angina pectoris Category: Medical Plan: Status post coronary bypass surgery. Echocardiogram 04/2023 with LVEF of 55-60%. Basal inferior/inferoseptal akinesis. In the perfusion imaging 04/2023, reversible inferolateral defect suggestive of ischemia. Cardiac catheterization 11/2023-RCA HIGH PRESSURE FIRER with patent vein graft to RCA. Ostial left main 60% stenosis; vein graft to circumflex occluded. 50-60% stenosis in the circumflex. Small SUH which fills the LAD retrograde. Clinically, no angina. Continue aspirin, beta-blockers and statins. (2) HTN (hypertension): Code(s): I10 - Essential (primary) hypertension Category: Medical Plan: Stable. No changes. (3) Atrial arrhythmia: Code(s): I49.8 - Other specified cardiac arrhythmias Category: Medical Plan: Prior EKG with frequent PACs. Holter however without any atrial fibrillation. (4) Aortic valve calcification: Code(s): I35.9 - Nonrheumatic aortic valve disorder, unspecified Category: Medical Plan: Mild aortic stenosis on the echocardiogram. Can be periodically monitored. (5) PVD (peripheral vascular disease): Code(s): I73.9 - Peripheral vascular disease, unspecified Category: Medical Plan: Per [facility] vascular notes, prior right leg revascularization. Follow-up with vascular. (6) Cerebrovascular accident: Code(s): I63.9 - Cerebral infarction, unspecified Category: Medical Plan: History of perioperative stroke. In the past, [address] [facility] [place]. Repeat Holter as above without any atrial fibrillation. (7) Dyslipidemia: Code(s): E78.5 - Hyperlipidemia, unspecified Category: Medical Plan: On Rosuvastatin. Lipids are well controlled. No changes. In the past, some intolerance to atorvastatin. Coding Level of Care Code Est Pt Level 4 (20365) Complex EM visit Add On G2211 Diagnoses Atherosclerotic cardiovascular disease I25.10 HTN (hypertension) I10 Atrial arrhythmia I49.8 Aortic valve calcification I35.9 PVD (peripheral vascular disease) I73.9 Cerebrovascular accident I63.9 Dyslipidemia E78.5
--- OUTSIDE RECORDS SUMMARY | 2024-06-08 12:51 | XMS_ITS | Patient Health Record ---
Author Organization [facility] david ContrerasRohan Address [address] [facility] [address] Care Team Providers Care Application Development Project Manager Name Role Phone Alecia SINGH, Gilma Kinsey Primary Care Provider Un available Lisa Villatoro Unavailable [phone] Shanika AGUILERA-BC, Amish Unavailable Prosper Pineda Unavailable [phone] Allergies No Known Allergies Reason For Referral [...] W/U Status Risk Notes Problem Atherosclerosis of [place] arteries of the extremities ([id number]) Unspecified atherosclerosis of [place] arteries of extremities, bilateral legs (I70.203) Active confirmed Problem Atherosclerosis of [place] artery of both lower extremities, with unspecified presence of clinical manifestation (I70.203) Active confirmed Q7(A), Q8(2B), Q9(1B,2 C) Vital Signs Blood pressure diastolic 78 mm Hg 05/05/2024 Height 5 ft 5 in in 05/05/2024 Blood pressure systolic 130 mm Hg 05/05/2024 Weight 135 lbs 05/05/2024 BMI 22.46 kg/m2 05/05/2024 Procedures Procedure Date Ordered Date Performed Result Body Sit e 35926-IZQYJSF NAIL, 6 OR MORE 05/05/2024 N/A 60879-TWYX SKIN LESIONS, 2 TO 4 05/05/2024 N/A Encounters Encounter Location Date Provider Diagnosis [address] [address] 08/20/2023 Prosper Mata Tinea unguium B35.1 ; Other viral warts B07.8 ; Pain in left foot M79.672 ; Pain in right foot M79.671 ; Pain in right toe(s) M79.674 ; Pain in left toe(s) M79.675 ; Unspecified atherosclerosis of [place] arteries of extremities, bilateral legs I70.203 and Ingrown nail L60.[address] [address] 11/12/2023 Prosper Mata Tinea unguium B35.1 ; Other viral warts B07.8 ; Pain in left foot M79.672 ; Pain in right foot M79.671 ; Pain in right toe(s) M79.674 ; Pain in left toe(s) M79.675 ; Unspecified atherosclerosis of [place] arteries of extremities, bilateral legs I70.203 and Ingrown nail L60.[address] [address] 01/28/2024 Prosper Mata Tinea unguium B35.1 ; Pain in left foot M79.672 ; Pain in right foot M79.671 ; Pain in right toe(s) M79.674 ; Pain in left toe(s) M79.675 ; Unspecified atherosclerosis of [place] arteries of extremities, bilateral legs I70.203 and Ingrown nail L60.0 [facility] [place] [address] [address] 05/05/2024 Lisa Villatoro Atherosclerosis of [place] artery of both lower extremities, with unspecified presence of clinical manifestation I70.203 ; Tinea unguium B35.1 ; Pain in right toe(s) M79.674 and Pain in left toe(s) M79.675 Assessments Encounter Date Diagnosis (ICD Code) Assessment Notes Treatment Notes Treatment Clinical Notes Section Notes 08/20/2023 Tinea unguium (ICD-10 - B35.1) 11/12/2023 Tinea unguium (ICD-10 - B35.1) 01/28/2024 Tinea unguium (ICD-10 - B35.1) 05/05/2024 Atherosclerosis of [place] artery of both lower extremities, with unspecified [...] (ICD-10 - M79.675) 08/20/2023 Unspecified atherosclerosis of [place] arteries of extremities, bilateral legs (ICD-10 - I70.203) 11/12/2023 Unspecified atherosclerosis of [place] arteries of extremities, bilateral legs (ICD-10 - I70.203) 01/28/2024 Unspecified atherosclerosis of [place] arteries of extremities, bilateral legs (ICD-10 - I70.203) 01/28/2024 Ingrown nail (ICD-10 - L60.0) 11/12/2023 Ingrown nail (ICD-10 - L60.0) 08/20/2023 Ingrown nail (ICD-10 - L60.0) Plan Of Treatment Pending Test Test Name Order Date 91384-XOFXHOH NAIL, 6 OR MORE 02/01/2011 80576-GCHNTBB NAIL, 6 OR MORE 02/01/2015 94222-GVNLGLA NAIL, 6 OR MORE 04/26/2015 46672-YDXQKJK NAIL, 6 OR MORE 07/05/2015 17358-GJFTTJF NAIL, 6 OR MORE 09/30/2015 70882-WTXPXMJ NAIL, 6 OR MORE 05/08/2016 43525-ARRZYZO NAIL, 6 OR MORE 12/23/2015 15574-APBAKHH NAIL, 6 OR MORE 11/09/2016 32509-WECOADR NAIL, 6 OR MORE 02/08/2017 87431-GZZJKUQ NAIL, 6 OR MORE 06/25/2017 32326-WFGVKYI NAIL, 6 OR MORE 01/10/2018 53385-XZSWJAL NAIL, 6 OR MORE 03/25/2018 69790-SIBSGIT NAIL, 6 OR MORE 05/05/2024 92811-Bgne Destruction, 1-14 10/04/2020 81599-Kmdq Destruction, 1-14 12/27/2020 74377-Dsku Destruction, 1-14 06/27/2021 75950-Gfhx Destruction, 1-14 01/10/2018 08249-Ofra Destruction, 1-14 04/17/2019 82461-Iqap Destruction, 1-14 06/25/2017 27360-Qnak Destruction, 1-14 12/23/2015 70799-Vgnp Destruction, 1-14 05/08/2016 90574-Xvvf Destruction, 1-14 09/30/2015 31122-Igvu Destruction, 1-14 07/05/2015 97264-Pbkb Destruction, 1-14 04/26/2015 27233-Ijuq Destruction, 1-14 02/01/2015 33191-Wmshmrtf Plate 02/01/2011 25810- Debride <25 sq cm 07/22/2014 93876 I&D ABSCESS- SIMPLE,SINGLE 015 12235-HXFS SKIN LESIONS, 2 TO 4 02/02/20 15 49349-UIGS SKIN LESIONS, 2 TO 4 04/26/19 16 93601-FHQP SKIN LESIONS, 2 TO 4 07/05/19 16 74929-GQBY SKIN LESIONS, 2 TO 4 05/08/19 17 48450-PUOB SKIN LESIONS, 2 TO 4 08/08/19 17 56155-CPIK SKIN LESIONS, 2 TO 4 11/10/19 17 17056-TELH SKIN LESIONS, 2 TO 4 03/25/20 18 78953-OGEE SKIN LESIONS, 2 TO 4 04/17/19 20 46544-RVLF SKIN LESIONS, 2 TO 4 09/15/19 20 52555-PMMT SKIN LESIONS, 2 TO 4 12/25/19 20 89128-ZUFE SKIN LESIONS, 2 TO 4 03/25/20 20 52608-GJYM SKIN LESIONS, 2 TO 4 06/25/19 21 25617-BDRI SKIN LESIONS, 2 TO 4 10/05/19 21 85062-IJZE SKIN LESIONS, 2 TO 4 02/09/20 17 80422-NFWE SKIN LESIONS, 2 TO 4 06/26/19 18 14490-UDRO SKIN LESIONS, 2 TO 4 01/11/20 18 82690-YAUA SKIN LESIONS, 2 TO 4 12/28/19 21 17875-GSJB SKIN LESIONS, 2 TO 4 04/04/20 21 24754-TCDG SKIN LESIONS, 2 TO 4 06/28/19 22 60487-MYAR SKIN LESIONS, 2 TO 4 05/05/19 25 27320-XDZT SKIN LESIONS, 2 TO 4 06/21/19 33516-SGKY SKIN LESIONS, 2 TO 4 12/17/19 Next Appt Details Provider Name:Lisa peñaloza, 08/18/2024 11:30:00 AM, [address], [place], [address], Insurance Providers Payer Name Payer Address Payer Phone Subscriber Number Group Number Insured Name Patient Relationship to Insured Coverage Start Date Coverage End Date Medicare National Govt [employer] [address] [place] [address] [id number] Brian Maloney Self - patient is the insured 1 [employer] [address] [place] [address] [id number] Brian Maloney Self - patient is the insured Medical (General) History Medical History History ICD Code joint implants/screws Arthritis Chicken pox stroke Surgical History Surgery Date(Month/Year) neck surgery right hip replacement 04/15/2013 triple bypass stent insertion right leg 07/09/16 Plastic surgery face & neck, basal cell 09/2022 Back surgery 12/2023 Hospitalization History Reason Date[place] [facility] [place] [facility] [place] 03/2022 Angioplasty 05/09/17 [facility] artery cleaned and 2 stents inserted 07/09/16 [facility] triple bypass during procedure had a stroke 10/25/14
--- OUTSIDE RECORDS SUMMARY | 2024-06-08 12:51 | XMS_ITS ---
Author Organization [facility] david [place] Address [address] [place] [address] Care Team Providers Care Outpatient Case Manager Name Role Phone Alecia SINGH, Gilma Kinsey Primary Care Provider Un available Lisa Villatoro Unavailable [phone] Shanika AGUILERA-BC, Amish Unavailable Prosper Pineda Unavailable [phone] Allergies No Known Allergies REASON FOR VISIT [...] 11/12/2023 Encounters Encounter Location Date Provider Diagnosis [facility] [address] [address] 11/12/2023 Prosper Mata Tinea unguium B35.1 ; Other viral warts B07.8 ; Pain in left foot M79.672 ; Pain in right foot M79.671 ; Pain in right toe(s) M79.674 ; Pain in left toe(s) M79.675 ; Unspecified atherosclerosis of [place] arteries of extremities, bilateral legs I70.203 and [...] (ICD-10 - M79.675) 11/12/2023 Unspecified atherosclerosis of [place] arteries of extremities, bilateral legs (ICD-10 - I70.203) 11/12/2023 Ingrown nail (ICD-10 - L60.0) Plan Of Treatment Next Appt Details Follow Up: 2 Months, 3 Month s, Reason: Provider Name:Lisa peñaloza, 08/18/2024 11:30:00 AM, [address] [place] [address], [place] [address], [place], [address], Procedure Notes * Category Sub-Category Detail Notes Wart Treatment Procedure Verrucae(s) were debrided to pin-point bleeding with sterile surgical blade, silver nitrate chemocautery applied, CIRCULATION: Any more invasive procedure to wart deferred due to circulation risk , Verrucae(s) were debrided to pin-point bleeding margins with sterile surgical blade (16196), silver nitrate chemocautery applied Debride Nail 6-10 Nail debridement Nail debridem ent performed extensively to reduce/remove overall nail length and girth, subungual debris, and necrotic tissue, by manual and electrical means with use of a nail nipper and/or dremel, to more viable healthy nail plate or bed tissue 6-10. Silver nitrate used for any petechial bleeding as necessary. Patient chooses, no pharmaceutical tx (34973) Keratoma Treatment Parring or Cutting o f Benign Hyperkeratotic Lesion(s) 23980 (2-4 Lesions) - The Benign hyperkeratotic lesions, as described above were pared, and/or cut utilizing a sterile #15 blade, tissue nippers, and/or dremel, Q8 Progress Notes * Brian MONDRAGON LDOB: [birth year] (78 yo M)Acc No.[id number]:11/12/2023 Progress Note Patient:?Amara Brian Yunior Provider:?Prosper Mata DPM :1945???Age:78 Y???Sex:Male Gilberto e:11/12/2023 Address:[address] [place], [place] [id number] Pcp:Chauncey Draper Subjective: * Chief Complaints: * [...] triple bypass during procedure had a stroke [place] [place] and 2 stents inserted 07/09/16ngioplasty [...] in left toe(s) - M79.675?7.?Unspecified atherosclerosis of [place] arteries of extremities, bilateral legs - I70.203?8.?Ingrown [...] as necessary. Patient chooses, no pharmaceutical tx (67596).?Keratoma Treatment:?Parring or Cutting of Benign Hyperkeratotic Lesion(s)?34106 (2-4 Lesions) - The Benign hyperkeratotic lesions, as described above were pared, and/or cut utilizing a sterile #15 blade, tissue nippers, and/or dremel, Q8.?Wart Treatment:?Procedure?Verrucae(s) were debrided to pin-point bleeding with sterile surgical blade, silver nitrate chemocautery applied, CIRCULATION: Any more invasive procedure to wart deferred due to circulation risk , Verrucae(s) were debrided to pin- point bleeding margins with sterile surgical blade (60402), silver nitrate chemocautery applied.? * Procedure Codes:?70435 DEBRI DE NAIL, 6 OR MORE, Modifiers: XS 56820 TRIM SKIN LESIONS, 2 TO 4, Modifiers: Q8 17144 Wart Destruction, 1-14, Modifiers: XS * Follow Up:?2 Months, 3 Month s * Images: * Sign off status: Completed true * Provider:?Prosper Mata DPM Date:? 024 Generated for Tamela carbajal/Enio/eTransmitting on:?06/08/2024 12:50 PM EST History and Physical Notes * [...]
--- OUTSIDE RECORDS SUMMARY | 2024-06-08 12:51 | XMS_ITS ---
Author Organization [facility] david [place] Address [address] [facility] [address] Care Team Providers Care Evaluation Analyst Name Role Phone Alecia SINGH, Gilma Kinsey Primary Care Provider Un available Shauna Lisa Unavailable [phone] Shanika AGUILERA-Amish ARREOLA Unavailable Unavailabl e Allergies [...] W/U Status Risk Notes Problem Atherosclerosis of [place] artery of both lower extremities, with unspecified presence of clinical manifestation (I70.203) Active confirmed Q7(A), Q8(2B), Q9(1B,2C) Vital Signs Height 5 ft 5 in in 05/05/2024 Weight 135 lbs 05/05/2024 BMI 22.46 kg/m2 05/05/2024 Blood pressure systolic 130 mm Hg 05/05/19 Blood pressure diastolic 78 mm Hg 025 Procedures Procedure Date Ordered Date Performed Result Body Sit e 22454-NCZXHCT NAIL, 6 OR MORE 05/05/2024 N/A 99855-ZVGG SKIN LESIONS, 2 TO 4 05/05/2024 N/A Encounters Encounter Location Date Provider Diagnosis [facility] [address] [address] [facility] [address] [place] [address] 05/05/2024 Lisa Villatoro Atherosclerosis of [place] artery of both lower extremities, with unspecified presence of clinical manifestation I70.203 ; Tinea unguium B35.1 ; Pain in right toe(s) M79.674 and Pain in left toe(s) M79.675 Assessments Encounter Date Diagnosis (ICD Code) Assessment Notes Treatment Notes Treatment Clinical Notes Section Notes 05/05/2024 Atherosclerosis of [place] artery of both lower extremities, with unspecified presence of clinical manifestation (ICD-10 - I70.203) Q7(A), Q8(2B), Q9(1B,2C) 05/05/2024 Tinea unguium (ICD-10 - B35.1) 05/05/2024 Pain in right toe(s) (ICD-10 - M79.674) 05/05/2024 Pain in left toe(s) (ICD-10 - M79.675) Plan Of Treatment Pending Test Test Name Order Date 36323-VHTHSID NAIL, 6 OR MORE 05/05/2024 49643-VXVX SKIN LESIONS, 2 TO 4 05/05/19 25 Next Appt Details Follow Up: 3 Months, Reason: Provider Name:Lisa peñaloza, 08/18/2024 11:30:00 AM, [address], [address], [place], [address], Procedure Notes * Category Sub-Category Detail Notes [...] use of a nail nipper and/or dremel-type tool grinder operator, to a more viable healthy nail plate [...] to maintain effectiveness in symptomatic relief - 55091 Keratoma Treatment Parring or Cutting o f [...] instrumentation by the physician of record - 72740, Q8 Progress Notes * MONDRAGONBrian ANAND LDOB: [birth year] (78 yo M)Acc No.[id number]:05/05/2024 Progress Note Patient:?Brian MONDRAGON Provider:?Lisa Villatoro DPM :1945???Age:78 Y???Sex:Male Gilberto e:05/05/2024 Address:[address] [place], [place] [id number] Pcp:Chauncey Draper Subjective: * Chief Complaints: * [...] artery cleaned and 2 stents inserted 07/09/16ngioplasty 05/09/17[facility]- covid-19, rehab 03/2022[place]- Back surgery 01/2024 * Family History:?Mother: dece [...] T8, T9.? Assessment: * Assessment: 1.?Atherosclerosis of [place] artery of both lower extremities, with unspecified presence of clinical manifestation - I70.203 (Primary)???Notes :Q7(A), Q8(2B), Q9(1B,2C)???2.?Tinea unguium - B35.1???3.?Pain in right toe(s) - M79.674???4.?Pain in left toe(s) - M79.675??? Plan: * Treatment: 2.?Tinea unguium?Procedure: 94492-LSETRXX NAIL, 6 OR MORE * Procedures:?Debride Nail [...] use of a nail nipper and/or dremel-type tool grinder operator, to a more viable healthy nail plate [...] to maintain effectiveness in symptomatic relief - 50841.?Keratoma Treatment:?Parring or Cutting of Benign Hyperkeratotic Lesion(s)?(-56) [...] instrumentation by the physician of record - 70695, Q8.? * Procedure Codes:?02332 DEBRI DE NAIL, 6 OR MORE, Modifiers: XS 59375 TRIM SKIN LESIONS, 2 TO 4, Modifiers: XS , Q8 * Follow Up:?3 Months * Images: * Sign off status: Completed true * Provider:Gwen Villatoro DPM Date:?0 05/05/2024 Generated for Tamela carbajal/Ryang/eTransmitting on:?06/08/2024 12:51 PM EST History and Physical Notes * [...]
--- OUTSIDE RECORDS SUMMARY | 2024-06-08 12:51 | XMS_ITS ---
Author Organization [facility] david [place] Address [address] [facility] [place] [place] [address] Care Team Providers Care Machine Operator Replanter Name Role Phone Alecia SINGH, Gilma Kinsey Primary Care Provider Un available Lisa Villatoro Unavailable [phone] Shanika AGUILERA-BC, Amish Unavailable Prosper Pineda Unavailable [phone] Allergies No Known Allergies REASON FOR VISIT [...] 01/28/2024 Encounters Encounter Location Date Provider Diagnosis [facility] [place] [address] [place] [address] 01/28/2024 Prosper Mata Tinea unguium B35.1 ; Pain in left foot M79.672 ; Pain in right foot M79.671 ; Pain in right toe(s) M79.674 ; Pain in left toe(s) M79.675 ; Unspecified atherosclerosis of [place] arteries of extremities, bilateral legs I70.203 and [...] (ICD-10 - M79.675) 01/28/2024 Unspecified atherosclerosis of [place] arteries of extremities, bilateral legs (ICD-10 - I70.203) 01/28/2024 Ingrown nail (ICD-10 - L60.0) Plan Of Treatment Next Appt Details Follow Up: 3 Months, Reason: Provider Name:Lisamarisa peñaloza, 08/18/2024 11:30:00 AM, [facility] [address], [place], [address], Procedure Notes * Category Sub-Category Detail Notes [...] as necessary. Patient chooses, no pharmaceutical tx (59808) Keratoma Treatment Parring or Cutting o f Benign Hyperkeratotic Lesion(s) 11201 (2-4 Lesions) - The Benign hyperkeratotic lesions, as described above were pared, and/or cut utilizing a sterile #15 blade, tissue nippers, and/or yvette, Q8 Progress Notes * Brian MONDRAGON LDOB: [birth year] (78 yo M)Acc No.[id number]:01/28/2024 Progress Note Patient:Brian Stanley Provider:?Prosper Mata DPM :1945???Age:78 Y???Sex:Male Gilberto e:01/28/2024 Address:[address] [place], [place] [phone] Pcp:Chauncey Draper Subjective: * Chief Complaints: * [...] triple bypass during procedure had a stroke 10/25/14[facility] [place] cleaned and 2 stents inserted 07/09/16ngioplasty 05/09/17[facility] [place] [facility] cov[place], rehab 03/2022 [facility] [place] Back surgery 01/2024 [...] in left toe(s) - M79.675?6.?Unspecified atherosclerosis of [place] arteries of extremities, bilateral legs - I70.203?7.?Ingrown [...] as necessary. Patient chooses, no pharmaceutical tx (88356).?Keratoma Treatment:?Parring or Cutting of Benign Hyperkeratotic Lesion(s)?48165 (2-4 Lesions) - The Benign hyperkeratotic lesions, as described above were pared, and/or cut utilizing a sterile #15 blade, tissue nippers, and/or dremel, Q8.? * Procedure Codes:?29370 DEBRI DE NAIL, 6 OR MORE, Modifiers: XS 95454 TRIM SKIN LESIONS, 2 TO 4, Modifiers: Q8 * Follow Up:?3 Months * Images: * Sign off status: Completed true * Provider:Adalgisa Mata DPM Date:? 024 Generated for Tamela carbajal/Enio/Christen on:?06/08/2024 12:50 PM EST History and Physical [...]
== END 2024-06-08 11:14 | disposition home or self-care (01) ==
PROVIDERS: PCP Nurse Practitioner Family; Visit Provider Internal Medicine
DX: I25.10 Atherosclerotic heart disease of native coronary artery without angina pectoris (principal); I10 Essential (primary) hypertension; I49.8 Other specified cardiac arrhythmias; I35.9 Nonrheumatic aortic valve disorder, unspecified; I73.9 Peripheral vascular disease, unspecified; I63.9 Cerebral infarction, unspecified; E78.5 Hyperlipidemia, unspecified
CPT/HCPCS: 99214; G2211

== ENCOUNTER → 2024-06-08 10:51 | Outpatient (BNVA) | payer MEDICARE, SELFPAY | PROVIDERS: PCP Nurse Practitioner Family; Visit Provider Internal Medicine | DX: I25.10 Atherosclerotic heart disease of native coronary artery without angina pectoris (principal); I10 Essential (primary) hypertension; I49.8 Other specified cardiac arrhythmias; I35.9 Nonrheumatic aortic valve disorder, unspecified; I73.9 Peripheral vascular disease, unspecified; E78.5 Hyperlipidemia, unspecified; Z86.73 Personal history of transient ischemic attack (TIA), and cerebral infarction without residual deficits | CPT/HCPCS: 99212 ==

== ENCOUNTER 2024-07-14 10:39 | Outpatient (AMB) | payer MEDICARE, SELFPAY ==
[2024-07-14 10:41] VITALS: BP 120/70; PULSE 73; O2SAT 98; BMI 20.1
--- NOTE | 2024-07-14 10:41 | A.OFFPC_ITS ---
Vital Signs 07/14/24 10:41 Height 5 ft 8 in Weight 132 lb BMI 20.1 BP 120/70 Blood Pressure Location Rt brachial Position Sitting Pulse 73 Pulse Source Pulse Oximeter Pulse Oximetry (%) 98 Intake Visit Reasons: Med. Review Political Geographer Required: No Accompanied by: Self / Same As Patient Allergies No Known Allergies Allergy (Verified 07/14/24 11:18) Medication List - [facility] 81 mg PO BEDTIME metoprolol succinate ER 25 mg PO BEDTIME rosuvastatin 40 mg PO BEDTIME sertraline 100 mg PO BEDTIME 90 days Tobacco use date assessed: 07/14/24 Fall risk assessment: 2 + Falls in past year Last assessed Fall Risk: 07/14/24 Dental Screening Dental Screen Date: 07/14/24 Did you have a dental visit in the last 12 months?: Yes Did you have a dental problem in the last 6 months where you did not have access to dental care?: No Was dental information given to patient?: Patient has dentist HPI Med. Review HPI Details Chief Complaint Patient reports experiencing dysphagia and difficulty swallowing solids and liquids. History of Present Illness The patient is a 78-year-old male presenting with dysphagia and difficulty swallowing both food and liquids, which has been progressively worsening over several months. He denies any other contributing symptoms such as shortness of breath or edema. The patient maintains a regimen involving aspirin at 81 mg daily, which has been placed on hold by a previous provider but did not report any exacerbation in relation to his current symptoms. Additionally, the patient continues to smoke and has declined any offered low-dose CT scans or pulmonary evaluations, and/or meds. Pt does see cardiology. HTN: stable Social History - Tobacco use: The patient continues to smoke. - Mobility: Patient uses a cane for ambu lation. Health Maintenance - Note: Patient declined low-dose CAT sc ans. - Medications: Currently taking aspirin 81 mg daily as prescribed previously. Review of Systems - Respiratory: Denies shortness of breat h. - Cardiovascular: Denies edema, CP, [place], blurred vision Physical Exam General: Cooperative, healthy appearing, comfortable, no acute distress and well developed, using a cane Orientation: Patient oriented x3 Limitations: Uses a cane Head: Normal to inspection Ears: Hearing grossly normal bilaterally Nose: Normal external nose present Face and sinus: Normal facial exam Eyes: Appearance normal, both eyes and all related structures Neck: Normal visual inspection and Yes full ROM Respiratory: Normal respiratory effort and able to speak in complete sentences. Clear to auscultation bilaterally Cardiovascular: Regular rate and rhythm. Normal S1 and S2 GI: Reports dysphagia type symptoms and choking on food and sometimes liquids Skin: No rashes or lesions noted Neuro: Patient oriented x3 Extremities: Normal to inspection Results Plan To address the dysphagia, I have scheduled a barium swallow test to evaluate the underlying causes of the patient's symptoms during swallowing. I explained the importance of this diagnostic test to the patient, especially since his swallowing difficulties with solids and liquids have persisted over months. Although the patient continues to smoke, he has refused low-dose CT scans for lung health evaluation, despite its risks and the potential impact of smoking on this symptom. Aspirin usage will be reviewed, considering it was held by a previous provider, though never resumed in our system. I will reassess and monit or the patient's ongoing care needs and adjust the plan based on the outcomes and his preferences for future interventions. Discussion Notes I discussed the plan for a barium swallow test with the patient, emphasizing its role in identifying potential causes for his swallowing difficulties. The patient was advised about the non-invasive nature of the test and its utility in clarifying any esophageal issues that could be contributing to dysphagia. I also talked to him about the importance of smoking cessation and the risks associated with continued tobacco use, although he declined further pulmonary evaluations at this time. Patient Instructions - Schedule and complete the barium swall ow test as advised. - avoid tobacco use and consider cessati on programs. - Monitor for any worsening of symptoms and seek medical attention if necessary. - cont ASA. PFSH Medical History Back pain On beta channing at home Skin cancer Lumbar spinal stenosis Osteoarthritis of hands, bilateral Acute anxiety Dyslipidemia CVA (cerebral vascular accident) Depression Left pontine CVA Osteoarthritis of right hip Rectal bleeding Tremor Toenail deformity Anemia PVD (peripheral vascular disease) Cervical radiculopathy Atherosclerosis Hematuria Vertigo Coronary artery disease Carotid stenosis Cerebrovascular disease Surgical History History of lumbar fusion S/P cardiac catheterization H/O colonoscopy History of intravascular stent placement Hx of plastic surgery Hx of CABG History of revision of total hip arthroplasty Status post shoulder surgery Family History Father Abdominal aneurysm Social History Household Members: Spouse Housing: House Are you a primary home care liaison to a significant other at home: No Do you presently have visiting nurse or other home services: No Alcohol intake: former Patient Tobacco Use Status: Current someday Tobacco user Tobacco use type: Cigarette Cigarettes Per Day: 5 Years Smoked: 60 years e-Cigarette/Vaping Use: Never Used Second Hand Smoke Exposure: No Advance Directives Date on File: 03/30/22 service: Yes Current occupational status: retired Cognitive needs: No Hearing needs: No Vision needs: No Questionnaire PHQ-9 Over the last 2 weeks, how often have you been bothered by any of the following problems? 1. Little interest or pleasure in doing things: not at all 2. Feeling down, depressed, or hopeless: not at all 3. Trouble falling or staying asleep, or sleeping too much: not at all 4. Feeling tired or having little energy: not at all 5. Poor appetite or overeating: not at all 6. Feeling bad about yourself - or that you are a failure or have let yourself or your family down: not at all 7. Trouble concentrating on things, such as reading the newspaper or watching television: not at all 8. Moving or speaking so slowly that other people could have noticed. Or the opposite - being so fidgety or restless that you have been moving around a lot more than usual: not at all 9. Thoughts that you would be better off or of hurting yourself in some way: not at all Total score: 0 Depression Screening Interpretation: Negative Depression Screening Done: Yes 89897 - PHQ-9 Billing: Yes Source: Developed by Drs. Jose Maria Vargas, Eileen Queevdo, Paulo Martínez and colleagues, with an educational kalyn from [employer]. Thrive Questionnaire Date Thrive assessed: 07/14/24 I am a: Patient What is your living situation today?: I have a steady place to live Within the past 12 months, did the food you bought not last and you didn't have the money to get more?: Never true Within the past 12 months, did you worry whether your food would run out before you got money to buy more?: Never true Do you have trouble paying for medicines?: No Do you have trouble getting transportation to medical appointments?: No Do you have trouble paying your heating and electricity bill?: No Do you have trouble taking care of your child, family member or friend?: No Do you have trouble with day-to-day activities such as bathing, preparing meals, shopping, managing finances, etc.?: No Are you currently unemployed and looking for a job?: No Are you interested in more education?: No Please select the resources that you would like help with: None THRIVE Score: 0 AUDIT C Alcohol Use Questionnaire (AUDIT-C) 1. How often do you have a drink containing alcohol?: Never 3. How often do you have six or more drinks on one occasion?: Never Total Score: 0 Score Reviewed/Action Taken: Yes DORIAN-7 AMB Questionnaire DORIAN-7 Date DORIAN - 7 assessed: 07/14/24 Feeling nervous, anxious, or on edge: 0 = Not at all Not being able to stop or control worryin = Not at all Worrying too much about different things: 0 = Not at all Trouble relaxin = Not at all Being so restless that it is hard to sit still: 0 = Not at all Becoming easily annoyed or irritable: 0 = Not at all Feeling afraid as if something awful might happen: 0 = Not at all Total DORIAN-7 score (0-4 normal; 5-9 mild; 10-14 moderate; 15-21 severe): 0 Source: Developed by Drs. Jose Maria Vargas, Eileen Quevedo, Paulo Martínez and colleagues, with an educational kalyn from [employer]. DORIAN-7 Assessment Billing DORIAN-7 Assessment Tool: DORIAN-7 Assessment 40266 Physical exam (Primary Care) Vital Signs: Last Vital Signs Pulse 73 07/14/24 10:41 BP 120/70 07/14/24 10:41 Pulse Ox 98 07/14/24 10:41 BMI result Body Mass Index 20.1 Tobacco/Smoking Status: Tobacco use Status Tobacco use date assessed 07/14/24 07/14/24 10:44 Patient Tobacco Use Status Current someday Tobacco 07/14/24 10:44 Tobacco use type Cigarette 07/14/24 10:44 e-Cigarette/Vaping Use Never Used 07/14/24 10:44 PHQ-9: PHQ-9 Score PHQ-9: Total score 0 07/14/24 10:44 Depression Screening Interpretation: Negative Thrive Assessment: Date of Thrive Assessment Date Thrive assessed 07/14/24 07/14/24 10:44 Coding Level of Care Code Est Pt Level 3 (43859) Diagnoses Dysphagia R13.10 HTN (hypertension) I10 Screening PSA (prostate specific antigen) Z12.5 Additional Codes DORIAN-7 Assessment Billing - DORIAN-7 Assessment Tool: DORIAN-7 Assessment 05819 ([id number]) PHQ-9 - 20077 - PHQ-9 Billing: Yes ([id number]) Assessment & Plan Assessment & Plan (1) Dysphagia: Code(s): R13.10 - Dysphagia, unspecified Category: Medical (2) HTN (hypertension): Code(s): I10 - Essential (primary) hypertension Category: Medical (3) Screening PSA (prostate specific antigen): Code(s): Z12.5 - Encounter for screening for malignant neoplasm of prostate Category: Medical Plan . Orders: Orders TSH reflex Free T4 Today I10 - Essential (primary) hypertension UA CC w/rflx Micro + Cult Today I10 - Essential (primary) hypertension Lipid Panel Today I10 - Essential (primary) hypertension FL Modified Barium Swallow Today R13.10 - Dysphagia, unspecified Complete Blood Count Auto Diff Today I10 - Essential (primary) hypertension Comprehensive [place]. Panel Fast Today I10 - Essential (primary) hypertension Prostate Specific Antigen Scr Today Z12.5 - Encounter for screening for malignant neoplasm of prostate
--- OUTSIDE RECORDS SUMMARY | 2024-07-14 12:47 | XMS_ITS | Patient Health Record ---
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, bilateral legs (I70.203) Active confirmed Problem 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, with unspecified presence of clinical manifestation (I70.203) Active confirmed Q7(A), Q8(2B), Q9(1B,2 C) Vital Signs Blood pressure diastolic 78 mm Hg 05/05/2024 Height 5 ft 5 in in 05/05/2024 Blood pressure systolic 130 mm Hg 05/05/2024 Weight 135 lbs 05/05/2024 BMI 22.46 kg/m2 05/05/2024 Procedures Procedure Date Ordered Date Performed Result Body Sit e 59863-QGNRWBO NAIL, 6 OR MORE 05/05/2024 N/A 20889-NSUF SKIN LESIONS, 2 TO 4 05/05/2024 N/A Encounters Encounter Location Date Provider Diagnosis [address] [address] 08/20/2023 Prosper Mata Tinea unguium B35.1 ; Other viral warts B07.8 ; Pain in left foot M79.672 ; Pain in right foot M79.671 ; Pain in right toe(s) M79.674 ; Pain in left toe(s) M79.675 ; Unspecified atherosclerosis of pauma arteries of extremities, bilateral legs I70.203 and Ingrown nail L60.[address] [address] 11/12/2023 Prosper Mata Tinea unguium B35.1 ; Other viral warts B07.8 ; Pain in left foot M79.672 ; Pain in right foot M79.671 ; Pain in right toe(s) M79.674 ; Pain in left toe(s) M79.675 ; Unspecified atherosclerosis of pauma arteries of extremities, bilateral legs I70.203 and Ingrown nail L60.[address] [address] 01/28/2024 Prosper Mata Tinea unguium B35.1 ; Pain in left foot M79.672 ; Pain in right foot M79.671 ; Pain in right toe(s) M79.674 ; Pain in left toe(s) M79.675 ; Unspecified atherosclerosis of pauma arteries of extremities, bilateral legs I70.203 and Ingrown nail L60.0 [facility] [place] [address] [address] 05/05/2024 Lisa Villatoro 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, with unspecified [...] unguium (ICD-10 - B35.1) 05/05/2024 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, with unspecified [...] (ICD-10 - M79.675) 08/20/2023 Unspecified atherosclerosis of pauma arteries of extremities, bilateral legs (ICD-10 - I70.203) 11/12/2023 Unspecified atherosclerosis of pauma arteries of extremities, bilateral legs (ICD-10 - I70.203) 01/28/2024 Unspecified atherosclerosis of pauma arteries of extremities, bilateral legs (ICD-10 - I70.203) 01/28/2024 Ingrown nail (ICD-10 - L60.0) 11/12/2023 Ingrown nail (ICD-10 - L60.0) 08/20/2023 Ingrown nail (ICD-10 - L60.0) Plan Of Treatment Pending Test Test Name Order Date 57992-ZECUWCR NAIL, 6 OR MORE 02/01/2011 43181-EGRRMVB NAIL, 6 OR MORE 02/01/2015 28241-QTMFMFY NAIL, 6 OR MORE 04/26/2015 19840-FCQWXCJ NAIL, 6 OR MORE 07/05/2015 00857-ZYWDUNN NAIL, 6 OR MORE 09/30/2015 08979-KMXLAVK NAIL, 6 OR MORE 05/08/2016 80191-FBFGQNH NAIL, 6 OR MORE 12/23/2015 67563-KXMRXMD NAIL, 6 OR MORE 11/09/2016 24687-RAQSLMP NAIL, 6 OR MORE 02/08/2017 83928-RNISKQA NAIL, 6 OR MORE 06/25/2017 33723-MZIIQZJ NAIL, 6 OR MORE 01/10/2018 10578-COXLQOZ NAIL, 6 OR MORE 03/25/2018 17092-YXGVGYF NAIL, 6 OR MORE 05/05/2024 80204-Mwxk Destruction, 1-14 10/04/2020 66020-Rzms Destruction, 1-14 12/27/2020 27628-Qgyh Destruction, 1-14 06/27/2021 47753-Amwf Destruction, 1-14 01/10/2018 77554-Hlzm Destruction, 1-14 04/17/2019 11715-Kube Destruction, 1-14 06/25/2017 10814-Wnzr Destruction, 1-14 12/23/2015 88738-Utfp Destruction, 1-14 05/08/2016 77115-Zjpk Destruction, 1-14 09/30/2015 30157-Yakp Destruction, 1-14 07/05/2015 64087-Qnnu Destruction, 1-14 04/26/2015 97131-Yvbs Destruction, 1-14 02/01/2015 13812-Kldhnxho Plate 02/01/2011 38300- Debride <25 sq cm 07/22/2014 98443 I&D ABSCESS- SIMPLE,SINGLE 015 61819-ONCB SKIN LESIONS, 2 TO 4 02/02/20 15 31975-HQZC SKIN LESIONS, 2 TO 4 04/26/19 16 60777-TAVN SKIN LESIONS, 2 TO 4 07/05/19 16 00939-CEOY SKIN LESIONS, 2 TO 4 05/08/19 17 79882-XKSK SKIN LESIONS, 2 TO 4 08/08/19 17 51657-RLBF SKIN LESIONS, 2 TO 4 11/10/19 17 47537-PQDF SKIN LESIONS, 2 TO 4 03/25/20 18 42366-KISG SKIN LESIONS, 2 TO 4 04/17/19 20 51210-OOPK SKIN LESIONS, 2 TO 4 09/15/19 20 72530-XKUX SKIN LESIONS, 2 TO 4 12/25/19 20 16242-DFRG SKIN LESIONS, 2 TO 4 03/25/20 20 05889-JPTU SKIN LESIONS, 2 TO 4 06/25/19 21 61700-DBOQ SKIN LESIONS, 2 TO 4 10/05/19 21 71968-IFGH SKIN LESIONS, 2 TO 4 02/09/20 17 33949-RUJW SKIN LESIONS, 2 TO 4 06/26/19 18 56430-CNFT SKIN LESIONS, 2 TO 4 01/11/20 18 12767-OWIK SKIN LESIONS, 2 TO 4 12/28/19 21 20265-GIVO SKIN LESIONS, 2 TO 4 04/04/20 21 39212-OHOC SKIN LESIONS, 2 TO 4 06/28/19 22 03806-ZZSJ SKIN LESIONS, 2 TO 4 05/05/19 25 93654-AABY SKIN LESIONS, 2 TO 4 06/21/19 04617-EAUN SKIN LESIONS, 2 TO 4 12/17/19 Next Appt Details Provider Name:Lisa peñaloza, 08/18/2024 11:30:00 AM, [address], [place], [address], Insurance Providers Payer Name Payer Address Payer Phone Subscriber Number Group Number Insured Name Patient Relationship to Insured Coverage Start Date Coverage End Date Medicare National Govt [employer] [address] [place] [address] [id number] Brian Maloney Self - patient is the insured 1 [employer] Blue [employer] [address] [place] [address] [id number] Brian Maloney Self - patient is the insured Medical (General) History Medical History History ICD Code joint implants/screws Arthritis Chicken pox stroke Surgical History Surgery Date(Month/Year) neck surgery right hip replacement 04/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
--- OUTSIDE RECORDS SUMMARY | 2024-07-14 12:47 | XMS_ITS ---
Author Organization [facility] david [place] Address [address] [facility] [place] [address] Care Team Providers Care Police District Switchboard Operator Name Role Phone Alecia SINGH, Gilma Kinsey Primary Care Provider Un available Shauna Lisa Unavailable [phone] Shanika AGUILERA-Amish ARREOLA Unavailable Unavailabl e Allergies [...] W/U Status Risk Notes Problem Atherosclerosis of [place] artery of both lower extremities, with unspecified presence of clinical manifestation (I70.203) Active confirmed Q7(A), Q8(2B), Q9(1B,2C) Vital Signs Blood pressure systolic 130 mm Hg 05/05/19 Blood pressure diastolic 78 mm Hg 025 Height 5 ft 5 in in 05/05/2024 Weight 135 lbs 05/05/2024 BMI 22.46 kg/m2 05/05/2024 Procedures Procedure Date Ordered Date Performed Result Body Sit e 62072-TMFEKTH NAIL, 6 OR MORE 05/05/2024 N/A 12389-NOGV SKIN LESIONS, 2 TO 4 05/05/2024 N/A Encounters Encounter Location Date Provider Diagnosis [facility] [place] [address] [facility] [address] [place] [address] 05/05/2024 Lisa Villatoro Atherosclerosis of [place] artery of both lower extremities, with unspecified presence of clinical manifestation I70.203 ; Tinea unguium B35.1 ; Pain in right toe(s) M79.674 and Pain in left toe(s) M79.675 Assessments Encounter Date Diagnosis (ICD Code) Assessment Notes Treatment Notes Treatment Clinical Notes Section Notes 05/05/2024 Atherosclerosis of [place] artery of both lower extremities, with unspecified presence of clinical manifestation (ICD-10 - I70.203) Q7(A), Q8(2B), Q9(1B,2C) 05/05/2024 Tinea unguium (ICD-10 - B35.1) 05/05/2024 Pain in right toe(s) (ICD-10 - M79.674) 05/05/2024 Pain in left toe(s) (ICD-10 - M79.675) Plan Of Treatment Pending Test Test Name Order Date 26111-GJLUKLI NAIL, 6 OR MORE 05/05/2024 33354-XXHB SKIN LESIONS, 2 TO 4 05/05/19 25 Next Appt Details Follow Up: 3 Months, Reason: Provider Name:Lisa peñaloza, 08/18/2024 11:30:00 AM, [address] [facility], [address], [place], [address], Procedure Notes * Category Sub-Category Detail Notes [...] use of a nail nipper and/or dremel-type head grinder, to a more viable healthy nail plate [...] to maintain effectiveness in symptomatic relief - 10168 Keratoma Treatment Parring or Cutting o f [...] instrumentation by the physician of record - 90607, Q8 Progress Notes * MONDRAGONBrian ANAND LDOB: [birth year] (78 yo M)Acc No.[id number]:05/05/2024 Progress Note Patient:?Brian MONDRAGON Provider:?Lisa Villatoro DPM :1945???Age:78 Y???Sex:Male Gilberto e:05/05/2024 Address:[address] [place], [place] [address] Pcp:Chauncey Draper Subjective: * Chief Complaints: * [...] artery cleaned and 2 stents inserted 07/09/16ngioplasty 05/09[place] [place] 03[place]20[facility] [place] 01/2024 * Family History:?Mother: dece [...] T8, T9.? Assessment: * Assessment: 1.?Atherosclerosis of [place] artery of both lower extremities, with unspecified presence of clinical manifestation - I70.203 (Primary)???Notes :Q7(A), Q8(2B), Q9(1B,2C)???2.?Tinea unguium - B35.1???3.?Pain in right toe(s) - M79.674???4.?Pain in left toe(s) - M79.675??? Plan: * Treatment: 2.?Tinea unguium?Procedure: 51379-VKHRVRI NAIL, 6 OR MORE * Procedures:?Debride Nail [...] use of a nail nipper and/or dremel-type head grinder, to a more viable healthy nail plate [...] to maintain effectiveness in symptomatic relief - 55929.?Keratoma Treatment:?Parring or Cutting of Benign Hyperkeratotic Lesion(s)?(-56) [...] instrumentation by the physician of record - 51144, Q8.? * Procedure Codes:?24864 DEBRI DE NAIL, 6 OR MORE, Modifiers: XS 84090 TRIM SKIN LESIONS, 2 TO 4, Modifiers: XS , Q8 * Follow Up:?3 Months * Images: * Sign off status: Completed true * Provider:Gwen Villatoro DPM Date:?0 05/05/2024 Generated for Tamela ng/Fajusting/eTransmitting on:?07/14/2024 12:47 PM EDT History and Physical Notes * HPI (History [...]
--- OUTSIDE RECORDS SUMMARY | 2024-07-14 12:47 | XMS_ITS ---
Author Organization [facility] david [place] Address [address] [facility] [address] Care Team Providers Care Tipple Greaser Name Role Phone Alecia SINGH, Gilma Kinsey Primary Care Provider Un available Lisa Villatoro Unavailable [phone] Shanika AGUILERA-BC, Amish Unavailable Prosper Pineda Unavailable [phone] Allergies No Known Allergies REASON FOR VISIT [...] 11/12/2023 Encounters Encounter Location Date Provider Diagnosis [facility] [address] [address] 11/12/2023 Prosper Mata Tinea unguium B35.1 ; Other viral warts B07.8 ; Pain in left foot M79.672 ; Pain in right foot M79.671 ; Pain in right toe(s) M79.674 ; Pain in left toe(s) M79.675 ; Unspecified atherosclerosis of [place] arteries of extremities, bilateral legs I70.203 and [...] (ICD-10 - M79.675) 11/12/2023 Unspecified atherosclerosis of [place] arteries of extremities, bilateral legs (ICD-10 - I70.203) 11/12/2023 Ingrown nail (ICD-10 - L60.0) Plan Of Treatment Next Appt Details Follow Up: 2 Months, 3 Month s, Reason: Provider Name:Lisa peñaloza, 08/18/2024 11:30:00 AM, [address] [place] [address], [place] [address], [place], [address], Procedure Notes * Category Sub-Category Detail Notes Wart Treatment Procedure Verrucae(s) were debrided to pin-point bleeding with sterile surgical blade, silver nitrate chemocautery applied, CIRCULATION: Any more invasive procedure to wart deferred due to circulation risk , Verrucae(s) were debrided to pin-point bleeding margins with sterile surgical blade (72549), silver nitrate chemocautery applied Debride Nail 6-10 Nail debridement Nail debridem ent performed extensively to reduce/remove overall nail length and girth, subungual debris, and necrotic tissue, by manual and electrical means with use of a nail nipper and/or dremel, to more viable healthy nail plate or bed tissue 6-10. Silver nitrate used for any petechial bleeding as necessary. Patient chooses, no pharmaceutical tx (99249) Keratoma Treatment Parring or Cutting o f Benign Hyperkeratotic Lesion(s) 20194 (2-4 Lesions) - The Benign hyperkeratotic lesions, as described above were pared, and/or cut utilizing a sterile #15 blade, tissue nippers, and/or dremel, Q8 Progress Notes * Brian MONDRAGON LDOB: [birth year] (78 yo M)Acc No.[id number]:11/12/2023 Progress Note Patient:?Amara Brian Yunior Provider:?Prosper Mata DPM :1945???Age:78 Y???Sex:Male Gilberto e:11/12/2023 Address:[address] [place], [place] [address] Pcp:Chauncey Draper Subjective: * Chief Complaints: * [...] bypass during procedure had a stroke 10/25/14[facility] [place] and 2 stents inserted 07/09/16ngioplasty 05/09/17[facility] [place] [place], rehab 03/2022 * Family History:?Mother: dece [...] in left toe(s) - M79.675?7.?Unspecified atherosclerosis of [place] arteries of extremities, bilateral legs - I70.203?8.?Ingrown [...] as necessary. Patient chooses, no pharmaceutical tx (78717).?Keratoma Treatment:?Parring or Cutting of Benign Hyperkeratotic Lesion(s)?70613 (2-4 Lesions) - The Benign hyperkeratotic lesions, as described above were pared, and/or cut utilizing a sterile #15 blade, tissue nippers, and/or dremel, Q8.?Wart Treatment:?Procedure?Verrucae(s) were debrided to pin-point bleeding with sterile surgical blade, silver nitrate chemocautery applied, CIRCULATION: Any more invasive procedure to wart deferred due to circulation risk , Verrucae(s) were debrided to pin- point bleeding margins with sterile surgical blade (82771), silver nitrate chemocautery applied.? * Procedure Codes:?43005 DEBRI DE NAIL, 6 OR MORE, Modifiers: XS 65643 TRIM SKIN LESIONS, 2 TO 4, Modifiers: Q8 56052 Wart Destruction, 1-14, Modifiers: XS * Follow Up:?2 Months, 3 Month s * Images: * Sign off status: Completed true * Provider:?Prosper Mata DPM Date:? 024 Generated for Tamela carbajal/Enio/eTransmitting on:?07/14/2024 12:46 PM EDT History and Physical Notes * [...]
--- OUTSIDE RECORDS SUMMARY | 2024-07-14 12:47 | XMS_ITS ---
Author Organization [facility] david [place] Address [address] [facility] [place] [address] Care Team Providers Care Felling Bucking Supervisor Name Role Phone Alecia SINGH, Gilma Kinsey Primary Care Provider Un available Lisa Villatoro Unavailable [phone] Shanika AGUILERA-BC, Amish Unavailable Prosper Pineda Unavailable [phone] Allergies No Known Allergies REASON FOR VISIT [...] 01/28/2024 Encounters Encounter Location Date Provider Diagnosis [facility] [place] [address] [place] [address] 01/28/2024 Prosper Mata Tinea unguium B35.1 ; Pain in left foot M79.672 ; Pain in right foot M79.671 ; Pain in right toe(s) M79.674 ; Pain in left toe(s) M79.675 ; Unspecified atherosclerosis of [place] arteries of extremities, bilateral legs I70.203 and [...] (ICD-10 - M79.675) 01/28/2024 Unspecified atherosclerosis of [place] arteries of extremities, bilateral legs (ICD-10 - I70.203) 01/28/2024 Ingrown nail (ICD-10 - L60.0) Plan Of Treatment Next Appt Details Follow Up: 3 Months, Reason: Provider Name:Lisamarisa peñaloza, 08/18/2024 11:30:00 AM, [facility] [place] [address], [place], [address], Procedure Notes * Category Sub-Category Detail Notes [...] as necessary. Patient chooses, no pharmaceutical tx (94616) Keratoma Treatment Parring or Cutting o f Benign Hyperkeratotic Lesion(s) 08336 (2-4 Lesions) - The Benign hyperkeratotic lesions, as described above were pared, and/or cut utilizing a sterile #15 blade, tissue nippers, and/or yvette, Q8 Progress Notes * Brian MONDRAGON LDOB: [birth year] (78 yo M)Acc No.[id number]:01/28/2024 Progress Note Patient:Brian Stanley Provider:?Prosper Mata DPM :1945???Age:78 Y???Sex:Male Gilberto e:01/28/2024 Address:[address] [place], [place] [address] Pcp:Chauncey Draper Subjective: * Chief Complaints: * [...] triple bypass during procedure had a stroke 10[place]25/14[facility] [place] and 2 stents inserted 07/09/16ngioplasty 05/09/17[facility] [place] [place], rehab 03/2022 [facility] Back surgery 01/2024 * Family History:?Mother: dece [...] in left toe(s) - M79.675?6.?Unspecified atherosclerosis of [place] arteries of extremities, bilateral legs - I70.203?7.?Ingrown [...] as necessary. Patient chooses, no pharmaceutical tx (27564).?Keratoma Treatment:?Parring or Cutting of Benign Hyperkeratotic Lesion(s)?77283 (2-4 Lesions) - The Benign hyperkeratotic lesions, as described above were pared, and/or cut utilizing a sterile #15 blade, tissue nippers, and/or dremel, Q8.? * Procedure Codes:?11996 DEBRI DE NAIL, 6 OR MORE, Modifiers: XS 43565 TRIM SKIN LESIONS, 2 TO 4, Modifiers: Q8 * Follow Up:?3 Months * Images: * Sign off status: Completed true * Provider:Adalgisa Mata DPM Date:? 024 Generated for Tamela carbajal/Enio/Christen on:?07/14/2024 12:46 PM EDT History and Physical [...]
== END 2024-07-14 11:13 | disposition home or self-care (01) ==
LOC: HO.HMCC 10:39
PROVIDERS: PCP Nurse Practitioner Family; Visit Provider Nurse Practitioner Family
DX: R13.10 Dysphagia, unspecified (principal); I10 Essential (primary) hypertension; Z12.5 Encounter for screening for malignant neoplasm of prostate

== ENCOUNTER → 2024-07-14 10:39 | Outpatient (BNVA) | payer MEDICARE, SELFPAY | PROVIDERS: PCP Nurse Practitioner Family; Visit Provider Nurse Practitioner Family | DX: R13.10 Dysphagia, unspecified (principal); I10 Essential (primary) hypertension | CPT/HCPCS: 96127; 99212 ==

== ENCOUNTER 2024-09-09 10:21 | Outpatient (REF) | payer MEDICARE, SELFPAY ==
--- NOTE | ~2024-09-09 | FL_ITS ---
EXAMINATION: XR BARIUM SWALLOW CLINICAL INFORMATION: Dysphagia. Previous cervical spinal fusion. COMPARISON: None available. TECHNIQUE: Modified barium swallow was performed under lateral fluoroscopy with various consistencies of food coated barium and presence of speech therapist. FINDINGS: On lateral fluoroscopy images there is ventral plate and screws extending from C4, C5 and C6 vertebra for ventral fusion. There is a disc prosthesis at the C6-C7 disc level. Following oral administration of thick barium, barium coated solid food, nectar consistency there is slight holdup of solid food along the anterior aspect of C3 and C4 vertebra from a large bridging osteophyte. No obstruction seen in while swallowing thin barium on nectar consistency barium. Is persistent indentation of the posterior cervical esophageal wall from a large osteophyte at the C3-4 disc level. Patient feels dysphagia more so with solid food. There is a trace laryngeal penetration seen on some of the images with thin barium. FLUOROSCOPY TIME: 2 minutes and 14 seconds. DOSE AREA PRODUCT: 171.3 uGy-m2 (microgray-meter squared) FL/FL Modified Barium Swallow IMPRESSION: Ventral plate and screws from C4 through C6 vertebra for ventral fusion. There is a disc prosthesis at C6/7 disc level. There is moderate bridging osteophyte at the C3-4 disc level creating a transitional narrowing and obstruction to passage of solid food but less likely within food Trace laryngeal penetration with thin barium Correlate with speech therapist report. Electronically signed by: Andrew Sands MD 09/09/2024 01:38 PM EDT
--- NOTE | 2024-09-09 15:02 | MHC.SL.IMP ---
Date of Plan of Treatment: 09/09/24 Onset of Symptoms/Illness: 07/10/24 Date Treatment Started: 09/09/24 Admitting Diagnosis: Hx CVA Primary Speech & Language Diagnosis: R13.12 Oropharyngeal Phase Dysphagia Reason for Today's Visit: 66051 Modified Barium Swallow Study Pre-evaluation Dietary Consistencies: Regular Pre-evaluation Liquid Consistency: Thin Pre-evaluation Medication Administration: Whole with Liquid Medical History: Modified Barium Swallow Study Fluoroscopic Evaluation of Swallowing Function CPT Code 43346 Evaluation Year: 2024 Reason for Study: Difficulty swallowing Referring Physician: Amish YOUNG Evaluating Clinician: Annie Holley MA, CCC-X RAY CONSULTANT Study Number: 1 Patient Name: Brian Maloney Status: Outpatient, Wheelchair Age: 78 Sex: Male Medical History Medical History Back pain On beta channing at home Skin cancer Lumbar spinal stenosis Osteoarthritis of hands, bilateral Acute anxiety Dyslipidemia CVA (cerebral vascular accident) Depression Left pontine CVA Osteoarthritis of right hip Rectal bleeding Tremor Toenail deformity Anemia PVD (peripheral vascular disease) Cervical radiculopathy Atherosclerosis Hematuria Vertigo Coronary artery disease Carotid stenosis Cerebrovascular disease Surgical History History of lumbar fusion S/P cardiac catheterization H/O colonoscopy History of intravascular stent placement Hx of plastic surgery Hx of CABG History of revision of total hip arthroplasty Status post shoulder surgery Current (pre-evaluation) Intake/Diet: Route: PO Diet Grade: Regular Liquid Consistencies: Thin Pre-Study Functional Oral Intake Scale (FOIS): 7- Total oral intake with no restrictions Pain: None reported at time of study SUBJECTIVE: Patient is a 78 year old male referred for a modified barium swallow study by his primary care provider, Amish JUNIOR. Patient reports having difficulty swallowing both solids and liquids which has been progressing over the past several months. Patient reports feeling food stick in his throat, especially on the left side. He says he also coughs after eating or drinking. Patient denies having any throat pain right now, but says he does experience pain when swallowing sometimes. Patient?s past medical history is significant for skin cancer, acute anxiety, dyslipidemia, left pontine CVA, tremor, anemia, PVD, cervical radiculopathy, and vertigo. Patient is reportedly a current smoker, and uses a cane for ambulation. Oral Motor Exam Facial Symmetry: Symmetrical Mouth Occlusion: Normal Oral-Facial Teeth Characteristics: Intact/Normal Dentures Oral-Facial Teeth Miscellaneous Observation: Top dentures in good condition Oral-Facial Lip Pucker Description: Normal Oral-Facial Smile (Lips) Description: Normal Oral-Facial Puff Cheeks Description: Normal Tongue Size: Normal Tongue Excursion Description: Normal Tongue Range of Movement Description: Normal Tongue Speed of Movement Description: Normal Tongue Strength of Movement (against opposing pressure): Normal Tongue Movement Characteristics: Normal/Absent Is patient able to manage secretions?: Yes Is patient able to produce volitional cough?: Yes Food and Liquid Trials: Oral Impairment: Lip Closure: 0=No labial escape Oral Impairment: Tongue Control During Bolus Hold: 1=Escape to lateral buccal cavity/floor of mouth (FOM) Oral Impairment: Bolus Preparation/Mastication: 1=Slow prolonged chewing/mashing with complete re-collection Oral Impairment: Bolus Transport/Lingual Motion: 1= Delayed initiation of tongue motion Oral Impairment: Oral Residue: 1=Trace residue lining oral structures Oral Impairment:Initiation of Pharyngeal Swallow: 2=Bolus head at posterior laryngeal surface of epiglottis Pharyngeal Impairment: Soft Palate Elevation: 0=No bolus between soft palate (SP)/pharyngeal wall (PW) Pharyngeal Impairment: Laryngeal Elevation: 1=Partial thyroid cartilage/arytenoids to epiglottic petiole movement Pharyngeal Impairment: Anterior Hyoid Excursion: 1=Partial anterior movement Pharyngeal Impairment: Epiglottic Movement: 2=No inversion Pharyngeal Impairment: Laryngeal Vestibular Closure:: 1=Incomplete: narrow column air/contrast in laryngeal vestibule Pharyngeal Impairment: Pharyngeal Stripping Wave: 1=Present: diminished Pharyngeal Impairment: Pharyngeal Contraction: 2=Unilateral bulging Pharyngeal Impairment: Pharyngoesophageal Segment Openin=Partial distention/partial duration: partial obstruction of flow Pharyngeal Impairment: Tongue Base (TB) Retraction: 1=Trace column of contrast/air between TB and posterior PW Pharyngeal Impairment: Pharyngeal Residue: 2=Collection of residue within or on pharyngeal structures Pharyngeal Impairment: Esophageal Clearance Upright Position: Did not test Impressions and Recommendations OBJECTIVE: Time-out: performed at 10:55 Evaluation Start: 10:30; Stop: 10:40 Patient Positioning: Seated 70-90 degrees Viewing Planes: LAT & AP Contrast: MBSImP? Standardized Protocol using commercially prepared, standardized Barium viscosities, including: Varibar? THIN LIQUID (40% w/v, <15 cps) , Varibar? PUDDING (40% w/v, <2558-0453 cps) , 1/2 Shortbread Cookie (1 x1 x.25 ) MBSImP ID: [id number] MBSImP Results: Lip closure for intraoral bolus containment resulted in no labial escape. Tongue control during bolus hold allowed bolus escape to the lateral buccal cavity/floor of mouth. Bolus preparation and mastication resulted in slow, prolonged chewing/mashing but with complete re-collection. Bolus transport/lingual motion demonstrated delayed initiation of tongue motion. Oral residue was a trace, lining oral structures. Initiation of the pharyngeal swallow occurred as the bolus head was at the posterior laryngeal surface of the epiglottis. Soft palate elevation resulted in no bolus between the soft palate and the pharyngeal wall. Laryngeal elevation was decreased, with partial superior movement of the thyroid cartilage/partial approximation of the arytenoids to the epiglottic petiole. Anterior hyoid excursion demonstrated partial anterior movement. Epiglottic movement resulted in no inversion. Laryngeal vestibular closure was incomplete, with a narrow column of air/contrast noted within the laryngeal vestibule at the height of the swallow. Pharyngeal stripping wave was present, but diminished. Pharyngeal contraction resulted in unilateral bulging. Pharyngoesophageal segment opening demonstrated partial distension/partial duration, with partial obstruction of bolus flow. Tongue base retraction allowed a trace column of contrast or air between the retracted tongue base and the posterior pharyngeal wall. Pharyngeal residue was a collection of residue within or on pharyngeal structures. Esophageal clearance in the upright position could not be assessed due to logistical reasons not related to physiologic impairment. Oral Impairment Score: 5 Pharyngeal Impairment Score: 11 Esophageal Impairment Score: --- (absence of score, component 17) Laryngeal Penetration and Aspiration: Neither penetration nor aspiration was observed in today's study with Cookie, Pudding-thick. Penetration was observed in today's study. Thin Contrast entered the airway, remained above the vocal folds, and was ejected from the airway. Structural Abnormalities Noted: Cervical Osteophytes impeded bolus flow Cervical Hardware impeded bolus flow ASSESSMENT: This exam was performed by the speech pathologist and the radiologist. Patient was seated upright at 90 degrees in a wheelchair for lateral and AP views. Patient was able to feed himself without difficulty and trialed the following consistencies: Thin liquid (via individual cup sips) Pureed solid (mixture applesauce with barium pudding) Regular solid (Dolores Doone shortbread cookie coated with barium pudding) Patient demonstrated adequate lip closure with no anterior loss of bolus. Relatively good tongue control. There was trace liquid escaping to the floor of mouth, but no premature posterior spillage. Mastication was slowed, characterized by piece meal deglutition pattern, with patient swallowing twice in order to clear solid bolus. Posterior lingual motion was delayed, but with brisk tongue movement. Trace residue coated the tongue and floor of mouth. Pharyngeal swallow trigger was delayed, initiated as the bolus head reached the posterior laryngeal surface of the epiglottis. No evidence of nasopharyngeal reflux. Partial laryngeal elevation with absent epiglottic inversion and incomplete laryngeal vestibular closure. There was intermittent penetration on trials of thin liquid. A trace amount of contrast entered the laryngeal vestibule above the vocal folds, and spontaneously ejected. No evidence of aspiration during this exam. Unilateral bulging seen to the right side with pharyngeal contraction, as seen in AP view. Trace pooling in the valleculae and residual on the posterior pharyngeal wall with thin and pureed consistencies. There was moderate vallecular retention on trials of solids. Patient was able to reduce residue with dry swallow in chin tuck position and head turn to the left. Radiologist noted several structural abnormalities, including osteophytes at C3-C4, cervical hardware C4-C6 with disc prosthesis at C6-C7. The following compensatory strategies have not been used until today's study, but when employed, improved swallowing function: Chin Tuck decreased Pharyngeal Residue Head Turn Left decreased Pharyngeal Residue Additional Swallow(s) per Bolus decreased Pharyngeal Residue Liquid Intake Recommendation: Thin Liquid Intake Strategies: Small Sips, No Straws, Double Swallow Dietary Recommendations: Regular Medication Administration: Whole with Puree Please contact the pharmacy regarding appropriate crushable or liquid drug formulations that are available whenever modified delivery is recommended. Compensatory Strategies Recommended: Sitting Upright (90 deg), Turn Head Left, Chin Tuck, Double Swallow, No Straw, Small Bites and Sips, Alternate Liquids/Solids, Rate of Ingestion Change, Avoid Specific Foods Recommended Treatments: Compens. Strategy Educat. Recommendation for Speech Therapy: Outpatient Speech Therapy Text Comment: Intake Recommendations: Route: PO Diet Grade: Regular Liquid Consistencies: Thin Post-Study Functional Oral Intake Scale (FOIS): 6- Total oral intake with no special preparation, but must avoid specific foods or liquid items Patient presents with mild to moderate oropharyngeal dysphagia in the setting of previous cervical spinal fusion and history of stroke. Mildly slowed oral phase, characterized by piece meal deglutition and delayed AP transport. Flash penetration seen intermittently with liquids, with incomplete laryngeal vestibular closure and absent epiglottic inversion. Contrast spontaneously cleared from the laryngeal vestibule with no subsequent aspiration seen during this exam. There is also moderate collection of residue in the valleculae and the posterior pharyngeal wall, especially with solids, with noted indentation of the posterior pharyngeal wall from the large osteophyte at C3-C4 disc level, which created a narrowing that obstructed passage of the bolus. Patient was able to reduce residuals with secondary swallows using chin tuck and head turn positioning. Recommend 1-2 follow up visits with a speech pathologist to review MBSS findings and recommended feeding strategies. While no aspiration was evident during this exam in a controlled environment, there was trace penetration noted above the vocal folds putting patient is at risk for subsequent aspiration, especially if precautions are not taken. Recommend resume regular texture diet and thin liquids with aspiration precautions: take small sips, one sip at a time, avoid ?chugging? liquids, avoid the use of straws, take small bites of food, chew food well, clear oral cavity before taking more bites, dry swallow after each bite for clearance. Therapy Recommendations: Therapy will be initiated Frequency per Week: 1 Number of Weeks: 2 Patient is recommended to continue on THIN liquids and REGULAR texture diet, while avoiding foods which are overly hard, dry, or sticky, as well as mixed consistencies (i.e. soups with solid ingredients, eating cereal with milk, etc). The following strategies are recommended as aspiration precautions and to promote clearance of pharyngeal residue: -take one small sip at a time -avoid chain sipping -avoid the use of straws -take one bite at a time -moisten food with thick sauces/gravies -chew food well -dry swallow after each bite -hold chin tuck or head turn (to the left) position on dry swallows -maintain upright 90 degree position during and for at least 30 minutes after eating/drinking The following compensatory strategies and/or therapeutic exercises will be part of the upcoming therapy/management plan: Chin Tuck Head Turn Left Additional Swallow(s) per Bolus Chcf Goals: ? The patient and/or family will participate in further education for swallowing goals. Short Term Goals: ? Guidelines - The patient will comply with/recall the following guidelines/strategies 100% of the time with no cuing: Bolus Volume Change, Rate of Ingestion Change, Chin Tuck, Head Turn Left, Additional Swallow(s) per Bolus, No Straws. ? Education - The patient, family will verbalize/demonstrate understanding of the results of this evaluation, the above recommendations, and the swallowing guidelines. Frequency/Duration: 1-2 follow-up visits Date Range for Service Requested: Timeline to reassess: PRN Clinician - Supplemental, Miscellaneous Communication: It is important to note MBSS objective studies are snapshots in time and Patient function might vary with factors such as time of day or concomitant medical conditions. For this reason, the final treatment plan for this patient should rest with their medical care team. Additional recommendations should be considered with the totality of the Patient in mind. Thank for the opportunity to participate in the care of this patient. If you have any questions about the content of this report, please contact the [facility]. Education: Education regarding findings from today's study and plans for therapy were provided to Patient and family/caregiver through Verbal Instruction. Understanding was expressed by the Patient and family/caregiver. Pig Conveyor Operator Clinician/Clinical Fellow: No Supervisory Statement: N/A Speech Language Pathologist: Annie Holley M.A., [facility]-X RAY CONSULTANT
== END 2024-09-09 10:22 | disposition home or self-care (01) ==
LOC: HO.XRAY 10:21
PROVIDERS: Visit Provider Nurse Practitioner Family
DX: I69.991 Dysphagia following unspecified cerebrovascular disease (principal); R13.12 Dysphagia, oropharyngeal phase; I10 Essential (primary) hypertension
CPT/HCPCS: 74230; 92611

== ENCOUNTER → 2024-09-09 10:30 | Outpatient (BNV) | payer MEDICARE, SELFPAY | PROVIDERS: Visit Provider Radiology Diagnostic Radiology | DX: R13.10 Dysphagia, unspecified (principal) | CPT/HCPCS: 74230 ==

== ENCOUNTER 2024-09-10 08:57 | Outpatient (RCR) | payer MEDICARE, SELFPAY ==
--- NOTE | 2024-09-10 10:36 | MHC.SL.DTX ---
Liquid Consistency and Strategies: Liquid Intake Recommendation: Thin Compensatory Strategies for Safe Swallow: Small Sips No Straws Double Swallow Compensatory Strategies for Safe Swallow(b): Sitting Upright (90 deg) Turn Head Left Chin Tuck Double Swallow No Straw Small Bites and Sips Rate of Ingestion Change Avoid Specific Foods Solid Food Consistency: Dietary Recommendations: Regular Additional Modifications to Solids: Patient is recommended to continue on THIN liquids and REGULAR texture diet, while avoiding foods which are overly hard, dry, or sticky, as well as mixed consistencies (i.e. soups with solid ingredients, eating cereal with milk, etc). The following strategies are recommended as aspiration precautions and to promote clearance of pharyngeal residue: -take one small sip at a time -avoid chain sipping -avoid the use of straws -take one bite at a time -moisten food with thick sauces/gravies -chew food well -dry swallow after each bite -hold chin tuck or head turn (to the left) position on dry swallows -maintain upright 90 degree position during and for at least 30 minutes after eating/drinking The following compensatory strategies and/or therapeutic exercises will be part of the upcoming therapy/management plan: Chin Tuck Head Turn Left Additional Swallow(s) per Bolus Oral Medication Intake: Whole with Puree Foods to Avoid: [place] dry, hard, or sticky foods; mixed consistencies Additional Comments: Patient is a 78 year old male referred for a modified barium swallow study by his primary care provider, Amish Voss NP-. Patient reports having difficulty swallowing both solids and liquids which has been progressing over the past several months. Patient reports feeling food stick in his throat, especially on the left side. He says he also coughs after eating or drinking. Patient denies having any throat pain right now, but says he does experience pain when swallowing sometimes. Patient?s past medical history is significant for skin cancer, acute anxiety, dyslipidemia, left pontine CVA, tremor, anemia, PVD, cervical radiculopathy, and vertigo. Patient is reportedly a current smoker, and uses a cane for ambulation. Patient's MBSS 09/09/24 revealed mild to moderate oropharyngeal dysphagia in the setting of previous cervical spinal fusion and history of stroke. Mildly slowed oral phase, characterized by piece meal deglutition and delayed AP transport. Flash penetration seen intermittently with liquids, with incomplete laryngeal vestibular closure and absent epiglottic inversion. Contrast spontaneously cleared from the laryngeal vestibule with no subsequent aspiration seen during this exam. There is also moderate collection of residue in the valleculae and the posterior pharyngeal wall, especially with solids, with noted indentation of the posterior pharyngeal wall from the large osteophyte at C3-C4 disc level, which created a narrowing that obstructed passage of the bolus. Patient was able to reduce residuals with secondary swallows using chin tuck and head turn positioning. Treatment: Patient arrived on time for his appointment today, accompanied by his . He is here for follow-up to discuss findings from yesterday's MBSS. Patient notes history of 3 strokes, with resultant upper extremity weakness on the L-side, and heart bypass surgery, for which he was intubated. Patient says he had the surgery for his cervical spinal fusion well over 10 years ago, and has been experiencing trouble swallowing for quite some time, but believed he may have had the same issue his sister and mother shared. He says they also had trouble swallowing and had history of balloon dilations. He expressed he believed this was the culprit of his difficulties, and therefore procrastinated getting medical treatment. There were multiple anatomical and structural factors which likely impact patient's swallow physiology, including the presence of cervical osteophytes and cervical hardware, which appeared to narrow the pharyngeal space and impacted bolus flow, contributing to vallecular retention. Patient's complaints pertain mainly to his ability to swallow solids, as he feels food stick in his throat. Findings from patient's MBSS were discussed at length during today's visit, using video demonstrations of swallow physiology, anatomical figures, and review of patient's fluoro images. MEDICAL SECRETARY RECEPTIONIST provided instructions for recommended postural changes, reiterating that left side head turn and chin tuck maneuvers are to be implemented on dry swallows only in order to clear pharyngeal residue. Patient was provided with written instructions with visuals to take home. He also took home a handout outlining recommended feeding strategies/aspiration precautions as well as a copy of his MBSS report. Patient is recommended to take small individual sips, avoid the use of straws, avoid chugging liquids, chew food well, dry swallow after each bite/sip, and remain upright during feeding and for at least 30-45 minutes afterwards. Patient mentioned being considered for some sort of neck surgery, but did not otherwise specify what this surgery was for. He was concerned about its impact on his swallow and he is strongly encouraged to further discuss this with his primary care doctor and his surgeon. A copy of patient's MBSS report was faxed to patient's PCP provider, Amish Voss, on 09/09. This note will be faxed as well. Patient denied having any further questions at this time. He is recommended to continue monitoring his dysphagia and to contact his PCP should he experience any changes or worsening of symptoms, at which point a repeat-assessment may be warranted. Supervisor Sawmill Clinican/Clinical Fellow: No Supervisory Statement: I have reviewed and agree with the student/clinical fellow's documentation: N/A Speech Language Pathologist: Annie Holley M.A., CCC-MEDICAL SECRETARY RECEPTIONIST
== END 2025-04-06 14:35 | disposition home or self-care (01) ==
LOC: HO.SH 08:57
PROVIDERS: Visit Provider Nurse Practitioner Family
DX: R13.10 Dysphagia, unspecified (principal)
CPT/HCPCS: 92526

== ENCOUNTER 2024-09-16 15:07 | Outpatient (REF) | payer MEDICARE, SELFPAY ==
--- NOTE | ~2024-09-16 | XR_ITS ---
EXAMINATION: XR CERVICAL SPINE 4-5 VIEWS HISTORY: R13.10 - Dysphagia, unspecified COMPARISON: Comparison is made with the prior examination dated 08/12/2023. FINDINGS: AP, and neutral, flexion, and extension lateral views of the cervical spine are submitted. The patient is again noted to be status post anterior fusion of C4-C6 with a prosthesis noted at C6-7. Alignment is anatomic. The vertebral bodies maintain normal height. There is moderate degenerative disc disease at C3-4 with anterior osteophyte formation. There is no abnormal motion with flexion or extension. There is no prevertebral soft tissue swelling. Calcifications in the neck bilaterally are likely related to the internal carotid arteries. XR/XR cervical spine 4V IMPRESSION: Status post anterior fusion of C4-6 with a prosthesis at C6-7. There is no abnormal motion with flexion or extension. Electronically signed by: Jose Maria Hunt MD 09/17/2024 07:39 AM EDT
== END 2024-09-16 15:08 | disposition home or self-care (01) ==
LOC: HO.HOSX 15:07
PROVIDERS: Visit Provider Physician Assistant
DX: R13.10 Dysphagia, unspecified (principal)
CPT/HCPCS: 72050; 99212

== ENCOUNTER → 2024-09-16 15:38 | Outpatient (BNV) | payer MEDICARE, SELFPAY | PROVIDERS: Visit Provider Radiology Diagnostic Radiology | DX: R13.10 Dysphagia, unspecified (principal) | CPT/HCPCS: 72050 ==

== ENCOUNTER 2024-10-20 09:59 | Outpatient (REF) | payer MEDICARE, SELFPAY ==
--- NOTE | ~2024-10-20 | CT_ITS ---
CLINICAL HISTORY: R13.10 - Dysphagia, unspecified --- Additional Notes or Special Instructions: severe dysphagia secondary to large osteophyte that is grown into esophagus CT cervical spine without contrast Comparison: None provided Findings: No acute fracture or dislocation. Posterior alignment is normal. Moderate degenerative change. C4-C7 fusion hardware is intact. Impression: No acute processes This document has been electronically signed by: Isaac Pascual MD on 10/20/2024 21:40:37
--- NOTE | ~2024-10-20 | CT_ITS ---
EXAMINATION: CT LUMBAR SPINE WITHOUT CONTRAST CLINICAL INFORMATION: Status post arthrodesis. COMPARISON: Correlated to x-ray dated March 12, 2024. TECHNIQUE: Continues axial images through the lumbar spine using 3 mm collimation with bone and soft tissue algorithm. Sagittal and coronal reformatted images in bone algorithm. DLP: 942.[address] examination was performed using dose optimization techniques as appropriate, variously including the following: *Automated exposure control *Adjustment of mA and/or kV according to patient size (this includes techniques or standardized protocols for targeted exams where dose is matched to indication/reason for exam; i.e. extremities or head) *Use of iterative reconstruction technique FINDINGS: Last rib-bearing vertebra labeled T12. Transpedicle screws at L4 and L5, bilaterally. No gross loosening. Status post intervertebral disc spacer placement at L4-5 resulting in subchondral cyst formation and endplate sclerosis. There is decreased intervertebral disc height at L4-5. There is anterior and posterior marginal osteophyte formation at L4-5. Multilevel marginal osteophyte formation from T11-12 to L3-4. Grade 1 retrolisthesis L4-5, L2-3 and L5-S1 levels. Calcification in the anterior posterior longitudinal ligament lower thoracic spine. No acute cortical disruption. Syndesmophyte formation and sclerosis at the sacroiliac joints. Osteopenia versus osteoporosis. Posterior marginal osteophyte formation and facet joint hypertrophy at T12-L1 resulting in central spinal canal stenosis. Central spinal canal stenosis at L2-3 and L3-4 levels on a degenerative basis no fully evaluated. Decreased AP diameter of the central spinal canal at L5-S1. Vascular calcifications in the abdominal aorta iliac arteries mesenteric arteries and main renal arteries as well as the subsegmental branches of the renal arteries. Calcified plaques in the splenic artery. Mixed plaques throughout the abdominal aorta wall and iliac arteries. There is stent in the right external iliac artery. Numerous diverticula in the left hemicolon. CT/CT lumbar spine wo IV con IMPRESSION: Status post posterior fusion and arthrodesis at L4-5. Central spinal canal and bilateral neuroforamina stenosis at L4-5 cannot be excluded. Multilevel thoracolumbar spondylosis resulting in central spinal canal stenosis at L3-4 and to a lesser extent L2-3 and L5-S1 levels. Atherosclerosis disease. Status post stenting right external iliac artery. Diverticular disease, left hemicolon. Electronically signed by: River George MD 10/20/2024 11:14 AM EDT RP
--- OUTSIDE RECORDS SUMMARY | 2024-10-20 10:51 | XMS_ITS | Patient Health Record ---
Author Organization [facility] david ContrerasRohan Address [address] [facility] [place] [address] Care Team Providers Care Vocational Ed Instructor Name Role Phone Alecia SINGH, Gilma Kinsey Primary Care Provider Un available Lisa Villatoro Unavailable [phone] Shanika AGUILERA-BC, Amish Unavailable Prosper Pineda Unavailable [phone] Allergies No Known Allergies Reason For Referral No Information Medications Medication SIG (Take, Route, Frequency, Duration) Notes Start Date End Date Status Metoprolol Succinate Active Atorvastatin Calcium 80 MG 1 tablet Orally Once a day 02/01/2015 Active Cetirizine HCl Not-T aking Sertraline HCl 100 MG Orally Once a day Active Mens One Daily 02/01/2015 Not- Taking Lisinopril 5 MG 1 tablet Orally Once a day 02/01/2015 Not-Taking Keflex 500 MG 1 capsule Orally clemencia ry 12 hrs; Duration: 10 day(s) 06/20/2018 Not-Taking Aspirin 81 MG 1 tablet Orally Once [...] Problem Status W/U Status Risk Notes Problem Bilateral atherosclerosis of arteries of lower limbs (disorder) (72974145597991046 ) Unspecified atherosclerosis of [place] arteries of extremities, bilateral legs (I70.203) Active confirmed Problem Bilateral atherosclerosis of arteries of lower limbs (disorder) (79064706780777959 ) Atherosclerosis of [place] artery of both lower extremities, with unspecified presence of clinical manifestation (I70.203) Active confirmed Q7(A), Q8(2B), Q9(1B,2 C) Vital Signs Heart Rate 65 /min 09/11/2024 Blood pressure diastolic 80 mm Hg 09/11/2024 Height 5 ft 5 in in 09/11/2024 Blood pressure systolic 130 mm Hg 09/11/2024 Weight 132 lbs 09/11/2024 BMI 21.96 kg/m2 09/11/2024 Procedures Procedure Date Ordered Date Performed Result Body Sit e 82918-ETGUGZB NAIL, 6 OR MORE 05/05/2024 N/A 86474-DZDG SKIN LESIONS, 2 TO 4 05/05/2024 N/A 91751-ULAUNGY NAIL, 6 OR MORE 09/11/2024 N/A 49064-WQGO SKIN LESIONS, 2 TO 4 09/11/2024 N/A Encounters Encounter Location Date Provider Diagnosis [address] [address] 11/12/2023 Prosper Mata Tinea unguium B35.1 ; Other viral warts B07.8 ; Pain in left foot M79.672 ; Pain in right foot M79.671 ; Pain in right toe(s) M79.674 ; Pain in left toe(s) M79.675 ; Unspecified atherosclerosis of [place] arteries of extremities, bilateral legs I70.203 and Ingrown nail L60.[address] [address] 01/28/2024 Prosper Mata Tinea unguium B35.1 ; Pain in left foot M79.672 ; Pain in right foot M79.671 ; Pain in right toe(s) M79.674 ; Pain in left toe(s) M79.675 ; Unspecified atherosclerosis of [place] arteries of extremities, bilateral legs I70.203 and Ingrown nail L60.[address] [address] 05/05/2024 Lisa Villatoro Atherosclerosis of [place] artery of both lower extremities, with unspecified presence of clinical manifestation I70.203 ; Tinea unguium B35.1 ; Pain in right toe(s) M79.674 and Pain in left toe(s) M79.675 [facility] [address] [facility] [address] [place] [address] 09/11/2024 Lisa Villatoro Atherosclerosis of [place] artery of both lower extremities, with unspecified presence of clinical manifestation I70.203 ; Tinea unguium B35.1 ; Pain in right toe(s) M79.674 and Pain in left toe(s) M79.675 [facility] [address] 07/22/2024 Lisa Villatoro Assessments Encounter Date Diagnosis (ICD Code) Assessment Notes Treatment Notes Treatment Clinical Notes Section Notes 11/12/2023 Tinea unguium (ICD-10 - B35.1) 01/28/2024 Tinea unguium (ICD-10 - B35.1) 05/05/2024 Atherosclerosis of [place] artery of both lower extremities, with unspecified presence of clinical manifestation (ICD-10 - I70.203) Q7(A), Q8(2B), Q9(1B,2C) 09/11/2024 Atherosclerosis of [place] artery of both lower extremities, with unspecified presence of clinical manifestation (ICD-10 - I70.203) Q7(A), Q8(2B), Q9(1B,2C) 09/11/2024 Tinea unguium (ICD-10 - B35.1) 05/05/2024 Tinea unguium (ICD-10 - B35.1) 11/12/2023 Other viral warts (ICD-10 - B07.8) 11/12/2023 Pain in left foot (ICD-10 - M79.672) 01/28/2024 Pain in left foot (ICD-10 - M79.672) 05/05/2024 Pain in right toe(s) (ICD-10 - M79.674) 09/11/2024 Pain in right toe(s) (ICD-10 - M79.674) 01/28/2024 Pain in right foot (ICD-10 - M79.671) 09/11/2024 Pain in left toe(s) (ICD-10 - M79.675) 05/05/2024 Pain in left toe(s) (ICD-10 - M79.675) 11/12/2023 Pain in right foot (ICD-10 - M79.671) 11/12/2023 Pain in right toe(s) (ICD-10 - M79.674) 01/28/2024 Pain in right toe(s) (ICD-10 - M79.674) 01/28/2024 Pain in left toe(s) (ICD-10 - M79.675) 11/12/2023 Pain in left toe(s) (ICD-10 - M79.675) 11/12/2023 Unspecified atherosclerosis of [place] arteries of extremities, bilateral legs (ICD-10 - I70.203) 01/28/2024 Unspecified atherosclerosis of [place] arteries of extremities, bilateral legs (ICD-10 - I70.203) 01/28/2024 Ingrown nail (ICD-10 - L60.0) 11/12/2023 Ingrown nail (ICD-10 - L60.0) Plan Of Treatment Pending Test Test Name Order Date 12815-MEKYOII NAIL, 6 OR MORE 02/01/2011 32760-KFHYGSF NAIL, 6 OR MORE 02/01/2015 81752-JOKOZFQ NAIL, 6 OR MORE 04/26/2015 66342-QZQQXFV NAIL, 6 OR MORE 07/05/2015 39103-EQLSJTS NAIL, 6 OR MORE 09/30/2015 80289-NAAQKNI NAIL, 6 OR MORE 05/08/2016 55740-DPATUBY NAIL, 6 OR MORE 12/23/2015 78337-AKCMROJ NAIL, 6 OR MORE 11/09/2016 29136-RGQIZBJ NAIL, 6 OR MORE 02/08/2017 58814-WVBEOGF NAIL, 6 OR MORE 06/25/2017 13252-FTDCNKY NAIL, 6 OR MORE 01/10/2018 16550-WTFNFGB NAIL, 6 OR MORE 03/25/2018 25725-XBLPIVS NAIL, 6 OR MORE 05/05/2024 27507-KMNKFZV NAIL, 6 OR MORE 09/11/2024 06030-Qdtj Destruction, 1-14 06/27/2021 01190-Wuzc Destruction, 1-14 10/04/2020 09551-Pibh Destruction, 1-14 12/27/2020 43173-Wbnb Destruction, 1-14 01/10/2018 69570-Blwi Destruction, 1-14 04/17/2019 31066-Stmv Destruction, 1-14 06/25/2017 49948-Lhbi Destruction, 1-14 12/23/2015 76962-Yogx Destruction, 1-14 05/08/2016 67701-Rfjn Destruction, 1-14 09/30/2015 74225-Zaur Destruction, 1-14 07/05/2015 13432-Qjbh Destruction, -14 04/26/2015 19596-Eevh Destruction, -14 02/01/2015 58937-Ipjoicjp Plate 02/01/2011 43709- Debride <25 sq cm 07/22/2014 43448 I&D ABSCESS- SIMPLE,SINGLE 015 76684-UXQH SKIN LESIONS, 2 TO 4 02/02/20 15 91525-NGRV SKIN LESIONS, 2 TO 4 04/26/19 16 84402-ZPFB SKIN LESIONS, 2 TO 4 07/05/19 16 96044-DWNW SKIN LESIONS, 2 TO 4 05/08/19 17 49934-CUII SKIN LESIONS, 2 TO 4 08/08/19 17 86719-TTIF SKIN LESIONS, 2 TO 4 11/10/19 17 39201-QICE SKIN LESIONS, 2 TO 4 03/25/20 18 99644-VORQ SKIN LESIONS, 2 TO 4 04/17/19 20 80573-YXLA SKIN LESIONS, 2 TO 4 09/15/19 20 50248-KPIJ SKIN LESIONS, 2 TO 4 12/25/19 20 89332-WWKI SKIN LESIONS, 2 TO 4 03/25/20 20 72461-NFVW SKIN LESIONS, 2 TO 4 06/25/19 21 12696-EWJV SKIN LESIONS, 2 TO 4 10/05/19 21 65872-BCJG SKIN LESIONS, 2 TO 4 02/09/20 17 29488-WKHK SKIN LESIONS, 2 TO 4 06/26/19 18 71796-EUKJ SKIN LESIONS, 2 TO 4 01/11/20 18 27886-INDL SKIN LESIONS, 2 TO 4 12/28/19 21 97720-IJOO SKIN LESIONS, 2 TO 4 04/04/20 21 37229-NVSU SKIN LESIONS, 2 TO 4 06/28/19 22 08351-ZBKV SKIN LESIONS, 2 TO 4 05/05/19 25 23897-TEBD SKIN LESIONS, 2 TO 4 06/21/19 19 68729-XYCS SKIN LESIONS, 2 TO 4 12/17/19 19 16019-OZIU SKIN LESIONS, 2 TO 4 09/12/19 25 Next Appt Details Provider Name:Lsia peñaloza, 12/18/2024 12:45:00 PM, [address] [facility], [address], [place], [address], Insurance Providers Payer Name Payer Address Payer Phone Subscriber Number Group Number Insured Name Patient Relationship to Insured Coverage Start Date Coverage End Date Medicare National Govt [employer] [address] [place] [address] [id number] Brian Maloney Self - patient is the insured 1 [employer] Blue Shield [address] [place] [address] [id number] Brian Maloney Self - patient is the insured Medical (General) History Medical History History ICD Code joint implants/screws Arthritis Chicken pox stroke Surgical History Surgery Date(Month/Year) neck surgery right hip replacement 04/15/2013 triple bypass stent insertion right leg 07/09/16 Plastic surgery face & neck, basal cell 09/2022 Back surgery 12/2023 Hospitalization History Reason Date(Month/Year) [facility] [place] surgery 01/2024 [facility] [place]- covid-19, rehab 03/2022 Angioplasty 05/09/17 [facility] artery cleaned and 2 stents inserted 07/09/16 [facility] triple bypass during procedure had a stroke 10/25/14
--- OUTSIDE RECORDS SUMMARY | 2024-10-20 10:51 | XMS_ITS | Patient Health Record ---
Author Organization [facility] Address [address] [place] [address] Care Team Providers Care Mixing Machine Attendant Name Role Phone Roby Eagle M.D. Primary Care Provider Shannon Agustin Cason Jr Unavailable Reason For Referral No Information Medications Medication SIG (Take, Route, Frequency, Duration) Notes Start Date End Date Status Lisinopril 5 MG 10 Orally QD A ctive Sertraline HCl 25 MG 1 tablet Orally Onc e a day Active Atorvastatin Calcium 80 MG 1 tablet Oral ly Once a day Active Metoprolol Succinate ER 25 MG 1 tablet Orally Once a day Active Aspir-81 81 MG 1 tablet Orally Once a day Active Multi Vitamin/Minerals 1 1 Orally QD Active Vitamin D 1000 UNIT 1 tablet Orally Once a day Active Problems Problem Type SNOMED Code ICD Code Onset Dates Problem Status W/U Status Risk Notes Problem [id number] Diarrhea (R19.7) Active confirmed Problem 729903870 Weight loss (R63.4) Active confirmed Plan Of Treatment No Information Insurance Providers Payer Name Payer Address Payer Phone Subscriber Number Group Number Insured Name Patient Relationship to Insured Coverage Start Date Coverage End Date MEDICARE OF [place] [address] [place] [address] [id number] ALANNA MANUEL Self - patient is the insured MED[employer] ATT[employer] CLAIMS [address] [place] [address] [id number] MONDRAGONMAGDALENE SANZNY Self - patient is the insured Medical (General) History Medical History History ICD Code stroke x 3 2014 hypertension coronary artery disease elevated cholesterol carotid arterial disease osteoarthritis anxiety Surgical History Surgery Date(Month/Year) tripple bypass 2015 neck surgery x2 right hip replacement 2013
== END 2024-10-20 10:00 | disposition home or self-care (01) ==
LOC: HO.CT 09:59
PROVIDERS: PCP Internal Medicine; Visit Provider Physician Assistant
DX: R13.10 Dysphagia, unspecified (principal); Z98.1 Arthrodesis status
CPT/HCPCS: 72125; 72131

== ENCOUNTER → 2024-10-20 10:01 | Outpatient (BNV) | payer MEDICARE, SELFPAY | PROVIDERS: PCP Internal Medicine; Visit Provider Radiology Diagnostic Radiology | DX: M50.30 Other cervical disc degeneration, unspecified cervical region (principal); Z98.1 Arthrodesis status | CPT/HCPCS: 72131 ==

== ENCOUNTER → 2024-11-02 14:03 | Outpatient (BNV) | payer MEDICARE, SELFPAY | PROVIDERS: PCP Internal Medicine; Visit Provider Internal Medicine Cardiovascular Disease | DX: R94.31 Abnormal electrocardiogram [ECG] [EKG] (principal); Z01.810 Encounter for preprocedural cardiovascular examination | CPT/HCPCS: 93010 ==

== ENCOUNTER 2024-11-05 09:25 | Day surgery (SDC) | payer MEDICARE, SELFPAY ==
--- OUTSIDE RECORDS SUMMARY | 2024-10-23 11:59 | XMS_ITS | Patient Health Record ---
Author Organization [facility] Address [address] [place] [address] Care Team Providers Care In Shop Service Technician Name Role Phone Roby Eagle M.D. Primary Care Provider Shannon Agustin Cason Jr Unavailable [phone] Reason For Referral No Information Medications Medication [...] Problem Status W/U Status Risk Notes Problem [id number] Diarrhea (R19.7) Active confirmed Problem [id number] Weight loss (R63.4) Active confirmed Plan Of Treatment No Information Insurance Providers Payer Name Payer Address Payer Phone Subscriber Number Group Number Insured Name Patient Relationship to Insured Coverage Start Date Coverage End Date MEDICARE OF [place] [address] [place] [address] [id number] ALANNA MANUEL Self - patient is the insured MEDEX ATTN CLAIMS [address] [place] [address] [id number] MONDRAGONMAGDALENE SANZNY Self - patient is the insured Medical (General) History Medical History History ICD Code stroke x 3 2014 hypertension coronary artery disease elevated cholesterol carotid arterial disease osteoarthritis anxiety Surgical History Surgery Date(Month/Year) tripple bypass 2015 neck surgery x2 right hip replacement 2013
--- OUTSIDE RECORDS SUMMARY | 2024-10-23 11:59 | XMS_ITS | Patient Health Record ---
Author Organization [facility] david ContrerasRohan Address [address] [facility] [address] Care Team Providers Care Heavy Equipment Service Manager Name Role Phone lAecia SINGH, Gilma Kinsey Primary Care Provider Un available Lisa Villatoro Unavailable [phone] Shanika AGUILERA-BC, Amish Unavailable Prosper Pineda Unavailable [phone] Allergies No Known Allergies Reason For Referral [...] atherosclerosis of arteries of lower limbs (disorder) (43940975503310808 ) Unspecified atherosclerosis of [place] arteries of extremities, bilateral legs (I70.203) Active confirmed Problem Bilateral atherosclerosis of arteries of lower limbs (disorder) (43278412618560629 ) Atherosclerosis of [place] artery of both lower extremities, with unspecified [...] Ordered Date Performed Result Body Sit e 38474-TUWPYBF NAIL, 6 OR MORE 05/05/2024 N/A 40287-MCPC SKIN LESIONS, 2 TO 4 05/05/2024 N/A 88053-CWFSOBO NAIL, 6 OR MORE 09/11/2024 N/A 18216-XRUQ SKIN LESIONS, 2 TO 4 09/11/2024 N/A Encounters Encounter Location Date Provider Diagnosis [address] [address] 11/12/2023 Prosper Mata Tinea unguium B35.1 ; Other viral warts B07.8 ; Pain in left foot M79.672 ; Pain in right foot M79.671 ; Pain in right toe(s) M79.674 ; Pain in left toe(s) M79.675 ; Unspecified atherosclerosis of [place] arteries of extremities, bilateral legs I70.203 and Ingrown nail L60.[address] [address] 01/28/2024 Prosper Mata Tinea unguium B35.1 ; Pain in left foot M79.672 ; Pain in right foot M79.671 ; Pain in right toe(s) M79.674 ; Pain in left toe(s) M79.675 ; Unspecified atherosclerosis of [place] arteries of extremities, bilateral legs I70.203 and Ingrown nail L60.[address] [address] 05/05/2024 Lisa Villatoro Atherosclerosis of [place] artery of both lower extremities, with unspecified presence of clinical manifestation I70.203 ; Tinea unguium B35.1 ; Pain in right toe(s) M79.674 and Pain in left toe(s) M79.675 [facility] [place] [address] [facility] [address] [place] [address] 09/11/2024 Lisa Villatoro Atherosclerosis of [place] artery of both lower extremities, with unspecified presence of clinical manifestation I70.203 ; Tinea unguium B35.1 ; Pain in right toe(s) M79.674 and Pain in left toe(s) M79.[address] [facility] [address] 07/22/2024 Lisa Villatoro Assessments Encounter Date Diagnosis (ICD Code) Assessment Notes Treatment Notes Treatment Clinical Notes Section Notes 11/12/2023 Tinea unguium (ICD-10 - B35.1) 01/28/2024 Tinea unguium (ICD-10 - B35.1) 05/05/2024 Atherosclerosis of [place] artery of both lower extremities, with unspecified presence of clinical manifestation (ICD-10 - I70.203) Q7(A), Q8(2B), Q9(1B,2C) 09/11/2024 Atherosclerosis of [place] artery of both lower extremities, with unspecified [...] (ICD-10 - M79.675) 11/12/2023 Unspecified atherosclerosis of [place] arteries of extremities, bilateral legs (ICD-10 - I70.203) 01/28/2024 Unspecified atherosclerosis of [place] arteries of extremities, bilateral legs (ICD-10 - I70.203) 01/28/2024 Ingrown nail (ICD-10 - L60.0) 11/12/2023 Ingrown nail (ICD-10 - L60.0) Plan Of Treatment Pending Test Test Name Order Date 28637-CNQQXFL NAIL, 6 OR MORE 02/01/2011 77579-ONVOUBS NAIL, 6 OR MORE 02/01/2015 62726-JOGIZDK NAIL, 6 OR MORE 04/26/2015 96166-BTQBCXT NAIL, 6 OR MORE 07/05/2015 68181-JERVYVP NAIL, 6 OR MORE 09/30/2015 46913-VSWYVLS NAIL, 6 OR MORE 05/08/2016 97895-LWCVQQB NAIL, 6 OR MORE 12/23/2015 98760-OQXXGXW NAIL, 6 OR MORE 11/09/2016 20962-MLUVDLH NAIL, 6 OR MORE 02/08/2017 37395-VJMXCPV NAIL, 6 OR MORE 06/25/2017 93749-OCVTSVJ NAIL, 6 OR MORE 01/10/2018 74797-CKGOIXC NAIL, 6 OR MORE 03/25/2018 19990-RGXZKNO NAIL, 6 OR MORE 05/05/2024 85866-KVAGLED NAIL, 6 OR MORE 09/11/2024 57210-Gtji Destruction, 1-14 06/27/2021 20718-Ulec Destruction, 1-14 10/04/2020 68208-Bpnm Destruction, 1-14 12/27/2020 05438-Xgyz Destruction, 1-14 01/10/2018 99613-Dwtu Destruction, 1-14 04/17/2019 39186-Sbly Destruction, 1-14 06/25/2017 96374-Tfpr Destruction, 1-14 12/23/2015 12364-Mdsi Destruction, 1-14 05/08/2016 15999-Tvud Destruction, 1-14 09/30/2015 84363-Yzpy Destruction, 1-14 07/05/2015 56827-Mrgc Destruction, -14 04/26/2015 92024-Qhyk Destruction, -14 02/01/2015 50350-Dxwvicob Plate 02/01/2011 29213- Debride <25 sq cm 07/22/2014 99601 I&D ABSCESS- SIMPLE,SINGLE 015 42388-OXIN SKIN LESIONS, 2 TO 4 02/02/20 15 36390-VNLZ SKIN LESIONS, 2 TO 4 04/26/19 16 77829-DTBC SKIN LESIONS, 2 TO 4 07/05/19 16 50518-PAIC SKIN LESIONS, 2 TO 4 05/08/19 17 10386-SMWE SKIN LESIONS, 2 TO 4 08/08/19 17 20060-GRJE SKIN LESIONS, 2 TO 4 11/10/19 17 75401-IQSM SKIN LESIONS, 2 TO 4 03/25/20 18 86145-MQQS SKIN LESIONS, 2 TO 4 04/17/19 20 80765-RKNM SKIN LESIONS, 2 TO 4 09/15/19 20 49472-UOGX SKIN LESIONS, 2 TO 4 12/25/19 20 32885-NBWC SKIN LESIONS, 2 TO 4 03/25/20 20 28254-DPAU SKIN LESIONS, 2 TO 4 06/25/19 21 63503-RGFY SKIN LESIONS, 2 TO 4 10/05/19 21 39253-JXLH SKIN LESIONS, 2 TO 4 02/09/20 17 26324-GBQX SKIN LESIONS, 2 TO 4 06/26/19 18 94617-QCDJ SKIN LESIONS, 2 TO 4 01/11/20 18 56067-OATD SKIN LESIONS, 2 TO 4 12/28/19 21 38720-SXTV SKIN LESIONS, 2 TO 4 04/04/20 21 07096-SLPL SKIN LESIONS, 2 TO 4 06/28/19 22 78713-IYLY SKIN LESIONS, 2 TO 4 05/05/19 25 26412-WKCF SKIN LESIONS, 2 TO 4 06/21/19 19 80490-KHTI SKIN LESIONS, 2 TO 4 12/17/19 19 94132-TRRR SKIN LESIONS, 2 TO 4 09/12/19 25 Next Appt Details Provider Name:Lisa peñaloza, 12/18/2024 12:45:00 PM, [address] [facility], [address], [place], [address], Insurance Providers Payer Name Payer Address Payer Phone Subscriber Number Group Number Insured Name Patient Relationship to Insured Coverage Start Date Coverage End Date Medicare National Govt [employer] [address] [place] [address] [id number] Brian Maloney Self - patient is the insured 1 [employer] Blue Shield [address] [place] [address] [id number] Brian Maloney Self - patient is the insured Medical (General) History Medical History History ICD Code joint implants/screws Arthritis Chicken pox stroke Surgical History Surgery Date(Month/Year) neck surgery right hip replacement 04/15/2013 triple bypass stent insertion right leg 07/09/16 Plastic surgery face & neck, basal cell 09/2022 Back surgery 12/2023 Hospitalization History Reason Date(Month/Year) [facility] [place] 01/2024 [facility] [place], rehab 03/2022 Angioplasty 05/09/17 [facility] artery cleaned and 2 stents inserted 07/09/16 [facility] triple bypass during procedure had a stroke 10/25/14
--- NOTE | 2024-11-02 | ECG_ITS ---
Test Reason : PREOP Blood Pressure : */* mmHG Vent. Rate : 64 BPM Atrial Rate : 64 BPM P-R Int : 126 ms QRS Dur : 78 ms QT Int : 446 ms P-R-T Axes : 81 76 114 degrees QTcB Int : 460 ms Normal sinus rhythm Nonspecific ST and T wave abnormality Abnormal ECG When compared with ECG of 18-Dec-2023 11:18, No significant change was found Referred By: Isabel Daniels Electronically Signed By: YOU MCDONALD MD
[2024-11-02 13:16] VITALS: BP 143/70; PULSE 73; RESP 16; O2SAT 97; BMI 22.7
--- NOTE | 2024-11-02 13:38 | HO.ANESPROP2 ---
Documented by User: Isabel Daniels NP 11/04/24 09:13 HPI - Anesthesia Eval Consult details Narrative: 79yo M for C3-4 Osteophytectomy, 11/05/24 s/p L4-5 Transkambin Lumbar Interbody Fusion, 01/01/24 with GA-ETT 7.5 No recent illness No CP/SOB with very limited activity - ambulates around the house with cane Cardiac optimized prior to 12/30/24 TLIF - no changes in cardio status, no concerning symptoms 2023 cath showed vein graft to circumflex occluded, 50-60% stenosis in circumflex CAD s/p CABG x 3 2015 CVA x 3 (periop during CABG) - residual balance issue Carotid stenosis: Follows [facility] vascular. Images from 2021, no f/u since. PVD with RLE stent Last dose Asa 81mg 11/01/24. Dr Winkler aware and ok to proceed as schedule PMF Active Problems Active Problems: All Active Problems Dysphagia (Acute) Lower respiratory infection (e.g., bronchitis, pneumonia, pneumonitis, pulmonitis) (Acute) S/P lumbar spinal fusion (Acute) Preoperative cardiovascular examination (Acute) Cervical myelopathy (Acute) Leg weakness (Acute) Dysphagia (Acute) Peroneal neuropathy at knee (Acute) Abnormal EMG (Acute) [place] (hard of hearing) (Acute) Basal cell carcinoma (Acute) Smoker (Acute) Abnormal lung sounds (Acute) More than 50 percent stenosis of left internal carotid artery (Acute) Weakness (Acute) COVID-19 (Acute) Skin lesion (Acute) Screening for colon cancer (Acute) Weakness (Acute) Arthritis (Acute) HTN (hypertension) (Acute) Shoulder pain, bilateral (Acute) Bilateral hand pain (Acute) Cerebrovascular accident (Acute) Atherosclerotic cardiovascular disease (Acute) Aortic valve calcification (Acute) Atrial arrhythmia (Acute) Encounter for annual wellness visit (AWV) in Medicare patient (Acute) Screening PSA (prostate specific antigen) (Acute) Dyslipidemia (Acute) Dyslipidemia (Acute) Medication refill (Acute) Sore throat (Acute) Allergic rhinitis (Acute) S/P cardiac catheterization (Acute) Lumbar spinal stenosis (Acute) PVD (peripheral vascular disease) (Acute) Depression (Acute) Past Medical History Medical History (Updated 09/16/24 @ 15:29 by DONIS Garcia) Back pain On beta channing at home Skin cancer Lumbar spinal stenosis Osteoarthritis of hands, bilateral Acute anxiety Dyslipidemia CVA (cerebral vascular accident) Depression Left pontine CVA Osteoarthritis of right hip Rectal bleeding Tremor Toenail deformity Anemia PVD (peripheral vascular disease) Cervical radiculopathy Atherosclerosis Hematuria Vertigo Coronary artery disease Carotid stenosis Cerebrovascular disease Family History Family History Father Abdominal aneurysm Family history of problems with anesthesia: No Surgical History Surgical History (Updated 11/02/24 @ 13:27 by Bel Robledo RN) Hx of cervical spine surgery (~1999) History of total right hip arthroplasty History of lumbar fusion (01/01/24) S/P cardiac catheterization H/O colonoscopy History of intravascular stent placement Hx of plastic surgery Hx of CABG Status post shoulder surgery History of Problems with Anesthesia: No Social History Social History Household Members: Spouse Housing: House Are you a primary live in caregiver to a significant other at home: No Do you presently have visiting nurse or other home services: No Alcohol intake: former Patient Tobacco Use Status: Current everyday Tobacco user Tobacco use type: Cigarette Cigarettes Per Day: 6 Years Smoked: 60 years Smoked in Last 30 Days: Yes e-Cigarette/Vaping Use: Never Used Second Hand Smoke Exposure: No Use of substances other than those prescribed or required for medical reasons: No Have you been hit, kicked, punched, or otherwise hurt by someone within the past year? If so, by whom?: No Are you DNR?: No Advance Directives: Yes Advance Directives Information Provided: Yes Advance Directives on File: No Advance Directives Date on File: 03/30/22 service: Yes Current occupational status: retired Cognitive needs: No Hearing needs: No Vision needs: No Meds Allergies Allergy/AdvReac Type Severity Reaction Status Date / Time No Known Allergies Allergy Verified 11/02/24 13:27 Home Medications ?Medication ?Instructions ?Recorded ?Confirmed ?Last Taken ?Type rosuvastatin 40 mg tablet 40 mg PO BEDTIME 11/02/24 11/02/24 11/04/24 History Exam Height,Weight and Vital Signs: Height 5 ft 4 in Weight 59.874 kg Last Vital Signs Pulse 73 11/02/24 13:16 Resp 16 11/02/24 13:16 BP 143/70 H 11/02/24 13:16 Pulse Ox 97 11/02/24 13:16 O2 Del Method Room Air 11/02/24 13:16 Pertinent Lab Results Pertinent Lab Results: Lab Results 11/02/24 Range/Units 14:00 WBC 5.7 (4.8-10.8) X10*3/uL RBC 5.82 H D (4.60-5.80) X10*6/uL Hgb 16.8 D (14.0-18.0) g/dl Hct 51.5 D (42.0-52.0) % MCV 88.5 (80.0-98.0) fL MCH 28.9 (27.0-33.0) pg MCHC 32.6 (31.0-36.0) g/dl RDW 13.8 (11.0-16.0) % Plt Count 157 L D (160-400) X10*3/uL MPV 10.6 (9.4-12.4) fL Absolute Nucleated RBC 0.000 (0.0-0.012) X10*3/uL Nucleated RBC % (auto) 0.0 (0.0-0.2) /100WBC Sodium 145 (135-145) mmol/L Potassium 4.5 (3.3-5.1) mmol/L Chloride 110 H (96-108) mmol/L Carbon Dioxide 27 (22-29) mmol/L Anion Gap 13 (12-20) BUN 17 H (9-16) mg/dL Creatinine 0.96 (0.5-1.4) mg/dL Estim Creat Clear Calc 51.3 Estimated GFR > 60 Random Glucose 97 (60-115) mg/dL Calcium 9.1 (8.4-10.2) mg/dL Narrative Narrative: EKG 10/2024 Vent. Rate : 64 BPM Atrial Rate : 64 BPM P-R Int : 126 ms QRS Dur : 78 ms QT Int : 446 ms P-R-T Axes : 81 76 114 degrees QTcB Int : 460 ms Normal sinus rhythm Nonspecific ST and T wave abnormality Abnormal ECG When compared with ECG of 18-Dec-2023 11:18, No significant change was found ECHO 04/2023 Conclusions: - 1. Normal LV ejection fraction with mild LVH with impaired relaxation filling pattern and elevated filling pressures 2. Mild aortic stenosis 3. Normal RV systolic pressure 4. No gross pericardial effusion Findings Left Ventricle Normal left ventricular cavity size. There is mildly increased left ventricular wall thickness. The left ventricular systolic function is normal. The visually estimated ejection fraction is between 55-60%. Spectral Doppler is indicative of an impaired relaxation filling pattern. Elevated filling pressures. E/E prime ratio is >15, consistent with elevated filling pressures. Wall Motion Rest Echo Findings The basal inferior and basal inferoseptal segments are akinetic. All other scored wall segments showed normal motion. NM cardiolite stress test 04/2023 Impression: 1. Myocardial perfusion imaging study shows reversible inferolateral defect suggestive of ischemia. 2. Gated LVEF is 59% during stress. Visually normal during rest. 3. Transient ischemic dilatation not present. EKG component of the test reported separately. S/P cardiac catheterization 12/03/[address] Ocampo: Angiographic Findings Cardiac Arteries and Lesion Findings LMCA: Ostial LAD 60 to 70% stenosis. LAD: Mild to moderate LAD stenosis. LCx: Mid left circumflex 50 to 60% stenosis. Mid OM1 70% stenosis. Vein graft to OM is occluded. RCA: Proximal RCA BEAUTY THERAPIST. Patent vein graft to RCA. CT angio head neck 2021 IMPRESSION: CT HEAD: No intracranial hemorrhage or large acute infarction. Chronic infarcts are seen within the right frontal lobe, right parietal and occipital lobe, and left parietal lobe. Background changes of chronic microangiopathy and mild brain parenchymal volume loss. CTA NECK: 50% stenosis of the proximal right internal carotid artery. No significant stenosis of the proximal left internal carotid artery. Mild to moderate stenosis of the bilateral paraclinoid ICA segments. CTA HEAD: No large vessel occlusion or significant stenosis within the intracranial circulation. Airway Mallampati Class: II TM Dist: >3cm Neck ROM: Limited Denture: Upper Loose/Missing/Broken Teeth: Yes (Left lower side tooth broken) Heart: RRR Lungs: CTAB Assessment and Plan Assessment Anesthesia Assessment: Anesthesia Plan Discussed and PAT Visit Final Anesthetic Review Family History of Problems with Anesthesia: No History of Problems with Anesthesia: No Documented by User: Arjun Conklin MD 11/05/24 12:39 [facility] Past Medical History Medical History (Updated 09/16/24 @ 15:29 by DONIS Garcia) Back pain On beta channing at home Skin cancer Lumbar spinal stenosis Osteoarthritis of hands, bilateral Acute anxiety Dyslipidemia CVA (cerebral vascular accident) Depression Left pontine CVA Osteoarthritis of right hip Rectal bleeding Tremor Toenail deformity Anemia PVD (peripheral vascular disease) Cervical radiculopathy Atherosclerosis Hematuria Vertigo Coronary artery disease Carotid stenosis Cerebrovascular disease Family History Family History Father Abdominal aneurysm Surgical History Surgical History (Updated 11/02/24 @ 13:27 by Bel Robledo RN) Hx of cervical spine surgery (~1999) History of total right hip arthroplasty History of lumbar fusion (01/01/24) S/P cardiac catheterization H/O colonoscopy History of intravascular stent placement Hx of plastic surgery Hx of CABG Status post shoulder surgery Social History Social History Household Members: Spouse Housing: House Are you a primary live in caregiver to a significant other at home: No Do you presently have visiting nurse or other home services: No Alcohol intake: former Patient Tobacco Use Status: Current everyday Tobacco user Tobacco use type: Cigarette Cigarettes Per Day: 6 Years Smoked: 60 years Smoked in Last 30 Days: Yes e-Cigarette/Vaping Use: Never Used Second Hand Smoke Exposure: No Use of substances other than those prescribed or required for medical reasons: No Have you been hit, kicked, punched, or otherwise hurt by someone within the past year? If so, by whom?: No Are you DNR?: No Advance Directives: Yes Advance Directives Information Provided: Yes Advance Directives on File: No Advance Directives Date on File: 03/30/22 service: Yes Current occupational status: retired Cognitive needs: No Hearing needs: No Vision needs: No Meds Allergies Allergy/AdvReac Type Severity Reaction Status Date / Time No Known Allergies Allergy Verified 11/02/24 13:27 Home Medications ?Medication ?Instructions ?Recorded ?Confirmed ?Last Taken ?Type rosuvastatin 40 mg tablet 40 mg PO BEDTIME 11/02/24 11/02/24 11/04/24 History Assessment and Plan Assessment Anesthesia Assessment: Chart Reviewed Final Anesthetic Review NPO: Yes ASA Class: III Final Preanesthetic Review: No Changes in Pt Med Stat, Meds/Allgs Chart Reviewed, Consent Obtained/Reviewed and Anes Risks/Benef Reviewed Patient Risk: Intermediate Procedure Risk: Intermediate Anesthetic Plan Anesthetic Plan: GA Disposition: Standard PACU
[2024-11-02 14:23] LABS: Hematocrit 51.5 % (42.0-52.0); Hemoglobin 16.8 g/dl (14.0-18.0); Mean Corpuscular HGB Conc 32.6 g/dl (31.0-36.0); Mean Corpuscular Hemoglobin 28.9 pg (27.0-33.0); Mean Corpuscular Volume 88.5 fL (80.0-98.0); NRBC Abs Auto 0.000 X10*3/uL (0.0-0.012); NRBC Pct Auto 0.0 /100WBC (0.0-0.2); Platelet Count 157 X10*3/uL (160-400); Red Blood Count 5.82 X10*6/uL (4.60-5.80); White Blood Count 5.7 X10*3/uL (4.8-10.8)
[2024-11-02 14:35] LABS: Anion Gap 13 (12-20); Blood Urea Nitrogen 17 mg/dL (9-16); Calcium 9.1 mg/dL (8.4-10.2); Carbon Dioxide 27 mmol/L (22-29); Chloride 110 mmol/L (96-108); Creatinine Clr Calc Pharmacy 51.3; Estimated Glomerular Filt Rate > 60; Potassium 4.5 mmol/L (3.3-5.1); Sodium 145 mmol/L (135-145)
[2024-11-05] VITALS (8 sets, daily range): BP systolic 134–168; BP diastolic 66–80; PULSE 73–87; RESP 10–20; TEMP 36.1–36.3; O2SAT 94–98; BMI 22.5
--- NOTE | ~2024-11-05 | FL_ITS ---
EXAMINATION: FL GUIDANCE ONLY HISTORY: c3-4 osteophytectomy COMPARISON: Correlation is made with plain films of the cervical spine dated 09/16/2024. TECHNIQUE: Fluoroscopy time: 0.7 seconds. Cumulative Dose: 0.0915 mGy. DAP: 0.0398 mGym2 Images: 1. FINDINGS: A single fluoroscopic spot film of the cervical spine in the lateral projection demonstrates anterior fusion of C4-C6 with plate and screws. A probe is directed toward the C4 vertebral body. FL/FL guidance in OR IMPRESSION: Fluoroscopy during procedure. Please see procedure report for additional information. Electronically signed by: Jose Maria Hunt MD 11/05/2024 01:53 PM EDT
[2024-11-05] MEDS: Lactated Ringers 1,000 ML 100 ML IVCONT (09:51)
--- NOTE | 2024-11-05 12:29 | MHC.SHP ---
Pre-Procedural Eval Section A - 24 Hr Update-Section A only Date of Service: 11/05/24 The patient is an INPATIENT: No Changes since office visit: No Cold of Flu in the past 2 weeks, No New Medical Problems, No Changes in Medication and No Patient answered all questions The patient has been examined within 24 hours of the surgical procedure. The History & Physical has been completed within 30 days and I have reviewed it.: No Section B - Complete if H&P > 30 days Chief Complaint: dysphagia Allergies: Allergies Allergy/AdvReac Type Severity Reaction Status Date / Time No Known Allergies Allergy Verified 11/02/24 13:27 Review of Systems Sugical H&P ROS: Negative: Constitution, Cardiovascular, Respiratory, Neurological, Psychiatric, Hem-Onc, Allergic/Immunologic, Gastrointestinal, Genitourinary, Musculoskeletal, Integumentary, Endocrine and Eyes/Ears/Nose/Throat Exam Surgical H&P Exam: Normal: HEENT, Normal: Heart, Normal: Lungs, Normal: Extremities, Normal: Abdomen, Normal: Skin and Normal: Neurological (awake, alert,oriented x 3 ) Plan Diagnosis/Plan: Unchanged C3-4 anterior cervical osteophyte removal Time Spent With Patient Time: Total time managing care of this patient today __5__ minutes.
--- NOTE | 2024-11-05 12:30 | P.DS_ITS ---
DS: Providers Provider Date of Service: 11/05/24 Date of discharge: 11/05/24 Primary care physician: Meghan Myers MD Admitting clinician: Berlin Winkler DS: Diagnosis Discharge Diagnosis (1) Dysphagia: Status: Acute DS: Summary Time Attestation Discharge Coordination Time (in mins): 6 Quality: Safe Use of Opioids Does Pt have an Active Cancer Diagnosis on the Problem List?: No Quality: Stroke Does the patient have a stroke diagnosis?: No Physical Exam Vital Signs: Vital Signs: Last Vital Signs Temp 96.9 F 11/05/24 09:56 Pulse 87 11/05/24 09:56 Resp 20 11/05/24 09:56 BP 168/80 H 11/05/24 09:56 Pulse Ox 96 11/05/24 09:56 O2 Del Method Room Air 11/05/24 09:56 BMI result Body Mass Index 22.5 DS: Data Data Completed and Pending Completed studies during hospitalization [Text1]: Procedures Excision of Lumbar Vertebral Disc, Open Approach (01/01/24) Fusion of Lumbar Vertebral Joint with Interbody Fusion Device, Anterior [place], Anterior Column, Open Approach (01/01/24) Insertion of Interspinous Process Spinal Stabilization Device into Lumbar Vertebral Joint, Open Approach (01/01/24) Monitoring of Peripheral Nervous Electrical Activity, Intraoperative, External Approach (01/01/24) Discharge Plan Discharge Patient Disposition: Home, Self-Care Referrals: Meghan Sheldon MD [Primary Care Provider, Internal Medicine] - 1 Week Discharge Medications: New tramadol 50 mg tablet 50 mg PO Q8H PRN (Reason: pain) Qty: 20 0RF Continued metoprolol succinate 25 mg tablet extended release 24 hr 25 mg PO BEDTIME Qty: 90 3RF sertraline 100 mg tablet 100 mg PO BEDTIME 90 Days Qty: 90 0RF rosuvastatin 40 mg tablet 40 mg PO BEDTIME Held aspirin [Adult Low Dose Aspirin] 81 mg tablet,delayed release (DR/EC) 81 mg PO DAILY Qty: 90 2RF Hold Instructions: Resume on 11/12/24. You can resume aspirin 1 week after surgery Discharge Orders: Discharge Order (Routine); Ordered 11/05/24 Ordered By: Da Baker Diet: Advance to usual diet Activity on Discharge: As tolerated Activity Restrictions/Additional Instructions: After your spinal surgery we ask you to observe the following restric tions/guidelines: Activity: It is normal to feel some discomfort as you increase your activity, but that will improve with time. We ask you avoid heavy lifting or acitivities that cause pain. As a general rule, 8lbs is a safe limit for lifting right after surgery. Walk as much as you feel comfortable but not to exhaustion. You will feel extra tired the first few days after surgery. Stay well hydrated. It is OK to walk up and down stairs You may return to driving when you are off narcotics (such as vicodin, oxycodone, dilaudid, etc), and you are back to normal functional capacity. If you have any concerns please check with office before driving. Return to work is specific to each patient and each surgery, so please speak with your doctor/PA at first follow up. Please bring paperwork such as FMLA at that time if you need it filled out. Medications: You can resume aspirin 1 week after surgery For optimum pain control, it is best to start with a combination of 500 mg of Tylenol every 4 hours with 600 mg of Motrin every 8 hours, and use narcotics as needed in between for breakthrough pain. We will give you a short supply of narcotics after surgery (usually one weeks worth). If you need more please call the office but do not use more than prescribed. You will need to give our office 48 hours notice if you need narcotics refilled and we do not fill narcotics on weekends or evenings. If you are on a narcotic, it is a good idea to take a stool softener such as colace or senna to avoid constipation If you take blood thinner such as aspirin, Plavix, Coumadin, Effient, Eliquis etc for conditions such as Afib, DVT, Pulmonary embolus, coronary disease, stents etc please speak with your surgeon about specific details as to when you can resume these medications. You can resume NSAIDs on post op day 1 (eg: Motrin, Naproxen, etc). Follow up: Please call the office, , after surgery to arrange a 3 week follow up for wound check. Wound Care: You may remove your dressing on the first day after surgery. ?You may ?leave open to air. Please do not remove the steri strips underneath. they will fall off on their own in one week. IT IS NORMAL FOR THE WOUND TO OOZE OR BE BLOODY FOR A FEW DAYS AFTER SURGERY. ?IF THIS HAPPENS JUST PLACE NEW DRESSING OVER IT TO AVOID STAINING CLOTHES. You may shower on post op day # 1 We ask that you do not let the water soak the wound. If it does get wet, just towel dry lightly. Please do not scrub your incision or place any type of chemical/ointment on the wound. No tub baths, pools or jacuzzis for one month. If you have any leaking or redness from your wound, or fevers, please call office Print Language: Bhutanese
--- NOTE | 2024-11-05 12:38 | W.PM.OPN ---
Operative Note Operative Note Date of Service: 11/05/24 Narrative: Preoperative Diagnosis: Dysphagia due to anterior osteophyte formation C3-C4 Procedure: Excision bone mass and Partial corpectomy to remove anterior bone mass Informed Consent was obtained for this operation. I have explained the nature, purpose and benefits of the operation. I have discussed the risks and benefit of the operation including possible complications or adverse events with patient/family. Alternative(s) were discussed with the patient with their relative benefits and risks as well as the consequences of not accepting the operation were included in obtaining consent. Surgeon: EDILBERTO SIDHU MD, PHD Procedure Assisted By: ezekiel Gambino Description of Procedure: This patient is having dysphagia due to a large anterior osteophyte C3-C4 compressing the esophagus. A swallowing study showed a dysfunction in the area of the osteophytes. He was offered to remove bone mass from the body of C3 and C4. The procedure complications were explained. The patient was consented. The patient was brought to the operating room and endotracheally intubated. The patient was put in supine position with slight extension of the neck. Prep and drape was done followed by timeout. A mid cervical incision was made followed by opening of the platysma. The prevertebral fascia was reached following the natural planes while the physician dairy and food laboratory assistant provided manual retraction. A large anterior bone mass was encountered and the esophagus was laying over this bone mass. I carefully dissected the esophagus off the bone mass. The prevertebral fascia was removed and in this way the bone mass was completely exposed. Then I resected the bone mass with a high-speed drill pituitary rongeurrs, while protecting the esophagus medially and carotid artery laterally. I decided to also remove a small part of the anterior part of the C3 vertebral body to create additional space. This procedure resulted in an excellent decompression of the esophagus. Hemostasis was done. The physician dairy and food laboratory assistant took over. The Lorida pin was removed. Hemostasis was done. He closed the incision in 2 layers with a 3-0 Vicryl. Steri-Strips used to approximate incision. An OpSite with Tegaderm was used to cover the incision. All sponge and needle counts were correct. Patient was extubated and transported in stable is to recovery room. Anesthesia: General Estimated Blood Loss (ml): 20 mL Duration of Surgery: 40 minutes Postoperative Plan: Discharge home Complications: None
== END 2024-11-05 15:01 | disposition home or self-care (01) ==
PROVIDERS: Nurse Practitioner; PCP Internal Medicine; Visit Provider Neurological Surgery
PROC: (CPT 22110; principal; 2024-11-05 12:40)
DX: R13.10 Dysphagia, unspecified (principal); M25.78 Osteophyte, vertebrae; I25.10 Atherosclerotic heart disease of native coronary artery without angina pectoris; Z95.1 Presence of aortocoronary bypass graft; Z95.828 Presence of other vascular implants and grafts; I10 Essential (primary) hypertension; E78.5 Hyperlipidemia, unspecified; Z86.73 Personal history of transient ischemic attack (TIA), and cerebral infarction without residual deficits; Z98.1 Arthrodesis status; Z79.899 Other long term (current) drug therapy; Z99.89 Dependence on other enabling machines and devices; Z98.890 Other specified postprocedural states; F17.210 Nicotine dependence, cigarettes, uncomplicated
CPT/HCPCS: 22110; 36415; 80048; 85027; 93005; J0131; J0690; J1100; J2003; J2405; J2704; J3010

== ENCOUNTER → 2024-11-05 09:25 | Outpatient (BNV) | payer MEDICARE, SELFPAY | PROVIDERS: PCP Internal Medicine; Visit Provider Physician Assistant | DX: M25.78 Osteophyte, vertebrae (principal); R13.10 Dysphagia, unspecified | CPT/HCPCS: 22110; 99499 ==

== ENCOUNTER 2024-11-26 14:09 | Outpatient (AMB) | payer MEDICARE, SELFPAY ==
--- OUTSIDE RECORDS SUMMARY | 2024-11-26 14:18 | XMS_ITS | Patient Health Record ---
[facility] Organization [facility] david ContrerasRohan Address [address] [place] [address] Care Team Providers Care Doctor Of Podiatry Name Role Phone Alecia SINGH, Gilma Kinsey Primary Care Provider Un available Lisa Villatoro Unavailable [phone] Shanika AGUILERA-BC, Amish Unavailable Prosper Pineda Unavailable [phone] Allergies No Known Allergies Reason For Referral [...] atherosclerosis of arteries of lower limbs (disorder) ([id number] ) Unspecified atherosclerosis of [place] arteries of extremities, bilateral legs (I70.203) Active confirmed Problem Bilateral atherosclerosis of arteries of lower limbs (disorder) ([id number] ) Atherosclerosis of [place] artery of both lower extremities, with unspecified [...] Ordered Date Performed Result Body Sit e 62555-YAEMTUC NAIL, 6 OR MORE 05/05/2024 N/A 86163-BUMR SKIN LESIONS, 2 TO 4 05/05/2024 N/A 40095-QUEXLYO NAIL, 6 OR MORE 09/11/2024 N/A 37111-RVQZ SKIN LESIONS, 2 TO 4 09/11/2024 N/A Encounters Encounter Location Date Provider Diagnosis [address] [address] 01/28/2024 Prosper Mata Tinea unguium B35.1 ; Pain in left foot M79.672 ; Pain in right foot M79.671 ; Pain in right toe(s) M79.674 ; Pain in left toe(s) M79.675 ; Unspecified atherosclerosis of [place] arteries of extremities, bilateral legs I70.203 and Ingrown nail L60.[address] [address] 05/05/2024 Lisa Villatoro Atherosclerosis of [place] artery of both lower extremities, with unspecified presence of clinical manifestation I70.203 ; Tinea unguium B35.1 ; Pain in right toe(s) M79.674 and Pain in left toe(s) M79.[address] [address] 09/11/2024 Lisa Villatoro Atherosclerosis of [place] artery of both lower extremities, with unspecified presence of clinical manifestation I70.203 ; Tinea unguium B35.1 ; Pain in right toe(s) M79.674 and Pain in left toe(s) M79.[address] [facility] [address] 07/22/2024 Lisa Villatoro Assessments Encounter Date Diagnosis (ICD Code) Assessment Notes Treatment Notes Treatment Clinical Notes Section Notes 01/28/2024 Tinea unguium (ICD-10 - B35.1) 05/05/2024 Atherosclerosis of [place] artery of both lower extremities, with unspecified presence of clinical manifestation (ICD-10 - I70.203) Q7(A), Q8(2B), Q9(1B,2C) 09/11/2024 Atherosclerosis of [place] artery of both lower extremities, with unspecified presence of clinical manifestation (ICD-10 - I70.203) Q7(A), Q8(2B), Q9(1B,2C) 09/11/2024 Tinea unguium (ICD-10 - B35.1) 05/05/2024 Tinea unguium (ICD-10 - B35.1) 01/28/2024 Pain in left foot (ICD-10 - M79.672) 05/05/2024 Pain in right toe(s) (ICD-10 - M79.674) 09/11/2024 Pain in right toe(s) (ICD-10 - M79.674) 01/28/2024 Pain in right foot (ICD-10 - M79.671) 09/11/2024 Pain in left toe(s) (ICD-10 - M79.675) 05/05/2024 Pain in left toe(s) (ICD-10 - M79.675) 01/28/2024 Pain in right toe(s) (ICD-10 - M79.674) 01/28/2024 Pain in left toe(s) (ICD-10 - M79.675) 01/28/2024 Unspecified atherosclerosis of [place] arteries of extremities, bilateral legs (ICD-10 - I70.203) 01/28/2024 Ingrown nail (ICD-10 - L60.0) Plan Of Treatment Pending Test Test Name Order Date 54905-FZOKJCV NAIL, 6 OR MORE 02/01/2011 26068-GILWUXP NAIL, 6 OR MORE 02/01/2015 74713-VDWGNRO NAIL, 6 OR MORE 04/26/2015 18896-YSFBVTS NAIL, 6 OR MORE 07/05/2015 15186-FVQSZOA NAIL, 6 OR MORE 09/30/2015 10766-JWCYTGG NAIL, 6 OR MORE 05/08/2016 84646-XBYTZNM NAIL, 6 OR MORE 12/23/2015 52480-KVRDIGO NAIL, 6 OR MORE 11/09/2016 67337-XNKAXMY NAIL, 6 OR MORE 02/08/2017 63433-LEFWYUY NAIL, 6 OR MORE 06/25/2017 11684-ZOAOHCO NAIL, 6 OR MORE 01/10/2018 16262-ZLSTYTZ NAIL, 6 OR MORE 03/25/2018 78327-VRGIFPT NAIL, 6 OR MORE 05/05/2024 16471-WBZVSGN NAIL, 6 OR MORE 09/11/2024 19799-Uuvz Destruction, 1-14 06/27/2021 45591-Enub Destruction, 1-14 10/04/2020 64193-Zran Destruction, 1-14 12/27/2020 90725-Fahk Destruction, 1-14 01/10/2018 89458-Chus Destruction, 1-14 04/17/2019 98887-Ykwl Destruction, 1-14 06/25/2017 32549-Wcax Destruction, 1-14 12/23/2015 58982-Wqeb Destruction, 1-14 05/08/2016 39931-Rhny Destruction, 1-14 09/30/2015 60172-Jtrg Destruction, 1-14 07/05/2015 76110-Hsiu Destruction, 1-14 04/26/2015 84199-Caxa Destruction, 1-14 02/01/2015 09561-Rwovedju Plate 02/01/2011 96722- Debride <25 sq cm 07/22/2014 23924 I&D ABSCESS- SIMPLE,SINGLE 015 32908-AXCS SKIN LESIONS, 2 TO 4 02/02/20 15 90694-UHQV SKIN LESIONS, 2 TO 4 04/26/19 16 75034-YRMI SKIN LESIONS, 2 TO 4 07/05/19 16 96446-ORJL SKIN LESIONS, 2 TO 4 05/08/19 17 52215-BQEL SKIN LESIONS, 2 TO 4 08/08/19 17 06295-FGFI SKIN LESIONS, 2 TO 4 11/10/19 17 63512-YPBF SKIN LESIONS, 2 TO 4 03/25/20 18 38382-NLWZ SKIN LESIONS, 2 TO 4 04/17/19 20 83914-AYUV SKIN LESIONS, 2 TO 4 09/15/19 20 57404-VTVV SKIN LESIONS, 2 TO 4 12/25/19 87575-WPVG SKIN LESIONS, 2 TO 4 03/25/20 04466-RHOB SKIN LESIONS, 2 TO 4 06/25/19 21 42329-FDGV SKIN LESIONS, 2 TO 4 10/05/19 21 44808-YNPK SKIN LESIONS, 2 TO 4 02/09/20 17 75626-CYJF SKIN LESIONS, 2 TO 4 06/26/19 18 20503-JYRX SKIN LESIONS, 2 TO 4 01/11/20 18 46516-OWII SKIN LESIONS, 2 TO 4 12/28/19 21 89723-RMLW SKIN LESIONS, 2 TO 4 04/04/20 21 62834-ZKRD SKIN LESIONS, 2 TO 4 06/28/19 22 63641-PDBG SKIN LESIONS, 2 TO 4 05/05/19 37616-TFGP SKIN LESIONS, 2 TO 4 06/21/19 19 63983-PLPQ SKIN LESIONS, 2 TO 4 12/17/19 19 22411-DGXO SKIN LESIONS, 2 TO 4 09/12/19 Next Appt Details Provider Name:Lisa Cameron jh, 12/18/2024 12:45:00 PM, [facility] [address], [place], [address], Insurance Providers Payer Name Payer Address Payer Phone Subscriber Number Group Number Insured Name Patient Relationship to Insured Coverage Start Date Coverage End Date Medicare National Govt Sv[employer] [address] [facility] [place] [address] [id number] Brian Maloney Self - patient is the insured [facility] [address] [place] [address] [id number] Brian Maloney Self - patient is the insured Medical (General) History Medical History History ICD Code joint implants/screws Arthritis Chicken pox stroke Surgical History Surgery Date(Month/Year) neck surgery right hip replacement 04/15/2013 triple bypass stent insertion right leg 07/09/16 Plastic surgery face & neck, basal cell 09/2022 Back surgery 12/2023 Hospitalization History Reason Date(Month/Year) [facility]- Back surgery 01/2024 [facility]- covid-19, rehab 03/2022 Angioplasty 05/09/17 [facility] artery cleaned and 2 stents inserted 07/09/16 [facility] triple bypass during procedure had a stroke 10/25/14
--- OUTSIDE RECORDS SUMMARY | 2024-11-26 14:18 | XMS_ITS | Patient Health Record ---
Author Organization [facility] Address [address] [place] [address] Care Team Providers Care Instrument Repairer Steam Plant Name Role Phone Roby Eagle M.D. Primary [...] Problem Status W/U Status Risk Notes Problem [id number] Diarrhea (R19.7) Active confirmed Problem [id number] Weight loss (R63.4) Active confirmed Plan Of Treatment No Information Insurance Providers Payer Name Payer Address Payer Phone Subscriber Number Group Number Insured Name Patient Relationship to Insured Coverage Start Date Coverage End Date MEDICARE OF [place] [address] [place] [address] [id number] ALANNA MANUEL Self - patient is the insured [employer] CLAIMS [address] [place] [address] [id number] MONDRAGONMAGDALENE SANZNY Self - patient is the insured Medical (General) History Medical History History ICD Code stroke x 3 2014 hypertension coronary artery disease elevated cholesterol carotid arterial disease osteoarthritis anxiety Surgical History Surgery Date(Month/Year) tripple bypass 2015 neck surgery x2 right hip replacement 2013
--- NOTE | 2024-11-26 14:27 | HO.SPINEOV ---
Intake Visit Reasons: 1st post op Intake Note: Mr. Maloney is here today for his 1st post op. Heel Nail Rasper Required: No Allergies No Known Allergies Allergy (Verified 11/26/24 14:27) Assessment & Plan Assessment & Plan (1) Sore throat: Code(s): J02.9 - Acute pharyngitis, unspecified Category: Medical Plan Mr Maloney is here 3 weeks out from his anterior cervical osteophyte resection. He is doing well, never had a sore throat in his swallowing improved significantly. His wound is healed up beautifully. He has no restrictions on our end and can follow up on us on an as-needed basis. Da Winkler MD, PhD [facility] Coding Level of Care Code Global (58829) Diagnoses Sore throat J02.9
== END 2024-11-26 15:35 | disposition home or self-care (01) ==
LOC: HO.HNS 14:09
PROVIDERS: PCP Internal Medicine; Visit Provider Physician Assistant
DX: J02.9 Acute pharyngitis, unspecified (principal)
CPT/HCPCS: 99024

== ENCOUNTER → 2024-11-26 14:09 | Outpatient (BNVA) | payer MEDICARE, SELFPAY | PROVIDERS: PCP Internal Medicine; Visit Provider Physician Assistant | DX: Z47.89 Encounter for other orthopedic aftercare (principal); Z98.890 Other specified postprocedural states; J02.9 Acute pharyngitis, unspecified | CPT/HCPCS: 99212 ==

== ENCOUNTER 2024-12-31 15:00 | Outpatient (AMB) | payer MEDICARE, SELFPAY ==
--- OUTSIDE RECORDS SUMMARY | 2024-08-18 07:30 | XMS_ITS ---
Author Organization [facility] Address [address] [place] [address] Care Team Providers Care Home Office Claims Examiner Name Role Phone Alecia SINGH, Gilma Kinsey Primary Care Provider Un available Lisa Villatoro Unavailable [phone] Shanika EXCHANGE OPERATOR-BC, Amish Wiggins Unavailabl e Encounters Encounter Location Date Provider Diagnosis [address] [address] 08/18/2024 Lisa Villatoro Plan Of Treatment Next Appt Details Provider Name:Lisa Cameron jh, 01/19/2025 03:30:00 PM, [address] [place] [address], [phone], Progress Notes * Brian MONDRAGON LDOB: [birth year] (79 yo M)Acc No.[id number]:08/18/2024 Progress Note Patient: Deya ANNABrian Provider: Zachariah Villatoro DPM :1945 A ge:78 Y S ex:Male Date:08/18/2024 Address:[address] [place] [address] [place], [id number] Pcp:Chauncey Draper Subjective: * Chief Complaints: * [...] 0 08/18/2024 Generated for Tamela carbajal/Enio/Christen on: 0 12/31/2024 07:19 PM EDT
--- OUTSIDE RECORDS SUMMARY | 2024-12-18 08:45 | XMS_ITS ---
Author Organization [facility] Address [address] [place] [address] Care Team Providers Care Communications Specialist Name Role Phone Alecia SINGH, Gilma Kinsey Primary Care Provider Un available Lisa Villatoro Unavailable [phone] Shanika HARD METALS ENGRAVER HAND-BC, Amish Wiggins Unavailabl e Encounters Encounter Location Date Provider Diagnosis [address] [address] 12/18/2024 Lisa Villatoro Plan Of Treatment Next Appt Details Provider Name:Lisa Cameron jh, 01/19/2025 03:30:00 PM, [address] [place] [address], [phone], Progress Notes * Brian MONDRAGON LDOB: [birth year] (79 yo M)Acc No.[id number]:12/18/2024 Progress Note Patient: Deya ANNABrian Provider: Zachariah Villatoro DPM :1945 A ge:79 Y S ex:Male Date:12/18/2024 Address:[address] [place] [address] [place], [id number] Pcp:Chauncey Draper Subjective: * Chief Complaints: * [...] DPM Date: 0 12/18/2024 Generated for Tamela carbajal/Enio/Christen on: 12/31/2024 07:20 PM EDT
[2024-12-31 15:03] VITALS: BP 128/70; PULSE 80; BMI 22.3
--- NOTE | 2024-12-31 15:03 | A.OFFVIS_ITS ---
Vital Signs 12/31/24 15:03 Height 5 ft 4 in Weight 130 lb BMI 22.3 BP 128/70 Blood Pressure Location Lt brachial Position Sitting Pulse 80 Pulse Source Pulse Oximeter Intake Visit Reasons: 6m follow up r/s 12-10-24 Allergies No Known Allergies Allergy (Verified 11/26/24 14:27) Medication List - Last Reconciled 12/31/24 by Tone Apple MD aspirin (Adult Low Dose Aspirin) 81 mg PO DAILY Held on 11/05/24. Instructions: Resume on 11/12/24. You can resume aspirin 1 week after surgery metoprolol succinate ER 25 mg PO BEDTIME rosuvastatin 40 mg PO BEDTIME sertraline 100 mg PO BEDTIME 90 days tramadol 50 mg PO Q8H PRN HPI Comments Details: Brian returns for follow-up regarding coronary disease and bypass surgery. He had coronary bypass in 2014. He had perioperative stroke but then recovered mo stly. He is doing fine from the cardiac standpoint. No symptoms like angina or shortness of breath or in fact anything cardiac sounding. Frailty from age. [facility] Medical History (Updated 09/16/24 @ 15:29 by DONIS Garcia) Back pain On beta channing at home Skin cancer Lumbar spinal stenosis Osteoarthritis of hands, bilateral Acute anxiety Dyslipidemia CVA (cerebral vascular accident) Depression Left pontine CVA Osteoarthritis of right hip Rectal bleeding Tremor Toenail deformity Anemia PVD (peripheral vascular disease) Cervical radiculopathy Atherosclerosis Hematuria Vertigo Coronary artery disease Carotid stenosis Cerebrovascular disease Surgical History (Updated 11/02/24 @ 13:27 by Bel Robledo RN) Hx of cervical spine surgery (~1999) History of total right hip arthroplasty History of lumbar fusion (01/01/24) S/P cardiac catheterization H/O colonoscopy History of intravascular stent placement Hx of plastic surgery Hx of CABG Status post shoulder surgery Family History Father Abdominal aneurysm Social History Household Members: Spouse Housing: House Are you a primary team primary care physician to a significant other at home: No Do you presently have visiting nurse or other home services: No Alcohol intake: former Patient Tobacco Use Status: Current everyday Tobacco user Tobacco use type: Cigarette Cigarettes Per Day: 6 Years Smoked: 60 years e-Cigarette/Vaping Use: Never Used Second Hand Smoke Exposure: No Advance Directives Date on File: 03/30/22 service: Yes Current occupational status: retired Cognitive needs: No Hearing needs: No Vision needs: No Review of Systems Const Denies weakness ENT Denies dizziness Card Denies chest pain, Denies chest pain with activity, Denies syncope, Denies rapid heart rate, Denies pedal edema, Denies edema, Denies leg edema, Denies lightheadedness, Denies palpitations, Denies dyspnea, Denies dyspnea on exertion and Denies orthopnea Resp Denies cough, Denies dyspnea and Denies dyspnea on exertion GI Denies hematochezia and Denies change in stool character Musc Denies abnormal gait, Denies muscle cramps, Denies muscle weakness, Denies numbness, Denies radiating pain into limb and Denies tingling Neuro Denies abnormal gait, Denies dizziness, Denies syncope, Denies numbness, Denies tingling and Denies weakness Endo Denies palpitations Physical Exam Vital Signs: Last Vital Signs Pulse 80 12/31/24 15:03 BP 128/70 12/31/24 15:03 BMI result Body Mass Index 22.3 Const General: comfortable and no acute distress Orientation/consciousness: patient oriented x3 HEENT Other: Unremarkable Head: Yes normal to inspection Neck Neck: Yes normal visual inspection Chest Chest palpation & inspection: normal inspection of the chest Resp Auscultation: clear to auscultation bilaterally Cardio Palpation: normal PMI Heart sounds: S1 normal heart sound present, S2 normal heart sound present, no gallops, Murmur heart sound present systolic II/ and no rubs GI Palpation (GI): Soft to palpation Back/Spine/Pelvis Other: unremarkable Skin General skin exam: no rashes or lesions noted Neuro General: patient oriented x3 Extrem General: Yes normal to inspection Psych Mental Status: mental status grossly normal Assessment & Plan Assessment & Plan (1) Atherosclerotic cardiovascular disease: Code(s): I25.10 - Atherosclerotic heart disease of [place] coronary artery without angina pectoris Category: Medical Plan: Status post coronary bypass surgery. Echocardiogram 04/2023 with LVEF of 55-60%. Basal inferior/inferoseptal akinesis. In the perfusion imaging 04/2023, reversible inferolateral defect suggestive of ischemia. Cardiac catheterization 11/2023-RCA PERSONAL COMPUTER SPECIALIST with patent vein graft to RCA. Ostial left main 60% stenosis; vein graft to circumflex occluded. 50-60% stenosis in the circumflex. Small SUH which fills the LAD retrograde. Continue aspirin, beta-blockers and statins. (2) HTN (hypertension): Code(s): I10 - Essential (primary) hypertension Category: Medical Plan: Stable. (3) Atrial arrhythmia: Code(s): I49.8 - Other specified cardiac arrhythmias Category: Medical Plan: Prior EKG with frequent PACs. Holter however without any atrial fibrillation. (4) Aortic valve calcification: Code(s): I35.9 - Nonrheumatic aortic valve disorder, unspecified Category: Medical Plan: Echocardiogram from 04/2023 showed mild aortic stenosis. We will monitor this periodically. (5) PVD (peripheral vascular disease): Code(s): I73.9 - Peripheral vascular disease, unspecified Category: Medical Plan: Per [facility] vascular notes, prior right leg revascularization. Follow-up with vascular. (6) Cerebrovascular accident: Code(s): I63.9 - Cerebral infarction, unspecified Category: Medical Plan: History of perioperative stroke. No evidence of atrial fibrillation subsequent follow-up. (7) Dyslipidemia: Code(s): E78.5 - Hyperlipidemia, unspecified Category: Medical Plan: On Rosuvastatin. Lipids are well controlled. No changes. In the past, some intolerance to atorvastatin. Coding Level of Care Code Est Pt Level 4 (65509) Complex EM visit Add On G2211 Diagnoses Atherosclerotic cardiovascular disease I25.10 HTN (hypertension) I10 Atrial arrhythmia I49.8 Aortic valve calcification I35.9 PVD (peripheral vascular disease) I73.9 Cerebrovascular accident I63.9 Dyslipidemia E78.5
--- OUTSIDE RECORDS SUMMARY | 2024-12-31 19:20 | XMS_ITS | Patient Health Record ---
[facility] david ContrerasStites Address [address] [facility] [place] [address] Care Team Providers Care Process Analyst Name Role Phone Alecia SINGH, Gilma Kinsey Primary Care Provider Un available Lisa Villatoro Unavailable [phone] Shanika AGUILERA-BC, Amish Unavailable Prosper Pineda Unavailable [phone] Allergies No Known Allergies Reason For Referral [...] atherosclerosis of arteries of lower limbs (disorder) ([id number] ) Unspecified atherosclerosis of [place] arteries of extremities, bilateral legs (I70.203) Active confirmed Problem Bilateral atherosclerosis of arteries of lower limbs (disorder) ([id number] ) Atherosclerosis of [place] artery of both lower extremities, with unspecified [...] Ordered Date Performed Result Body Sit e 77303-JVQLBNV NAIL, 6 OR MORE 05/05/2024 N/A 65443-ASOO SKIN LESIONS, 2 TO 4 05/05/2024 N/A 13835-BIKAWCV NAIL, 6 OR MORE 09/11/2024 N/A 49493-ZCCR SKIN LESIONS, 2 TO 4 09/11/2024 N/A Encounters Encounter Location Date Provider Diagnosis [address] [address] 01/28/2024 Prosper Mata Tinea unguium B35.1 ; Pain in left foot M79.672 ; Pain in right foot M79.671 ; Pain in right toe(s) M79.674 ; Pain in left toe(s) M79.675 ; Unspecified atherosclerosis of [place] arteries of extremities, bilateral legs I70.203 and Ingrown nail L60.[address] [address] 05/05/2024 Lisa Villatoro Atherosclerosis of [place] artery of both lower extremities, with unspecified presence of clinical manifestation I70.203 ; Tinea unguium B35.1 ; Pain in right toe(s) M79.674 and Pain in left toe(s) M79.[address] [address] 09/11/2024 Lisa iVllatoro Atherosclerosis of [place] artery of both lower extremities, with unspecified presence of clinical manifestation I70.203 ; Tinea unguium B35.1 ; Pain in right toe(s) M79.674 and Pain in left toe(s) M79.675 [facility] [address] 07/22/2024 Lisa Villatoro Assessments Encounter Date Diagnosis (ICD Code) Assessment Notes Treatment Notes Treatment Clinical Notes Section Notes 01/28/2024 Tinea unguium (ICD-10 - B35.1) 05/05/2024 Atherosclerosis of [place] artery of both lower extremities, with unspecified presence of clinical manifestation (ICD-10 - I70.203) Q7(A), Q8(2B), Q9(1B,2C) 09/11/2024 Atherosclerosis of [place] artery of both lower extremities, with unspecified [...] (ICD-10 - M79.675) 01/28/2024 Unspecified atherosclerosis of [place] arteries of extremities, bilateral legs (ICD-10 - I70.203) 01/28/2024 Ingrown nail (ICD-10 - L60.0) Plan Of Treatment Pending Test Test Name Order Date 12041-DVIUITK NAIL, 6 OR MORE 02/01/2011 49060-RABGDCF NAIL, 6 OR MORE 02/01/2015 17113-TYSKZXZ NAIL, 6 OR MORE 04/26/2015 83513-QQWOTUU NAIL, 6 OR MORE 07/05/2015 12806-LAJHGSO NAIL, 6 OR MORE 09/30/2015 98706-DYQEGKV NAIL, 6 OR MORE 05/08/2016 90480-UBYGZYE NAIL, 6 OR MORE 12/23/2015 69643-NBPIEHK NAIL, 6 OR MORE 11/09/2016 66666-MQPORHJ NAIL, 6 OR MORE 02/08/2017 41006-HRGSHZJ NAIL, 6 OR MORE 06/25/2017 55537-YPIABJW NAIL, 6 OR MORE 01/10/2018 19656-OMUOKQL NAIL, 6 OR MORE 03/25/2018 82712-HGSVSCZ NAIL, 6 OR MORE 05/05/2024 06271-VJKJWKZ NAIL, 6 OR MORE 09/11/2024 49155-Mkzo Destruction, 1-14 06/27/2021 53808-Bidy Destruction, 1-14 10/04/2020 03228-Uzvj Destruction, 1-14 12/27/2020 84076-Pnrg Destruction, 1-14 01/10/2018 63521-Sdxj Destruction, 1-14 04/17/2019 03273-Ekev Destruction, 1-14 06/25/2017 84890-Vlao Destruction, 1-14 12/23/2015 54912-Qglm Destruction, 1-14 05/08/2016 52172-Dudg Destruction, 1-14 09/30/2015 50960-Ggtw Destruction, 1-14 07/05/2015 46742-Sesv Destruction, 1-14 04/26/2015 62693-Cxjz Destruction, 1-14 02/01/2015 68469-Nfndydpp Plate 02/01/2011 16772- Debride <25 sq cm 07/22/2014 85407 I&D ABSCESS- SIMPLE,SINGLE 015 13179-AXXA SKIN LESIONS, 2 TO 4 02/02/20 15 54274-PZTY SKIN LESIONS, 2 TO 4 04/26/19 16 47148-GVEG SKIN LESIONS, 2 TO 4 07/05/19 16 11312-KJCR SKIN LESIONS, 2 TO 4 05/08/19 17 87954-ASGL SKIN LESIONS, 2 TO 4 08/08/19 17 04676-TBUZ SKIN LESIONS, 2 TO 4 11/10/19 17 94114-IRDV SKIN LESIONS, 2 TO 4 03/25/20 18 05450-QGHW SKIN LESIONS, 2 TO 4 04/17/19 20 84014-ZFAO SKIN LESIONS, 2 TO 4 09/15/19 20 41348-FNRE SKIN LESIONS, 2 TO 4 12/25/19 19866-IZBW SKIN LESIONS, 2 TO 4 03/25/20 97361-NFKQ SKIN LESIONS, 2 TO 4 06/25/19 21 46263-QPPT SKIN LESIONS, 2 TO 4 10/05/19 21 60620-ICVE SKIN LESIONS, 2 TO 4 02/09/20 17 19833-PXOS SKIN LESIONS, 2 TO 4 06/26/19 18 92644-SZKD SKIN LESIONS, 2 TO 4 01/11/20 18 38058-NGCF SKIN LESIONS, 2 TO 4 12/28/19 21 81022-TNPC SKIN LESIONS, 2 TO 4 04/04/20 21 00326-WTIC SKIN LESIONS, 2 TO 4 06/28/19 22 42766-HAVI SKIN LESIONS, 2 TO 4 05/05/19 17938-GSYO SKIN LESIONS, 2 TO 4 06/21/19 19 16102-EVGN SKIN LESIONS, 2 TO 4 12/17/19 19 71987-QJOZ SKIN LESIONS, 2 TO 4 09/12/19 Next Appt Details Provider Name:Lisa Cameron jh, 01/19/2025 03:30:00 PM, [facility] [address], [place], [address], Insurance Providers Payer Name Payer Address Payer Phone Subscriber Number Group Number Insured Name Patient Relationship to Insured Coverage Start Date Coverage End Date Medicare National Govt Sv[employer] [address] [place] [address] [id number] Brian Maloney Self - [facility] is the [facility] [address] [place] [address] [id number] Brian Maloney Self - patient is the insured Medical (General) History Medical History History ICD Code joint implants/screws Arthritis Chicken pox stroke Surgical History Surgery Date(Month/Year) neck surgery right hip replacement 04/15/2013 triple bypass stent insertion right leg 07/09/16 Plastic surgery face & neck, basal cell 09/2022 Back surgery 12/2023 Hospitalization History Reason Date(Month/Year) [facility]- Back surgery 01/2024 [facility]- covid-19, rehab 03/2022 Angioplasty 05/09/17 [facility] artery cleaned and 2 stents inserted 07/09/16 [facility] triple bypass during procedure had a stroke 10/25/14
--- OUTSIDE RECORDS SUMMARY | 2024-12-31 19:20 | XMS_ITS | Patient Health Record ---
Author Organization [facility] Address [address] [place] [address] Care Team Providers Care Vending Machine Collector Name Role Phone Roby Eagle M.D. Primary Care Provider Shannon Agustin Cason Jr Unavailable [phone] Reason For Referral No Information Medications Medication [...] Problem Status W/U Status Risk Notes Problem [id number] Diarrhea (R19.7) Active confirmed Problem [id number] Weight loss (R63.4) Active confirmed Plan Of Treatment No Information Insurance Providers Payer Name Payer Address Payer Phone Subscriber Number Group Number Insured Name Patient Relationship to Insured Coverage Start Date Coverage End Date MEDICARE OF [place] [address] [place] [address] [id number] ALANNA MANUEL Self - patient is the insured [employer] CLAIMS [address] [place] [address] [id number] MONDRAGONMAGDALENE SANZNY Self - patient is the insured Medical (General) History Medical History History ICD Code stroke x 3 2014 hypertension coronary artery disease elevated cholesterol carotid arterial disease osteoarthritis anxiety Surgical History Surgery Date(Month/Year) tripple bypass 2015 neck surgery x2 right hip replacement 2013
== END 2024-12-31 15:14 | disposition home or self-care (01) ==
LOC: HO.HCS 15:01
PROVIDERS: PCP Internal Medicine; Visit Provider Internal Medicine
DX: I25.10 Atherosclerotic heart disease of native coronary artery without angina pectoris (principal); I10 Essential (primary) hypertension; I49.8 Other specified cardiac arrhythmias; I35.9 Nonrheumatic aortic valve disorder, unspecified; I73.9 Peripheral vascular disease, unspecified; I63.9 Cerebral infarction, unspecified; E78.5 Hyperlipidemia, unspecified
CPT/HCPCS: 99214; G2211

== ENCOUNTER → 2024-12-31 15:00 | Outpatient (BNVA) | payer MEDICARE, SELFPAY | PROVIDERS: PCP Internal Medicine; Visit Provider Internal Medicine | DX: I25.10 Atherosclerotic heart disease of native coronary artery without angina pectoris (principal); I10 Essential (primary) hypertension; Z72.0 Tobacco use; I49.8 Other specified cardiac arrhythmias; I35.9 Nonrheumatic aortic valve disorder, unspecified; I73.9 Peripheral vascular disease, unspecified; I63.9 Cerebral infarction, unspecified; Z79.82 Long term (current) use of aspirin; E78.5 Hyperlipidemia, unspecified | CPT/HCPCS: 99212 ==

== ENCOUNTER 2025-01-26 13:43 | Outpatient (AMB) | payer MEDICARE, SELFPAY ==
--- OUTSIDE RECORDS SUMMARY | 2024-08-18 07:30 | XMS_ITS ---
Author Organization [facility] Address [address] [place] [address] Care Team Providers Care Network Support Engineer Name Role Phone Alecia SINGH, Gilma Kinsey Primary Care Provider Un available Lisa Villatoro Unavailable [phone] Shanika PACKER-BC, Amish Wiggins Unavailabl e Encounters Encounter Location Date Provider Diagnosis [address] [address] 08/18/2024 Lisa Villatoro Plan Of Treatment Next Appt Details Provider Name:Lisa Cameron jh, 05/04/2025 11:15:00 AM, [address] [place] [address], [address], Progress Notes * Brian MONDRAGON LDOB: [birth year] (79 yo M)Acc No.[id number]:08/18/2024 Progress Note Patient: Deya ANNABrian Provider: Zachariah Villatoro DPM :1945 A ge:78 Y S ex:Male Date:08/18/2024 Address:[address] [place] [address] [place], [place]O-[id number] Pcp:Chauncey Draper Subjective: * Chief Complaints: * [...] 08/18/2024 Generated for Tamela carbajal/Enio/Christen on: 1 06:08 PM EDT
--- OUTSIDE RECORDS SUMMARY | 2024-12-18 08:45 | XMS_ITS ---
Author Organization [facility] Address [address] [place] [address] Care Team Providers Care Bridge Design Engineer Name Role Phone Alecia SINGH, Gilma Kinsey Primary Care Provider Un available Lisa Villatoro Unavailable [phone] Shanika POLICY WRITER-BC, Amish Wiggins Unavailabl e Encounters Encounter Location Date Provider Diagnosis [address] [address] 12/18/2024 Lisa Villatoro Plan Of Treatment Next Appt Details Provider Name:Lisa Cameron jh, 05/04/2025 11:15:00 AM, [address] [place] [address], [phone], Progress Notes * Brian MONDRAGON LDOB: [birth year] (79 yo M)Acc No.[id number]:12/18/2024 Progress Note Patient: Deya ANNABrian Provider: Zachariah Villatoro DPM :1945 A ge:79 Y S ex:Male Date:12/18/2024 Address:[address] [place] [address] [place], [id number] Pcp:Chauncey Draper Subjective: * Chief Complaints: * [...] 0 12/18/2024 Generated for Tamela carbajal/Enio/Christen on: 1 06:08 PM EDT
--- NOTE | 2025-01-26 13:48 | A.OFFPC_ITS ---
Vital Signs 01/26/25 14:01 Height 5 ft 4 in Weight 135 lb BMI 23.2 BP 140/74 H Blood Pressure Location Lt brachial Position Sitting Respiration 16 Pulse 72 Pulse Source Pulse Oximeter Pulse Oximetry (%) 98 Oxygen Delivery Method Room Air Intake Visit Reasons: DELIA G0439 Machine Chain Maker Required: No Accompanied by: Spouse Allergies No Known Allergies Allergy (Verified 01/26/25 14:02) Tobacco use date assessed: 01/26/25 Fall risk assessment: 2 + Falls in past year Last assessed Fall Risk: 01/26/25 Dental Screening Dental Screen Date: 01/26/25 Did you have a dental visit in the last 12 months?: Yes Did you have a dental problem in the last 6 months where you did not have access to dental care?: No Was dental information given to patient?: Patient has dentist [facility] Medical History Back pain On beta channing at home Skin cancer Lumbar spinal stenosis Osteoarthritis of hands, bilateral Acute anxiety Dyslipidemia CVA (cerebral vascular accident) Depression Left pontine CVA Osteoarthritis of right hip Rectal bleeding Tremor Toenail deformity Anemia PVD (peripheral vascular disease) Cervical radiculopathy Atherosclerosis Hematuria Vertigo Coronary artery disease Carotid stenosis Cerebrovascular disease Surgical History Hx of cervical spine surgery (~1999) History of total right hip arthroplasty History of lumbar fusion (01/01/24) S/P cardiac catheterization H/O colonoscopy History of intravascular stent placement Hx of plastic surgery Hx of CABG Status post shoulder surgery Family History Father Abdominal aneurysm Social History Household Members: Spouse Housing: House Are you a primary aged or disabled carer to a significant other at home: No Do you presently have visiting nurse or other home services: No Alcohol intake: former Patient Tobacco Use Status: Current everyday Tobacco user Tobacco use type: Cigarette Cigarettes Per Day: 6 Years Smoked: 60 years Packs per year/per ci.00 e-Cigarette/Vaping Use: Never Used Second Hand Smoke Exposure: No Advance Directives Date on File: 03/30/22 service: Yes Current occupational status: retired Cognitive needs: No Hearing needs: No Vision needs: No Questionnaire PHQ-9 Over the last 2 weeks, how often have you been bothered by any of the following problems? 1. Little interest or pleasure in doing things: not at all 2. Feeling down, depressed, or hopeless: not at all 3. Trouble falling or staying asleep, or sleeping too much: not at all 4. Feeling tired or having little energy: not at all 5. Poor appetite or overeating: not at all 6. Feeling bad about yourself - or that you are a failure or have let yourself or your family down: not at all 7. Trouble concentrating on things, such as reading the newspaper or watching television: not at all 8. Moving or speaking so slowly that other people could have noticed. Or the opposite - being so fidgety or restless that you have been moving around a lot more than usual: not at all 9. Thoughts that you would be better off or of hurting yourself in some way: not at all Total score: 0 Depression Screening Interpretation: Negative Depression Screening Done: Yes 21843 - PHQ-9 Billing: Yes Source: Developed by Drs. Jose Maria Vargas, Eileen Quevedo, Paulo Martínez and colleagues, with an educational kalyn from [employer]. Thrive Questionnaire Date Thrive assessed: 07/14/24 DORIAN-7 AMB Questionnaire DORIAN-7 Date DORIAN - 7 assessed: 01/26/25 Feeling nervous, anxious, or on edge: 0 = Not at all Not being able to stop or control worryin = Not at all Worrying too much about different things: 0 = Not at all Trouble relaxin = Not at all Being so restless that it is hard to sit still: 0 = Not at all Becoming easily annoyed or irritable: 0 = Not at all Feeling afraid as if something awful might happen: 0 = Not at all Total DORIAN-7 score (0-4 normal; 5-9 mild; 10-14 moderate; 15-21 severe): 0 Source: Developed by Drs. Jose Maria Vargas, Paulo Hurst and colleagues, with an educational kalyn from [employer]. DORIAN-7 Assessment Billing DORIAN-7 Assessment Tool: DORIAN-7 Assessment 03593 Physical exam (Primary Care) Tobacco/Smoking Status: Tobacco use Status Tobacco use date assessed 07/14/24 01/26/25 13:48 Patient Tobacco Use Status Current everyday Tobacco 01/26/25 13:48 Tobacco use type Cigarette 01/26/25 13:48 e-Cigarette/Vaping Use Never Used 01/26/25 13:48 Depression Screening Interpretation: Negative Thrive Assessment: Date of Thrive Assessment Date Thrive assessed 07/14/24 01/26/25 13:48 Coding Additional Codes PHQ-9 - 12595 - PHQ-9 Billing: Yes ([id number]) DORIAN-7 Assessment Billing - DORIAN-7 Assessment Tool: DORIAN-7 Assessment 80940 ([id number])
[2025-01-26 14:01] VITALS: BP 140/74; PULSE 72; RESP 16; O2SAT 98; BMI 23.2
--- NOTE | 2025-01-26 14:03 | AM.OFFVISMDC ---
Intake Vital Signs 01/26/25 14:01 01/26/25 14:05 Height 5 ft 4 in Weight 135 lb BMI 23.2 23.2 BP 140/74 H Blood Pressure Location Lt brachial Position Sitting Respiration 16 Pulse 72 Pulse Source Pulse Oximeter Pulse Oximetry (%) 98 Oxygen Delivery Method Room Air Intake Visit Reasons: SWV G0439 Allergies No Known Allergies Allergy (Verified 01/26/25 14:32) Medication List - Last Reconciled 01/26/25 by Amish Voss, [facility] metoprolol succinate ER 25 mg PO BEDTIME rosuvastatin 40 mg PO BEDTIME sertraline 100 mg PO BEDTIME 90 days tramadol 50 mg PO Q8H PRN HPI SWV G0439 HPI Details AWV: PPP in scan pile, CCC partially filled out. encouraged him to have previous labs drawn (ordered last july) HPI Comments History of Present Illness Details ongoing weakness to BLE. Has a RLE stent placed many years ago (approx 15 according to pt). Pt continues to smoke and utilizes a walker. Most lower extrem weakness was the result of a previous CVA. he was seeing neuro, physiatry, and spinal surg for these symptoms (please see notes). From a vascular standpoint, DP was diminished to RLE and absent to left. Will order US testing [facility] Medical History Back pain On beta channing at home Skin cancer Lumbar spinal stenosis Osteoarthritis of hands, bilateral Acute anxiety Dyslipidemia CVA (cerebral vascular accident) Depression Left pontine CVA Osteoarthritis of right hip Rectal bleeding Tremor Toenail deformity Anemia PVD (peripheral vascular disease) Cervical radiculopathy Atherosclerosis Hematuria Vertigo Coronary artery disease Carotid stenosis Cerebrovascular disease Surgical History Hx of cervical spine surgery (~1999) History of total right hip arthroplasty History of lumbar fusion (01/01/24) S/P cardiac catheterization H/O colonoscopy History of intravascular stent placement Hx of plastic surgery Hx of CABG Status post shoulder surgery Family History Father Abdominal aneurysm Social History Household Members: Spouse Housing: House Are you a primary health care facility administrator to a significant other at home: No Do you presently have visiting nurse or other home services: No Alcohol intake: former Patient Tobacco Use Status: Current everyday Tobacco user Tobacco use type: Cigarette Cigarettes Per Day: 6 Years Smoked: 60 years e-Cigarette/Vaping Use: Never Used Second Hand Smoke Exposure: No Advance Directives Date on File: 03/30/22 service: Yes Current occupational status: retired Cognitive needs: No Hearing needs: No Vision needs: No Questionnaire Medicare Wellness Checkup What is your age?: 80 or older What gender do you identify with?: male During the past 4 weeks, how much have you been bothered by emotional problems such as feeling anxious, depressed, irritable, sad or downhearted, and blue?: slightly During the past 4 weeks, has your physical & emotional health limited your social activities with family, friends, neighbors, or groups?: moderately During the past 4 weeks, how much bodily pain have you generally had?: moderate pain During the past 4 weeks, was someone available to help you if you needed & wanted help?: yes, as much as I wanted During the past 4 weeks, what was the hardest physical activity you could do for at least 2 minutes?: moderate Can you get to places out of walking distance without help? (For eg., can you travel alone on buses, taxis or drive your car?): No Can you go shopping for groceries or clothes without someone's help?: No Can you prepare your own meals?: Yes Can you do your housework without help?: Yes Because of any health problems, do you need the help of another person with your personal care needs such as eating, bathing, dressing or getting around the house?: No Can you handle your own money without help?: Yes During the past 4 weeks, how would you rate your health in general?: fair During the past 4 weeks how have things been going for you?: pretty well Are you having difficulties driving your car?: no Do you always fasten your seat belt when you are in a car?: yes, usually During past 4 weeks, have you been bothered by the following: never: Sexual problems?, Trouble eating well?, Teeth or denture problems? and Problems using the telephone?, sometimes: Tiredness or fatigue? and always: Falling or dizzy when standing up Have you fallen 2 or more times in the past year?: Yes Are you afraid of falling?: Yes Are you a smoker?: yes, and I might quit During the past 4 weeks, how many drinks of wine, beer, or other alcoholic beverages did you have?: no alcohol at all Do you exercise for about 20 minutes 3 or more times a week?: no, I usually do not exercise this much Have you been given information to help with the following?: yes: Hazards in your house that might hurt you? and yes: Keeping track of your medications? How often do you have trouble taking medicines the way you have been told to take them?: I always take medicine as prescribed How confident are you that you can control & manage most of your health problems?: somewhat confident What is your race?: White Mini Mental State Exam (MMSE) Orientation What is the (year) (season) (date) (day) (month)?: year, season, date, day and month Where are we (state) (county) (town or city) (hospital) (floor)?: state, county, town or city, hospital/clinic and floor Registration Name of 3 unrelated objects clearly and slowly, then ask patient to repeat all 3 of them. (1st repeat determines score. Make sure they can repeat all three): object 1, object 2 and object 3 Attention & Calculation (CHOOSE ONE) Spell WORLD backwards (DLROW): 3 letters Recall Ask patient to repeat the 3 items from question #3.: object 1, object 2 and object 3 Language Show patient a wristwatch & ask what it is. Repeat for pencil.: watch and pencil Ask the patient to repeat the phrase 'No ifs, ands, or buts' after you.: correct Ask the patient to 'take a piece of paper with their right hand' 'fold paper in half' 'place paper on floor': take paper in right hand, fold paper in half and place paper on floor Print the sentence 'CLOSE YOUR EYES' on a piece. If patient actually closes eyes then score.: followed written direction Give patient a blank piece of paper & ask to write a sentence. Score if it contains a noun & verb.: sentence contains subject and verb Ask patient to copy figure of intersecting pentagons exactly. Score if all 10 angles & 2 intersects are included.: all 10 angles present & 2 are intersected Score Score: 28 Activity of Daily Living Bathing - sponge bath, tub bath or shower: receives no assistance (gets in/out by self, if usual bathing means Dressing - getting clothes from closets & drawers, including inner/outer garments & fasteners.: gets clothes & gets completely dressed without help Toileting - going to the 'toilet room' for urine/bowel elimination & cleaning self/arranging clothes: goes to toilet room, cleans self, arranges clothes without help Transfer: moves in & out of bed and chair without help (may use support object) Continence: controls urination/bowel movements completely by self Feeding: feeds self without help Total Score: 0 Information obtained from: patient Using telephone: independent Traveling: independent Shopping: independent Preparing meals: independent Housework: independent Taking medicine: independent Managing money: independent PHQ-9 Over the last 2 weeks, how often have you been bothered by any of the following problems? 1. Little interest or pleasure in doing things: several days 2. Feeling down, depressed, or hopeless: not at all 3. Trouble falling or staying asleep, or sleeping too much: not at all 4. Feeling tired or having little energy: nearly every day 5. Poor appetite or overeating: not at all 6. Feeling bad about yourself - or that you are a failure or have let yourself or your family down: not at all 7. Trouble concentrating on things, such as reading the newspaper or watching television: not at all 8. Moving or speaking so slowly that other people could have noticed. Or the opposite - being so fidgety or restless that you have been moving around a lot more than usual: not at all 9. Thoughts that you would be better off or of hurting yourself in some way: not at all Total score: 4 Depression Screening Interpretation: Negative Depression Screening Done: Yes 35353 - PHQ-9 Billing: Yes Source: Developed by Drs. Jose Maria Vargas, Eileen Quevedo, Paulo Martínez and colleagues, with an educational kalyn from [employer]. Physical Exam Vital Signs: Last Vital Signs Pulse 72 01/26/25 14:01 Resp 16 01/26/25 14:01 BP 140/74 H 01/26/25 14:01 Pulse Ox 98 01/26/25 14:01 Oxygen Delivery Method Room Air 01/26/25 14:01 BMI result Body Mass Index 23.2 Resp Other: dim bilat Cardio Other: s1 s2 Neuro Other: up Extrem Other: using walker. diminished DP to right, absent to left. minimal sensation to feet Assessment & Plan Assessment & Plan (1) Encounter for subsequent annual wellness visit in Medicare patient: Code(s): Z00.00 - Encounter for general adult medical examination without abnormal findings (2) Absent pedal pulses: Code(s): R09.89 - Other specified symptoms and signs involving the circulatory and respiratory systems (3) Leg weakness: Code(s): R29.898 - Other symptoms and signs involving the musculoskeletal system Qualifiers: Laterality: bilateral Qualified Code(s): R29.898 - Other symptoms and signs involving the musculoskeletal system Plan . Orders: Orders US arterial duplex LE BI Today R09.89 - Other specified symptoms and signs involving the circulatory and respiratory systems, R29.898 - Other symptoms and signs involving the musculoskeletal system Medications: New aspirin (Adult Aspirin Regimen) 81 mg PO DAILY 90 tabs 0RF 90 days Quality Reporting (2019) Depression/Bipolar (159/160/161/177) PHQ-9: Total score: 4 Coding Level of Care Code Medicare Subsequent (G0439) Est Pt Level 3 (21908) Diagnoses Encounter for subsequent annual wellness visit in Medicare patient Z00.00 Absent pedal pulses R09.89 Weakness of both lower extremities R29.898 Laterality: bilateral CPT Codes Advance Care Planning - Time spent: 1-15 minutes, on File ([id number]) Additional Codes PHQ-9 - 57458 - PHQ-9 Billing: Yes ([id number]) Advance Care Planning Forms completed: Health Care Proxy (on file), MOLST (form given to pt) and Living will (pt reports this is already done) Time spent: 1-15 minutes, on File Actual minutes spent: 5
[2025-01-26 14:05] VITALS: BMI 23.2
--- OUTSIDE RECORDS SUMMARY | 2025-01-26 18:09 | XMS_ITS | Patient Health Record ---
Author Organization [facility] [place] Address [address] [place] [address] Care Team Providers Care Guide Travel Name Role Phone Alecia SINGH, Gilma Kinsey Primary Care Provider Un available Lsia Villatoro Unavailable [phone] Shanika AGUILERA-Amish ARREOLA Unavailable UnavailProsper Cifuentes Unavailable [phone] Allergies No Known Allergies Reason For Referral No Information Medications Medication SIG (Take, Route, Frequency, Duration) Notes Start Date End Date Status Atorvastatin Calcium 80 MG 1 tablet Orally Once a day 02/01/2015 Active Metoprolol Succinate Active Sertraline HCl 100 MG Orally Once a day Active Cetirizine HCl Not-T aking Lisinopril 5 MG 1 tablet Orally Once a day 02/01/2015 Not-Taking Mens One Daily 02/01/2015 Not- Taking Keflex 500 MG 1 capsule Orally clemencia ry 12 hrs; Duration: 10 day(s) 06/20/2018 Not-Taking Aspirin 81 MG 1 tablet Orally Once a day 02/01/2015 Active Social History Tobacco Use: Social History Observation Description Date Details (start date - stop date) Never Smoker NA - NA Tobacco use other than smoking: Question Answer Notes Are you an other tobacco user? Yes c igar here and there. Tobacco Control (Standard) Question Answer Notes Tobacco use: Nonsmoker Additional Findings: Tobacco non-user Current no nsmoker AUDIT-C (Standard) Question Answer Notes Did you have a drink containing alcohol in the p ast year? No Points 0 Interpretation Negative Problems Problem Type SNOMED Code ICD Code Onset Dates Problem Status W/U Status Risk Notes Problem Bilateral atherosclerosis of arteries of lower limbs (disorder) (70826076886500371 ) Unspecified atherosclerosis of [place] arteries of extremities, bilateral legs (I70.203) Active confirmed Problem Bilateral atherosclerosis of arteries of lower limbs (disorder) (02992184797470548 ) Atherosclerosis of [place] artery of both lower extremities, with unspecified presence of clinical manifestation (I70.203) Active confirmed Q7(A), Q8(2B), Q9(1B,2 C) Vital Signs Heart Rate 89 /min 01/19/2025 Blood pressure diastolic 84 L mm Hg 01/19/2025 Height 5 ft 5 in in 01/19/2025 Blood pressure systolic 134 mm Hg 01/19/2025 Weight 132 lbs 01/19/2025 BMI 21.96 kg/m2 01/19/2025 Procedures Procedure Date Ordered Date Performed Result Body Sit e 48517-QSRNZJC NAIL, 6 OR MORE 05/05/2024 N/A 55760-UVZG SKIN LESIONS, 2 TO 4 05/05/2024 N/A 29062-UULKWNJ NAIL, 6 OR MORE 09/11/2024 N/A 21975-PYMW SKIN LESIONS, 2 TO 4 09/11/2024 N/A 66968-DJESKVZ NAIL, 6 OR MORE 01/19/2025 N/A 94914-FXZG SKIN LESIONS, 2 TO 4 01/19/2025 N/A Encounters Encounter Location Date Provider Diagnosis [address] [address] 01/28/2024 Prosper He Tinea unguium B35.1 ; Pain in left foot M79.672 ; Pain in right foot M79.671 ; Pain in right toe(s) M79.674 ; Pain in left toe(s) M79.675 ; Unspecified atherosclerosis of [place] arteries of extremities, bilateral legs I70.203 and Ingrown nail L60.[address] [address] 05/05/2024 Lisa Almanzaaker Atherosclerosis of [place] artery of both lower extremities, with unspecified presence of clinical manifestation I70.203 ; Tinea unguium B35.1 ; Pain in right toe(s) M79.674 and Pain in left toe(s) M79.[address] [place] [address] 09/11/2024 Lisa Villatoro Atherosclerosis of [place] artery of both lower extremities, with unspecified presence of clinical manifestation I70.203 ; Tinea unguium B35.1 ; Pain in right toe(s) M79.674 and Pain in left toe(s) M79.675 [facility] [address] 01/19/2025 Lisa Villatoro Atherosclerosis of [place] artery of both lower extremities, with unspecified presence of clinical manifestation I70.203 ; Tinea unguium B35.1 ; Pain in right toe(s) M79.674 and Pain in left toe(s) M79.675 [facility] [address] 07/22/2024 Lisa Villatoro Assessments Encounter Date Diagnosis (ICD Code) Assessment Notes Treatment Notes Treatment Clinical Notes Section Notes 01/28/2024 Tinea unguium (ICD-10 - B35.1) 05/05/2024 Atherosclerosis of [place] artery of both lower extremities, with unspecified presence of clinical manifestation (ICD-10 - I70.203) Q7(A), Q8(2B), Q9(1B,2C) 09/11/2024 Atherosclerosis of [place] artery of both lower extremities, with unspecified presence of clinical manifestation (ICD-10 - I70.203) Q7(A), Q8(2B), Q9(1B,2C) 01/19/2025 Atherosclerosis of [place] artery of both lower extremities, with unspecified presence of clinical manifestation (ICD-10 - I70.203) Q7(A), Q8(2B), Q9(1B,2C) 01/19/2025 Tinea unguium (ICD-10 - B35.1) 09/11/2024 Tinea unguium (ICD-10 - B35.1) 05/05/2024 Tinea unguium (ICD-10 - B35.1) 01/28/2024 Pain in left foot (ICD-10 - M79.672) 05/05/2024 Pain in right toe(s) (ICD-10 - M79.674) 09/11/2024 Pain in right toe(s) (ICD-10 - M79.674) 01/19/2025 Pain in right toe(s) (ICD-10 - M79.674) 01/19/2025 Pain in left toe(s) (ICD-10 - M79.675) 01/28/2024 Pain in right foot (ICD-10 - M79.671) 09/11/2024 Pain in left toe(s) (ICD-10 - M79.675) 05/05/2024 Pain in left toe(s) (ICD-10 - M79.675) 01/28/2024 Pain in right toe(s) (ICD-10 - M79.674) 01/28/2024 Pain in left toe(s) (ICD-10 - M79.675) 01/28/2024 Unspecified atherosclerosis of [place] arteries of extremities, bilateral legs (ICD-10 - I70.203) 01/28/2024 Ingrown nail (ICD-10 - L60.0) Plan Of Treatment Pending Test Test Name Order Date 41080-KOWIGYM NAIL, 6 OR MORE 02/01/2011 94633-ZAWQVEX NAIL, 6 OR MORE 02/01/2015 75157-JXUFELV NAIL, 6 OR MORE 04/26/2015 68175-APAPVOC NAIL, 6 OR MORE 07/05/2015 40699-KEMTQWV NAIL, 6 OR MORE 09/30/2015 44337-BRVVYLR NAIL, 6 OR MORE 05/08/2016 38165-QJGOXUK NAIL, 6 OR MORE 12/23/2015 72672-GSIHYOH NAIL, 6 OR MORE 11/09/2016 71621-YSTLADW NAIL, 6 OR MORE 02/08/2017 96585-TUXBLVB NAIL, 6 OR MORE 06/25/2017 63385-LADDVWC NAIL, 6 OR MORE 01/10/2018 11641-BTFEGCU NAIL, 6 OR MORE 03/25/2018 19824-ZNFZDNC NAIL, 6 OR MORE 05/05/2024 90813-BTYPFTF NAIL, 6 OR MORE 09/11/2024 32079-ZTNEPNM NAIL, 6 OR MORE 01/19/2025 63379-Efdw Destruction, -06/27/2021 54301-Gykv Destruction, -10/04/2020 78581-Dkhl Destruction, 1-14 12/27/2020 51145-Gydr Destruction, 1-14 01/10/2018 85339-Rvwi Destruction, -14 04/17/2019 27147-Ennp Destruction, -14 06/25/2017 24667-Sdhu Destruction, 1-14 12/23/2015 46173-Btoh Destruction, 1-14 05/08/2016 69867-Olrr Destruction, 1-14 09/30/2015 56952-Loxe Destruction, -14 07/05/2015 88857-Yjzq Destruction, -14 04/26/2015 05158-Xwdq Destruction, -14 02/01/2015 92549-Xaiorvbq Plate 02/01/2011 35708- Debride <25 sq cm 07/22/2014 03343 I&D ABSCESS- SIMPLE,SINGLE 015 41315-XDHH SKIN LESIONS, 2 TO 4 02/02/20 15 65346-ZNNP SKIN LESIONS, 2 TO 4 04/26/19 16 44531-PZUV SKIN LESIONS, 2 TO 4 07/05/19 16 56981-ZARD SKIN LESIONS, 2 TO 4 05/08/19 17 33245-PGWH SKIN LESIONS, 2 TO 4 08/08/19 17 92072-LPKK SKIN LESIONS, 2 TO 4 11/10/19 17 99003-CQNU SKIN LESIONS, 2 TO 4 03/25/20 18 68577-BYIH SKIN LESIONS, 2 TO 4 04/17/19 20 94924-JWHC SKIN LESIONS, 2 TO 4 09/15/19 20 05332-JOTR SKIN LESIONS, 2 TO 4 12/25/19 20 38594-JGED SKIN LESIONS, 2 TO 4 03/25/20 20 96458-DKIT SKIN LESIONS, 2 TO 4 06/25/19 21 56615-VEZN SKIN LESIONS, 2 TO 4 10/05/19 21 73624-NSVK SKIN LESIONS, 2 TO 4 02/09/20 17 24626-ZZAM SKIN LESIONS, 2 TO 4 06/26/19 18 67373-JMJB SKIN LESIONS, 2 TO 4 01/11/20 18 38637-CYLV SKIN LESIONS, 2 TO 4 12/28/19 21 81409-PXZG SKIN LESIONS, 2 TO 4 04/04/20 21 92928-LVLT SKIN LESIONS, 2 TO 4 06/28/19 22 08693-DASR SKIN LESIONS, 2 TO 4 05/05/19 25 46764-DCGT SKIN LESIONS, 2 TO 4 06/21/19 19 44080-WRII SKIN LESIONS, 2 TO 4 12/17/19 19 76327-ABBO SKIN LESIONS, 2 TO 4 01/20/20 25 09173-PLSI SKIN LESIONS, 2 TO 4 09/12/19 Next Appt Details Provider Name:Lisa peñaloza, 05/04/2025 11:15:00 AM, [address] [facility], [address], [place], [address], Insurance Providers Payer Name Payer Address Payer Phone Subscriber Number Group Number Insured Name Patient Relationship to Insured Coverage Start Date Coverage End Date Medicare National [facility] [employer] [address] [place] [address] [id number] Brian Maloney Self - patient is the insured 1 [employer] [address] [place] [address] [id number] Brian Maloney Self - patient is the insured Medical (General) History Medical History History ICD Code joint implants/screws Arthritis Chicken pox stroke Surgical History Surgery Date(Month/Year) neck surgery right hip replacement 04/15/2013 triple bypass stent insertion right leg 07/09/16 Plastic surgery face & neck, basal cell 09/2022 Back surgery 12/2023 Neck Surgery 07/2024 [place] History Reason Date(Month/Year[place] [facility] [place] [facility] [place] 03/2022 Angioplasty 05/09/17 [facility] artery cleaned and 2 stents inserted 07/09/16 [facility] triple bypass during procedure had a stroke 10/25/14
--- OUTSIDE RECORDS SUMMARY | 2025-01-26 18:09 | XMS_ITS | Patient Health Record ---
Author Organization [facility] Address [address] [place] [address] Care Team Providers Care Professional Skateboarder Name Role Phone Roby Eagle M.D. Primary Care Provider Shannon Agustin Cason Jr Unavailable [phone] Reason For Referral No Information Medications [...] Problem Status W/U Status Risk Notes Problem Diarrhea (06013522) Diarrhea (R19.7) Active confirmed Problem Weight loss (019231802) Weight loss (R63.4) Active confirmed Plan Of Treatment No Information Insurance Providers Payer Name Payer Address Payer Phone Subscriber Number Group Number Insured Name Patient Relationship to Insured Coverage Start Date Coverage End Date MEDICARE OF [place] [address] [place] [address] [phone] [id number] ALANNA MANUEL Self - patient is the insured [employer] ATTN CLAIMS [address] [place] [address] [phone] [id number] ALANNAMAGDALENENY Self - patient is the insured Medical (General) History Medical History History ICD Code stroke x 3 2015 hypertension coronary artery disease elevated cholesterol carotid arterial disease osteoarthritis anxiety Surgical History Surgery Date(Month/Year) tripple bypass 2015 neck surgery x2 right hip replacement 2014
== END 2025-01-26 15:35 | disposition home or self-care (01) ==
LOC: HO.HMCC 13:44
PROVIDERS: PCP Nurse Practitioner Family; Visit Provider Nurse Practitioner Family
DX: Z00.00 Encounter for general adult medical examination without abnormal findings (principal); R09.89 Other specified symptoms and signs involving the circulatory and respiratory systems; R29.898 Other symptoms and signs involving the musculoskeletal system

== ENCOUNTER → 2025-01-26 13:43 | Outpatient (BNVA) | payer MEDICARE, SELFPAY | PROVIDERS: PCP Nurse Practitioner Family; Visit Provider Nurse Practitioner Family | DX: Z00.00 Encounter for general adult medical examination without abnormal findings (principal); I69.398 Other sequelae of cerebral infarction; R53.1 Weakness; F17.210 Nicotine dependence, cigarettes, uncomplicated; R09.89 Other specified symptoms and signs involving the circulatory and respiratory systems; Z99.89 Dependence on other enabling machines and devices; Z95.828 Presence of other vascular implants and grafts | CPT/HCPCS: 96127; 99212 ==

== ENCOUNTER 2025-01-27 12:24 | Emergency (ER) | payer MEDICARE, SELFPAY ==
--- OUTSIDE RECORDS SUMMARY | 2024-08-18 07:30 | XMS_ITS ---
Author Organization [facility] Address [address] [place] [address] Care Team Providers Care Steel Handler Name Role Phone Alecia SINGH, Gilma Kinsey Primary Care Provider Un available Lisa Villatoro Unavailable [phone] Shanika POLE CLASSIFIER-BC, Amish Wiggins Unavailabl e Encounters Encounter Location Date Provider Diagnosis [address] [address] 08/18/2024 Lisa Villatoro Plan Of Treatment Next Appt Details Provider Name:Lisa Cameron jh, 05/04/2025 11:15:00 AM, [address] [place] [address], [phone], Progress Notes * Brian MONDRAGON LDOB: [birth year] (79 yo M)Acc No.[id number]:08/18/2024 Progress Note Patient: Deya ANNABrian Provider: Zachariah Villatoro DPM :1945 A ge:78 Y S ex:Male Date:08/18/2024 Address:[address] [place] [address] [place], [id number] Pcp:Chauncey Draper Subjective: * Chief Complaints: * [...] 08/18/2024 Generated for Tamela carbajal/Enio/Christen on: 1 10:13 PM EDT
--- OUTSIDE RECORDS SUMMARY | 2024-12-18 08:45 | XMS_ITS ---
Author Organization [facility] Address [address] [place] [address] Care Team Providers Care Tableau Architect Name Role Phone Alecia SINGH, Gilma Kinsey Primary Care Provider Un available Lisa Villatoro Unavailable [phone] Shanika PIZZA DRIVER-BC, Amish Wiggins Unavailabl e Encounters Encounter Location Date Provider Diagnosis [address] [address] 12/18/2024 Lisa Villatoro Plan Of Treatment Next Appt Details Provider Name:Lisa Cameron jh, 05/04/2025 11:15:00 AM, [address] [place] [address], [phone], Progress Notes * Brian MONDRAGON LDOB: [birth year] (79 yo M)Acc No.[id number]:12/18/2024 Progress Note Patient: Deya ANNABrian Provider: Zachariah Villatoro DPM :1945 A ge:79 Y S ex:Male Date:12/18/2024 Address:[address] [place] [address] [place], [id number] Pcp:Chauncey Draper Subjective: * Chief Complaints: * [...] 12/18/2024 Generated for Tamela carbajal/Enio/Christen on: 1 10:13 PM EDT
[2025-01-27 12:36] VITALS: BP 130/62; PULSE 76; RESP 18; TEMP 36.4; O2SAT 98; BMI 22.5
--- NOTE | 2025-01-27 12:36 | ED_ITS ---
HPI - General Adult General Chief complaint: Skin/Abscess/Foreign Body Stated complaint: Cyst on testicles Time Seen by Provider: 01/27/25 18:33 Source: patient Mode of arrival: ambulatory Limitations: no limitations History of Present Illness ED Provider: Dr. Main HPI narrative: 79-year-old male presented hospital today for evaluation of cyst on his left scrotum. Patient stated been going on for a couple of days. Has been getting large and painful to touch. Denies any fever. Related Data Home Medications ?Medication ?Instructions ?Recorded ?Confirmed rosuvastatin 40 mg tablet 40 mg PO BEDTIME 11/02/24 Previous Rx's ?Medication ?Instructions ?Recorded metoprolol succinate 25 mg 25 mg PO BEDTIME #90 tabs 0 11/01/23 tablet,extended release 24 hr sertraline 100 mg tablet 100 mg PO BEDTIME 90 days #9 0 tabs 10/19/24 tramadol 50 mg tablet 50 mg PO Q8H PRN pain #20 ta bs 11/05/24 aspirin 81 mg tablet,delayed 81 mg PO DAILY 90 days #9 0 tabs 01/26/25 release (Adult Aspirin Regimen) ciprofloxacin HCl 500 mg tablet 500 mg PO Q12H 7 days #14 tabs 01/27/25 doxycycline hyclate 100 mg capsule 100 mg PO BID 7 day s #14 caps 01/27/25 Allergies Allergy/AdvReac Type Severity Reaction Status Date / Time No Known Allergies Allergy Verified 01/27/25 12:37 Review of Systems 2 Review of Systems: Pertinent review of systems as mentioned in HPI. All other system otherwise negative. [facility] Past Medical History Medical History Back pain On beta channing at home Skin cancer Lumbar spinal stenosis Osteoarthritis of hands, bilateral Acute anxiety Dyslipidemia CVA (cerebral vascular accident) Depression Left pontine CVA Osteoarthritis of right hip Rectal bleeding Tremor Toenail deformity Anemia PVD (peripheral vascular disease) Cervical radiculopathy Atherosclerosis Hematuria Vertigo Coronary artery disease Carotid stenosis Cerebrovascular disease Surgical History Hx of cervical spine surgery (~1999) History of total right hip arthroplasty History of lumbar fusion (01/01/24) S/P cardiac catheterization H/O colonoscopy History of intravascular stent placement Hx of plastic surgery Hx of CABG Status post shoulder surgery Family History Family History Father Abdominal aneurysm Social History Social History Household Members: Spouse Housing: House Are you a primary respiratory care technician to a significant other at home: No Do you presently have visiting nurse or other home services: No Alcohol intake: former Patient Tobacco Use Status: Current everyday Tobacco user Tobacco use type: Cigarette Cigarettes Per Day: 6 Years Smoked: 60 years Smoked in Last 30 Days: Yes e-Cigarette/Vaping Use: Never Used Second Hand Smoke Exposure: No Use of substances other than those prescribed or required for medical reasons: No Advance Directives: Yes Advance Directives on File: Yes Advance Directives Date on File: 03/30/22 service: Yes Current occupational status: retired Cognitive needs: No Hearing needs: No Vision needs: No Physical Exam ED Exam Exam: General: Pleasant, no distress, interacting appropriately Head: Normacephalic, atraumatic : Large scrotal abscess on the left scrotum. Proximally 3 cm in circumference Neurological: Awake and alert, no facial droop noted Skin: Warm and dry Psychiatric: Appropriate mood and thoughts Vital Signs: Vital Signs - 24 hr 01/27/25 12:36 01/27/25 18:45 01/27/25 19:39 Temperature 97.6 F 98.2 F 98.2 F Pulse Rate 76 85 86 Respiratory Rate 18 18 Blood Pressure 130/62 174/80 H 164/84 H Pulse Oximetry 98 97 95 Oxygen Delivery Method Room Air Room Air Room Air 01/27/25 20:17 Temperature 98.8 F Pulse Rate 89 Respiratory Rate Blood Pressure 163/87 H Pulse Oximetry 95 Oxygen Delivery Method Room Air BMI result Body Mass Index 22.5 Course Course Course Narrative: This is a Rapid Medical Examination (RME) performed by Tori Kimball PA-C in triage. Full HPI, ROS, assessment and treatment plan per primary provider in the Main ED. Hx: 79 yo M here w/ painful cyst below his testicles x2 days. no hx DM. pain w/ sitting. PE/vitals: area not visualized in triage. Plan: labs, further eval in back Medical Decision Making Medical Decision Making MDM Narrative: 79-year-old male presented hospital today for evaluation of left-sided scrotal abscess. Bedside ultrasound performed. Did confirm the abscess collection. I did perform an I and D with 1% lidocaine. Approximately 10 cc of foul-smelling purulent substance was drained. Pressure was applied to obtain hemostatic control. Band-Aid was applied over afterward. Patient's lab work did not show any signs of sepsis no sign no leukocytosis. Patient appears to be well. We will plan to give patient a dose of doxycycline here. We will discharge him with doxycycline and ciprofloxacin to take for antibiotic coverage. Encouraged the patient to follow up with his primary care doctor he agrees and understands this plan. On exam there was no crepitus. I do not think this is necrotizing fasciitis. No perineal involvement. Differential Diagnosis Differential Diagnoses: The differential diagnosis associated with the presentation includes Necrotizing fasciitis, scrotal abscess, cellulitis Lab Data [facility] Lab Attestation statement: I reviewed the patient's lab results. 01/27/25 13:01 01/27/25 13:01 Labs: Lab Results 01/27/25 Range/Units 13:01 WBC 7.2 (4.8-10.8) X10*3/uL RBC 5.64 (4.60-5.80) X10*6/uL Hgb 16.2 (14.0-18.0) g/dl Hct 51.0 (42.0-52.0) % MCV 90.4 (80.0-98.0) fL MCH 28.7 (27.0-33.0) pg MCHC 31.8 (31.0-36.0) g/dl RDW 13.4 (11.0-16.0) % Plt Count 143 L (160-400) X10*3/uL MPV 10.1 (9.4-12.4) fL Immature Gran % (Auto) 0.3 (0.0-0.4) % Neut % (Auto) 72.0 (45-73) % Lymph % (Auto) 19.6 L (20-40) % [place] % (Auto) 6.6 (2-11) % Eos % (Auto) 1.2 (0-4) % Baso % (Auto) 0.3 (0-2) % Lymph # (Auto) 1.4 (1.2-4.9) X10*3/uL [place] # (Auto) 0.5 (0.1-1.2) X10*3/uL Eos # (Auto) 0.1 (0.0-0.4) X10*3/uL Baso # (Auto) 0.0 (0.0-0.2) X10*3/uL Abs Immat Gran (auto) 0.02 (0.00-0.03) X10*3/uL Absolute Neuts (auto) 5.2 (2.0-8.3) x10*3/uL Absolute Nucleated RBC 0.000 (0.0-0.012) X10*3/uL Nucleated RBC % (auto) 0.0 (0.0-0.2) /100WBC Sodium 143 (135-145) mmol/L Potassium 4.6 (3.3-5.1) mmol/L Chloride 109 H (96-108) mmol/L Carbon Dioxide 27 (22-29) mmol/L Anion Gap 12 (12-20) BUN 18 H (9-16) mg/dL Creatinine 0.98 (0.5-1.4) mg/dL Estim Creat Clear Calc 52.0 Estimated GFR > 60 Random Glucose 153 H (60-115) mg/dL Calcium 9.2 (8.4-10.2) mg/dL Magnesium 2.2 (1.6-2.6) mg/dL Total Bilirubin 0.6 (0.0-1.0) mg/dL AST 19 (5-37) U/L ALT 13 (0-40) U/L Alkaline Phosphatase 73 (39-117) U/L Total Protein 7.0 (6.5-8.0) g/dL Albumin 4.2 (3.5-5.0) g/dL Prescription Management I considered prescription management with: Antibiotic Discharge Plan Discharge Clinical Impression: Scrotal wall abscess Patient Disposition: Home, Self-Care Prescriptions: New doxycycline hyclate 100 mg capsule 100 mg PO BID 7 Days Qty: 14 0RF ciprofloxacin HCl 500 mg tablet 500 mg PO Q12H 7 Days Qty: 14 0RF No Action metoprolol succinate 25 mg tablet extended release 24 hr 25 mg PO BEDTIME Qty: 90 3RF sertraline 100 mg tablet 100 mg PO BEDTIME 90 Days Qty: 90 0RF rosuvastatin 40 mg tablet 40 mg PO BEDTIME tramadol 50 mg tablet 50 mg PO Q8H PRN (Reason: pain) Qty: 20 0RF aspirin [Adult Aspirin Regimen] 81 mg tablet,delayed release (DR/EC) 81 mg PO DAILY 90 Days Qty: 90 0RF Print Language: Citizen [place]
[2025-01-27 13:09] LABS: MANUAL DIFF FLAG NO
[2025-01-27 13:16] LABS: Hematocrit 51.0 % (42.0-52.0); Hemoglobin 16.2 g/dl (14.0-18.0); Imm Gran Abs Auto 0.02 X10*3/uL (0.00-0.03); Imm Gran Pct Auto 0.3 % (0.0-0.4); Lymphocytes Absolute Auto 1.4 X10*3/uL (1.2-4.9); Mean Corpuscular HGB Conc 31.8 g/dl (31.0-36.0); Mean Corpuscular Hemoglobin 28.7 pg (27.0-33.0); Mean Corpuscular Volume 90.4 fL (80.0-98.0); NRBC Abs Auto 0.000 X10*3/uL (0.0-0.012); NRBC Pct Auto 0.0 /100WBC (0.0-0.2); Platelet Count 143 X10*3/uL (160-400); Red Blood Count 5.64 X10*6/uL (4.60-5.80); White Blood Count 7.2 X10*3/uL (4.8-10.8)
[2025-01-27 13:25] LABS: Alanine Aminotransferase 13 U/L (0-40); Albumin Level 4.2 g/dL (3.5-5.0); Alkaline Phosphatase 73 U/L (39-117); Anion Gap 12 (12-20); Aspartate Amino Transferase 19 U/L (5-37); Blood Urea Nitrogen 18 mg/dL (9-16); Calcium 9.2 mg/dL (8.4-10.2); Carbon Dioxide 27 mmol/L (22-29); Chloride 109 mmol/L (96-108); Creatinine Clr Calc Pharmacy 52.0; Estimated Glomerular Filt Rate > 60; Magnesium 2.2 mg/dL (1.6-2.6); Potassium 4.6 mmol/L (3.3-5.1); Sodium 143 mmol/L (135-145); Total Protein 7.0 g/dL (6.5-8.0)
[2025-01-27 18:45] VITALS: BP 174/80; PULSE 85; RESP 18; TEMP 36.8; O2SAT 97
[2025-01-27 19:39] VITALS: BP 164/84; PULSE 86; TEMP 36.8; O2SAT 95
[2025-01-27 20:17] VITALS: BP 163/87; PULSE 89; TEMP 37.1; O2SAT 95
[2025-01-27] MEDS: Lidocaine HCl 1 % 20 ML VIAL 5 ML INFILTRATI (20:25)
[2025-01-27 20:33] VITALS: BP 163/87; PULSE 89; RESP 16; TEMP 37.1; O2SAT 89
--- OUTSIDE RECORDS SUMMARY | 2025-01-27 22:14 | XMS_ITS | Patient Health Record ---
Author Organization [facility] Address [address] [place] [address] Care Team Providers Care Master Coastwise Yacht Name Role Phone Roby Eagle M.D. Primary Care Provider Shannon Agustin Cason Jr Unavailable [phone] Reason For Referral No Information Medications Medication [...] Status W/U Status Risk Notes Problem Diarrhea (77868461) Diarrhea (R19.7) Active confirmed Problem Weight loss (975579257) Weight loss (R63.4) Active confirmed Plan Of Treatment No Information Insurance Providers Payer Name Payer Address Payer Phone Subscriber Number Group Number Insured Name Patient Relationship to Insured Coverage Start Date Coverage End Date MEDICARE OF [place] [address] [place] [address] [id number] ALANNA MANUEL Self - patient is the insured [employer] ATTN CLAIMS [address] [place] [address] [id number] ALANNAMAGDALENENY Self - patient is the insured Medical (General) History Medical History History ICD Code stroke x 3 2015 hypertension coronary artery disease elevated cholesterol carotid arterial disease osteoarthritis anxiety Surgical History Surgery Date(Month/Year) tripple bypass 2015 neck surgery x2 right hip replacement 2014
--- OUTSIDE RECORDS SUMMARY | 2025-01-27 22:14 | XMS_ITS | Patient Health Record ---
Author [facility] [place] Address [address] [facility] [place] [address] Care Team Providers Care Licensed Master Social Worker Name Role Phone Alecia SINGH, Gilma Kinsey Primary Care Provider Un available Lisa Villatoro Unavailable [phone] Shanika AGUILERA-Amish ARREOLA Unavailable UnavailProsper Cifuentes Unavailable [phone] Allergies No Known Allergies Reason For Referral [...] atherosclerosis of arteries of lower limbs (disorder) (20686654788562000 ) Unspecified atherosclerosis of [place] arteries of extremities, bilateral legs (I70.203) Active confirmed Problem Bilateral atherosclerosis of arteries of lower limbs (disorder) (03882558024472095 ) Atherosclerosis of [place] artery of both lower extremities, with unspecified [...] Ordered Date Performed Result Body Sit e 35936-FNAAUSZ NAIL, 6 OR MORE 05/05/2024 N/A 50308-NCGA SKIN LESIONS, 2 TO 4 05/05/2024 N/A 13466-NZKEUFH NAIL, 6 OR MORE 09/11/2024 N/A 10390-XCXF SKIN LESIONS, 2 TO 4 09/11/2024 N/A 44485-GKOVQQP NAIL, 6 OR MORE 01/19/2025 N/A 78008-NEFW SKIN LESIONS, 2 TO 4 01/19/2025 N/A Encounters Encounter Location Date Provider Diagnosis [address] [address] 01/28/2024 Prosper He Tinea unguium B35.1 ; Pain in left foot M79.672 ; Pain in right foot M79.671 ; Pain in right toe(s) M79.674 ; Pain in left toe(s) M79.675 ; Unspecified atherosclerosis of [place] arteries of extremities, bilateral legs I70.203 and Ingrown nail L60.[address] [address] 05/05/2024 Lisa Almanzaaker Atherosclerosis of [place] artery of both lower extremities, with unspecified presence of clinical manifestation I70.203 ; Tinea unguium B35.1 ; Pain in right toe(s) M79.674 and Pain in left toe(s) M79.[address] [place] [address] 09/11/2024 Lisa Villatoro Atherosclerosis of [place] artery of both lower extremities, with unspecified presence of clinical manifestation I70.203 ; Tinea unguium B35.1 ; Pain in right toe(s) M79.674 and Pain in left toe(s) M79.[address] [facility] [address] 01/19/2025 Lisa Villatoro Atherosclerosis of [place] artery of both lower extremities, with unspecified presence of clinical manifestation I70.203 ; Tinea unguium B35.1 ; Pain in right toe(s) M79.674 and Pain in left toe(s) M79.[address] [address] 07/22/2024 Lisa Villatoro Assessments Encounter Date Diagnosis (ICD Code) Assessment Notes Treatment Notes Treatment Clinical Notes Section Notes 01/28/2024 Tinea unguium (ICD-10 - B35.1) 05/05/2024 Atherosclerosis of [place] artery of both lower extremities, with unspecified presence of clinical manifestation (ICD-10 - I70.203) Q7(A), Q8(2B), Q9(1B,2C) 09/11/2024 Atherosclerosis of [place] artery of both lower extremities, with unspecified presence of clinical manifestation (ICD-10 - I70.203) Q7(A), Q8(2B), Q9(1B,2C) 01/19/2025 Atherosclerosis of [place] artery of both lower extremities, with unspecified [...] (ICD-10 - M79.675) 01/28/2024 Unspecified atherosclerosis of [place] arteries of extremities, bilateral legs (ICD-10 - I70.203) 01/28/2024 Ingrown nail (ICD-10 - L60.0) Plan Of Treatment Pending Test Test Name Order Date 68518-IOTGDGO NAIL, 6 OR MORE 02/01/2011 18981-NWUPDEB NAIL, 6 OR MORE 02/01/2015 80622-RMWUZSH NAIL, 6 OR MORE 04/26/2015 16378-ZMQCPNW NAIL, 6 OR MORE 07/05/2015 05438-QXEOTAO NAIL, 6 OR MORE 09/30/2015 54393-ZLTKZVF NAIL, 6 OR MORE 05/08/2016 62106-EXOXYVG NAIL, 6 OR MORE 12/23/2015 29638-PPCOHWO NAIL, 6 OR MORE 11/09/2016 51911-TUJRUUU NAIL, 6 OR MORE 02/08/2017 42166-HQFVDAH NAIL, 6 OR MORE 06/25/2017 19491-XAAPJGR NAIL, 6 OR MORE 01/10/2018 47045-UZJRFCJ NAIL, 6 OR MORE 03/25/2018 09832-ZWSYXKT NAIL, 6 OR MORE 05/05/2024 63810-XKDIEDF NAIL, 6 OR MORE 09/11/2024 61455-LMYVKBM NAIL, 6 OR MORE 01/19/2025 46912-Pein Destruction, -06/27/2021 33101-Uedc Destruction, -10/04/2020 46697-Irei Destruction, 1-14 12/27/2020 15877-Qpxd Destruction, 1-14 01/10/2018 30695-Kqpa Destruction, -14 04/17/2019 25264-Gqww Destruction, -14 06/25/2017 35686-Zfhf Destruction, 1-14 12/23/2015 75431-Efyy Destruction, 1-14 05/08/2016 40232-Scbb Destruction, 1-14 09/30/2015 52422-Uekn Destruction, -14 07/05/2015 40387-Hcsf Destruction, -14 04/26/2015 87700-Ogtj Destruction, -14 02/01/2015 16413-Gcilupqg Plate 02/01/2011 13842- Debride <25 sq cm 07/22/2014 82241 I&D ABSCESS- SIMPLE,SINGLE 015 82956-OOEL SKIN LESIONS, 2 TO 4 02/02/20 15 81422-HHAV SKIN LESIONS, 2 TO 4 04/26/19 16 31450-DAUV SKIN LESIONS, 2 TO 4 07/05/19 16 46909-AMYV SKIN LESIONS, 2 TO 4 05/08/19 17 42545-MNVW SKIN LESIONS, 2 TO 4 08/08/19 17 19262-UMOL SKIN LESIONS, 2 TO 4 11/10/19 17 61137-PEUR SKIN LESIONS, 2 TO 4 03/25/20 18 23679-RQLR SKIN LESIONS, 2 TO 4 04/17/19 20 20030-OOHD SKIN LESIONS, 2 TO 4 09/15/19 20 17226-RRGH SKIN LESIONS, 2 TO 4 12/25/19 20 89044-KRXE SKIN LESIONS, 2 TO 4 03/25/20 20 23731-XARD SKIN LESIONS, 2 TO 4 06/25/19 21 33915-KEHM SKIN LESIONS, 2 TO 4 10/05/19 21 87991-QBGZ SKIN LESIONS, 2 TO 4 02/09/20 17 63544-GTFT SKIN LESIONS, 2 TO 4 06/26/19 18 63235-WBTZ SKIN LESIONS, 2 TO 4 01/11/20 18 58282-QFTZ SKIN LESIONS, 2 TO 4 12/28/19 21 14984-XFIF SKIN LESIONS, 2 TO 4 04/04/20 21 59607-BUFH SKIN LESIONS, 2 TO 4 06/28/19 22 00591-AECZ SKIN LESIONS, 2 TO 4 05/05/19 25 61613-ZKQD SKIN LESIONS, 2 TO 4 06/21/19 19 07042-FSFC SKIN LESIONS, 2 TO 4 12/17/19 19 55828-NRIF SKIN LESIONS, 2 TO 4 01/20/20 25 61005-CGBS SKIN LESIONS, 2 TO 4 09/12/19 Next Appt Details Provider Name:Lisa peñaloza, 05/04/2025 11:15:00 AM, [address] [facility], [address], [place], [address], Insurance Providers Payer Name Payer Address Payer Phone Subscriber Number Group Number Insured Name Patient Relationship to Insured Coverage Start Date Coverage End Date Medicare [facility] [employer] [address] [place] [address] [id number] Brian Maloney Self - patient is the insured 1 [employer] [address] [place] [address] [id number] Brian Maloney Self - patient is the insured Medical (General) History Medical History History ICD Code joint implants/screws Arthritis Chicken pox stroke Surgical History Surgery Date(Month/Year) neck surgery right hip replacement 04/15/2013 triple bypass stent insertion right leg 07/09/16 Plastic surgery face & neck, basal cell 09/2022 Back surgery 12/2023 Neck Surgery 07/2024 Hospitalization History Reason Date(Month/Year) [facility] [place]- [place] surgery 01/2024 [facility] [place]- covid-19, rehab 03/2022 Angioplasty 05/09/17 [facility] artery cleaned and 2 stents inserted 07/09/16 [facility] triple bypass during procedure had a stroke 10/25/14
== END 2025-01-27 20:41 | disposition home or self-care (01) ==
PROVIDERS: Physician Assistant Medical; Emergency Provider Student in an Organized Health Care Education/Training Program; PCP Nurse Practitioner Family
DX: N49.2 Inflammatory disorders of scrotum (principal)
CPT/HCPCS: 36415; 55100; 80053; 83735; 85025; 99284; J2003

== ENCOUNTER 2025-04-07 08:57 | Outpatient (REF) | payer MEDICARE, SELFPAY ==
--- OUTSIDE RECORDS SUMMARY | 2024-08-18 06:30 | XMS_ITS ---
Author Organization [facility] Address [address] [place] [address] Care Team Providers Care Compliance Technician Name Role Phone Alecia SINGH, Gilma Kinsey Primary Care Provider Un available Lisa Villatoro Unavailable [phone] Shanika EXCHANGE OPERATOR-BC, Amish Wiggins Unavailabl e Encounters Encounter Location Date Provider Diagnosis [address] [address] 08/18/2024 Lisa Villatoro Plan Of Treatment Next Appt Details Provider Name:Lisa Cameron jh, 05/04/2025 11:15:00 AM, [address] [place] [address], [phone], Progress Notes * Brian MONDRAGON LDOB: [birth year] (79 yo M)Acc No.[id number]:08/18/2024 Progress Note Patient: Deya ANNABrian Provider: Zachariah Villatoro DPM :1945 A ge:78 Y S ex:Male Date:08/18/2024 Address:[address] [place] [address] [place] work[place], [id number] Pcp:Chauncey Draper Subjective: * Chief Complaints: * * Medical History: Objective: * Vitals: Assessment: Plan: * Treatment: * Images: * The named appointment provid er may or may not be the originator of this progress note, and it is not deemed complete until electronically signed by the appointment provider. Sign off status: Pending * Provider: Zachariah Villatoro DPM Date: 0 08/18/2024 Generated for Tamela carbajal/Enio/Christen on: 1 09:05 AM EST
--- OUTSIDE RECORDS SUMMARY | 2024-12-18 07:45 | XMS_ITS ---
Author Organization [facility] Address [address] [place] [address] Care Team Providers Care Mold Repairer Name Role Phone Alecia SINGH, Gilma Kinsey Primary Care Provider Un available Lisa Villatoro Unavailable [phone] Shanika LOCATION DIRECTOR-BC, Amish Wiggins Unavailabl e Encounters Encounter Location Date Provider Diagnosis [address] [address] 12/18/2024 Lisa Villatoro Plan Of Treatment Next Appt Details Provider Name:Lisa Cameron jh, 05/04/2025 11:15:00 AM, [address] [place] [address], [phone], Progress Notes * Brian MONDRAGON LDOB: [birth year] (79 yo M)Acc No.[id number]:12/18/2024 Progress Note Patient: Deya ANNABrian Provider: Zachariah Villatoro DPM :1945 A ge:79 Y S ex:Male Date:12/18/2024 Address:[address] [place] [address] [place], [id number] Pcp:Chauncey Draper Subjective: * Chief Complaints: * * Medical History: Objective: * Vitals: Assessment: Plan: * Treatment: * Images: * The named appointment provid er may or may not be the originator of this progress note, and it is not deemed complete until electronically signed by the appointment provider. Sign off status: Pending * Provider: Zachariah Villatoro DPM Date: 0 12/18/2024 Generated for Tamela crabajal/Enio/Christen on: 1 09:05 AM EST
--- NOTE | ~2025-04-07 | US_ITS ---
EXAMINATION: US NONINVASIVE ASSESSMENT OF THE bilateral LOWER EXTREMITY WITH ARTERIAL DUPLEX CLINICAL INFORMATION: Absent pedal pulses and leg weakness COMPARISON: None available. TECHNIQUE: Duplex Doppler techniques with waveform analysis and measurement of velocities in the common femoral, profunda femoris, superficial femoral, popliteal and tibial arteries were performed. FINDINGS: RIGHT LOWER EXTREMITY DUPLEX ULTRASOUND: Diffuse atherosclerotic disease with vessel wall calcification. Stent in the proximal and mid superficial femoral artery. Significant narrowing of the distal superficial femoral artery distal to the stent/severe stenosis and velocity shift ratio. Common femoral artery: 74 cm/s. Diastolic flow reversal: Yes Profunda femoris artery: 62 cm/s. Diastolic flow reversal: Yes Superficial femoral artery (proximal): 84 cm/s. Diastolic flow reversal: Yes Superficial femoral artery (mid): 112 cm/s. Diastolic flow reversal: Yes Superficial femoral artery (distal): 333 cm/s. Diastolic flow reversal: Yes Popliteal artery: 53 cm/s Diastolic flow reversal: Yes Posterior tibial artery: 53 cm/s Diastolic flow reversal: Yes Disease but peroneal artery with peak systolic velocity measuring 29 cm/s and diastolic flow reversal. The right anterior tibial and dorsalis pedis arteries are not visualized. LEFT LOWER EXTREMITY DUPLEX ULTRASOUND: Diffuse atherosclerotic disease and vessel wall calcification. Common femoral artery: 111 cm/s. Diastolic flow reversal: Yes Profunda femoris artery: 94 cm/s. Diastolic flow reversal: Yes Superficial femoral artery (proximal): 106 cm/s. Diastolic flow reversal: Yes Superficial femoral artery (mid): 87 cm/s. Diastolic flow reversal: Yes Superficial femoral artery (distal): 63 cm/s. Diastolic flow reversal: Yes Popliteal artery: 54 cm/s Diastolic flow reversal: Yes Posterior tibial artery: Diffusely diseased. 20 cm/s proximally and 48 cm/s distally Diastolic flow reversal: No proximally and yes distally Peroneal and anterior tibial artery arteries appear diffusely diseased. Question reversed flow in the anterior tibial and dorsalis pedis arteries. US/US arterial duplex LE BI IMPRESSION: Diffuse atherosclerotic disease. Right: Patent common femoral artery. Patent stent in the proximal and mid right superficial femoral artery. Severe stenosis of the distal superficial femoral artery distal to the stent. Patent popliteal artery. Trifurcation disease. Recommend vascular surgery consultation and further evaluation with CTA or angiography is severe distal stenosis. Left: Patent common femoral, superficial femoral and popliteal arteries. Trifurcation disease. Electronically signed by: Bety Forrester MD 04/07/2025 10:39 AM EST
--- OUTSIDE RECORDS SUMMARY | 2025-04-07 09:05 | XMS_ITS | Patient Health Record ---
[facility] Organization [facility] Address [address] [place] [address] Care Team Providers Care Supplier Quality Engineering Manager Name Role Phone Alecia SINGH, Gilma Kinsey Primary Care Provider Un available VillatoroBindu orantesine Unavailable [phone] Amish Valdez Unavailabl e Allergies No Known Allergies Reason For Referral [...] atherosclerosis of arteries of lower limbs (disorder) (53177720707340124 ) Unspecified atherosclerosis of [place] arteries of extremities, bilateral legs (I70.203) Active confirmed Problem Bilateral atherosclerosis of arteries of lower limbs (disorder) (51174294818381155 ) Atherosclerosis of [place] artery of both lower extremities, with unspecified [...] Ordered Date Performed Result Body Sit e 48317-TEZMLXS NAIL, 6 OR MORE 05/05/2024 N/A 74175-WLET SKIN LESIONS, 2 TO 4 05/05/2024 N/A 16802-GYBNRKU NAIL, 6 OR MORE 09/11/2024 N/A 76345-JQZC SKIN LESIONS, 2 TO 4 09/11/2024 N/A 81532-FGMIEDO NAIL, 6 OR MORE 01/19/2025 N/A 82349-JTOF SKIN LESIONS, 2 TO 4 01/19/2025 N/A Encounters Encounter Location Date Provider Diagnosis [address] [address] 05/05/2024 Lisa Villatoro Atherosclerosis of [place] artery of both lower extremities, with unspecified presence of clinical manifestation I70.203 ; Tinea unguium B35.1 ; Pain in right toe(s) M79.674 and Pain in left toe(s) M79.[address] [address] 09/11/2024 Lisa Villatoro Atherosclerosis of [place] artery of both lower extremities, with unspecified presence of clinical manifestation I70.203 ; Tinea unguium B35.1 ; Pain in right toe(s) M79.674 and Pain in left toe(s) M79.[address] [address] 01/19/2025 Lisa Villatoro Atherosclerosis of [place] artery of both lower extremities, with unspecified presence of clinical manifestation I70.203 ; Tinea unguium B35.1 ; Pain in right toe(s) M79.674 and Pain in left toe(s) M79.675 [facility] [address] [address] 07/22/2024 Lisa Shauna Assessments Encounter Date Diagnosis (ICD Code) Assessment Notes Treatment Notes Treatment Clinical Notes Section Notes 05/05/2024 Atherosclerosis of [place] artery of both lower extremities, with unspecified presence of clinical manifestation (ICD-10 - I70.203) Q7(A), Q8(2B), Q9(1B,2C) 09/11/2024 Atherosclerosis of [place] artery of both lower extremities, with unspecified presence of clinical manifestation (ICD-10 - I70.203) Q7(A), Q8(2B), Q9(1B,2C) 01/19/2025 Atherosclerosis of [place] artery of both lower extremities, with unspecified presence of clinical manifestation (ICD-10 - I70.203) Q7(A), Q8(2B), Q9(1B,2C) 01/19/2025 Tinea unguium (ICD-10 - B35.1) 09/11/2024 Tinea unguium (ICD-10 - B35.1) 05/05/2024 Tinea unguium (ICD-10 - B35.1) 05/05/2024 Pain in right toe(s) (ICD-10 - M79.674) 09/11/2024 Pain in right toe(s) (ICD-10 - M79.674) 01/19/2025 Pain in right toe(s) (ICD-10 - M79.674) 01/19/2025 Pain in left toe(s) (ICD-10 - M79.675) 09/11/2024 Pain in left toe(s) (ICD-10 - M79.675) 05/05/2024 Pain in left toe(s) (ICD-10 - M79.675) Plan Of Treatment Pending Test Test Name Order Date 97885-KDFLGXO NAIL, 6 OR MORE 02/01/2011 31359-SOIQWQI NAIL, 6 OR MORE 02/01/2015 51846-CUJUDTK NAIL, 6 OR MORE 04/26/2015 41057-SYZZBOF NAIL, 6 OR MORE 07/05/2015 90585-SMYEBRH NAIL, 6 OR MORE 09/30/2015 48377-GENMYTU NAIL, 6 OR MORE 05/08/2016 94114-LTWGTZN NAIL, 6 OR MORE 12/23/2015 07217-WOCUKTP NAIL, 6 OR MORE 11/09/2016 44952-GEXPYXB NAIL, 6 OR MORE 02/08/2017 45489-YMJKNKX NAIL, 6 OR MORE 06/25/2017 61805-CJYKDRB NAIL, 6 OR MORE 01/10/2018 22524-YWYQLGD NAIL, 6 OR MORE 03/25/2018 15423-IQTKYZF NAIL, 6 OR MORE 05/05/2024 47989-AKQJOMB NAIL, 6 OR MORE 09/11/2024 56166-DBGJSPH NAIL, 6 OR MORE 01/19/2025 63237-Bcbe Destruction, 1-14 06/27/2021 76577-Boqy Destruction, 1-14 10/04/2020 93463-Musm Destruction, 1-14 12/27/2020 56378-Sbjr Destruction, 1-14 01/10/2018 38750-Sxrb Destruction, 1-14 04/17/2019 55572-Fuut Destruction, 1-14 06/25/2017 18782-Rjfa Destruction, 1-14 12/23/2015 50405-Xtvx Destruction, 1-14 05/08/2016 49769-Iqoi Destruction, 1-14 09/30/2015 88620-Vayt Destruction, 1-14 07/05/2015 07068-Xgyn Destruction, 1-14 04/26/2015 94120-Agcu Destruction, 1-14 02/01/2015 35909-Mxywpksa Plate 02/01/2011 29676- Debride <25 sq cm 07/22/2014 73061 I&D ABSCESS- SIMPLE,SINGLE 015 18103-YFTK SKIN LESIONS, 2 TO 4 02/02/20 15 96955-HKBO SKIN LESIONS, 2 TO 4 04/26/19 16 69672-TSFW SKIN LESIONS, 2 TO 4 07/05/19 16 71605-QLJX SKIN LESIONS, 2 TO 4 05/08/19 17 22649-MHMJ SKIN LESIONS, 2 TO 4 08/08/19 17 55656-GZRM SKIN LESIONS, 2 TO 4 11/10/19 17 80916-LMTA SKIN LESIONS, 2 TO 4 03/25/20 18 41780-KUWM SKIN LESIONS, 2 TO 4 04/17/19 20 70668-CKNJ SKIN LESIONS, 2 TO 4 09/15/19 20 90081-HHJD SKIN LESIONS, 2 TO 4 12/25/19 20 14066-ANQR SKIN LESIONS, 2 TO 4 03/25/20 20 80890-AEGI SKIN LESIONS, 2 TO 4 06/25/19 28126-ZSTL SKIN LESIONS, 2 TO 4 10/05/19 21 33673-JJPY SKIN LESIONS, 2 TO 4 02/09/20 17 96977-HBRL SKIN LESIONS, 2 TO 4 06/26/19 18 77079-XUKV SKIN LESIONS, 2 TO 4 01/11/20 18 00860-FSTL SKIN LESIONS, 2 TO 4 12/28/19 41489-CCIR SKIN LESIONS, 2 TO 4 04/04/20 21 30164-FVKZ SKIN LESIONS, 2 TO 4 06/28/19 22 81921-MSAU SKIN LESIONS, 2 TO 4 05/05/19 26491-QKAI SKIN LESIONS, 2 TO 4 06/21/19 19 94504-DSAR SKIN LESIONS, 2 TO 4 12/17/19 19 70324-PTQL SKIN LESIONS, 2 TO 4 01/20/20 78407-EHPH SKIN LESIONS, 2 TO 4 09/12/19 Next Appt Details Provider Name:Lisa Cameron jh, 05/04/2025 11:15:00 AM, [address] [address], [place], [address], Insurance Providers Payer Name Payer Address Payer Phone Subscriber Number Group Number Insured Name Patient Relationship to Insured Coverage Start Date Coverage End Date Medicare National [employer] [address] [place] [address] [id number] Brian Maloney Self - patient is the insured 1 [employer] [address] [place] [address] [id number] Brian Maloney Self - patient is the insured Medical (General) History Medical History History ICD Code joint implants/screws Arthritis Chicken pox stroke Surgical History Surgery Date(Month/Year) neck surgery right hip replacement 04/15/2013 triple bypass stent insertion right leg 07/09/16 Plastic surgery face & neck, basal cell 09/2022 Back surgery 12/2023 Neck Surgery 07/2024 Hospitalization History Reason Date(Month/Year) [facility] [place] 01/2024 [facility] [place], rehab 03/2022 Angioplasty 05/09/17 [facility] [place] cleaned and 2 stents inserted 07/09/16 [facility] triple bypass during procedure had a stroke 10/25/14
--- OUTSIDE RECORDS SUMMARY | 2025-04-07 09:06 | XMS_ITS | Patient Health Record ---
Author Organization [facility] Address [address] [place] [address] Care Team Providers Care Quarry Worker Name Role Phone Roby Eagle M.D. Primary Care Provider Agustin Soto Jr Reason For Referral No Information Medications Medication SIG (Take, Route, Frequency, Duration) Notes Start Date End Date Status Lisinopril 5 MG Tablet 10 Orally QD Active Sertraline HCl 25 MG Tablet 1 tablet Ora lly Once a day Active Atorvastatin Calcium 80 MG Tablet 1 tablet Orally Once a day Active Metoprolol Succinate ER 25 MG Tablet Extended Release 24 Hour 1 tablet Orally Once a day Active Aspir-81 81 MG Tablet Delayed Release 1 tablet Orally Once a day Active Multi Vitamin/Minerals 1 Tablet 1 Orally QD Active Vitamin D 1000 UNIT Tablet 1 tablet Oral ly Once a day Active Social History Social History Additional Details Category Social Info Options Details Miscellaneous: Marital status: Occupation: retired Problems Problem Type SNOMED Code ICD Code Onset Dates Problem Status W/U Status Risk Notes Problem Diarrhea (95150377) Diarrhea (R19.7) Active confirmed Problem Weight loss (725817580) Weight loss (R63.4) Active confirmed Plan Of Treatment No Information Insurance Providers Payer Name Payer Address Payer Phone Subscriber Number Group Number Insured Name Patient Relationship to Insured Coverage Start Date Coverage End Date MEDICARE [place] [address] [place] [address] [id number] MANUEL MONDRAGON Self - patient is the insured [employer] CLAIM[employer] [address] [place] [address] [id number] MANUEL MONDRAGON Self - patient is the insured Medical (General) History Medical History History ICD Code stroke x 3 2014 hypertension coronary artery disease elevated cholesterol carotid arterial disease osteoarthritis anxiety Surgical History Surgery Date(Month/Year) tripple bypass 2015 neck surgery x2 right hip replacement 2013
== END 2025-04-07 08:58 | disposition home or self-care (01) ==
LOC: HO.US 08:57
PROVIDERS: PCP Nurse Practitioner Family; Visit Provider Nurse Practitioner Family
DX: R09.89 Other specified symptoms and signs involving the circulatory and respiratory systems (principal); R29.898 Other symptoms and signs involving the musculoskeletal system
CPT/HCPCS: 93925

== ENCOUNTER → 2025-04-07 09:00 | Outpatient (BNV) | payer MEDICARE, SELFPAY | PROVIDERS: PCP Nurse Practitioner Family; Visit Provider Radiology Diagnostic Radiology | DX: I70.211 Atherosclerosis of native arteries of extremities with intermittent claudication, right leg (principal); I70.202 Unspecified atherosclerosis of native arteries of extremities, left leg | CPT/HCPCS: 93925 ==